=== PATIENT | female | born 1990 | race Caucasian/White ===

== ENCOUNTER 2022-10-25 20:25 | Outpatient (REF) | payer OTHER, SELFPAY ==
[2022-10-30 10:08] LABS: Age Gdln ACOG Testing Note (.); HPV Aptima Negative (Negative); IGP, Aptima HPV, rfx 16/18,45 Note (.)
== END 2022-10-25 20:26 | disposition home or self-care (01) ==
LOC: LAB 20:25
PROVIDERS: PCP Physician Assistant; Visit Provider Physician Assistant
DX: Z01.419 Encounter for gynecological examination (general) (routine) without abnormal findings (principal)
CPT/HCPCS: 87624; G0145

== ENCOUNTER 2023-10-31 20:57 | Outpatient (REF) | payer OTHER, SELFPAY | END 2023-10-31 20:58 | disposition home or self-care (01) | LOC: LAB 20:57 | PROVIDERS: PCP Physician Assistant; Visit Provider Obstetrics & Gynecology | DX: Z01.419 Encounter for gynecological examination (general) (routine) without abnormal findings (principal) | CPT/HCPCS: 87624; 88175 ==

== ENCOUNTER 2024-03-30 10:41 | Outpatient (OUT) | payer OTHER, SELFPAY ==
[2024-03-30 11:13] LABS: BOX Test Reference Lab FIRELANDS
[2024-03-30 11:13] LABS: Basophils Absolute Auto 0.1 10^3/uL (0.0-0.1); Basophils Percent Auto 0.8 % (0.2-2.0); Eosinophils Absolute Auto 0.1 10^3/uL (0.0-0.7); Eosinophils Percent Auto 0.9 % (0.9-7.0); Hematocrit 37.7 % (36.0-48.0); Hemoglobin 12.9 g/dL (12.0-16.0); Immature Granulocytes Abs Auto 0.02 10^3/uL (0.00-0.03); Immature Granulocytes Pct Auto 0.3 % (0.0-0.5); Lymphocytes Absolute Auto 1.7 10^3/uL (1.2-3.8); Lymphocytes Percent Auto 22.4 % (20.5-60.0); Mean Corpuscular HGB Conc 34.2 g/dL (29.9-35.2); Mean Corpuscular Hemoglobin 30.2 pg (26.7-34.0); Mean Corpuscular Volume 88.3 fL (81.0-99.0); Mean Platelet Volume 10.5 fL (9.5-13.5); Monocytes Absolute Auto 0.6 10^3/uL (0.3-0.8); Monocytes Percent Auto 7.7 % (1.7-12.0); Neutrophils Absolute Auto 5.3 10^3/uL (1.4-6.5); Neutrophils Percent Auto 67.9 % (43.0-75.0); Platelet Count 194 10^3/uL (150-450); Red Blood Count 4.27 10^6/uL (4.20-5.40); Red Cell Distribution Width 11.6 % (11.0-15.0); White Blood Count 7.8 10^3/uL (4.0-11.0)
[2024-03-30 11:25] LABS: Amphetamine Screen Urine NEGATIVE (NEGATIVE); Barbiturates Screen Urine NEGATIVE (NEGATIVE); Benzodiazepines Screen Urine NEGATIVE (NEGATIVE); Buprenorphine Screen Urine NEGATIVE (NEGATIVE); Cannabinoid Screen Urine NEGATIVE (NEGATIVE); Cocaine Screen Urine NEGATIVE (NEGATIVE); Methadone Screen Urine NEGATIVE (NEGATIVE); Methamphetamines Screen Urine NEGATIVE (NEGATIVE); Opiate Screen Urine NEGATIVE (NEGATIVE); Oxycodone Screen Urine NEGATIVE (NEGATIVE); Phencyclidine Screen Urine NEGATIVE (NEGATIVE); Tricyclic Antidepressant Urine NEGATIVE (NEGATIVE)
[2024-03-30 11:31] LABS: Estimated Average Glucose 97 mg/dL
[2024-03-31 06:16] LABS: HBsAg Screen Negative (Negative); HCV Ab Non Reactive (Non Reactive); HIV Ab/p24 Ag Screen Non Reactive (Non Reactive); Rubella Antibodies, IgG 2.34 index (Immune >0.99)
[2024-03-31 12:07] LABS: Rapid Plasma Reagin, Quant Non Reactive titer (NonRea<1:1)
== END 2024-03-30 10:42 | disposition home or self-care (01) ==
PROVIDERS: PCP Family Medicine; Visit Provider Obstetrics & Gynecology
DX: Z34.90 Encounter for supervision of normal pregnancy, unspecified, unspecified trimester (principal); N92.6 Irregular menstruation, unspecified
CPT/HCPCS: 36415; 80307; 83036; 85025; 86592; 86762; 86803; 86850; 86900; 86901; 87086; 87340; 87389

== ENCOUNTER 2024-04-13 12:33 | Outpatient (OUT) | payer OTHER, SELFPAY ==
--- OUTSIDE RECORDS SUMMARY | 2024-04-13 12:51 | XMS_ITS | CCD ---
Author Organization [facility] Care Team Providers Care Nut Roaster Name Role Phone LITZY SETH Unavailable Unavailable JOSEPHINE CANADA Unavailable Unavailable LITZY SETH Unavailable Unavailable JOSEPHINE CANADA Unavailable Unavailable CALEB, DR BURTON Admitting Unavailable CALEB, DR BURTON Attending Unavailable KARASIK, DR MIRANDA Admitting Unavailable KARASIK, DR MIRANDA Attending Unavailable KARBLAIRK, DR MIRANDA Consulting Unavailable JOSEPHINE CANADA M Referring Unavailable JOSEPHINE CANADA M Primary Care Unavailable JOSEPHINE CANADA Referring Unavailable CALEB JOSEPHINE Bela Primary Care Unavailable Josephine Canada MD Primary Care Provider [phone] BABS RICE Attending Unavailable BABS RICE Attending Unavailable Babs Rice DO Attending Provider Babs Rice Attending Unavailable Babs Rice Admitting Unavailable Allergies Allergy Classification Reported Allergen(s) Allergy Type Date of Onset Reaction(s) Facility (2 sources) Sulfonamides (Antibiotic) Drug allergy (disorder) 6 The Repository (4 sources) Sulfonamides (Antibiotic) Propensity to adverse reactions 3 Hives, Itching, Swelling [facility] Medications Current Medications Medication Drug Class(es) Dates Sig (Normalized) Sig (Original) ascorbic acid 250 mg oral tablet (2 sources) Vitamin C take 1 tablet by ian th once daily Ascorbic Acid (vitamin C) 250 MG tablet Take 250 mg by mouth Daily Active MV-Min-Fe Fum-FA-DHA ( 1 PO) (2 sources) MV-Min- Fe Fum-FA-DHA ( 1 PO) Take by mouth Active Problems Problem Classification Problem Date Documented Da te Episodic/Chronic Abdominal pain (3 sources) Generalized abdominal pain; Translations: [Generalized abdominal pain] Onset: 07-22-2017 Episodic Contraceptive and procreative management (1 source) Patient encounter status; Translations: [Encounter for procreative management, unspecified] 01-31-2024 Episodic Diabetes mellitus without complication (1 source) Other abnormal glucose; Translations: [Other abnormal glucose] Onset: 10-28-2023 Episodic Disorders of lipid metabolism (1 source) Hyperlipidemia, unspecified; Translations: [Hyperlipidemia, unspecified] Onset: 10-28-2023 Chronic Essential hypertension (1 source) Essential (primary) hypertension; Translations: [Essential (primary) hypertension] Onset: 10-28-2023 Chronic Lymphadenitis (1 source) Nonspecific lymphadenitis, unspecified; Translations: [Nonspecific lymphadenitis, unspecified] Onset: 10-28-2023 Episodic Malaise and fatigue (1 source) Other fatigue; Translations: [Other fatigue] Onset: 10-28-2023 Episodic Menstrual disorders (1 source) Missed period; Translations: [Irregular menstruation, unspecified] 03-30-2024 Chronic Other female genital disorders (1 source) Abnormal uterine bleeding; Translations: [Other specified abnormal uterine and vaginal bleeding] 01-31-2024 Chronic Other gastrointestinal disorders (1 source) Diarrhea, unspecified; Translations: [Diarrhea, unspecified] Onset: 07-22-2017 Episodic Other and delivery including normal (2 sources) ; Translations: [Encounter for supervision of normal , unspecified, unspecified trimester] 03-30-2024 Episodic Other screening for suspected conditions (not mental disorders or infectious disease) (4 sources) Encounter for screening for malignant neoplasm of cervix; Translations: [ENC SCREENING MALIG NEOPLASM CERV] Onset: 08-28-2021 Episodic Thyroid disorders (1 source) Hypothyroidism, unspecified; Translations: [Hypothyroidism, unspecified] Onset: 10-28-2023 Chronic Results Test Name Value Interpretation Reference Range Facility ALL CBC WITH AUTO DIFFon BASOPHILS ABSOLUTE AUTO 0.1 [facility] Basophils/100 WBC (Bld) 0.8 % 0.2 - 2.0 % [facility] Eosinophils/100 WBC (Bld) 0.9 % 0.9 - 7.0 % [facility] Erythrocyte distribution width (RBC) [Ratio] 11.6 % 11.0 - 15.0 % [facility] Hematocrit (Bld) [Volume fraction] 37.7 % 36.0 - 48.0 % [facility] Hemoglobin (Bld) [Mass/Vol] 12.9 g/dL 12.0 - 16.0 g/dL [facility] IMMATURE GRANULOCYTES ABS AUTO 0.02 [facility] Immature granulocytes/100 WBC (Bld) 0.3 % 0.0 - 0.5 % [facility] LYMPHOCYTES ABSOLUTE AUTO 1.7 [facility] Lymphocytes/100 WBC (Bld) 22.4 % 20.5 - 60.0 % [facility] MCH (RBC) [Entitic mass] 30.2 pg 26.7 - 34.0 pg [facility] MCHC (RBC) [Mass/Vol] 34.2 g/dL 29.9 - 35.2 g/dL [facility] MCV (RBC) [Entitic vol] 88.3 fL 81.0 - 99.0 fL [facility] MONOCYTES ABSOLUTE AUTO 0.6 [facility] Monocytes/100 WBC (Bld) 7.7 % 1.7 - 12.0 % [facility] NEUTROPHILS ABSOLUTE AUTO 5.3 [facility] Neutrophils/100 WBC (Bld) 67.9 % 43.0 - 75.0 % [facility] Platelet mean volume (Bld) [Entitic vol] 10.5 fL 9.5 - 13.5 fL [facility] TBH EO # 0.1 [facility] TBH PLT 194 [facility] RBC 4.27 [facility] WBC 7.8 [facility] HCG ( test) Ql (U)o n 03-30-2024 Interpretation and review of laboratory results Abnormal [facility] Preg Test, Ur Positive Negative [facility] US OB TRANSVAGINALon 025 US OB TRANSVAGINAL TITLE OF EXAM: US OB TRANSVAGINAL REASON FOR EXAM: Dating TECHNIQUE: Grayscale, color, and M-mode Doppler evaluation of the pelvis COMPARISON: None. PATIENT : 1990 PREGNANCIES: : 1, Para: 0, Aborta: 0 LMP: 01/30/2024 RUBY by LMP: 11/05/2024 GA by LMP: 8 weeks, 4 days FINDINGS: AUA: 8 weeks, 0 days (+/-5 days) RUBY by US: 11/09/2024 Uterus: There is a gestational sac and 0.4 cm yolk sac within the uterine body/fundus. Live embryo within the gestational sac without evident abnormality. Gestational sac 1.4 x 3.3 x 2.4 cm (7 weeks, 0 days). [place] rump length is 1.6 cm (8 weeks, 0 days) cm. heart rate is 162 bpm. No appreciable subchorionic hemorrhage or other abnormality. Cervical length 4.0 cm. No appreciable funneling. Right ovary: 2.6 x 1.7 x 2.6 cm (volume 5.9 mL). Present color flow. No appreciable nodule/mass. Left ovary: 3.0 x 2.0 x 1.9 cm (volume 5.7 mL). Present color flow. No appreciable nodule/mass. IMPRESSION: Single live intrauterine gestation sonographically measuring 8 weeks, 0 days. No appreciable abnormality of the evaluated and maternal structures. DICTATED ON: 03/30/2024 9:28 AM This report has been electronically signed and approved by the interpreting radiologist. Normal Not Available Comment on above: Order Comment: US OB TRANSVAGINAL No LMP recorded. Urinalysis macro (dipstick) panel (U)on 03-30-2024 Bilirubin, UA Negative Negative - 4(70) +++ mg/dL [facility] Blood, UA Negative Negative - 50 Abiel/mcL [facility] Clarity, UA Clear [facility] Color, UA Yellow [facility] Glucose, UA Negative Negative - 1999(110) ++++ mg/dL [facility] Interpretation and review of laboratory results Abnormal [facility] Ketones, UA Positive Negative - 160(16) ++++ mg/dL [facility] Comment on above: trace Leukocytes, UA Negative Negative - 500+++ Pradip/mcL [facility] Nitrite, UA Negative Negative - Positive [facility] pH, UA 7 5 - 9 [facility] Protein, UA Negative Negative - 1999(20) ++++ mg/dL [facility] Spec Grav, UA 1.02 1 - 1.03 [facility] Urobilinogen, UA 1.0 0.2 - 12 mg/dL [facility] Urine Cultureon 03-30-2024 Bacteria identified Cx Nom (U) No Growth 2 Days PERFORMED BY: [facility] [place] [address] PATHOLOGIST [employer]ACLE FUSION DEVELOPER KASIA BECK M.D. Normal [facility] Comment on above: Performed By: #### C UU #### [facility] [address] [id number] [facility] US SOFT TISS HEAD NECKon US SOFT TISS HEAD NECK US SOFT TISS HEAD NECK STUDY: US SOFT TISS HEAD NECK INDICATION: Lymphadenitis. COMPARISON: None FINDINGS: In the palpable areas of swelling the left neck, there are 2 lymph nodes measuring 2.2 x 1.0 x 0.6 cm and 1.6 x 1.3 x 0.4 cm, respectively. IMPRESSION: * Minimally prominent left neck lymph nodes, not significantly enlarged in the short axis but may be followed up on a clinical basis. If symptoms persist or worsen, consider repeat ultrasound or CT soft tissue neck. Finalized by Chris Encarnacion on 10/31/2023 7:59 AM Normal [facility] CBC AND AUTO DIFFon 10-28-19 24 ABSOLUTE BASOPHIL 0.0 X10E9/L Normal 0.0-0.2 [facility] Comment on above: Performed By: #### C SCOTTY CMP, 77530-3, THYR, HA1C #### [facility] ([id number]) [address], [address] [place] [address] ABSOLUTE NEUTROPHIL 2.9 X10E9/L Normal 1.5-6.6 [facility] Comment on above: Performed By: #### C BCA, CMP, 61605-7, THYR, HA1C #### [facility] ([id number]) [address], [address] [place] [address] Basophils/100 WBC (Bld) 0.8 % Normal [facility] Comment on above: Performed By: #### C BCA, CMP, 55939-7, THYR, HA1C #### [facility] ([id number]) [address], [address] [place] [address] Eosinophils (Bld) [#/Vol] 0.1 10*3/uL Normal 0.0-0.4 [facility] Comment on above: Performed By: #### C BCA, CMP, 81369-4, THYR, HA1C #### [facility] ([id number]) [address] [address] [place] [address] Eosinophils/100 WBC (Bld) 2.2 % Normal [facility] Comment on above: Performed By: #### C BCA, CMP, 19781-1, THYR, HA1C #### [facility] ([id number]) [address] [address] [place] [address] Erythrocyte distribution width (RBC) [Ratio] 12.5 % Normal 11.5-15.0 [facility] Comment on above: Performed By: #### C BCA, CMP, 86048-6, THYR, HA1C #### [facility] ([id number]) [address] [address] [place] [address] Hematocrit (Bld) [Volume fraction] 39.6 % Normal 35-47 [facility] Comment on above: Performed By: #### C BCA, CMP, 35741-3, THYR, HA1C #### [facility] ([id number]) [address] [address] [place] [address] Hemoglobin (Bld) [Mass/Vol] 13.5 g/dL Normal 11.7-15.5 [facility] Comment on above: Performed By: #### C BCA, CMP, 23728-3, THYR, HA1C #### [facility] ([id number]) [address] [address] [place] [address] Lymphocytes (Bld) [#/Vol] 2.1 10*3/uL Normal 1.0-3.5 [facility] Comment on above: Performed By: #### C BCA, CMP, 19084-0, THYR, HA1C #### [facility] ([id number]) [address] [address] [place] [address] Lymphocytes/100 WBC (Bld) 37.5 % Normal [facility] Comment on above: Performed By: #### C BCA, CMP, 70843-7, THYR, HA1C #### [facility] ([id number]) [address], [facility] [address] [place] [address] MCH (RBC) [Entitic mass] 31.0 pg Normal 27-34 [facility] Comment on above: Performed By: #### C BCA, CMP, 83148-2, THYR, HA1C #### [facility] ([id number]) [address] [address] [place] [address] MCHC (RBC) [Mass/Vol] 34.1 g/dL Normal 32-36 [facility] Comment on above: Performed By: #### C BCA, CMP, 24857-7, THYR, HA1C #### [facility] ([id number]) [address] [address] MCV (RBC) [Entitic vol] 91 fL Normal 80-100 [facility] Comment on above: Performed By: #### C BCA, CMP, 56057-8, THYR, HA1C #### [facility] ([id number]) [address] [address] Monocytes (Bld) [#/Vol] 0.5 10*3/uL Normal 0-0.9 [facility] Comment on above: Performed By: #### C BCA, CMP, 24524-3, THYR, HA1C #### [facility] ([id number]) [address] [address] Monocytes/100 WBC (Bld) 8.3 % Normal [facility] Comment on above: Performed By: #### C BCA, CMP, 29302-9, THYR, HA1C #### [facility] ([id number]) [address] [place] [address] Neutrophils/100 WBC (Bld) 51.2 % Normal [facility] Comment on above: Performed By: #### C BCA, CMP, 00730-7, THYR, HA1C #### [facility] ([id number]) [address], [facility] [address] [place] [address] Platelet mean volume (Bld) [Entitic vol] 8.3 fL Normal 7-12 [facility] Comment on above: Performed By: #### C BCA, CMP, 33175-6, THYR, HA1C #### [facility] ([id number]) [address], [facility] [address] [place] [address] Platelets (Bld) [#/Vol] 195 10*3/uL Normal 150-450 [facility] Comment on above: Performed By: #### C BCA, CMP, 07560-2, THYR, HA1C #### [facility] ([id number]) [address] [address] [place] [address] RBC COUNT 4.36 X10E12/L Normal 3.80-5.20 [facility] Comment on above: Performed By: #### C BCA, CMP, 94052-7, THYR, HA1C #### [facility] ([id number]) [address] [address] [place] [address] WBC (Bld) [#/Vol] 5.7 10*3/uL Normal 4.0-11.0 [facility] Comment on above: Performed By: #### C BCA, CMP, 20715-5, THYR, HA1C #### [facility] ([id number]) [address], [address] [place] [address] COMPREHENSIVE METABOLIC PANE Lonny 10-28-2023 Albumin [Mass/Vol] 4.3 g/dL Normal 3.2-5.3 [facility] Comment on above: Performed By: #### C BCA, CMP, 47533-4, THYR, HA1C #### [facility] ([id number]) [address], [address] [place] [address] ALP [Catalytic activity/Vol] 53 U/L Normal 39-130 [facility] Comment on above: Performed By: #### C BCA, CMP, 32825-3, THYR, HA1C #### [facility] ([id number]) [address], [address] [place] [address] ALT [Catalytic activity/Vol] 12 U/L Normal 0-31 [facility] Comment on above: Performed By: #### C BCA, CMP, 93364-0, THYR, HA1C #### [facility] ([id number]) [address], [address] [place] [address] Anion gap [Moles/Vol] 9 mmol/L Normal 5-15 [facility] Comment on above: Performed By: #### C BCA, CMP, 01040-5, THYR, HA1C #### [facility] ([id number]) [address], [address] [place] [address] AST [Catalytic activity/Vol] 21 U/L Normal 0-41 [facility] Comment on above: Performed By: #### C BCA, CMP, 74065-9, THYR, HA1C #### [facility] ([id number]) [address], [address] [place] [address] Bilirubin [Mass/Vol] 0.6 mg/dL Normal 0.3-1.2 [facility] Comment on above: Performed By: #### C BCA, CMP, 55958-0, THYR, HA1C #### [facility] ([id number]) [address], [address] [place] [address] Calcium [Mass/Vol] 9.6 mg/dL Normal 8.5-10.5 [facility] Comment on above: Performed By: #### C BCA, CMP, 76724-3, THYR, HA1C #### [facility] ([id number]) [address], [address] [place] [address] Chloride [Moles/Vol] 103 mmol/L Normal 98-109 [facility] Comment on above: Performed By: #### C BCA, CMP, 71834-2, THYR, HA1C #### [facility] ([id number]) [address], [address] [place] [address] CO2 [Moles/Vol] 27 mmol/L Normal 22-32 [facility] Comment on above: Performed By: #### C BCA, CMP, 18986-6, THYR, HA1C #### [facility] ([id number]) [address], [address] [place] [address] Creatinine [Mass/Vol] 0.84 mg/dL Normal 0.40-1.00 [facility] Comment on above: Result Comment: METH OD TRACEABLE TO IDMS STANDARD Performed By: #### C BCA, CMP, 88804-4, THYR, HA1C #### [facility] ([id number]) [address], [address] [place] [address] eGFR (CKD-EPI) NON-RACE DEPENDENT >90 Normal >59 [facility] Comment on above: Result Comment: Reported eGFR is based on the CKD-EPI 2020 equation that does not use a race coefficient. Performed By: #### C BCA, CMP, 24194-0, THYR, HA1C #### [facility] ([id number]) [address], [address] [place] [address] Glucose [Mass/Vol] 81 mg/dL Normal 65-99 [facility] Comment on above: Performed By: #### C BCA, CMP, 95751-7, THYR, HA1C #### [facility] ([id number]) [address], [address] [place] [address] Potassium [Moles/Vol] 3.8 mmol/L Normal 3.5-5.0 [facility] Comment on above: Performed By: #### C BCA, CMP, 82587-3, THYR, HA1C #### [facility] ([id number]) [address], [address] [place] [address] Protein [Mass/Vol] 7.5 g/dL Normal 6.0-8.0 [facility] Comment on above: Performed By: #### C BCA, CMP, 76378-6, THYR, HA1C #### [facility] ([id number]) [address], [address] [place] [address] Sodium [Moles/Vol] 139 mmol/L Normal 134-146 [facility] Comment on above: Performed By: #### C BCA, CMP, 16969-0, THYR, HA1C #### [facility] ([id number]) [address], [address] [place] [address] Urea nitrogen [Mass/Vol] 12 mg/dL Normal 5-23 [facility] Comment on above: Performed By: #### C BCA, CMP, 18061-1, THYR, HA1C #### [facility] ([id number]) [address], [address] [place] [address] HGB A1C (GLYCO-HGB)on 2023 Glucose [Mass/Vol] 103 mg/dL Normal [facility] Comment on above: Performed By: #### C BCA, CMP, 58200-0, THYR, HA1C #### [facility] ([id number]) [address] [place] [address] HbA1c (Bld) [Mass fraction] 5.2 % Normal 4.4-5.6 [facility] Comment on above: Result Comment: NOTE ADA Guidelines Result HgbA1c Normal : less than 5.7 % Prediabetes : 5.7 % to 6.4 % Diabetes : > 6.4 % Use with caution in patients with abnormal hemoglobin variants as the half-life of red blood cells and in vivo glycation rates are affected. Performed By: #### C SCOTTY, CMP, 53893-1, THYR, HABassam #### [facility] ([id number]) [address], [address] [place] [address] Lipid 1996 panelon 4 Cholesterol [Mass/Vol] 208 mg/dL High 150-200 [facility] Comment on above: Performed By: #### C SCOTTY, CMP, 86655-7, THYGil HABassam #### [facility] ([id number]) [address], [address] [place] [address] Cholesterol in HDL [Mass/Vol] 75 mg/dL Normal >39 [facility] Comment on above: Result Comment: HDL <40 mg/dL - High Risk HDL > or = 40mg/dL- Desirable HDL >60 mg/dL - Negative Risk Performed By: #### C SCOTTY, CMP, 98347-1, THYR, HA1C #### [facility] ([id number]) [address] [place] [address] Cholesterol in LDL [Mass/Vol] 120 mg/dL Normal <130 [facility] Comment on above: Result Comment: LDL <100 mg/dL - Desirable LDL >160 mg/dL - High Risk Performed By: #### C BCA, CMP, 92306-1, THYR, HA1C #### [facility] ([id number]) [address] [place] [address] Cholesterol in VLDL [Mass/Vol] 13 mg/dL Normal 0-30 [facility] Comment on above: Performed By: #### C BCA, CMP, 37297-4, THYR, HA1C #### [facility] ([id number]) [address], [address] [place] [address] CHOLESTEROL:HDL 2.8 Normal 1.0-5.0 [facility] Comment on above: Performed By: #### C BCA, CMP, 86061-4, THYR, HA1C #### [facility] ([id number]) [address], [address] [place] [address] Triglyceride [Mass/Vol] 66 mg/dL Normal 27-150 [facility] Comment on above: Performed By: #### C BCA, CMP, 42512-8, THYR, HA1C #### [facility] ([id number]) [address] [place] [address] THYROID PROFILEon 10-28-2023 Free T4 [Mass/Vol] 0.88 ng/dL Normal 0.61-1.60 [facility] Comment on above: Performed By: #### C BCA, CMP, 62551-3, THYR, HA1C #### [facility] ([id number]) [address] [place] [address] TSH 2.30 uIU/mL Normal 0.49-4.67 [facility] Comment on above: Performed By: #### C BCA, CMP, 42321-4, THYR, HA1C #### [facility] ([id number]) [address] [place] [address] PAP ACOG PANEL 2: 21 to 30on 09-02-2021 . . [facility] Comment on above: Performed By: #### 4 [id number] #### Laboratory [address] [address] [address] Kulwant Duffy Age Gdln ACOG Testing 22- Normal [facility] Comment on above: Performed By: #### 4 [id number] #### Laboratory [address] [place] [address] Dr. Kulwant Duffy DIAGNOSIS: Comment Normal [facility] Comment on above: Result Comment: NEGA TIVE FOR INTRAEPITHELIAL LESION OR MALIGNANCY. Performed By: #### 4 [id number] #### Laboratory [address] [place] [address] Dr. Kulwant Duffy Methodology: Comment Normal [facility] Comment on above: Result Comment: This liquid based ThinPrep(R) pap test was screened with the use of an image guided system. Performed By: #### 4 [id number] #### Laboratory [address] [place] [address] Dr. Kulwant Duffy Note: Comment [facility] Comment on above: Result Comment: The Pap smear is a screening test designed to aid in the detection of premalignant and malignant conditions of the uterine cervix. It is not a diagnostic procedure and should not be used as the sole means of detecting cervical cancer. Both false-positive and false-negative reports do occur. . Performed By: #### 4 [id number] #### Laboratory [address] [place] [address] Dr. Kulwant Duffy Performed by: Comment Normal [facility] Comment on above: Result Comment: Wilber Newton Rn Case Mgr (ASCP) Performed By: #### 4 [id number] #### Laboratory [address] [place] [address] Dr. Kulwant Duffy Reflex Criteria: Comment Normal [facility] Comment on above: Result Comment: The HPV DNA reflex criteria were not met with this specimen result therefore, no HPV testing was performed. . Performed By: #### 4 [id number] #### Laboratory [address] [place] [address] Dr. Kulwant Duffy Specimen adequacy: Comment Normal [facility] Comment on above: Result Comment: Sati sfactory for evaluation. Endocervical and/or squamous metaplastic cells (endocervical component) are present. Performed By: #### 4 [id number] #### Laboratory [address] [address] [address] Kulwant Duffy US APPENDIXon 07-22-2017 US APPENDIX EXAMINATION:RIGHT LO WER QUADRANT ULTRASOUND07/22/2017 7:43 amCOMPARISON:None.HISTORY:O RDERING SYSTEM PROVIDED HISTORY: Abdominal pain, generalizedTECHNOLOGIST PROVIDED HISTORY:Ordering Physician Provided Reason for Exam: Right quad pain and diarrhea fora weekAcuity: AcuteType of Exam: InitialAdditional signs and symptoms: NoneRelevant Medical/Surgical History: NoneFINDINGS:Targeted ultrasonography over the right lower quadrant demonstrates anappendix which is normal in size without evidence of wall edema or luminalthickening. There is no ultrasonographic evidence of appendicitis.IMPRESSION: No ultrasonographic evidence appendicitis.RECOMMENDATION :Correlation with clinical and laboratory findings is suggested.Interpreted by:ELIAN Narayanigned by:Patricia Garcia MD07/22/17CC Recipients:Josephine Canada MD - FaxFinal result Normal [facility] US GALLBLADDER RUQon 018 US GALLBLADDER RUQ EXAMINATION:GALLBLAD QAMAR ULTRASOUND07/22/2017 7:43 amCOMPARISON:None.HISTORY:O RDERING SYSTEM PROVIDED HISTORY: Abdominal pain, generalizedTECHNOLOGIST PROVIDED HISTORY:Ordering Physician Provided Reason for Exam: Right quad pain and diarrhea fora weekAcuity: AcuteType of Exam: InitialAdditional signs and symptoms: NoneRelevant Medical/Surgical History: NoneFINDINGS:Visualized portions of the liver without acute abnormality. No focal hepaticmass lesion identified. Parenchymal echogenicity is grossly within normallimits.The gallbladder is unremarkable without evidence for pericholecystic fluid,wall thickening, or calculi. Assistant Professor Of Theater documents a negative sonographicMurphy's sign. Gallbladder wall is normal in thickness, measuring 2.4 mm.The common bile duct is normal and measures 3 mm.IMPRESSION: Unremarkable ultrasound of the gallbladder. No evidence for cholelithiasisor acute cholecystitis.Interpreted by:ELIAN Brittonigned by:Nghia Denny MD07/22/17CC Recipients:Josephine Canada MD - FaxFinal result Normal [facility] Vital Signs Date Time Vital Sign Value Performing Clinician Te[place] steward 01-31-2024 08:53-0500 Body mass index (BMI) [Ratio] 25.99 kg/m2 Babs Dwayne DO Work Phone: [facility] 01-31-2024 08:53-0500 Body weight 73.03 kg Babs Dwayne DO Work Phone: [facility] 01-31-2024 08:53-0500 Diastolic blood pressure 72 mm[Hg] Babs Dwayne DO Work Phone: [facility] 01-31-2024 08:53-0500 Systolic blood pressure 118 mm[Hg] Babs Dwayne DO Work Phone: [facility] Encounters Encounter Date Encounter Type Care Provider Facility Start: 03-30-2024 End: 03-30-2024 Clinisync Result Encounter Babs Dwayne DO Work Phone: [facility] External Department Unsolicited Start: 03-30-2024 End: 03-30-2024 Clinisync Result Encounter Babs Dwayne DO Work Phone: [facility] External Department Unsolicited Start: 03-30-2024 End: 03-30-2024 ambulatory Babs Dwayne [facility] Work Phone: Start: 03-30-2024 End: 03-30-2024 Departed Referred Babs Dwayne DO Work Phone: [facility] Start: 03-30-2024 End: 03-30-2024 Office outpatient visit 5 minutes [facility] Dwayne Nurse [facility] Comment on above: GA: 8w4d Start: 03-30-2024 End: 03-30-2024 ambulatory BABS DWAYNE Not Available Start: 01-31-2024 End: 01-31-2024 Bamboo flowsheet Babs Dwayne DO Work Phone: [facility] Start: 01-31-2024 End: 01-31-2024 Bamboo flowsheet Babs Dwayne DO Work Phone: [facility] Start: 01-31-2024 End: 01-31-2024 Office outpatient visit 15 minutes Babs Dwayne DO Work Phone: [facility] Comment on above: Encounter for infert ility; Dysfunctional uterine bleeding Start: 01-31-2024 End: 01-31-2024 ambulatory BABS DWAYNE Not Available Start: 10-31-2023 End: 10-31-2023 ambulatory BABS DWAYNE Not Available Start: 10-28-2023 End: 10-28-2023 ambulatory JOSEPHINE Cramer [facility] Start: 10-28-2023 Encounter for genera l adult medical examination without abnormal findings JOSEPHINE [facility] Start: 08-28-2021 End: 08-28-[address] RUTH PINEDA Facility:[facility] Start: 08-14-[address] JOSEPHINE CANADA Facility :[facility] Start: 07-22-2017 End: 07-25-2017 Ambulatory LITZY SETH [facility] Procedures Date Procedure Procedure Detail Performing Clinician Start: 03-30-2024 ALL CBC WITH AUTO DIFF Babs Dwayne DO Work Phone: Start: 03-30-2024 Urnls dip stick/tabl et rgnt non-auto w/o micrscp Babs Dwayne DO Work Phone: Start: 07-22-2017 Us abdominal real ti me w/image limited LITZY SETH Plan of Treatment Date Care Activity Detail Author Start: 11-01-2024 End: 11-01-2024 Patient encounter procedure 11/01/2024 8:30 AM EDT Office Visit [facility] [address] [place] [address] Babs Rice DO [address] [place] [address] [facility] Start: 04-30-2024 End: 04-30-2024 Patient encounter procedure 04/30/2024 1:40 PM EST Routine [facility] [address] [place] [address] Babs Rice, DO [address] [place] [place] [address] [facility] Start: 03-30-2024 End: 03-30-2025 ABO/Rh ABO/Rh Lab Routine Missed menses , unspecified gestational age Expected: 03/30/2024 (Approximate), Expires: 03/30/2025 [facility] Comment on above: Expected: 03/30/2024 (Approximate), Expires: 03/30/2025 Start: 03-30-2024 Bacteria identified in Urine by Culture [facility] Comment on above: Ordered: 03/30/2024 Start: 03-30-2024 End: 03-30-2025 Blood type and Indirect antibody screen panel - Blood Type and screen Lab Routine Missed menses , unspecified gestational age Expected: 03/30/2024 (Approximate), Expires: 03/30/2025 [facility] Work Phone: Comment on above: Expected: 03/30/2024 (Approximate), Expires: 03/30/2025 Start: 03-30-2024 End: 03-30-2025 Drugs of abuse panel - Urine by Screen method Rapid drug screen, urine Lab Routine , unspecified gestational age Encounter for supervision of normal first in first trimester Expected: 03/30/2024 (Approximate), Expires: 03/30/2025 [facility] Comment on above: Expected: 03/30/2024 (Approximate), Expires: 03/30/2025 Start: 03-30-2024 Urine culture [facility] Start: 01-31-2024 End: 01-30-2025 US for US PELVIS-TRANSVAG IF INDICATED Imaging Routine Dysfunctional uterine bleeding Expected: 01/31/2024 (Approximate), Expires: 01/30/2025 [facility] Work Phone: Comment on above: Expected: 01/31/2024 (Approximate), Expires: 01/30/2025 Start: 01-31-2024 End: 01-31-2024 Patient encounter procedure 01/31/2024 8:40 AM EST Office Visit [facility] [address] [address] Babs Rice, DO [address] [place] [address] [place] [address] Arrived [facility] Comment on above: Arrived CBC W Auto Different ial panel - Blood CBC and differential Lab Routine Missed menses , unspecified gestational age Ordered: 03/30/2024 [facility] Comment on above: Ordered: 03/30/2024 Hemoglobin A1c/Hemoglobin.total in Blood Hemoglobin A1c Lab Routine Missed menses , unspecified gestational age Ordered: 03/30/2024 [facility] Comment on above: Ordered: 03/30/2024 Hepatitis B virus surface Ag [Presence] in Serum or Plasma by Immunoassay Hepatitis B surface antigen Lab Routine Missed menses , unspecified gestational age Ordered: 03/30/2024 [facility] Comment on above: Ordered: 03/30/2024 Hepatitis C virus Ab [Presence] in Serum or Plasma by Immunoassay Hepatitis C antibody Lab Routine Missed menses , unspecified gestational age Ordered: 03/30/2024 [facility] Comment on above: Ordered: 03/30/2024 HIV-1/HIV-2 antigen/antibody combination immunoassay HIV-1 and HIV-2 antibodies Lab Routine Missed menses , unspecified gestational age Ordered: 03/30/2024 [facility] Comment on above: Ordered: 03/30/2024 Reagin Ab [Presence] in Serum by RPR RPR Lab Routine Missed menses , unspecified gestational age Ordered: 03/30/2024 [facility] Comment on above: Ordered: 03/30/2024 Rubella antibody, IgG Rubella an tibody, IgG Lab Routine Missed menses , unspecified gestational age Ordered: 03/30/2024 [facility] Comment on above: Ordered: 03/30/2024 Payers Date Payer Category Payer Private Health Insurance [id number] 2017 Unknown [id number] 1991 Unknown [id number] 1991 Unknown [id number] 1991 Unknown [id number] 1991 Unknown [id number] 1991 Unknown [id number] 1259 1991 Unknown [id number] 1259 1991 Unknown [id number] 1259 1991 Unknown [id number] 1259 1959 Self-pay 1959 Unknown [id number] Unknown [id number] Social History Date Type Detail Facility Start: 10-31-2023 Tobacco smoking stat [facility] Never smoked tobacco [facility] Start: 10-31-2023 Tobacco use and exposure Smokeless tobacco non-user [facility] Start: 10-31-2023 End: 03-30-2024 Alcoholic beverage intake Lifetime non-drinker (finding) [facility] Start: 10-31-2023 End: 01-31-2024 History of Social function [facility] Start: 10-31-2023 End: 01-31-2024 Tobacco use panel [facility] Start: 1990 Sex assigned at Female [facility] Start: 09-07-2022 Gender identity Identifies as female gender (finding) [facility] Start: 02-13-2024 [facility] Tobacco smoking stat us [facility] Unknown if ever smoked [facility] Work Phone: Start: 03-31-2024 Sex Female (finding) [facility] History of Present illness Narrative 03-30-2024 Sheri Reyna, GENERAL TELLER - 03/30/2024 10:00 AM EST Note Date & Type Note Facility 03-30-2024 History of Presen t illness Narrative Reason for Appointment: Patient ID: Joseline Gomez is a 33 y.o. female who presents for Amenorrhea Patient presents today for a Nurse OB Intake appointment. Patient is 8w4d with a Estimated Date of Delivery: 11/05/24 OB History Para Term AB Living 1 0 0 0 0 0 SAB IAB Ectopic Multiple Live Births 0 0 0 0 0 # Outcome Date GA Lbr Saul/2nd Weight Sex Type Anes PTL Lv 1 Current Current Medications: has a current medication list which includes the following prescription(s): vitamin c and mv-min-fe fum-fa-dha. Medical History: Active Ambulatory Problems Diagnosis Date Noted No Active Ambulatory Problems Resolved Ambulatory Problems Diagnosis Date Noted No Resolved Ambulatory Problems Past Medical History: Diagnosis Date Arthritis Asthma (CMS/HCC) MARIANO II (cervical intraepithelial neoplasia II) HPV (human papilloma virus) infection 04/2015 HSIL (high grade squamous intraepithelial lesion) on Pap smear of cervix Hx of being hospitalized Urinary tract infection Family History Problem Relation Name Age of Onset Asthma Mother Twila bernal Thyroid disease Mother Twila bernal Social History Tobacco Use Smoking status: Never Smokeless tobacco: Never Substance Use Topics Alcohol use: Never Drug use: Never Past Surgical History: Procedure Laterality Date CERVICAL BIOPSY W/ LOOP ELECTRODE EXCISION COLPOSCOPY 2016 KNEE SURGERY Knee arthroscopy WISDOM TOOTH EXTRACTION Allergies Allergen Reactions Sulfa Antibiotics Hives, Itching and Swelling Other Reaction(s): Unknown Vitals: Estimated body mass index is 25.99 kg/m as calculated from the following: Height as of 10/31/23: 5' 6 . Weight as of 01/31/24: 161 lb. BP: Patient's last menstrual period was 01/30/2024 (exact date). Assessment/Plan Diagnoses and all orders for this visit: Missed menses - Type and screen; Future - ABO/Rh; Future - CBC and differential - Hemoglobin A1c - RPR - Rubella antibody, IgG - Hepatitis B surface antigen - Hepatitis C antibody - HIV-1 and HIV-2 antibodies - Urine culture - POCT , urine manually resulted - POCT urinalysis dipstick manually resulted , unspecified gestational age - Type and screen; Future - ABO/Rh; Future - CBC and differential - Hemoglobin A1c - RPR - Rubella antibody, IgG - Hepatitis B surface antigen - Hepatitis C antibody - HIV-1 and HIV-2 antibodies - Rapid drug screen, urine; Future Encounter for supervision of normal first in first trimester - Rapid drug screen, urine; Future Nurse Note: OB Intake: Patient presents today for first OB visit. Patients history has been reviewed in great detail including any potential risks. Patient signed consent forms and patient desires testing in both trimesters. Patient currently has no complaints and has been advised to drink 6-8 glasses of water a day, eat no raw or undercooked meat, and stay away from [facility]. Patient has also been advised to not change litter boxes and eat 6 small meals a day. Patient has been consulted regarding the do's and don'ts of . Patient was given labs and all questions and concerns were answered. Follow Up: Patient is to return in 4 weeks for routine OB appointment. Follow Up: Patient is to have labs drawn at directed and return to office for initial OB appointment with provider. Patient may call office as needed with any concerns or questions. Nurse Visit Completed by: Sheri Reyna LPN documented in this encounter [facility] History of Present illness Narrative 01-31-2024 Demetria Perez LPN - 01/31/2024 8:40 AM EST Note Date & Type Note Facility 01-31-2024 History of Presen t illness Narrative Reason for Appointment: Patient ID: Joseline Gomez is a 33 y.o. female who presents for Infertility (Pt present today to discuss fertility) Patient presents today for Acute Visit. and Fertility Follow Up appointment. MEDICATIONS No current outpatient medications ALLERGIES Allergies Allergen Reactions Sulfa Antibiotics Hives, Itching and Swelling Other Reaction(s): Unknown PROBLEMS Active Ambulatory Problems Diagnosis Date Noted No Active Ambulatory Problems Resolved Ambulatory Problems Diagnosis Date Noted No Resolved Ambulatory Problems Past Medical History: Diagnosis Date Arthritis Asthma (CMS/HCC) MARIANO II (cervical intraepithelial neoplasia II) HPV (human papilloma virus) infection 04/2015 HSIL (high grade squamous intraepithelial lesion) on Pap smear of cervix Hx of being hospitalized Urinary tract infection HISTORY PAST MEDICAL HISTORY SOCIAL HISTORY Past Medical History: Diagnosis Date Arthritis Asthma (CMS/HCC) MARIANO II (cervical intraepithelial neoplasia II) HPV (human papilloma virus) infection 04/2015 HSIL (high grade squamous intraepithelial lesion) on Pap smear of cervix Hx of being hospitalized childbirth Urinary tract infection Social History Tobacco Use Smoking status: Never Smokeless tobacco: Never Substance Use Topics Alcohol use: Never Drug use: Never FAMILY HISTORY Family History Problem Relation Name Age of Onset Asthma Mother Twila bernal Thyroid disease Mother Twila bernal SURGICAL HISTORY Past Surgical History: Procedure Laterality Date CERVICAL BIOPSY W/ LOOP ELECTRODE EXCISION COLPOSCOPY 2015 KNEE SURGERY Knee arthroscopy WISDOM TOOTH EXTRACTION REVIEW OF SYSTEMS Review of Systems: Review of Systems Constitutional: Negative. HENT: Negative. Eyes: Negative. Respiratory: Negative. Cardiovascular: Negative. Gastrointestinal: Negative. Genitourinary: Negative. Musculoskeletal: Negative. Skin: Negative. Neurological: Negative. All other systems reviewed and are negative. Hematological: Negative. Endocrine: Negative. Allergic/Immunologic: Negative. OBJECTIVE Objective: Physical Exam Constitutional: Appearance: Normal appearance. She is well-developed. Cardiovascular: Rate and Rhythm: Normal rate and regular rhythm. Pulmonary: Effort: Pulmonary effort is normal. Breath sounds: Normal breath sounds. Abdominal: General: Bowel sounds are normal. There is no distension. Palpations: Abdomen is soft. Tenderness: There is no abdominal tenderness. There is no guarding or rebound. Musculoskeletal: General: No swelling. Normal range of motion. Right lower leg: No edema. Left lower leg: No edema. Neurological: Mental Status: She is alert and oriented to person, place, and time. Skin: General: Skin is warm and dry. Psychiatric: Mood and Affect: Mood normal. Behavior: Behavior normal. Vitals and nursing note reviewed. Exam conducted with a special assets officer present. Vitals: Estimated body mass index is 25.99 kg/m as calculated from the following: Height as of 8/5/24: 5' 6 . Weight as of this encounter: 161 lb. BP: 118/72 Patient's last menstrual period was 01/30/2024 (exact date). ASSESSMENT & PLAN ICD-10-CM 1. Encounter for infertility Z31.9 Patient presents today to discuss fertility. Pt given ultrasound order to have obtained. Reviewed labs with pt in detail had drawn in October. Patient was instructed to call the office once menstrual cycle begins so femara can be called into patients pharmacy. Patient has been instructed to take Femara on days 3-7 of cycle. On day 21 of cycle patient is to have progesterone labs drawn. Patient was advised to have intercourse on days 12, 14, 16, 18, and 20 of cycle. We will do three rounds of Femara and if patient has not conceived by then, we will perform HSG. And consider semen analysis. Patient has voiced understanding and will call our office for any further questions/concerns. Considering Metformin in future. No orders of the defined types were placed in this encounter. Follow Up: 4 months unless needed sooner. Documented by Demetria Perez LPN on behalf of: Babs Rice DO documented in this encounter [facility] Evaluation note Note Date & Type Note Facility Evaluation note Diagnosis Encounter for infertility Dysfunctional uterine bleeding Other disorder of menstruation and other abnormal bleeding from female genital tract documented in this encounter [facility] Evaluation note Note Date & Type Note Facility Evaluation note Diagnosis Missed menses , unspecified gestational age Encounter for supervision of normal first in first trimester documented in this encounter [facility] Evaluation note Note Date & Type Note Facility Evaluation note No assessment information availa [facility] Work Phone: Summary Purpose Family History No Family History Records FoundNo Family History Records FoundNo Family History Records FoundNo Family History Records FoundNo Family History Records Found Advance Directives No Advanced Directives Records FoundNo Advanced Directives Records FoundNo Advanced Directives Records FoundNo Advanced Directives Records FoundNo Advanced Directives Records Found Additional Source Comments INFORMATION SOURCE (unrecogn ized section and content) DATE CREATED AUTHOR 09/15/2017 [facility] DATE CREATED AUTHOR AUTHOR'S ORGANIZ ATION 10/19/2021 [facility] DATE CREATED AUTHOR AUTHOR'S ORGANIZ ATION 11/01/2023 [facility] DATE CREATED AUTHOR AUTHOR'S ORGANIZ ATION 04/06/2024 [facility] EPIC DATE CREATED AUTHOR AUTHOR'S ORGANIZ ATION 04/07/2024 [facility] Care Teams (unrecognized sec tion and content) Nut Roaster Relationship Specialty Start Date End Date Josephine Canada MD [address] [place] [address] PCP - General 10/18/22 Nut Roaster Relationship Specialty Start Date End Date Josephine Canada MD [address] [place] [address] PCP - General 10/18/22 Nut Roaster Relationship Specialty Start Date End Date Josephine Canada MD [address] [place] [address] PCP - General 10/18/22 Nut Roaster Relationship Specialty Start Date End Date Josephine Canada MD [address] [place] [address] PCP - General 10/18/22 Team Status: Inactive Member Role Status Dates Babs Rice DO Attending Provider Active Start : March 30, 2024 End: March 30, 2024 Reason for Visit (unrecogniz ed section and content) Reason Comments Infertility Pt present today to discuss fertility Reason Comments Amenorrhea Goals (unrecognized section and content) Goals may be documented in a n alternate section FOR RECORDS PERTAINING TO PATIENTS WHO ARE OR HAVE BEEN ENROLLED IN A CHEMICAL DEPENDENCY/SUBSTANCEABUSE PROGRAM, SOME INFORMATION MAY BE OMITTED. This clinical summary was aggregated from multiple sources. Caution should be exercised in using it in the provision of clinical care. This summary normalizes information from multiple sources, and as a consequence, information in this document may materially change the coding, format and clinical context of patient data. In addition, data may be omitted in some cases. CLINICAL DECISIONS SHOULD BE BASED ON THE PRIMARY CLINICAL RECORDS. [facility] [employer] [facility]. provides no warranty or guarantee of the accuracy or completeness of information in this document.
[2024-04-16 09:30] LABS: BOX Test Reference Lab UNITY BOX; BOX Test Sent Out UNITY BOX
== END 2024-04-13 12:34 | disposition home or self-care (01) ==
LOC: LAB 12:33
PROVIDERS: PCP Family Medicine; Visit Provider Obstetrics & Gynecology
DX: Z36.0 Encounter for antenatal screening for chromosomal anomalies (principal)
CPT/HCPCS: 36415

== ENCOUNTER 2024-06-25 10:18 | Outpatient (OUT) | payer OTHER, SELFPAY ==
--- OUTSIDE RECORDS SUMMARY | 2024-06-25 10:28 | XMS_ITS | CCD ---
Author Organization [facility] Care Team Providers Care Dynamicist Name Role Phone LITZY SETH Unavailable Unavailable JOSEPHINE CANADA Unavailable Unavailable LITZY SETH Unavailable Unavailable JOSEPHINE CANADA Unavailable Unavailable CALEB, DR BURTON Admitting Unavailable CALEB, DR BURTON Attending Unavailable KARASIK, DR MIRANDA Admitting Unavailable KARASIK, DR MIRANDA Attending Unavailable KARBLAIRK, DR MIRANDA Consulting Unavailable JOSEPHINE CANADA M Referring Unavailable JOSEPHINE CANADA M Primary Care Unavailable JOSEPHINE CANADA Referring Unavailable COURTNEY CANADALAS Bela Primary Care Unavailable Josephine Canada MD Primary Care Provider [phone] Babs Rice DO Attending Provider [phone] Babs Rice Attending Unavailable Babs Rice Admitting Unavailable BABS RICE Attending Unavailable BABS RICE Attending Unavailable BABS RICE Attending Unavailable BABS RICE Attending Unavailable Allergies Allergy Classification Reported Allergen(s) Allergy Type Date of Onset Reaction(s) Facility (2 sources) Sulfonamides (Antibiotic) Drug allergy (disorder) [address] [facility] Repository (13 sources) Sulfonamides (Antibiotic) Propensity to adverse reactions 3 Hives, Itching, Swelling [facility] Medications Current Medications Medication Drug Class(es) Dates Sig (Normalized) Sig (Original) ascorbic acid 250 mg oral tablet (11 sources) Vitamin C take 1 tablet by mouth once daily Ascorbic Acid (vitamin C) 250 MG tablet Take 250 mg by mouth Daily Active betamethasone 0.5 mg/ml / clotrimazole 10 mg/ml topical cream (5 sources) Azole Antifungal, Corticosteroid Start: 05-15-2024 clotrimazole-betame thasone (Lotrisone) cream Indications: Rash Apply 1 application topically Daily Apply to affected area daily for 7 days 45 g 05/15/2024 Active cephalexin 500 mg oral capsule (2 sources) Cephalosporin Antibacterial Start: 04-30-2024 End: 05-07-2024 take 1 capsule by mouth in the morning cephalexin (Keflex) 500 MG capsule Indications: Rash Take 1 capsule (500 mg) by mouth in the morning and 1 capsule (500 mg) before bedtime. Do all this for 7 days. 14 capsule 04/30/2024 05/07/2024 Active ondansetron 4 mg disintegrating oral tablet (4 sources) Serotonin-3 Receptor Antagonist Start: 05-15-2024 End: 06-14-2024 take 1 tablet by mouth every six hours for nausea ondansetron ODT (Zofran-ODT) 4 MG disintegrating tablet Indications: Nausea and vomiting in Take 1 tablet (4 mg) by mouth every 6 (six) hours if needed for nausea or vomiting 30 tablet 2 05/15/2024 06/14/2024 Active MV-Min-Fe Fum-FA-DHA ( 1 PO) (11 sources) MV-Min- Fe Fum-FA-DHA ( 1 PO) [...] Translations: [Essential (primary) hypertension] Onset: 10-28-2023 Chronic Immunizations and screening for infectious disease (2 sources) Exposure to sexually transmissible disorder; Translations: [Contact with and (suspected) exposure to infections with a predominantly sexual mode of transmission] 05-28-2024 Episodic Lymphadenitis (1 source) Nonspecific lymphadenitis, unspecified; Translations: [Nonspecific lymphadenitis, unspecified] Onset: 10-28-2023 Episodic Malaise and fatigue (1 source) Other fatigue; Translations: [Other fatigue] Onset: 10-28-2023 Episodic Menstrual disorders (1 source) Missed period; Translations: [Irregular menstruation, unspecified] 03-30-2024 Chronic Other female genital disorders (1 source) Abnormal uterine bleeding; Translations: [Other specified abnormal uterine and vaginal bleeding] 01-31-2024 Chronic Other female genital disorders (2 sources) Vaginal discharge; Translations: [Other specified noninflammatory disorders of vagina] 05-28-2024 Episodic Other gastrointestinal disorders (1 source) Diarrhea, unspecified; Translations: [Diarrhea, unspecified] Onset: 07-22-2017 Episodic Other and delivery including normal (6 sources) ; Translations: [Encounter for supervision of normal , unspecified, unspecified trimester] 03-30-2024 Episodic Other screening for suspected conditions (not mental disorders or infectious disease) (6 sources) Encounter for screening for malignant neoplasm of cervix; Translations: [Patient encounter status] Onset: 08-28-2021 Episodic Other skin disorders (2 sources) Eruption; Translations: [Rash and other nonspecific skin eruption] 04-30-2024 Episodic Residual codes; unclassified (2 sources) Gestation period, 14 weeks; Translations: [14 weeks gestation of ] 04-30-2024 Episodic Residual codes; unclassified (2 sources) Gestation period, 17 weeks; Translations: [17 weeks gestation of ] 05-28-2024 Episodic Thyroid disorders (1 source) Hypothyroidism, unspecified; Translations: [Hypothyroidism, unspecified] Onset: 10-28-2023 Chronic Results Test Name Value Interpretation Reference Range Facility RECURRENT VAGINITIS (HTRX)on 05-30-2024 ATOPOBIUM VAGINAE 0 [facility] ATOPOBIUM VAGINAE Not detected [facility] BVAB 2,3 (BACTERIAL VAGINOSIS ASSOCIATED BACTERIA 2, 3); MOBILUNCUS SPP 0 [facility] BVAB 2,3 (BACTERIAL VAGINOSIS ASSOCIATED BACTERIA 2, 3); MOBILUNCUS SPP Not detected [facility] HELEN ALBICANS, PARAPSILOSIS, TROPICALIS 0 [facility] HELEN ALBICANS, PARAPSILOSIS, TROPICALIS Not detected [facility] HELEN GLABRATA 0 [facility] HELEN GLABRATA Not detected [facility] HELEN KRUSEI 0 [facility] HELEN KRUSEI Not detected [facility] CHLAMYDIA TRACHOMATIS 0 [facility] CHLAMYDIA TRACHOMATIS Not detected [facility] GARDNERELLA VAGINALIS 0 [facility] GARDNERELLA VAGINALIS Not detected [facility] MEGASPHAERA (TYPES 1, 2) 0 [facility] MEGASPHAERA (TYPES 1, 2) Not detected [facility] MYCOPLASMA GENITALIUM 0 [facility] MYCOPLASMA GENITALIUM Not detected [facility] NEISSERIA GONORRHOEAE 0 [facility] NEISSERIA GONORRHOEAE Not detected [facility] TRICHOMONAS VAGINALIS 0 [facility] TRICHOMONAS VAGINALIS Not detected Pending sale to [facility] Urinalysis macro (dipstick) panel (U)on 05-28-2024 Bilirubin, UA Negative Negative - 4(70) +++ mg/dL [facility] Blood, UA Negative Negative - 50 Abiel/mcL [facility] Clarity, UA Clear [facility] Color, UA Yellow [facility] Glucose, UA Negative Negative - 1999(110) ++++ mg/dL [facility] Interpretation and review of laboratory results Normal [facility] Ketones, UA Negative Negative - 160(16) ++++ mg/dL [facility] Leukocytes, UA Negative Negative - 500+++ Pradip/mcL [facility] Nitrite, UA Negative Negative - Positive [facility] pH, UA 7 5 - 9 [facility] Protein, UA Negative Negative - 1999(20) ++++ mg/dL [facility] Spec Grav, UA 1.015 1 - 1.03 [facility] Urobilinogen, UA 0.2 0.2 - 12 mg/dL Pending sale to [facility] Urinalysis macro (dipstick) panel (U)on 04-30-2024 Bilirubin, UA Negative Negative - 4(70) +++ mg/dL [facility] Blood, UA Negative Negative - 50 Abiel/mcL [facility] Clarity, UA Clear [facility] Color, UA Yellow [facility] Glucose, UA Negative Negative - 1999(110) ++++ mg/dL [facility] Interpretation and review of laboratory results Abnormal [facility] Ketones, UA Negative Negative - 160(16) ++++ mg/dL [facility] Leukocytes, UA Negative Negative - 500+++ Pradip/mcL [facility] Nitrite, UA Negative Negative - Positive [facility] pH, UA 6.5 5 - 9 [facility] Protein, UA Negative Negative - 1999(20) ++++ mg/dL [facility] Spec Grav, UA 1.01 1 - 1.03 [facility] Urobilinogen, UA 0.2 0.2 - 12 mg/dL Pending sale to [facility] BOX TESTon 04-16-2024 BOX TEST SENT OUT UNITY BOX [facility] BOX1 UNITY BOX [facility] BOX2 04/13/24 [facility] UNITY BOX [facility] ALL CBC WITH AUTO DIFFon BASOPHILS ABSOLUTE AUTO 0.1 [facility] Basophils/100 WBC (Bld) 0.8 % 0.2 - 2.0 % [facility] Eosinophils/100 WBC (Bld) 0.9 % 0.9 - 7.0 % [facility] Erythrocyte distribution width (RBC) [Ratio] 11.6 % 11.0 - 15.0 % [facility] Hematocrit (Bld) [Volume fraction] 37.7 % 36.0 - 48.0 % [facility] Hemoglobin (Bld) [Mass/Vol] 12.9 g/dL 12.0 - 16.0 g/dL [facility] IMMATURE GRANULOCYTES ABS AUTO 0.02 [facility] Immature granulocytes/100 WBC (Bld) 0.3 % 0.0 - 0.5 % [facility] LYMPHOCYTES ABSOLUTE AUTO 1.7 [facility] Lymphocytes/100 WBC (Bld) 22.4 % 20.5 - 60.0 % [facility] MCH (RBC) [Entitic mass] 30.2 pg 26.7 - 34.0 pg [facility] MCHC (RBC) [Mass/Vol] 34.2 g/dL 29.9 - 35.2 g/dL [facility] MCV (RBC) [Entitic vol] 88.3 fL 81.0 - 99.0 fL [facility] MONOCYTES ABSOLUTE AUTO 0.6 [facility] Monocytes/100 WBC (Bld) 7.7 % 1.7 - 12.0 % [facility] NEUTROPHILS ABSOLUTE AUTO 5.3 [facility] Neutrophils/100 WBC (Bld) 67.9 % 43.0 - 75.0 % [facility] Platelet mean volume (Bld) [Entitic vol] 10.5 fL 9.5 - 13.5 fL [facility] TBH EO # 0.1 [facility]H PLT 194 [facility] RBC 4.27 [facility] WBC 7.8 [facility] HCG ( test) Ql (U)o n 03-30-2024 Interpretation and review of laboratory results Abnormal [facility] Preg Test, Ur Positive Negative Pending sale to [facility] US OB TRANSVAGINALon 025 US OB TRANSVAGINAL [...] x 2.4 cm (7 weeks, 0 days). Tatums rump length is 1.6 cm (8 weeks, [...] UA Negative Negative - 4(70) +++ mg/dL [facility] Blood, UA Negative Negative - 50 Abiel/mcL [facility] Clarity, UA Clear [facility] Color, UA Yellow [facility] Glucose, UA Negative Negative - 2000(110) ++++ mg/dL [facility] Interpretation and review of laboratory results Abnormal [facility] Ketones, UA Positive Negative - 160(16) ++++ mg/dL [facility] Comment on above: trace Leukocytes, UA Negative Negative - 500+++ Pradip/mcL [facility] Nitrite, UA Negative Negative - Positive [facility] pH, UA 7 5 - 9 [facility] Protein, UA Negative Negative - 1999(20) ++++ mg/dL [facility] Spec Grav, UA 1.02 1 - 1.03 [facility] Urobilinogen, UA 1.0 0.2 - 12 mg/dL Pending sale to [facility] Urine Cultureon 03-30-2024 Bacteria identified Cx Nom (U) No Growth 2 Days PERFORMED BY: [place] [address] PATHOLOGIST LIVESTOCK RANCHER KASIA BECK M.D. Normal [facility] Comment on above: Performed By: #### C UU #### [address] US SOFT TISS HEAD NECKon US SOFT [...] Chris Encarnacion on 10/31/2023 7:59 AM Normal [facility] CBC AND AUTO DIFFon 10-28-19 24 ABSOLUTE BASOPHIL 0.0 X10E9/L Normal 0.0-0.2 [facility] Comment on above: Performed By: #### C BCA, CMP, 75814-0, THYR, HA1C #### [facility] ([id number]) [address], [address] [place] [address] ABSOLUTE NEUTROPHIL 2.9 X10E9/L Normal 1.5-6.6 [facility] Comment on above: Performed By: #### C BCA, CMP, 77892-6, THYR, HA1C #### [facility] ([id number]) [address], [address] [place] [address] Basophils/100 WBC (Bld) 0.8 % Normal [facility] Comment on above: Performed By: #### C BCA, CMP, 40948-2, THYR, HA1C #### [facility] ([id number]) [address] [address] [place] [address] Eosinophils (Bld) [#/Vol] 0.1 10*3/uL Normal 0.0-0.4 [facility] Comment on above: Performed By: #### C BCA, CMP, 36954-3, THYR, HA1C #### [facility] ([id number]) [address], [address] [place] [address] Eosinophils/100 WBC (Bld) 2.2 % Normal [facility] Comment on above: Performed By: #### C BCA, CMP, 07324-0, THYR, HA1C #### [facility] ([id number]) [address] [address] [place] [address] Erythrocyte distribution width (RBC) [Ratio] 12.5 % Normal 11.5-15.0 [facility] Comment on above: Performed By: #### C BCA, CMP, 13102-4, THYR, HA1C #### [facility] ([id number]) [address] [place] [address] Hematocrit (Bld) [Volume fraction] 39.6 % Normal 35-47 [facility] Comment on above: Performed By: #### C BCA, CMP, 13671-3, THYR, HA1C #### [facility] ([id number]) [address], [address] [place] [address] Hemoglobin (Bld) [Mass/Vol] 13.5 g/dL Normal 11.7-15.5 [facility] Comment on above: Performed By: #### C BCA, CMP, 90858-6, THYR, HA1C #### [facility] ([id number]) [address], [facility] [address] [place] [address] Lymphocytes (Bld) [#/Vol] 2.1 10*3/uL Normal 1.0-3.5 [facility] Comment on above: Performed By: #### C BCA, CMP, 14911-4, THYR, HA1C #### [facility] ([id number]) [address], [facility] [address] [place] [address] Lymphocytes/100 WBC (Bld) 37.5 % Normal [facility] Comment on above: Performed By: #### C BCA, CMP, 49491-9, THYR, HA1C #### [facility] ([id number]) [address], [facility] [address] [place] [address] MCH (RBC) [Entitic mass] 31.0 pg Normal 27-34 [facility] Comment on above: Performed By: #### C BCA, CMP, 59544-3, THYR, HA1C #### [facility] ([id number]) [address], [facility] [address] [place] [address] MCHC (RBC) [Mass/Vol] 34.1 g/dL Normal 32-36 [facility] Comment on above: Performed By: #### C BCA, CMP, 09106-2, THYR, HA1C #### [facility] ([id number]) [address], [facility] [address] [place] [address] MCV (RBC) [Entitic vol] 91 fL Normal 80-100 [facility] Comment on above: Performed By: #### C BCA, CMP, 80551-1, THYR, HA1C #### [facility] ([id number]) [address], [address] [place] [address] Monocytes (Bld) [#/Vol] 0.5 10*3/uL Normal 0-0.9 [facility] Comment on above: Performed By: #### C BCA, CMP, 72401-5, THYR, HA1C #### [facility] ([id number]) [address], [facility] [address] [place] [address] Monocytes/100 WBC (Bld) 8.3 % Normal [facility] Comment on above: Performed By: #### C BCA, CMP, 63938-1, THYR, HA1C #### [facility] ([id number]) [address], [facility] [address] [place] [address] Neutrophils/100 WBC (Bld) 51.2 % Normal [facility] Comment on above: Performed By: #### C BCA, CMP, 72716-7, THYR, HA1C #### [facility] ([id number]) [address] [address] [place] [address] Platelet mean volume (Bld) [Entitic vol] 8.3 fL Normal 7-12 [facility] Comment on above: Performed By: #### C BCA, CMP, 17783-8, THYR, HA1C #### [facility] ([id number]) [address] [address] [place] [address] Platelets (Bld) [#/Vol] 195 10*3/uL Normal 150-450 [facility] Comment on above: Performed By: #### C BCA, CMP, 45312-2, THYR, HA1C #### [facility] ([id number]) [address], [address] [place] [address] RBC COUNT 4.36 X10E12/L Normal 3.80-5.20 [facility] Comment on above: Performed By: #### C BCA, CMP, 76362-0, THYR, HA1C #### [facility] ([id number]) [address], [address] [place] [address] WBC (Bld) [#/Vol] 5.7 10*3/uL Normal 4.0-11.0 [facility] Comment on above: Performed By: #### C BCA, CMP, 75814-6, THYR, HA1C #### [facility] ([id number]) [address], [address] [place] [address] COMPREHENSIVE METABOLIC PANE Lonny 10-28-2023 Albumin [Mass/Vol] 4.3 g/dL Normal 3.2-5.3 [facility] Comment on above: Performed By: #### C BCA, CMP, 18088-3, THYR, HA1C #### [facility] ([id number]) [address], [address] [place] [address] ALP [Catalytic activity/Vol] 53 U/L Normal 39-130 [facility] Comment on above: Performed By: #### C BCA, CMP, 28776-9, THYR, HA1C #### [facility] ([id number]) [address], [address] [place] [address] ALT [Catalytic activity/Vol] 12 U/L Normal 0-31 [facility] Comment on above: Performed By: #### C BCA, CMP, 81837-6, THYR, HA1C #### [facility] ([id number]) [address], [address] [place] [address] Anion gap [Moles/Vol] 9 mmol/L Normal 5-15 [facility] Comment on above: Performed By: #### C BCA, CMP, 10494-3, THYR, HA1C #### [facility] ([id number]) [address], [address] [place] [address] AST [Catalytic activity/Vol] 21 U/L Normal 0-41 [facility] Comment on above: Performed By: #### C BCA, CMP, 89979-8, THYR, HA1C #### [facility] ([id number]) [address] [address] [place] [address] Bilirubin [Mass/Vol] 0.6 mg/dL Normal 0.3-1.2 [facility] Comment on above: Performed By: #### C BCA, CMP, 92202-0, THYR, HA1C #### [facility] ([id number]) [address] [address] [place] [address] Calcium [Mass/Vol] 9.6 mg/dL Normal 8.5-10.5 [facility] Comment on above: Performed By: #### C BCA, CMP, 41301-1, THYR, HA1C #### [facility] ([id number]) [address], [address] [place] [address] Chloride [Moles/Vol] 103 mmol/L Normal 98-109 [facility] Comment on above: Performed By: #### C BCA, CMP, 23333-9, THYR, HA1C #### [facility] ([id number]) [address] [address] [place] [address] CO2 [Moles/Vol] 27 mmol/L Normal 22-32 [facility] Comment on above: Performed By: #### C BCA, CMP, 32956-5, THYR, HA1C #### [facility] ([id number]) [address] [address] [place] [address] Creatinine [Mass/Vol] 0.84 mg/dL Normal 0.40-1.00 [facility] Comment on above: Result Comment: METH OD TRACEABLE TO IDMS STANDARD Performed By: #### C BCA, CMP, 93642-6, THYR, HA1C #### [facility] ([id number]) [address], [address] [place] [address] eGFR (CKD-EPI) NON-RACE DEPENDENT >90 Normal >59 [facility] Comment on above: Result Comment: Reported eGFR is based on the CKD-EPI 2020 equation that does not use a race coefficient. Performed By: #### C BCA, CMP, 93821-5, THYR, HA1C #### [facility] ([id number]) [address], [address] [place] [address] Glucose [Mass/Vol] 81 mg/dL Normal 65-99 [facility] Comment on above: Performed By: #### C BCA, CMP, 32510-2, THYR, HA1C #### [facility] ([id number]) [address], [address] [place] [address] Potassium [Moles/Vol] 3.8 mmol/L Normal 3.5-5.0 [facility] Comment on above: Performed By: #### C BCA, CMP, 81651-7, THYR, HA1C #### [facility] ([id number]) [address], [address] [place] [address] Protein [Mass/Vol] 7.5 g/dL Normal 6.0-8.0 [facility] Comment on above: Performed By: #### C BCA, CMP, 64829-8, THYR, HA1C #### [facility] ([id number]) [address], [address] [place] [address] Sodium [Moles/Vol] 139 mmol/L Normal 134-146 [facility] Comment on above: Performed By: #### C BCA, CMP, 30275-6, THYR, HA1C #### [facility] ([id number]) [address], [address] [place] [address] Urea nitrogen [Mass/Vol] 12 mg/dL Normal 5-23 [facility] Comment on above: Performed By: #### C BCA, CMP, 90552-8, THYR, HA1C #### [facility] ([id number]) [address], [address] [place] [address] HGB A1C (GLYCO-HGB)on 2023 Glucose [Mass/Vol] 103 mg/dL Normal [facility] Comment on above: Performed By: #### C SCOTTY, CMP, 43308-7, THYR, HA1C #### [facility] ([id number]) [address] [facility] [facility] [address] [place] [address] HbA1c (Bld) [Mass fraction] 5.2 % Normal 4.4-5.6 [facility] Comment on above: Result Comment: NOTE ADA Guidelines Result HgbA1c Normal : less than 5.7 % Prediabetes : 5.7 % to 6.4 % Diabetes : > 6.4 % Use with caution in patients with abnormal hemoglobin variants as the half-life of red blood cells and in vivo glycation rates are affected. Performed By: #### C SCOTTY, CMP, 19565-5, THYR, HA1C #### [facility] ([id number]) [address] [address] Lipid 1996 panelon Cholesterol [Mass/Vol] 208 mg/dL High 150-200 [facility] Comment on above: Performed By: #### C SCOTTY, CMP, 52471-4, THYR, HA1C #### [facility] ([id number]) [address], [address] [place] [address] Cholesterol in HDL [Mass/Vol] 75 mg/dL Normal >39 [facility] Comment on above: Result Comment: HDL <40 mg/dL - High Risk HDL > or = 40mg/dL- Desirable HDL >60 mg/dL - Negative Risk Performed By: #### C BCA, CMP, 33749-9, THYR, HA1C #### [facility] ([id number]) [address], [facility] [address] [place] [address] Cholesterol in LDL [Mass/Vol] 120 mg/dL Normal <130 [facility] Comment on above: Result Comment: LDL <100 mg/dL - Desirable LDL >160 mg/dL - High Risk Performed By: #### C BCA, CMP, 27376-4, THYR, HA1C #### [facility] ([id number]) [address], [address] [address] Cholesterol in VLDL [Mass/Vol] 13 mg/dL Normal 0-30 [facility] Comment on above: Performed By: #### C BCA, CMP, 71631-2, THYR, HA1C #### [facility] ([id number]) [address] [address] CHOLESTEROL:HDL 2.8 Normal 1.0-5.0 [facility] Comment on above: Performed By: #### C BCA, CMP, 33941-8, THYR, HA1C #### [facility] ([id number]) [address] [address] Triglyceride [Mass/Vol] 66 mg/dL Normal 27-150 [facility] Comment on above: Performed By: #### C BCA, CMP, 50342-0, THYR, HA1C #### [facility] ([id number]) [address] [address] THYROID PROFILEon 10-28-2023 Free T4 [Mass/Vol] 0.88 ng/dL Normal 0.61-1.60 [facility] Comment on above: Performed By: #### C BCA, CMP, 67945-0, THYR, HA1C #### [facility] ([id number]) [address], [address] [place] [address] TSH 2.30 uIU/mL Normal 0.49-4.67 [facility] Comment on above: Performed By: #### C BCA, CMP, 25227-3, THYR, HA1C #### [facility] ([id number]) [address], [address] [place] [address] PAP ACOG PANEL 2: 21 to 29on 09-02-2021 . . [facility] Comment on above: Performed By: #### 4 [id number] #### [facility] [address] [place] [address] Dr. Kulwant Duffy Age Gdln ACOG Testing - [facility] Comment on above: Performed By: #### 4 [id number] #### [facility] [address] [place] [address] Dr. Kulwant Duffy DIAGNOSIS: Comment [facility] Comment on above: Result Comment: NEGA TIVE FOR INTRAEPITHELIAL LESION OR MALIGNANCY. Performed By: #### 4 [id number] #### [facility] [address] [place] [address] Dr. Kulwant Duffy Methodology: Comment [facility] Comment on above: Result Comment: This liquid based ThinPrep(R) pap test was screened with the use of an image guided system. Performed By: #### 4 [id number] #### [facility] [address] [place] [address] Dr. Kulwant Duffy Note: Comment [facility] Comment on above: Result Comment: The Pap smear is a screening test designed to aid in the detection of premalignant and malignant conditions of the uterine cervix. It is not a diagnostic procedure and should not be used as the sole means of detecting cervical cancer. Both false-positive and false-negative reports do occur. . Performed By: #### 4 [id number] #### [facility] [address] [place] [address] Dr. Kulwant Duffy Performed by: Comment [facility] Comment on above: Result Comment: Wilber Newton Physical Therapist Center Manager (ASCP) Performed By: #### 4 [id number] #### [facility] [address] [address] [address] Kulwant Duffy Reflex Criteria: Comment Normal [facility] Comment on above: Result Comment: The HPV DNA reflex criteria were not met with this specimen result therefore, no HPV testing was performed. . Performed By: #### 4 [id number] #### [facility] [address] [address] [address] Kulwant Duffy Specimen adequacy: Comment Normal [facility] Comment on above: Result Comment: Sati sfactory for evaluation. Endocervical and/or squamous metaplastic cells (endocervical component) are present. Performed By: #### 4 [id number] #### [facility] [address] [address] [address] Kulwant Duffy US APPENDIXon 07-22-2017 US [...] Recipients:Josephine Canada MD - FaxFinal result Normal [facility] US GALLBLADDER RUQon 018 US GALLBLADDER RUQ [...] evidence for pericholecystic fluid,wall thickening, or calculi. In Store Marketing Associate documents a negative sonographicMurphy's sign. Gallbladder wall is normal in thickness, measuring 2.4 mm.The common bile duct is normal and measures 3 mm.IMPRESSION: Unremarkable ultrasound of the gallbladder. No evidence for cholelithiasisor acute cholecystitis.Interpreted by:ELIAN Brittonigned by:Nghia Denny MD07/22/17 Recipients:Josephine Canada MD - FaxFinal result Normal [facility] Vital Signs Date Time Vital Sign Value Performing Clinician Tejas steward 05-28-2024 09:54-0500 Body mass index (BMI) [Ratio] 26.12 kg/m2 Babs Dwayne DO Work Phone: [facility] 05-28-2024 09:54-0500 Body weight 73.39 kg Babs Dwayne DO Work Phone: [facility] 05-28-2024 09:54-0500 Diastolic blood pressure 84 mm[Hg] Babs Dwayne DO Work Phone: [facility] 05-28-2024 09:54-0500 Systolic blood pressure 100 mm[Hg] Babs Dwayne DO Work Phone: [facility] 04-30-2024 14:02-0500 Body mass index (BMI) [Ratio] 26.37 kg/m2 Babs Dwayne DO Work Phone: [facility] 04-30-2024 14:02-0500 Body weight 74.12 kg Babs Dwayne DO Work Phone: [facility] 04-30-2024 14:02-0500 Diastolic blood pressure 82 mm[Hg] Babs Wdayne DO Work Phone: [facility] 04-30-2024 14:02-0500 Systolic blood pressure 130 mm[Hg] Babs Dwayne DO Work Phone: [facility] 01-31-2024 08:53-0500 Body mass index (BMI) [Ratio] 25.99 kg/m2 Babs Dwayne DO Work Phone: [facility] 01-31-2024 08:53-0500 Body weight 73.03 kg Babs Dwayne DO Work Phone: [facility] 01-31-2024 08:53-0500 Diastolic blood pressure 72 mm[Hg] Babs Dwayne DO Work Phone: [facility] 01-31-2024 08:53-0500 Systolic blood pressure 118 mm[Hg] Babs Dwayne DO Work Phone: [facility] Healthcare Encounters Encounter Date Encounter Type Care Provider Facility Start: 06-25-2024 End: 06-25-2024 Bamboo flowsheet Babs Dwayne DO Work Phone: [facility] Start: 06-25-2024 End: 06-25-2024 Bamboo flowsheet Babs Dwayne DO Work Phone: [facility] Start: 05-28-2024 End: 05-28-2024 Bamboo flowsheet Babs Dwayne DO Work Phone: [facility] Start: 05-28-2024 End: 05-30-2024 Bamboo flowsheet Babs Dwayne DO Work Phone: [facility] Start: 05-28-2024 End: 05-30-2024 External Result Encounter Babs Dwayne DO Work Phone: [facility] External Department Unsolicited Start: 05-28-2024 End: 05-28-2024 flow sheet Babs Dwayne DO Work Phone: [facility] Comment on above: Second trimester pre gnancy; 17 weeks gestation of ; Screening, , for anatomic survey; STD exposure; Vaginal discharge Start: 05-28-2024 End: 05-28-2024 ambulatory BABS DWAYNE Not Available Start: 04-30-2024 End: 04-30-2024 Bamboo flowsheet Babs Dwayne DO Work Phone: [facility] Start: 04-30-2024 End: 04-30-2024 Bamboo flowsheet Babs Dwayne DO Work Phone: [facility] Start: 04-30-2024 End: 04-30-2024 flow sheet Babs Dwayne DO Work Phone: [facility] Comment on above: Second trimester pre gnancy; 14 weeks gestation of ; Rash Start: 04-30-2024 End: 04-30-2024 ambulatory BABS DWAYNE Not Available Start: 04-13-2024 End: 04-16-2024 Clinisync Result Encounter Babs Dwayne DO Work Phone: [facility] External Department Unsolicited Start: 04-13-2024 End: 04-16-2024 Clinisync Result Encounter Babs Dwayne DO Work Phone: [facility] Unsolicited Start: 03-30-2024 End: 03-30-2024 Clinisync Result Encounter Babs Dwayne DO Work Phone: [facility] Unsolicited Start: 03-30-2024 End: 03-30-2024 Clinisync Result Encounter Babs Dwayne DO Work Phone: [facility] Unsolicited Start: 03-30-2024 End: 03-30-2024 ambulatory Babs Dwayne [facility] Work Phone: Start: 03-30-2024 End: 03-30-2024 Departed Referred Babs Dwayne DO Work Phone: [facility] Start: 03-30-2024 End: 03-30-2024 Office outpatient [...] Not Available Start: 10-28-2023 End: 10-28-2023 ambulatory [facility] Start: 10-28-2023 Encounter for genera l adult medical examination without abnormal findings [facility] Start: 08-28-2021 End: 08-28-[address] RUTH PINEDA Facility:[facility] Start: 08-14-[address] JOSEPHINE CANADA Facility :[facility] Start: 07-22-2017 End: 07-25-2017 Ambulatory LITZY SETH [facility] Procedures Date Procedure Procedure Detail Performing Clinician Start: 05-28-2024 RECURRENT VAGINITIS (HTRX) Babs Dwayne DO Work Phone: Start: 05-28-2024 Urnls dip stick/tabl et rgnt non-auto w/o micrscp Babs Dwayne DO Work Phone: Start: 04-30-2024 Urnls dip stick/tabl et rgnt non-auto w/o micrscp Babs Dwayne DO Work Phone: Start: 04-13-2024 BOX TEST Babs Fazi o DO Work Phone: Start: 03-30-2024 ALL CBC WITH AUTO DIFF Babs Dwayne DO Work Phone: Start: 03-30-2024 Urnls dip stick/tabl et rgnt non-auto w/o micrscp Babs Rice DO Work Phone: Start: 07-22-2017 Us abdominal real ti me w/image limited LITZY SETH Plan of Treatment Date Care Activity Detail Author Start: 11-01-2024 End: 11-01-2024 Patient encounter procedure 11/01/2024 8:30 AM EDT Office Visit [facility] [address] [place] [id number] Dwayne, Babs, DO [address] [place] [address] [facility] Start: 06-25-2024 End: 06-25-2024 Patient encounter procedure [facility] Comment on above: Arrived Start: 05-28-2024 End: 07-28-2024 Alpha fetoprotein, maternal Alpha fetoprotein, maternal Lab Routine Screening, , for anatomic survey Expected: 05/28/2024 (Approximate), Expires: 07/28/2024 [facility] Comment on above: Expected: 05/28/2024 (Approximate), Expires: 07/28/2024 Start: 05-28-2024 End: 05-28-2025 US for US OB 14+ weeks anatomy scan Imaging Routine Screening, , for anatomic survey Expected: 05/28/2024, Expires: 05/28/2025 [facility] Comment on above: Expected: 05/28/2024 , Expires: 05/28/2025 Start: 05-28-2024 End: 05-28-2024 Patient encounter procedure [facility] Comment on above: Arrived Start: 04-30-2024 End: 04-30-2024 Patient encounter procedure [facility] Comment on above: Arrived Start: 03-30-2024 End: 03-30-2025 ABO/Rh ABO/Rh Lab Routine Missed menses , unspecified gestational age Expected: 03/30/2024 (Approximate), Expires: 03/30/2025 [facility] Comment on above: Expected: 03/30/2024 (Approximate), Expires: 03/30/2025 Start: 03-30-2024 Bacteria identified in Urine by Culture [facility] Comment on above: Ordered: 03/30/2024 Start: 03-30-2024 End: 03-30-2025 Blood type and Indirect antibody screen panel - Blood Type and screen Lab Routine Missed menses , unspecified gestational age Expected: 03/30/2024 (Approximate), Expires: 03/30/2025 [facility] Work Phone: Comment on above: Expected: 03/30/2024 (Approximate), Expires: 03/30/2025 Start: 03-30-2024 End: 03-30-2025 Drugs of abuse panel - Urine by Screen method Rapid drug screen, urine Lab Routine , unspecified gestational age Encounter for supervision of normal first in first trimester Expected: 03/30/2024 (Approximate), Expires: 03/30/2025 [facility] Comment on above: Expected: 03/30/2024 (Approximate), Expires: 03/30/2025 Start: 03-30-[address] [facility] Start: 01-31-2024 End: 01-30-2025 US for US PELVIS-TRANSVAG IF INDICATED Imaging Routine Dysfunctional uterine bleeding Expected: 01/31/2024 (Approximate), Expires: 01/30/2025 [facility] Work Phone: Comment on above: Expected: 01/31/2024 (Approximate), Expires: 01/30/2025 Start: 01-31-2024 End: 01-31-2024 Patient encounter procedure 01/31/2024 8:40 AM EST Office Visit [facility] [address] [place] [address] Babs Rice, DO [address] [place], [place] [id number] Arrived [facility] Comment on above: Arrived CBC W Auto Different ial panel - Blood CBC and differential Lab Routine Missed menses , unspecified gestational age Ordered: 03/30/2024 [facility] Comment on above: Ordered: 03/30/2024 CHLAMYDIA TRACHOMATI S (GENITO/STI) CHLAMYDIA TRACHOMATIS (GENITO/STI) Lab Routine STD exposure Vaginal discharge Ordered: 05/28/2024 [facility] Comment on above: Ordered: 05/28/2024 Hemoglobin A1c/Hemoglobin.total in Blood Hemoglobin A1c Lab Routine Missed menses , unspecified gestational age Ordered: 03/30/2024 [facility] Comment on above: Ordered: 03/30/2024 Hepatitis B virus surface Ag [Presence] in Serum or Plasma by Immunoassay Hepatitis B surface antigen Lab Routine Missed menses , unspecified gestational age Ordered: 03/30/2024 [facility] Comment on above: Ordered: 03/30/2024 Hepatitis C virus Ab [Presence] in Serum or Plasma by Immunoassay Hepatitis C antibody Lab Routine Missed menses , unspecified gestational age Ordered: 03/30/2024 [facility] Comment on above: Ordered: 03/30/2024 HIV-1/HIV-2 antigen/antibody combination immunoassay HIV-1 and HIV-2 antibodies Lab Routine Missed menses , unspecified gestational age Ordered: 03/30/2024 [facility] Comment on above: Ordered: 03/30/2024 Neisseria gonorrhoea e DNA [Presence] in Unspecified specimen by DELILAH with probe detection Neisseria gonorrhea DNA probe, direct Lab Routine STD exposure Vaginal discharge Ordered: 05/28/2024 [facility] Comment on above: Ordered: 05/28/2024 Reagin Ab [Presence] in Serum by RPR RPR Lab Routine Missed menses , unspecified gestational age Ordered: 03/30/2024 [facility] Comment on above: Ordered: 03/30/2024 Rubella antibody, IgG Rubella an tibody, IgG Lab Routine Missed menses , unspecified gestational age Ordered: 03/30/2024 [facility] Comment on above: Ordered: 03/30/2024 SURESWAB(R) ADVANCED VAGINITIS PLUS, TMA SURESWAB(R) ADVANCED VAGINITIS PLUS, TMA Pathology and Cytology Routine STD exposure Vaginal discharge Ordered: 05/28/2024 [facility] Work Phone: Comment on above: Ordered: 05/28/2024 Payers Date Payer Category Payer Private Health Insurance [employer] [id number] 2017 Unknown [id number] 1991 Unknown [id number] 593 1991 Unknown [id number]. 593 1991 Unknown [id number] [id number]. 1286 1991 Unknown [id number] [id number]. 1286 1991 Unknown [id number]. 1259 1991 Unknown [id number] [id number]. 9 1991 Unknown [id number] [id number]. 9 1991 Unknown [id number] [id number]. 9 1991 Unknown [id number] [id number]. 9 1991 Unknown [id number] [id number]. 1259 1959 Self-pay 1959 Unknown [id number] Unknown [id number]. 531 Social History Date Type Detail Facility Start: 10-31-2023 Tobacco smoking stat [facility] Never smoked tobacco [facility] Start: 10-31-2023 [...] 02-13-2024 [facility] Work Phone: Start: 03-31-2024 Sex Female (finding) [facility] History of Present illness Narrative 05-28-2024 Sarah Rossi LPN - 05/28/2024 9:40 AM EST Note Date & Type Note Facility 05-28-2024 History of Presen t illness Narrative Reason for Appointment: Patient ID: Joseline Gomez is a 33 y.o. female who presents for Routine Visit Patient presents today for Return OB appointment. MEDICATIONS Current Outpatient Medications Medication Instructions clotrimazole-betamethasone (Lotrisone) cream 1 application , Topical, Daily, Apply to affected area daily for 7 days ondansetron ODT (ZOFRAN-ODT) 4 mg, Oral, Every 6 hours PRN MV-Min-Fe Fum-FA-DHA ( 1 PO) Oral vitamin C 250 mg, Oral, Daily ALLERGIES Allergies Allergen Reactions Sulfa Antibiotics Hives, [...] SYSTEMS Review of Systems: Review of Systems All other systems reviewed and are negative. OBJECTIVE Objective: Physical Exam Constitutional: Appearance: Normal appearance. She is well-developed. Genitourinary: Vulva normal. Breasts: Breasts are soft. Right: Normal. Left: Normal. Cardiovascular: Rate and Rhythm: Normal rate and [...] nursing note reviewed. Exam conducted with a mussel farmer present. Vitals: Estimated body mass index is 26.12 kg/m as calculated from the following: Height as of 10/31/23: 5' 6 . Weight as of this encounter: 161 lb 12.8 oz. BP: 100/84 Patient's last menstrual period was 01/30/2024 (exact date). ASSESSMENT & PLAN ICD-10-CM 1. Second trimester Z34.92 POCT urinalysis dipstick manually resulted 2. 17 weeks gestation of Z3A.17 3. Screening, , for anatomic survey Z36.89 Alpha fetoprotein, maternal US OB 14+ weeks anatomy scan Alpha fetoprotein, maternal 4. STD exposure Z20.2 SURESWAB(R) ADVANCED VAGINITIS PLUS, TMA CHLAMYDIA TRACHOMATIS (GENITO/STI) Neisseria gonorrhea DNA probe, direct 5. Vaginal discharge N89.8 SURESWAB(R) ADVANCED VAGINITIS PLUS, TMA CHLAMYDIA TRACHOMATIS (GENITO/STI) Neisseria gonorrhea DNA probe, direct Return OB/Annual Exam: Patient presents today for routine OB vaginal culture exam/routine obstetrics appointment. Patient is currently 17w0d . Patient is doing well and states she has no complaints. Vaginal cultures were obtained without difficulty and patient was given msAFP order to have obtained. Orders Placed This Encounter Procedures US OB 14+ weeks anatomy scan CHLAMYDIA TRACHOMATIS (GENITO/STI) Neisseria gonorrhea DNA probe, direct Alpha fetoprotein, maternal POCT urinalysis dipstick manually resulted Follow Up: Patient is to return to our office in 4 weeks for routine OB appointment Documented by Sarah Rossi LPN on behalf of: Babs Rice DO documented in this encounter [facility] History of Present illness Narrative 04-30-2024 Deborah Richardson MA - 04/30/2024 1:40 PM EST Note Date & Type Note Facility 04-30-2024 History of Presen t illness Narrative Images from the original note were not included. Reason for Appointment: Patient ID: Joseline Gomez is a 33 y.o. female who presents for Routine Visit Patient presents today for Return OB appointment. MEDICATIONS Current Outpatient Medications Medication Instructions MV-Min-Fe Fum-FA-DHA ( 1 PO) Oral vitamin C 250 mg, Oral, Daily ALLERGIES Allergies Allergen Reactions Sulfa Antibiotics Hives, [...] Constitutional: Appearance: Normal appearance. She is well-developed. Genitourinary: Genitourinary Comments: Mild erythema, painless Cardiovascular: Rate and Rhythm: Normal rate and regular rhythm. Pulmonary: Effort: Pulmonary effort is normal. Breath sounds: Normal breath sounds. Chest: Abdominal: General: Bowel sounds are normal. There [...] nursing note reviewed. Exam conducted with a mussel farmer present. Vitals: Estimated body mass index is 26.37 kg/m as calculated from the following: Height as of 10/31/23: 5' 6 . Weight as of this encounter: 163 lb 6.4 oz. BP: 130/82 Patient's last menstrual period was 01/30/2024 (exact date). ASSESSMENT & PLAN ICD-10-CM 1. Second trimester Z34.92 POCT urinalysis dipstick manually resulted 2. 14 weeks gestation of Z3A.14 New OB: Patient presents today for 1st time obstetrics appointment with provider. Patient is currently 13w0d . Patients history has been reviewed in great detail including any potential risks. Patient stated she currently has no complaints. Expectations throughout regarding labs, ultrasounds, and appointments have been discussed with the patient in detail. It was reiterated that the patient is to drink 6-8 glasses of water a day, eat 6 small meals a day, do not consume raw or undercooked meat, and stay away from [facility]. Patient has been consulted regarding any further do's and don'ts of . Patient voiced understanding and all questions and concerns were answered. Patient did voice concern for bilateral breast rash and acne break out since started. Mild painless rash to breasts noted. We will start pt on keflex for acne and for mastitis Orders Placed This Encounter Procedures POCT urinalysis dipstick manually resulted Follow Up: Patient is to return in 4 weeks for routine OB appointment. Documented by Deborah Richardson MA on behalf of: daya espana documented in this encounter [facility] History of Present illness Narrative 03-30-2024 Sheri Reyna, BUCK - 03/30/2024 10:00 AM EST Note Date [...] Name Age of Onset Asthma Mother Twila gabe Thyroid disease Mother Twila gabe Social History Tobacco Use Smoking status: Never [...] or undercooked meat, and stay away from [facility]. Patient has also been advised to [...] History of Present illness Narrative 01-31-2024 Demetria Perez, SALES VENDOR - 01/31/2024 8:40 AM EST Note Date [...] nursing note reviewed. Exam conducted with a mussel farmer present. Vitals: Estimated body mass index is 25.99 kg/m as calculated from the following: Height as of 10/31/23: 5' 6 . Weight as of this [...] Babs Rice DO documented in this encounter [facility] Evaluation note Note Date & Type [...] in first trimester documented in this encounter [facility] Evaluation note Note Date & Type Note Facility Evaluation note No assessment information [facility] Work Phone: Evaluation note Note Date & Type Note Facility Evaluation note Diagnosis Second trimester state, incidental 14 weeks gestation of Rash Rash and other nonspecific skin eruption documented in this encounter [facility] Evaluation note Note Date & Type Note Facility Evaluation note Diagnosis Second trimester state, incidental 17 weeks gestation of Screening, , for anatomic survey Encounter for anatomic survey STD exposure Vaginal discharge Leukorrhea, not specified as infective documented in this encounter [facility] Summary Purpose Family History No Family History Records FoundNo Family History Records FoundNo Family History Records FoundNo Family History Records FoundNo Family History Records Found Advance Directives No Advanced Directives Records FoundNo Advanced Directives Records FoundNo Advanced Directives Records FoundNo Advanced Directives Records FoundNo Advanced Directives Records Found Additional Source Comments INFORMATION SOURCE (unrecogn ized section and content) DATE CREATED AUTHOR 09/15/2017 [facility] DATE CREATED AUTHOR AUTHOR'S ORGANIZ ATION 10/19/2021 [facility] DATE CREATED AUTHOR AUTHOR'S ORGANIZ ATION 11/01/2023 [facility] DATE CREATED AUTHOR AUTHOR'S ORGANIZ ATION 04/07/2024 [facility] DATE CREATED AUTHOR AUTHOR'S ORGANIZ ATION 05/29/2024 [facility] Specialists EPIC Care Teams (unrecognized sec tion and content) Dynamicist Relationship Specialty Start Date End Date Josephine Canada MD [address] [place] [address] PCP - General 10/18/22 Dynamicist Relationship Specialty Start Date End Date Josephine Canada MD [address] [place] [address] PCP - General 10/18/22 Dynamicist Relationship Specialty Start Date End Date Josephine Canada MD [address] [place] [address] PCP - General 10/18/22 Dynamicist Relationship Specialty Start Date End Date Josephine Canada MD [address] [facility] [place] [address] PCP - General 10/18/22 Team Status: Inactive Member Role Status Dates Babs Rice DO Attending Provider Active Start : March 30, 2024 End: March 30, 2024 Dynamicist Relationship Specialty Start Date End Date Josephine Canada MD [address] [place] [address] PCP - General 10/18/22 Dynamicist Relationship Specialty Start Date End Date Josephine Canada MD [address] [facility] [place] [address] PCP - General 10/18/22 Dynamicist Relationship Specialty Start Date End Date Josephine Canada MD [address] [facility] [place] [address] PCP - General 10/18/22 Reason for Visit (unrecogniz ed section and content) Reason Comments Infertility Pt present today to discuss fertility Reason Comments Amenorrhea Reason Comments Routine Visit Goals (unrecognized section and content) Goals may [...] BE BASED ON THE PRIMARY CLINICAL RECORDS. [facility] [employer] [facility]. provides no warranty or guarantee of the accuracy or completeness of information in this document.
[2024-06-27 00:07] LABS: AFP Value 84.1 ng/mL (.); Insulin Dep Diabetes No (.); Maternal Age At EDD 33.1 yr (.); OSBR Risk 1 IN 4034 (.); Results Report (.)
== END 2024-06-25 10:19 | disposition home or self-care (01) ==
LOC: LAB 10:20
PROVIDERS: PCP Family Medicine; Visit Provider Obstetrics & Gynecology
DX: Z34.92 Encounter for supervision of normal pregnancy, unspecified, second trimester (principal); Z36.89 Encounter for other specified antenatal screening
CPT/HCPCS: 36415; 82105

== ENCOUNTER 2024-06-25 13:47 | Outpatient (OUT) | payer OTHER, SELFPAY ==
--- NOTE | 2024-06-25 13:56 | US_ITS ---
The [address] [address] Patient Name: RU DICKERSON MRN: [id number] date: 1990 Sex: F Assigned Patient Location: US Current Patient Location: US Accession/Order Number: [id number] Exam Date: 06/25/2024 21:20 Report Date: 06/25/2024 21:26 At the request of: BABS LEWIS DO Procedure: US OB anatomy Obstetrical Ultrasound for Fetus greater than 14 weeks HISTORY: anatomy assessment heart rate is 157 bpm. The fetus is in cephalic presentation. The placenta is in a posterior position with normal appearance. The cervix has a length of 5.4cm. The estimated weight is 374 g. with percentile 31.1%. The ovaries are not visualized. No fluid identified in the cul-de-sac. Following anatomy identifiedalthough ventricles, cerebellum, posterior fossa, nose and lips, orbits, four-chamber heart, right ventricular outflow tract and left ventricular outflow tract, diaphragm, stomach, kidneys, cord insertion, bladder, umbilical arteries, three-vessel cord, spine, extremities. The biparietal diameter measures 5.1cm consistent with 21 weeks 3 days. Head circumference measures 18.1cm consistent with 20 weeks 4 days. Abdominal circumference measures 16.0cm consistent with 21 weeks 1 day. Femur length is 3.3cm consistent with 20 weeks 2 days. The average gestational age is 20 weeks 6 days. Estimated due date is 11/06/2024. somatic motion identified. US/US OB anatomy IMPRESSION: Single live intrauterine gestation 20 weeks 6 days. The anatomy as above. Impression dictated by: Andrew Jordan M.D.06/25/2024 9:26 PM Dictation Location[facility] Electronically authenticated by: [id number] Y Date: 06/25/2024 21:26
--- NOTE | 2024-06-25 13:56 | US_ITS ---
The [place] [id number] Patient Name: RU DICKERSON MRN: [id number] date: 1990 Sex: F Assigned Patient Location: US Current Patient Location: Accession/Order Number: [id number] Exam Date: 06/25/2024 21:26 Report Date: 06/25/2024 21:27 At the request of: BABS LEWIS DO Procedure: US OB cervical length Ultrasound assessment of cervical length Length of cervix 5.4 cm. The opening is closed. US/US OB cervical length IMPRESSION: 5.4 cm cervical length Impression dictated by: Andrew Jordan M.D.06/25/2024 9:27 PM Dictation Location: [place] [address] Electronically authenticated by: [id number] Y Date: 06/25/2024 21:27
--- OUTSIDE RECORDS SUMMARY | 2024-06-25 14:04 | XMS_ITS | CCD ---
Author Organization [facility] Care Team Providers Care Worsted Winder Name Role Phone LITZY SETH Unavailable Unavailable JOSEPHINE CANADA Unavailable Unavailable LITZY SETH Unavailable Unavailable JOSEPHINE CANADA Unavailable Unavailable CALEB, DR BURTON Admitting Unavailable CALEB, DR BURTON Attending Unavailable KARASIK, DR MIRANDA Admitting Unavailable KARASIK, DR MIRANDA Attending Unavailable KARBLAIRK, DR MIRANDA Consulting Unavailable JOSEPHINE CANADA M Referring Unavailable JOSEPHINE CANADA M Primary Care Unavailable JOSEPHINE CANADA Referring Unavailable CALEB JOSPEHINE Bela Primary Care Unavailable Josephine Canada MD Primary Care Provider [phone] Babs Rice DO Attending Provider Babs Rice Attending Unavailable Babs Rice Admitting Unavailable BABS RICE Attending Unavailable BABS RICE Attending Unavailable BABS RICE Attending Unavailable BABS RICE Attending Unavailable Allergies Allergy Classification Reported Allergen(s) Allergy Type Date of Onset Reaction(s) Facility (2 sources) Sulfonamides (Antibiotic) Drug allergy (disorder) 6 [facility] Repository (15 sources) Sulfonamides (Antibiotic) Propensity to adverse reactions 3 Hives, Itching, Swelling [facility] Medications Current Medications Medication Drug Class(es) Dates Sig (Normalized) Sig (Original) ascorbic acid 250 mg oral tablet (13 sources) Vitamin C take 1 tablet by mouth once daily Ascorbic Acid (vitamin C) 250 MG tablet Take 250 mg by mouth Daily Active betamethasone 0.5 mg/ml / clotrimazole 10 mg/ml topical cream (7 sources) Azole Antifungal, Corticosteroid Start: 05-15-2024 clotrimazole-betame [...] 06/14/2024 Active MV-Min-Fe Fum-FA-DHA ( 1 PO) (13 sources) MV-Min- Fe Fum-FA-DHA ( 1 PO) [...] 07-22-2017 Episodic Other and delivery including normal (8 sources) ; Translations: [Encounter for supervision of [...] [17 weeks gestation of ] 05-28-2024 Episodic Residual codes; unclassified (2 sources) Gestation period, 21 weeks; Translations: [21 weeks gestation of ] 06-25-2024 Episodic Thyroid disorders (1 source) Hypothyroidism, unspecified; Translations: [Hypothyroidism, unspecified] Onset: 10-28-2023 Chronic Results Test Name Value Interpretation Reference Range Facility Urinalysis macro (dipstick) panel (U)on 06-25-2024 Bilirubin, UA Negative Negative - 4(70) +++ mg/dL [facility] Blood, UA Negative Negative - 50 Abiel/mcL [facility] Clarity, UA Clear [facility] Color, UA Yellow [facility] Glucose, UA Negative Negative - 2000(110) ++++ mg/dL [facility] Interpretation and review of laboratory results Normal [facility] Ketones, UA Negative Negative - 160(16) ++++ mg/dL [facility] Leukocytes, UA Negative Negative - 500+++ Pradip/mcL [facility] Nitrite, UA Negative Negative - Positive [facility] pH, UA 7 5 - [address] [facility] Protein, UA Negative Negative - 1999(20) ++++ mg/dL [facility] Spec Grav, UA 1.015 1 - 1.[address] [facility] Urobilinogen, UA 0.2 0.2 - 12 mg/dL [facility] RECURRENT VAGINITIS (HTRX)on 05-30-2024 ATOPOBIUM VAGINAE [address] [facility] ATOPOBIUM VAGINAE Not detected [facility] BVAB 2,3 (BACTERIAL VAGINOSIS ASSOCIATED BACTERIA 2, 3); MOBILUNCUS SPP [address] [facility] BVAB 2,3 (BACTERIAL VAGINOSIS ASSOCIATED BACTERIA 2, 3); MOBILUNCUS SPP Not detected [facility] HELEN ALBICANS, PARAPSILOSIS, TROPICALIS [address] [facility] HELEN ALBICANS, PARAPSILOSIS, TROPICALIS Not detected [facility] HELEN GLABRATA [address] [facility] HELEN GLABRATA Not detected [facility] HELEN KRUSEI [address] [facility] HELEN KRUSEI Not detected [facility] CHLAMYDIA TRACHOMATIS [address] [facility] CHLAMYDIA TRACHOMATIS Not detected [facility] GARDNERELLA VAGINALIS [address] [facility] GARDNERELLA VAGINALIS Not detected [facility] MEGASPHAERA (TYPES 1, 2) [address] [facility] MEGASPHAERA (TYPES 1, 2) Not detected [facility] MYCOPLASMA GENITALIUM [address] [facility] MYCOPLASMA GENITALIUM Not detected [facility] NEISSERIA GONORRHOEAE [address] [facility] NEISSERIA GONORRHOEAE Not detected [facility] TRICHOMONAS VAGINALIS [address] [facility] TRICHOMONAS VAGINALIS Not detected [facility] Urinalysis macro (dipstick) panel (U)on 05-28-2024 Bilirubin, UA Negative Negative - 4(70) +++ mg/dL [facility] Blood, UA Negative Negative - 50 Abiel/mcL [facility] Clarity, UA Clear [facility] Color, UA Yellow [facility] Glucose, UA Negative Negative - 1999(110) ++++ mg/dL [facility] Interpretation and review of laboratory results Normal [facility] Ketones, UA Negative Negative - 160(16) ++++ mg/dL [facility] Leukocytes, UA Negative Negative - 500+++ Pradip/mcL [facility] Nitrite, UA Negative Negative - Positive [facility] pH, UA 7 5 - [address] [facility] Protein, UA Negative Negative - 1999(20) ++++ mg/dL [facility] Spec Grav, UA 1.015 1 - 1.[address] [facility] Urobilinogen, UA 0.2 0.2 - 12 mg/dL [facility] Urinalysis macro (dipstick) panel (U)on 04-30-2024 Bilirubin, UA Negative Negative - 4(70) +++ mg/dL [facility] Blood, UA Negative Negative - 50 Abiel/mcL [facility] Clarity, UA Clear [facility] Color, UA Yellow [facility] Glucose, UA Negative Negative - 1999(110) ++++ mg/dL [facility] Interpretation and review of laboratory results Abnormal [facility] Ketones, UA Negative Negative - 160(16) ++++ mg/dL [facility] Leukocytes, UA Negative Negative - 500+++ Pradip/mcL [facility] Nitrite, UA Negative Negative - Positive [facility] pH, UA 6.5 5 - [address] [facility] Protein, UA Negative Negative - 1999(20) ++++ mg/dL [facility] Spec Grav, UA 1.01 1 - 1.[address] [facility] Urobilinogen, UA 0.2 0.2 - 12 mg/dL [facility] BOX TESTon 04-16-2024 BOX TEST SENT OUT [facility] BOX1 [place] BOX [facility] BOX2 04/13/24 [facility] ALL CBC WITH AUTO DIFFon BASOPHILS ABSOLUTE AUTO 0.[address] [facility] Basophils/100 WBC (Bld) 0.8 % 0.2 - 2.0 % [facility] Eosinophils/100 WBC (Bld) 0.9 % 0.9 - 7.0 % [facility] Erythrocyte distribution width (RBC) [Ratio] 11.6 % 11.0 - 15.0 % [facility] Hematocrit (Bld) [Volume fraction] 37.7 % 36.0 - 48.0 % [facility] Hemoglobin (Bld) [Mass/Vol] 12.9 g/dL 12.0 - 16.0 g/dL [facility] IMMATURE GRANULOCYTES ABS AUTO 0.[address] [facility] Immature granulocytes/100 WBC (Bld) 0.3 % 0.0 - 0.5 % [facility] LYMPHOCYTES ABSOLUTE AUTO 1.[address] [facility] Lymphocytes/100 WBC (Bld) 22.4 % 20.5 - 60.0 % [facility] MCH (RBC) [Entitic mass] 30.2 pg 26.7 - 34.[address] [facility] MCHC (RBC) [Mass/Vol] 34.2 g/dL 29.9 - 35.2 g/dL [facility] MCV (RBC) [Entitic vol] 88.3 fL 81.0 - 99.[address] [facility] MONOCYTES ABSOLUTE AUTO 0.[address] [facility] Monocytes/100 WBC (Bld) 7.7 % 1.7 - 12.0 % [facility] NEUTROPHILS ABSOLUTE AUTO 5.[address] [facility] Neutrophils/100 WBC (Bld) 67.9 % 43.0 - 75.0 % [facility] Platelet mean volume (Bld) [Entitic vol] 10.5 fL 9.5 - 13.[address] [facility] TBH EO # 0.[address] [facility] PLT 194 [facility] RBC 4.27 [facility] WBC 7.[address] [facility] HCG ( test) Ql (U)o n 03-30-2024 Interpretation and review of laboratory results Abnormal [facility] Preg Test, Ur Positive Negative [facility] US OB TRANSVAGINALon 025 US OB TRANSVAGINAL [...] x 2.4 cm (7 weeks, 0 days). Coolin rump length is 1.6 cm (8 weeks, [...] UA Negative Negative - 4(70) +++ mg/dL [facility] Blood, UA Negative Negative - 50 Abiel/mcL [facility] Clarity, UA Clear [facility] Color, UA Yellow [facility] Glucose, UA Negative Negative - 2000(110) ++++ mg/dL [facility] Interpretation and review of laboratory results Abnormal [facility] Ketones, UA Positive Negative - 160(16) ++++ mg/dL [facility] Comment on above: trace Leukocytes, UA Negative Negative - 500+++ Pradip/mcL [facility] Nitrite, UA Negative Negative - Positive [facility] pH, UA 7 5 - [address] [facility] Protein, UA Negative Negative - 2000(20) ++++ mg/dL [facility] Spec Grav, UA 1.02 1 - 1.[address] [facility] Urobilinogen, UA 1.0 0.2 - 12 mg/dL [facility] Urine Cultureon 03-30-2024 Bacteria identified Cx Nom (U) No Growth 2 Days PERFORMED BY: [facility] [address] [place] [address] PATHOLOGIST QUANTITATIVE ASSOCIATE KASIA BECK M.D. Normal [facility] Comment on above: Performed By: #### C UU #### [facility] [address] US SOFT TISS HEAD NECKon US [...] Chris Encarnacion on 10/31/2023 7:59 AM Normal [facility] CBC AND AUTO DIFFon 10-28-19 24 ABSOLUTE BASOPHIL 0.0 X10E9/L Normal 0.0-0.2 [facility] Comment on above: Performed By: #### C SCOTTY CMP, 55080-4, THYR, HA1C #### [facility] ([id number]) [address], [address] [place] [address] ABSOLUTE NEUTROPHIL 2.9 X10E9/L Normal 1.5-6.6 [facility] Comment on above: Performed By: #### C BCA, CMP, 11735-7, THYR, HA1C #### [facility] ([id number]) [address], [address] [place] [address] Basophils/100 WBC (Bld) 0.8 % Normal [facility] Comment on above: Performed By: #### C BCA, CMP, 67413-0, THYR, HA1C #### [facility] ([id number]) [address], [address] [place] [address] Eosinophils (Bld) [#/Vol] 0.1 10*3/uL Normal 0.0-0.4 [facility] Comment on above: Performed By: #### C BCA, CMP, 68955-9, THYR, HA1C #### [facility] ([id number]) [address], [address] [place] [address] Eosinophils/100 WBC (Bld) 2.2 % Normal [facility] Comment on above: Performed By: #### C BCA, CMP, 56086-7, THYR, HA1C #### [facility] ([id number]) [address], [facility] [address] [place] [address] Erythrocyte distribution width (RBC) [Ratio] 12.5 % Normal 11.5-15.0 [facility] Comment on above: Performed By: #### C BCA, CMP, 43567-1, THYR, HA1C #### [facility] ([id number]) [address], [facility] [address] [place] [address] Hematocrit (Bld) [Volume fraction] 39.6 % Normal 35-47 [facility] Comment on above: Performed By: #### C BCA, CMP, 26289-4, THYR, HA1C #### [facility] ([id number]) [address], [facility] [address] [place] [address] Hemoglobin (Bld) [Mass/Vol] 13.5 g/dL Normal 11.7-15.5 [facility] Comment on above: Performed By: #### C BCA, CMP, 55214-3, THYR, HA1C #### [facility] ([id number]) [address] [address] [place] [address] Lymphocytes (Bld) [#/Vol] 2.1 10*3/uL Normal 1.0-3.5 [facility] Comment on above: Performed By: #### C BCA, CMP, 39729-5, THYR, HA1C #### [facility] ([id number]) [address] [address] [place] [address] Lymphocytes/100 WBC (Bld) 37.5 % Normal [facility] Comment on above: Performed By: #### C BCA, CMP, 15586-6, THYR, HA1C #### [facility] ([id number]) [address], [address] [place] [address] MCH (RBC) [Entitic mass] 31.0 pg Normal 27-34 [facility] Comment on above: Performed By: #### C BCA, CMP, 85024-6, THYR, HA1C #### [facility] ([id number]) [address], [address] [place] [address] MCHC (RBC) [Mass/Vol] 34.1 g/dL Normal 32-36 [facility] Comment on above: Performed By: #### C BCA, CMP, 23617-0, THYR, HA1C #### [facility] ([id number]) [address] [place] [address] MCV (RBC) [Entitic vol] 91 fL Normal 80-100 [facility] Comment on above: Performed By: #### C BCA, CMP, 32069-6, THYR, HA1C #### [facility] ([id number]) [address], [address] [place] [address] Monocytes (Bld) [#/Vol] 0.5 10*3/uL Normal 0-0.9 [facility] Comment on above: Performed By: #### C BCA, CMP, 53294-0, THYR, HA1C #### [facility] ([id number]) [address] [place] [address] Monocytes/100 WBC (Bld) 8.3 % Normal [facility] Comment on above: Performed By: #### C BCA, CMP, 34608-7, THYR, HA1C #### [facility] ([id number]) [address], [address] [place] [address] Neutrophils/100 WBC (Bld) 51.2 % Normal [facility] Comment on above: Performed By: #### C BCA, CMP, 23276-0, THYR, HA1C #### [facility] ([id number]) [address], [address] [place] [address] Platelet mean volume (Bld) [Entitic vol] 8.3 fL Normal 7-12 [facility] Comment on above: Performed By: #### C BCA, CMP, 63836-2, THYR, HA1C #### [facility] ([id number]) [address], [address] [place] [address] Platelets (Bld) [#/Vol] 195 10*3/uL Normal 150-450 [facility] Comment on above: Performed By: #### C BCA, CMP, 83610-2, THYR, HA1C #### [facility] ([id number]) [address], [address] [place] [address] RBC COUNT 4.36 X10E12/L Normal 3.80-5.20 [facility] Comment on above: Performed By: #### C BCA, CMP, 24234-1, THYR, HA1C #### [facility] ([id number]) [address] [address] [place] [address] WBC (Bld) [#/Vol] 5.7 10*3/uL Normal 4.0-11.0 [facility] Comment on above: Performed By: #### C BCA, CMP, 91407-7, THYR, HA1C #### [facility] ([id number]) [address], [address] [place] [address] COMPREHENSIVE METABOLIC PANE Lonny 10-28-2023 Albumin [Mass/Vol] 4.3 g/dL Normal 3.2-5.3 [facility] Comment on above: Performed By: #### C BCA, CMP, 32220-6, THYR, HA1C #### [facility] ([id number]) [address], [address] [place] [address] ALP [Catalytic activity/Vol] 53 U/L Normal 39-130 [facility] Comment on above: Performed By: #### C BCA, CMP, 50184-3, THYR, HA1C #### [facility] ([id number]) [address], [address] [place] [address] ALT [Catalytic activity/Vol] 12 U/L Normal 0-31 [facility] Comment on above: Performed By: #### C BCA, CMP, 82821-4, THYR, HA1C #### [facility] ([id number]) [address] [place] [address] Anion gap [Moles/Vol] 9 mmol/L Normal 5-15 [facility] Comment on above: Performed By: #### C BCA, CMP, 56145-0, THYR, HA1C #### [facility] ([id number]) [address], [address] [place] [address] AST [Catalytic activity/Vol] 21 U/L Normal 0-41 [facility] Comment on above: Performed By: #### C BCA, CMP, 09419-7, THYR, HA1C #### [facility] ([id number]) [address], [address] [place] [address] Bilirubin [Mass/Vol] 0.6 mg/dL Normal 0.3-1.2 [facility] Comment on above: Performed By: #### C BCA, CMP, 87258-4, THYR, HA1C #### [facility] ([id number]) [address], [address] [place] [address] Calcium [Mass/Vol] 9.6 mg/dL Normal 8.5-10.5 [facility] Comment on above: Performed By: #### C BCA, CMP, 49466-9, THYR, HA1C #### [facility] ([id number]) [address] [place] [address] Chloride [Moles/Vol] 103 mmol/L Normal 98-109 [facility] Comment on above: Performed By: #### C BCA, CMP, 56151-4, THYR, HA1C #### [facility] ([id number]) [address] [place] [address] CO2 [Moles/Vol] 27 mmol/L Normal 22-32 [facility] Comment on above: Performed By: #### C BCA, CMP, 42010-4, THYR, HA1C #### [facility] ([id number]) [address] [place] [address] Creatinine [Mass/Vol] 0.84 mg/dL Normal 0.40-1.00 [facility] Comment on above: Result Comment: METH OD TRACEABLE TO IDMS STANDARD Performed By: #### C BCA, CMP, 21777-4, THYR, HA1C #### [facility] ([id number]) [address], [facility] [address] [place] [address] eGFR (CKD-EPI) NON-RACE DEPENDENT >90 Normal >59 [facility] Comment on above: Result Comment: Reported eGFR is based on the CKD-EPI 2020 equation that does not use a race coefficient. Performed By: #### C BCA, CMP, 47294-5, THYR, HA1C #### [facility] ([id number]) [address] [address] [place] [address] Glucose [Mass/Vol] 81 mg/dL Normal 65-99 [facility] Comment on above: Performed By: #### C BCA, CMP, 82401-1, THYR, HA1C #### [facility] ([id number]) [address] [address] [place] [address] Potassium [Moles/Vol] 3.8 mmol/L Normal 3.5-5.0 [facility] Comment on above: Performed By: #### C BCA, CMP, 43648-5, THYR, HA1C #### [facility] ([id number]) [address] [place] [address] Protein [Mass/Vol] 7.5 g/dL Normal 6.0-8.0 [facility] Comment on above: Performed By: #### C BCA, CMP, 41130-2, THYR, HA1C #### [facility] ([id number]) [address] [address] [place] [address] Sodium [Moles/Vol] 139 mmol/L Normal 134-146 [facility] Comment on above: Performed By: #### C BCA, CMP, 55776-4, THYR, HA1C #### [facility] ([id number]) [address] [address] [place] [address] Urea nitrogen [Mass/Vol] 12 mg/dL Normal 5-23 [facility] Comment on above: Performed By: #### C BCA, CMP, 47186-4, THYR, HA1C #### [facility] ([id number]) [address] [address] [place] [address] HGB A1C (GLYCO-HGB)on 2023 Glucose [Mass/Vol] 103 mg/dL Normal [facility] Comment on above: Performed By: #### C BCA, CMP, 18599-8, THYR, HA1C #### [facility] ([id number]) [address] [address] [place] [address] HbA1c (Bld) [Mass fraction] 5.2 % Normal 4.4-5.6 [facility] Comment on above: Result Comment: NOTE ADA Guidelines Result HgbA1c Normal : less than 5.7 % Prediabetes : 5.7 % to 6.4 % Diabetes : > 6.4 % Use with caution in patients with abnormal hemoglobin variants as the half-life of red blood cells and in vivo glycation rates are affected. Performed By: #### C BCA, CMP, 45490-4, THYR, HA1C #### [facility] ([id number]) [address] [place] [address] Lipid 1996 panelon 4 Cholesterol [Mass/Vol] 208 mg/dL High 150-200 [facility] Comment on above: Performed By: #### C BCA, CMP, 32936-2, THYR, HA1C #### [facility] ([id number]) [address] [place] [address] Cholesterol in HDL [Mass/Vol] 75 mg/dL Normal >39 [facility] Comment on above: Result Comment: HDL <40 mg/dL - High Risk HDL > or = 40mg/dL- Desirable HDL >60 mg/dL - Negative Risk Performed By: #### C BCA, CMP, 82997-0, THYR, HA1C #### [facility] ([id number]) [address] [place] [address] Cholesterol in LDL [Mass/Vol] 120 mg/dL Normal <130 [facility] Comment on above: Result Comment: LDL <100 mg/dL - Desirable LDL >160 mg/dL - High Risk Performed By: #### C BCA, CMP, 11426-3, THYR, HA1C #### [facility] ([id number]) [address] [place] [address] Cholesterol in VLDL [Mass/Vol] 13 mg/dL Normal 0-30 [facility] Comment on above: Performed By: #### C BCA, CMP, 70481-1, THYR, HA1C #### [facility] ([id number]) [address] [place] [address] CHOLESTEROL:HDL 2.8 Normal 1.0-5.0 [facility] Comment on above: Performed By: #### C BCA, CMP, 64835-4, THYR, HA1C #### [facility] ([id number]) [address], [address] [place] [address] Triglyceride [Mass/Vol] 66 mg/dL Normal 27-150 [facility] Comment on above: Performed By: #### C BCA, CMP, 28924-5, THYR, HA1C #### [facility] ([id number]) [address], [address] [place] [address] THYROID PROFILEon 10-28-2023 Free T4 [Mass/Vol] 0.88 ng/dL Normal 0.61-1.60 [facility] Comment on above: Performed By: #### C BCA, CMP, 92521-8, THYR, HA1C #### [facility] ([id number]) [address], [address] [place] [address] TSH 2.30 uIU/mL Normal 0.49-4.67 [facility] Comment on above: Performed By: #### C BCA, CMP, 05955-5, THYR, HA1C #### [facility] ([id number]) [address] [place] [address] PAP ACOG PANEL 2: 21 to 29on 09-02-2021 . . [facility] Comment on above: Performed By: #### [id number] #### [facility] [address] [address] [address] Kulwant Duffy Age Gdln ACOG Testing - Normal [facility] Comment on above: Performed By: #### [id number] #### [facility] [address] [address] [address] Kulwant Duffy DIAGNOSIS: Comment [facility] Comment on above: Result Comment: NEGA TIVE FOR INTRAEPITHELIAL LESION OR MALIGNANCY. Performed By: #### [id number] #### [facility] [address] [place] [address] Dr. Kulwant Duffy Methodology: Comment [facility] Comment on above: Result Comment: This liquid based ThinPrep(R) pap test was screened with the use of an image guided system. Performed By: #### [id number] #### [facility] [address] [place] [address] Dr. Kulwant Duffy Note: Comment Normal [facility] Comment on above: Result Comment: The Pap smear is a screening test designed to aid in the detection of premalignant and malignant conditions of the uterine cervix. It is not a diagnostic procedure and should not be used as the sole means of detecting cervical cancer. Both false-positive and false-negative reports do occur. . Performed By: #### [id number] #### [facility] [address] [place] [address] Dr. Kulwant Duffy Performed by: Comment Normal [facility] Comment on above: Result Comment: Wilber Newton [employer]room [employer] (ASCP) Performed By: #### [id number] #### [facility] [address] [place] [address] Dr. Kulwant Duffy Reflex Criteria: Comment [facility] Comment on above: Result Comment: The HPV DNA reflex criteria were not met with this specimen result therefore, no HPV testing was performed. . Performed By: #### [id number] #### [facility] [address] [place] [address] Dr. Kulwant Duffy Specimen adequacy: Comment Normal [facility] Comment on above: Result Comment: Sati sfactory for evaluation. Endocervical and/or squamous metaplastic cells (endocervical component) are present. Performed By: #### [id number] #### [facility] [address] [place] [address] Dr. Kulwant Duffy US APPENDIXon 07-22-2017 US [...] Recipients:Josephine Canada MD - FaxFinal result Normal [facility] US GALLBLADDER RUQon 018 US GALLBLADDER RUQ EXAMINATION:ANNE MARIE QAMAR ULTRASOUND07/22/2017 7:43 amCOMPARISON:None.HISTORY:O RDERING SYSTEM PROVIDED [...] evidence for pericholecystic fluid,wall thickening, or calculi. [employer] Cashier documents a negative sonographicMurphy's sign. Gallbladder wall is normal in thickness, measuring 2.4 mm.The common bile duct is normal and measures 3 mm.IMPRESSION: Unremarkable ultrasound of the gallbladder. No evidence for cholelithiasisor acute cholecystitis.Interpreted by:ELIAN Brittonigned by:Nghia Denny MD07/22/17CC Recipients:Josephine Canada MD - FaxFinal result Normal [facility] Vital Signs Date Time Vital Sign Value Performing Clinician Tejas steward 06-25-2024 09:53-0400 Body mass index (BMI) [Ratio] 27.12 kg/m2 KidoZen DO Work Phone: [facility] 06-25-2024 09:53-0400 Body weight 76.2 kg Babs YoungCurrent DO Work Phone: [facility] 06-25-2024 09:53-0400 Diastolic blood pressure 76 mm[Hg] Babs Dwayne DO Work Phone: [facility] 06-25-2024 09:53-0400 Systolic blood pressure 110 mm[Hg] Babs Dwayne DO Work Phone: [facility] 05-28-2024 09:54-0500 Body mass index (BMI) [Ratio] 26.12 kg/m2 Babs Dwayne DO Work Phone: [facility] 05-28-2024 09:54-0500 Body weight 73.39 kg Babs Dwayne DO Work Phone: [facility] 05-28-2024 09:54-0500 Diastolic blood pressure 84 mm[Hg] Babs Dwayne DO Work Phone: [facility] 05-28-2024 09:54-0500 Systolic blood pressure 100 mm[Hg] Babs Dwayne DO Work Phone: [facility] 04-30-2024 14:02-0500 Body mass index (BMI) [Ratio] 26.37 kg/m2 Babs Dwayne DO Work Phone: [facility] 04-30-2024 14:02-0500 Body weight 74.12 kg Babs Dwayne DO Work Phone: [facility] 04-30-2024 14:02-0500 Diastolic blood pressure 82 mm[Hg] Babs Dwayne DO Work Phone: [facility] 04-30-2024 14:02-0500 Systolic blood pressure 130 mm[Hg] Babs Dwayne DO Work Phone: [facility] 01-31-2024 08:53-0500 Body mass index (BMI) [Ratio] 25.99 kg/m2 Babs Dwayne DO Work Phone: [facility] 01-31-2024 08:53-0500 Body weight 73.03 kg Babs Dwayne DO Work Phone: [facility] 01-31-2024 08:53-0500 Diastolic blood pressure 72 mm[Hg] Babs Dwayne DO Work Phone: [facility] 01-31-2024 08:53-0500 Systolic blood pressure 118 mm[Hg] Babs Dwayne DO Work Phone: [facility] Encounters Encounter Date Encounter Type Care Provider Facility Start: 06-25-2024 End: 06-25-2024 Bamboo flowsheet Babs Dwayne DO Work Phone: [facility] Start: 06-25-2024 End: 06-25-2024 Bamboo flowsheet Babs Dwayne DO Work Phone: [facility] Start: 06-25-2024 End: 06-25-2024 flow sheet Babs Dwayne DO Work Phone: [facility] Comment on above: Second trimester pre gnancy; 21 weeks gestation of Start: 05-28-2024 End: 05-28-2024 Bamboo flowsheet Babs Dwayne DO Work Phone: [facility] Start: 05-28-2024 End: 05-30-2024 Bamboo flowsheet Babs Dwayne DO Work Phone: [facility] Start: 05-28-2024 End: 05-30-2024 External Result Encounter Babs Dwayne DO Work Phone: [facility] External Department Unsolicited Start: 05-28-2024 End: 05-28-2024 flow sheet Babs Dwayne DO Work Phone: [facility] Comment on above: Second trimester pre gnancy; 17 weeks gestation of ; Screening, , for anatomic survey; STD exposure; Vaginal discharge Start: 05-28-2024 End: 05-28-2024 ambulatory BABS DWAYNE Not Available Start: 04-30-2024 End: 04-30-2024 Bamboo flowsheet Babs Dwayne DO Work Phone: [facility] Start: 04-30-2024 End: 04-30-2024 Bamboo [...] Start: 03-30-2024 End: 03-30-2024 ambulatory Babs Dwayne [facility] Work Phone: Start: 03-30-2024 End: 03-30-2024 Departed Referred Babs Dwayne DO Work Phone: [facility] Start: 03-30-2024 [...] Not Available Start: 10-28-2023 End: 10-28-2023 ambulatory [facility] Start: 10-28-2023 Encounter for genera l adult medical examination without abnormal findings [facility] Start: 08-28-2021 End: 08-28-[address] RUTH PINEDA Facility:[facility] Start: 08-14-[address] JOSEPHINE CANADA Facility :[facility] Start: 07-22-2017 End: 07-25-2017 Ambulatory LITZY SETH [facility] Procedures Date Procedure Procedure Detail Performing Clinician Start: 06-25-2024 Urnls dip stick/tabl et rgnt non-auto w/o micrscp Babs Dwayne DO Work Phone: Start: 05-28-2024 RECURRENT VAGINITIS (HTRX) Babs Dwayne [...] EDT Office Visit [facility] [address] [place] [id number] Babs Rice, DO [address] [place], [place] [id number] [facility] Start: 07-23-2024 End: 07-23-2024 Patient encounter procedure 07/23/2024 9:50 AM EDT Routine [facility] [address] [place] [phone] Babs Rice, DO [address] [place] [address] [facility] Start: 06-26-2024 End: 06-26-2024 Professional / ancillary services management 06/26/2024 9:00 AM EDT Ancillary Procedure [facility] [address] [place] [phone] [facility] Start: 06-25-2024 End: 06-25-2024 [...] for anatomic survey Expected: 05/28/2024, Expires: 05/28/2025 [facility] Comment on above: Expected: 05/28/2024 , [...] 03-30-2024 Bacteria identified in Urine by Culture [facility] Comment on above: Ordered: 03/30/2024 Start: 03-30-2024 End: 03-30-2025 Blood type and Indirect antibody screen panel - Blood Type and screen Lab Routine Missed menses , unspecified gestational age Expected: 03/30/2024 (Approximate), Expires: 03/30/2025 [facility] Work Phone: Comment on above: Expected: 03/30/2024 (Approximate), Expires: 03/30/2025 Start: 03-30-2024 End: 03-30-2025 Drugs of abuse panel - Urine by Screen method Rapid drug screen, urine Lab Routine , unspecified gestational age Encounter for supervision of normal first in first trimester Expected: 03/30/2024 (Approximate), Expires: 03/30/2025 [facility] Comment on above: Expected: 03/30/2024 (Approximate), Expires: 03/30/2025 Start: 03-30-2024 Urine culture [facility] Start: 01-31-2024 End: 01-30-2025 US for US PELVIS-TRANSVAG IF INDICATED Imaging Routine Dysfunctional uterine bleeding Expected: 01/31/2024 (Approximate), Expires: 01/30/2025 [facility] Work Phone: Comment on above: Expected: 01/31/2024 (Approximate), Expires: 01/30/2025 Start: 01-31-2024 End: 01-31-2024 Patient encounter procedure 01/31/2024 8:40 AM EST Office Visit [facility] [address] [place] [address] Babs Rice, [address] [place] [address] Arrived [facility] Comment on above: Arrived CBC W Auto Different ial panel - Blood CBC and differential Lab Routine Missed menses , unspecified gestational age Ordered: 03/30/2024 [facility] Comment on above: Ordered: 03/30/2024 CHLAMYDIA TRACHOMATI S (GENITO/STI) CHLAMYDIA TRACHOMATIS (GENITO/STI) Lab Routine STD exposure Vaginal discharge Ordered: 05/28/2024 [facility] Comment on above: Ordered: 05/28/2024 Hemoglobin A1c/Hemoglobin.total in Blood Hemoglobin A1c Lab Routine Missed menses , unspecified gestational age Ordered: 03/30/2024 [facility] Comment on above: Ordered: 03/30/2024 Hepatitis B virus surface Ag [Presence] in Serum or Plasma by Immunoassay Hepatitis B surface antigen Lab Routine Missed menses , unspecified gestational age Ordered: 03/30/2024 [facility] Comment on above: Ordered: 03/30/2024 Hepatitis C virus Ab [Presence] in Serum or Plasma by Immunoassay Hepatitis C antibody Lab Routine Missed menses , unspecified gestational age Ordered: 03/30/2024 [facility] Comment on above: Ordered: 03/30/2024 HIV-1/HIV-2 antigen/antibody combination immunoassay HIV-1 and HIV-2 antibodies Lab Routine Missed menses , unspecified gestational age Ordered: 03/30/2024 [facility] Comment on above: Ordered: 03/30/2024 Neisseria gonorrhoea e DNA [Presence] in Unspecified specimen by DELILAH with probe detection Neisseria gonorrhea DNA probe, direct Lab Routine STD exposure Vaginal discharge Ordered: 05/28/2024 [facility] Comment on above: Ordered: 05/28/2024 Reagin Ab [Presence] in Serum by RPR RPR Lab Routine Missed menses , unspecified gestational age Ordered: 03/30/2024 [facility] Comment on above: Ordered: 03/30/2024 Rubella antibody, IgG Rubella an tibody, IgG Lab Routine Missed menses , unspecified gestational age Ordered: 03/30/[address] [facility] Comment on above: Ordered: 03/30/2024 SURESWAB(R) ADVANCED VAGINITIS PLUS, TMA SURESWAB(R) ADVANCED VAGINITIS PLUS, TMA Pathology and Cytology Routine STD exposure Vaginal discharge Ordered: 05/28/[address] [facility] Work Phone: Comment on above: Ordered: 05/28/2024 Payers Date Payer Category Payer Private Health Insurance [facility] [id number] 2017 Unknown [id number] 1991 Unknown [id number] 1991 Unknown [id number]. 593 1991 Unknown [id number]. 1286 1991 Unknown [id number]. 1286 1991 Unknown [id number]. 1259 1991 Unknown [id number]. 1259 1991 Unknown [id number] [id number]. 1259 1991 Unknown [id number] [id number]. 1259 1991 Unknown [id number] [id number]. 1259 1991 Unknown [id number] [id number]. 1259 1959 Self-pay 1959 Unknown [id number] Unknown [id number] 531 Social History Date Type Detail Facility Start: 10-31-2023 Tobacco smoking stat [facility] Never smoked tobacco [facility] Start: 10-31-2023 Tobacco use and exposure Smokeless tobacco non-user [facility] Start: 10-31-2023 End: 06-25-2024 Alcoholic beverage intake Lifetime non-drinker (finding) [facility] Start: 10-31-2023 End: 01-31-2024 History of Social function [facility] Start: 10-31-2023 End: 01-31-2024 Tobacco use panel [facility] Start: 1990 Sex assigned at Female [facility] Start: 09-07-2022 Gender identity Identifies as female gender (finding) [facility] Start: 02-13-2024 [facility] Work Phone: Start: 03-31-2024 Sex Female (finding) [facility] Clinical Notes 01-31-2024 to 06-25-2024 Georgina Woodruff NP - 06/25/2024 9:40 AM Laverne Rossi LPN - 05/28/2024 9:40 AM Tayler Richardson MA - 04/30/2024 1:40 PM Minda Reyna LPN - 03/30/2024 10:00 AM EST Note Date & Type Note Facility 06-25-2024 History of Presen t illness Narrative Reason for Appointment: Patient ID: Joseline Gomez is a 33 y.o. female who presents for Routine Visit Patient presents today for Return OB appointment. MEDICATIONS Current Outpatient Medications Medication Instructions clotrimazole-betamethasone (Lotrisone) cream 1 application , Topical, Daily, Apply to affected area daily for 7 days MV-Min-Fe Fum-FA-DHA ( 1 PO) Oral vitamin C 250 mg, Oral, Daily ALLERGIES Allergies Allergen Reactions Sulfa Antibiotics Hives, Itching and Swelling Other Reaction(s): Unknown PROBLEMS Active Ambulatory Problems Diagnosis Date Noted No Active Ambulatory Problems Resolved Ambulatory Problems Diagnosis Date Noted No Resolved Ambulatory Problems Past Medical History: Diagnosis Date Arthritis Asthma MARIANO II (cervical intraepithelial neoplasia II) HPV (human papilloma virus) infection 04/2015 HSIL (high grade squamous intraepithelial lesion) on Pap smear of cervix Hx of being hospitalized Urinary tract infection HISTORY PAST MEDICAL HISTORY SOCIAL HISTORY Past Medical History: Diagnosis Date Arthritis Asthma MARIANO II (cervical intraepithelial neoplasia II) HPV [...] nursing note reviewed. Exam conducted with a services coordinator present. Vitals: Estimated body mass index is 27.12 kg/m as calculated from the following: Height as of 10/31/23: 5' 6 . Weight as of this encounter: 168 lb. BP: 110/76 Patient's last menstrual period was 01/30/2024 (exact date). ASSESSMENT & PLAN ICD-10-CM 1. Second trimester Z34.92 2. 21 weeks gestation of Z3A.21 POCT urinalysis dipstick manually resulted Return OB: Patient presents today for a routine obstetrics appointment. Patient is currently 21w0d . Patient states she is doing well but has complaints of being tired due to current . Patient has verbalizes frequent movement. Orders Placed This Encounter Procedures POCT urinalysis dipstick manually resulted Follow Up: Patient is to return to office in 4 week for routine OB appointment. Scheduled for anatomy scan. Documented by Georgina Woodruff NP on behalf of: Babs Rice DO documented in this encounter [facility] 05-28-2024 History of Presen t illness Narrative [...] Past Medical History: Diagnosis Date Arthritis Asthma ([facility]) MARIANO II (cervical intraepithelial neoplasia II) HPV [...] nursing note reviewed. Exam conducted with a services coordinator present. Vitals: Estimated body mass index is [...] obtained without difficulty and patient was given [facility] order to have obtained. Orders Placed This Encounter Procedures US OB 14+ weeks anatomy scan CHLAMYDIA TRACHOMATIS (GENITO/STI) Neisseria gonorrhea DNA probe, direct Alpha fetoprotein, maternal POCT urinalysis dipstick manually resulted Follow Up: Patient is to return to our office in 4 weeks for routine OB appointment Documented by Sarah Rossi LPN on behalf of: Babs Rice DO documented in this encounter [facility] 04-30-2024 History of Presen t illness Narrative [...] Relation Name Age of Onset Asthma Mother Tiwla bernal Thyroid disease Mother Twila bernal SURGICAL [...] nursing note reviewed. Exam conducted with a services coordinator present. Vitals: Estimated body mass index is [...] or undercooked meat, and [facility] Patient has been consulted regarding any further [...] of: daya espana documented in this encounter [facility] 03-30-2024 History of Presen t illness Narrative [...] Past Medical History: Diagnosis Date Arthritis Asthma ([facility]) MARIANO II (cervical intraepithelial neoplasia II) HPV [...] or undercooked meat, and [facility]. Patient has also been advised to not [...] Sheri Reyna LPN documented in this encounter [facility] 01-31-2024 History of Presen t illness Narrative [...] nursing note reviewed. Exam conducted with a services coordinator present. Vitals: Estimated body mass index is [...] Babs Rice DO documented in this encounter [facility] Evaluation note Diagnosis Encounter for infertility Dysfunctional uterine bleeding Other disorder of menstruation and other abnormal bleeding from female genital tract documented [facility] Diagnosis Missed menses , unspecified gestational age Encounter for supervision of normal first in first trimester documented in this encounter [facility] noteNo assessment information [facility] Work Phone: Evaluation note* Diagnosis Second trimester state, incidental 14 weeks gestation of Rash Rash and other nonspecific skin eruption [facility]* Diagnosis Second trimester state, incidental 17 weeks gestation of Screening, , for anatomic survey Encounter for anatomic survey STD exposure Vaginal discharge Leukorrhea, not specified as infective documented [facility]* Diagnosis Second trimester state, incidental 21 weeks gestation of documented in this encounter [facility] Summary [...] section and content) DATE CREATED AUTHOR 09/15/[address] [facility] DATE CREATED AUTHOR AUTHOR'S ORGANIZ ATION 10/19/2021 [facility] DATE CREATED AUTHOR AUTHOR'S ORGANIZ ATION 11/01/2023 [facility] DATE CREATED AUTHOR AUTHOR'S ORGANIZ ATION 04/07/2024 [facility] DATE CREATED AUTHOR AUTHOR'S ORGANIZ ATION 05/29/2024 [facility] EPIC Care Teams (unrecognized sec tion and content) Worsted Winder Relationship Specialty Start Date End Date Josephine Canada MD [address] [place] [address] PCP - General 10/18/22 Worsted Winder Relationship Specialty Start Date End Date Josephine Canada MD [address] [place] [address] PCP - General 10/18/22 Worsted Winder Relationship Specialty Start Date End Date Josephine Canada MD [address] [place] [address] PCP - General 10/18/22 Worsted Winder Relationship Specialty Start Date End Date Josephine Canada MD [address] [place] [address] PCP - General 10/18/22 Team Status: Inactive Member Role Status Dates Babs Rice DO Attending Provider Active Start : March 30, 2024 End: March 30, 2024 Worsted Winder Relationship Specialty Start Date End Date Josephine Canada MD [address] [place] [phone] PCP - General 10/18/22 Worsted Winder Relationship Specialty Start Date End Date Josephine Canada MD [address] [place] [phone] PCP - General 10/18/22 Worsted Winder Relationship Specialty Start Date End Date Josephine Canada MD [address] [place] [address] PCP - General 10/18/22 Reason for Visit [...] BE BASED ON THE PRIMARY CLINICAL RECORDS. [facility] [employer] provides no warranty or guarantee of the accuracy or completeness of information in this document.
== END 2024-06-25 13:48 | disposition home or self-care (01) ==
LOC: US 13:48
PROVIDERS: PCP Family Medicine; Visit Provider Obstetrics & Gynecology
DX: Z34.92 Encounter for supervision of normal pregnancy, unspecified, second trimester (principal); Z36.89 Encounter for other specified antenatal screening; Z3A.20 20 weeks gestation of pregnancy
CPT/HCPCS: 36415; 76805; 76817; 82105

== ENCOUNTER 2024-08-03 12:54 | Outpatient (OUT) | payer OTHER, SELFPAY ==
[2024-08-03 14:21] LABS: Basophils Percent Auto 0.3 % (0.2-2.0); Eosinophils Absolute Auto 0.1 10^3/uL (0.0-0.7); Eosinophils Percent Auto 1.2 % (0.9-7.0); Hematocrit 35.4 % (36.0-48.0); Hemoglobin 12.2 g/dL (12.0-16.0); Immature Granulocytes Abs Auto 0.04 10^3/uL (0.00-0.03); Immature Granulocytes Pct Auto 0.4 % (0.0-0.5); Lymphocytes Percent Auto 17.6 % (20.5-60.0); Mean Corpuscular HGB Conc 34.5 g/dL (29.9-35.2); Mean Corpuscular Hemoglobin 31.4 pg (26.7-34.0); Mean Corpuscular Volume 91.2 fL (81.0-99.0); Mean Platelet Volume 10.3 fL (9.5-13.5); Monocytes Absolute Auto 0.7 10^3/uL (0.3-0.8); Neutrophils Absolute Auto 8.4 10^3/uL (1.4-6.5); Neutrophils Percent Auto 74.5 % (43.0-75.0); Platelet Count 203 10^3/uL (150-450); Red Blood Count 3.88 10^6/uL (4.20-5.40); White Blood Count 11.3 10^3/uL (4.0-11.0)
[2024-08-03 14:28] LABS: Glucose 1 Hour 114 mg/dL (<130)
== END 2024-08-03 12:55 | disposition home or self-care (01) ==
LOC: LAB 12:54
PROVIDERS: PCP Family Medicine; Visit Provider Obstetrics & Gynecology
DX: Z13.1 Encounter for screening for diabetes mellitus (principal)
CPT/HCPCS: 36415; 82950; 85025

== ENCOUNTER 2024-10-09 14:58 | Outpatient (REF) | payer OTHER, SELFPAY | END 2024-10-09 14:59 | disposition home or self-care (01) | LOC: LAB 14:58 | PROVIDERS: PCP Family Medicine; Visit Provider Obstetrics & Gynecology | DX: Z34.93 Encounter for supervision of normal pregnancy, unspecified, third trimester (principal) | CPT/HCPCS: 87081 ==

== ENCOUNTER 2024-11-01 05:24 | Inpatient (IN) | payer OTHER, SELFPAY ==
[2024-11-01] VITALS (38 sets, daily range): BP systolic 97–127; BP diastolic 58–75; PULSE 49–75; TEMP 36.3–37.6; O2SAT 96–100
--- OUTSIDE RECORDS SUMMARY | 2024-11-01 05:28 | XMS_ITS | CCD ---
Author Organization [facility] Care Team Providers Care Finish Repair Worker Name Role Phone SETH, LITZY Unavailable Unavailable JOSEPHINE CANADA Unavailable Unavailable SINGER LITZY Unavailable Unavailable JOSEPHINE CANADA Unavailable Unavailable CALEB, DR BURTON Admitting Unavailable CALEB, DR BURTON Attending Unavailable KARASIK, DR MIRANDA Admitting Unavailable KARASIK, DR MIRANDA Attending Unavailable KARASIK, DR MIRANDA Consulting Unavailable JOSEPHINE CANADA Referring Unavailable JOSEPHINE ACNADA Primary Care Unavailable JOSEPHINE CANADA Referring Unavailable JOSEPHINE CANADA Primary Care Unavailable Josephine Canada MD Primary Care Provider [phone] Babs Rice DO Attending Provider Babs Rice Attending Unavailable Babs Rice Admitting Unavailable Josephine Canada MD Primary Care Provider [phone] Josephine Canada MD Primary Care Provider [phone] BABS RICE Attending Unavailable DWAYNE, BABS Attending Unavailable DWAYNE, BABS Attending Unavailable DWAYNE, BABS Attending Unavailable DEANDRA VEE Attending Unavailable DEANDRA VEE Referring Unavailable DWAYNE, BABS Attending Unavailable DWAYNE, BABS Attending Unavailable DWAYNE, BABS Attending Unavailable DEANDRA VEE Attending Unavailable DWAYNE, BABS Attending Unavailable DWAYNE, BABS Attending Unavailable DWAYNE, BABS Attending Unavailable DWYANE, BABS Attending Unavailable Allergies Allergy Classification Reported Allergen(s) Allergy Type Date of Onset Reaction(s) Facility (2 sources) Sulfonamides (Antibiotic) Drug allergy (disorder) 6 [facility] (20 sources) Sulfonamides (Antibiotic) Propensity to adverse reactions 3 Hives, Itching, Swelling [facility] Medications Current Medications Medication Drug Class(es) Dates Sig (Normalized) Sig (Original) ascorbic acid 250 mg oral tablet (20 sources) Vitamin C take 1 tablet by mouth once daily Ascorbic Acid (vitamin C) 250 MG tablet Take 250 mg by mouth Daily Active betamethasone 0.5 mg/ml / clotrimazole 10 mg/ml topical cream (20 sources) Azole Antifungal, Corticosteroid Start: 05-15-2024 clotrimazole-betamet hasone (Lotrisone) cream Indications: Rash Apply 1 application [...] 7 days. 14 capsule 04/30/2024 05/07/2024 Active omeprazole 20 mg delayed release oral capsule (19 sources) Proton Pump Inhibitor Start: 08-15-2024 End: 09-14-2024 take 1 capsule by mouth before mealtime omeprazole (PriLOSEC) [address] capsule Indications: Gastroesophageal Reflux Disease , Heartburn Take 1 capsule (20 mg) by mouth in the morning. Take before meals. Do not crush or chew. 30 capsule 3 08/15/2024 Active ondansetron 4 mg disintegrating oral tablet [...] 06/14/2024 Active MV-Min-Fe Fum-FA-DHA ( 1 PO) (20 sources) MV-Min- Fe Fum-FA-DHA ( 1 PO) Take by mouth Active Completed/Discontinued Medications Medication Drug Class(es) Dates Sig (Normalized) Sig (Original) azithromycin 250 mg oral tablet (6 sources) Macrolide Antimicrobial Start: 09-18-2024 End: 10-09-2024 azithromycin (Zithromax Z-Fadi) 250 MG tablet Indications: Sinusitis, unspecified chronicity, unspecified location As directed 6 tablet 09/18/2024 10/09/2024 Discontinued Problems Problem Classification Problem Date Documented Da te Episodic/Chronic Abdominal pain (3 sources) Generalized abdominal pain; Translations: [Generalized abdominal pain] Onset: Episodic Contraceptive and procreative management (1 source) Patient encounter status; Translations: [Encounter for procreative management, unspecified] 01-31-2024 Episodic Diabetes mellitus without complication (1 source) Other abnormal glucose; Translations: [Other abnormal glucose] Onset: 4 Episodic Disorders of lipid metabolism (1 source) Hyperlipidemia, unspecified; Translations: [Hyperlipidemia, unspecified] Onset: 4 Chronic Essential hypertension (1 source) Essential (primary) hypertension; Translations: [Essential (primary) hypertension] Onset: 4 Chronic Immunizations and screening for infectious disease (2 sources) Exposure to sexually transmissible disorder; Translations: [Contact with and (suspected) exposure to infections with a predominantly sexual mode of transmission] 05-28-2024 Episodic Lymphadenitis (1 source) Nonspecific lymphadenitis, unspecified; Translations: [Nonspecific lymphadenitis, unspecified] Onset: 4 Episodic Malaise and fatigue (1 source) Other fatigue; Translations: [Other fatigue] Onset: 4 Episodic Menstrual disorders (1 source) Missed period; Translations: [Irregular menstruation, unspecified] 03-30-2024 Chronic Other complications of (4 sources) Gastroesophageal reflux disease in ; Translations: [Diseases of the digestive system complicating , unspecified trimester] 08-15-2024 Episodic Other complications of (2 sources) size does not accord with dates; Translations: [Uterine size-date discrepancy, second trimester] 08-15-2024 Episodic Other female genital disorders (1 source) Abnormal uterine bleeding; Translations: [Other specified abnormal uterine and vaginal bleeding] 01-31-2024 Chronic Other female genital disorders (2 sources) Vaginal discharge; Translations: [Other specified noninflammatory disorders of vagina] 05-28-2024 Episodic Other gastrointestinal disorders (1 source) Diarrhea, unspecified; Translations: [Diarrhea, unspecified] Onset: 8 Episodic Other and delivery including normal (20 sources) ; Translations: [Encounter for supervision of normal , unspecified, unspecified trimester] 03-30-2024 Episodic Other screening for suspected conditions (not mental disorders or infectious disease) (8 sources) Encounter for screening for malignant neoplasm of cervix; Translations: [Patient encounter status] Onset: 2 Episodic Other skin disorders (2 sources) Eruption; Translations: [Rash and other nonspecific skin eruption] 04-30-2024 Episodic Other upper respiratory infections (2 sources) Sinusitis; Translations: [Chronic sinusitis, unspecified] 10-09-2024 Chronic Residual codes; unclassified (2 sources) Gestation period, 14 weeks; Translations: [14 weeks gestation of ] 04-30-2024 Episodic Residual codes; unclassified (2 sources) Gestation period, 17 weeks; Translations: [17 weeks gestation of ] 05-28-2024 Episodic Residual codes; unclassified (2 sources) Gestation period, 21 weeks; Translations: [21 weeks gestation of ] 06-25-2024 Episodic Residual codes; unclassified (2 sources) Gestation period, 25 weeks; Translations: [25 weeks gestation of ] 07-23-2024 Episodic Residual codes; unclassified (2 sources) Gestation period, 28 weeks; Translations: [28 weeks gestation of ] 08-15-2024 Episodic Residual codes; unclassified (2 sources) Gestation period, 30 weeks; Translations: [30 weeks gestation of ] 08-27-2024 Episodic Residual codes; unclassified (2 sources) Gestation period, 32 weeks; Translations: [32 weeks gestation of ] 09-10-2024 Episodic Residual codes; unclassified (2 sources) Gestation period, 34 weeks; Translations: [34 weeks gestation of ] 09-24-2024 Episodic Residual codes; unclassified (2 sources) Gestation period, 36 weeks; Translations: [36 weeks gestation of ] 10-09-2024 Episodic Residual codes; unclassified (2 sources) Gestation period, 37 weeks; Translations: [37 weeks gestation of ] 10-15-2024 Episodic Residual codes; unclassified (2 sources) Gestation period, 38 weeks; Translations: [38 weeks gestation of ] 10-23-2024 Episodic Thyroid disorders (1 source) Hypothyroidism, unspecified; Translations: [Hypothyroidism, unspecified] Onset: Chronic Results Test Name Value Interpretation Reference Range Facility Urinalysis macro (dipstick) panel (U)on 10-23-2024 Bilirubin, UA Negative Negative - 4(70) +++ mg/dL [facility] Blood, UA Negative Negative - 50 Abiel/mcL [facility] Clarity, UA Clear [facility] Color, UA Yellow [facility] Glucose, UA Negative Negative - 1999(110) ++++ mg/dL [facility] Interpretation and review of laboratory results Normal [facility] Ketones, UA Negative Negative - 160(16) ++++ mg/dL [facility] Leukocytes, UA Negative Negative - 500+++ Pradip/mcL [facility] Nitrite, UA Negative Negative - Positive [facility] pH, UA 6.5 5 - 9 [facility] Protein, UA Negative Negative - 1999(20) ++++ mg/dL [facility] Spec Grav, UA 1.005 1 - 1.03 [facility] Urobilinogen, UA 0.2 0.2 - 12 mg/dL [facility] Urinalysis macro (dipstick) panel (U)on 09-24-2024 Bilirubin, UA Negative Negative - 4(70) +++ mg/dL [facility] Blood, UA Negative Negative - 50 Abiel/mcL [facility] Clarity, UA Clear [facility] Color, UA Yellow [facility] Glucose, UA Negative Negative - 1999(110) ++++ mg/dL [facility] Interpretation and review of laboratory results Normal [facility] Ketones, UA Negative Negative - 160(16) ++++ mg/dL [facility] Leukocytes, UA Negative Negative - 500+++ Pradip/mcL [facility] Nitrite, UA Negative Negative - Positive [facility] pH, UA 7 5 - 9 [facility] Protein, UA Negative Negative - 1999(20) ++++ mg/dL [facility] Spec Grav, UA 1.015 1 - 1.03 [facility] Urobilinogen, UA 0.2 0.2 - 12 mg/dL [facility] US OB FOLLOW UP TRANSABDOMIN AL APPROACHon 08-27-2024 US OB FOLLOW UP TRANSABDOMINAL APPROACH EXAM: US OB FOLLOW UP TRANSABDOMINAL APPROACH HISTORY: Inconsistent size. COMPARISON: Ob ultrasound 03/30/2024. TECHNIQUE: Two-dimensional transabdominal grayscale ultrasound imaging of the pelvis was performed. FINDINGS: Gestation: Single Presentation: Breech Cardiac Activity: 164 beats per minute Amniotic Fluid Index: 12.8 cm MEASUREMENTS: BPD: 7.5 cm EGA: 30 weeks 1 days HC: 27.7 cm EGA: 30 weeks 2 days AC: 26.7 cm EGA: 30 weeks 5 days FL: 5.7 cm EGA: 30 weeks 0 days HC/AC Ratio: 1.04 The gestational age by today's ultrasound is 30 weeks 2 days (+/- 15 days gestation). Estimated Weight: 1568 grams, +/- 235 grams ( 3 lb 7 oz). Weight Percentile for gestational age: 52 % IMPRESSION: 1. Single, live intrauterine gestation 30 weeks, 0 days by LMP. Today's ultrasound measurements correlate with a gestational age of 30 weeks 2 days. Estimated weight is 1568 grams, +/- 235 grams ( 3 lb 7 oz) which correlates to 52 %. RUBY is 11/03/2024. Interpreted by: Electronically signed by LEON JAMES II, MD, PHD at 31-Aug-2024 08:25:52 AM [facility] Normal Not Available Comment on above: Order Comment: US OB SCAN FOR GROWTH Estimated Date of Delivery: 11/05/24 Gestational Age as of 08/15/2024: 28w2d Urinalysis macro (dipstick) panel (U)on 08-27-2024 Bilirubin, UA Negative Negative - 4(70) +++ mg/dL [facility] Blood, UA Negative Negative - 50 Abiel/mcL [facility] Clarity, UA Clear [facility] Color, UA Yellow [facility] Glucose, UA Negative Negative - 1999(110) ++++ mg/dL [facility] Interpretation and review of laboratory results Normal [facility] Ketones, UA Negative Negative - 160(16) ++++ mg/dL [facility] Leukocytes, UA Negative Negative - 500+++ Pradip/mcL [facility] Nitrite, UA Negative Negative - Positive [facility] pH, UA 7 5 - 9 [facility] Protein, UA Negative Negative - 1999(20) ++++ mg/dL [facility] Spec Grav, UA 1.01 1 - 1.03 [facility] Urobilinogen, UA 0.2 0.2 - 12 mg/dL [facility] Urinalysis macro (dipstick) panel (U)on 08-15-2024 Bilirubin, UA Negative Negative - 4(70) +++ mg/dL [facility] Blood, UA Positive Negative - 50 Abiel/mcL [facility] Comment on above: trace-intact Clarity, UA Clear [facility] Color, UA Yellow [facility] Glucose, UA Negative Negative - 1999(110) ++++ mg/dL [facility] Interpretation and review of laboratory results Abnormal [facility] Ketones, UA Negative Negative - 160(16) ++++ mg/dL [facility] Leukocytes, UA Negative Negative - 500+++ Pradip/mcL [facility] Nitrite, UA Negative Negative - Positive [facility] pH, UA 7 5 - 9 [facility] Protein, UA Negative Negative - 1999(20) ++++ mg/dL [facility] Spec Grav, UA 1.015 1 - 1.03 [facility] Urobilinogen, UA 0.2 0.2 - 12 mg/dL [facility] ALL CBC WITH AUTO DIFFon BASOPHILS ABSOLUTE AUTO 0 [facility] Basophils/100 WBC (Bld) 0.3 % 0.2 - 2.0 % [facility] Eosinophils/100 WBC (Bld) 1.2 % 0.9 - 7.0 % [facility] Erythrocyte distribution width (RBC) [Ratio] 12 % 11.0 - 15.0 % [facility] Hematocrit (Bld) [Volume fraction] 35.4 % Low 36.0 - 48.0 % [facility] Hemoglobin (Bld) [Mass/Vol] 12.2 g/dL 12.0 - 16.0 g/dL [facility] IMMATURE GRANULOCYTES ABS AUTO 0.04 High [facility] Immature granulocytes/100 WBC (Bld) 0.4 % 0.0 - 0.5 % [facility] Interpretation and review of laboratory results Abnormal [facility] LYMPHOCYTES ABSOLUTE AUTO 2 [facility] Lymphocytes/100 WBC (Bld) 17.6 % Low 20.5 - 60.0 % [facility] MCH (RBC) [Entitic mass] 31.4 pg 26.7 - 34.0 pg [facility] MCHC (RBC) [Mass/Vol] 34.5 g/dL 29.9 - 35.2 g/dL [facility] MCV (RBC) [Entitic vol] 91.2 fL 81.0 - 99.0 fL [facility] MONOCYTES ABSOLUTE AUTO 0.7 [facility] Monocytes/100 WBC (Bld) 6 % 1.7 - 12.0 % [facility] NEUTROPHILS ABSOLUTE AUTO 8.4 High [facility] Neutrophils/100 WBC (Bld) 74.5 % 43.0 - 75.0 % [facility] Platelet mean volume (Bld) [Entitic vol] 10.3 fL 9.5 - 13.5 fL [facility] TBH EO # 0.1 [facility] TBH PLT 203 [facility] TBH RBC 3.88 Low [facility] TB WBC 11.3 High [facility] Urinalysis macro (dipstick) panel (U)Ordered By: Demetria Perez on 07-24-2024 Bilirubin, UA Negative Negative - 4(70) +++ mg/dL [facility] Blood, UA Negative Negative - 50 Abiel/mcL [facility] Clarity, UA Clear [facility] Color, UA Yellow [facility] Glucose, UA Negative Negative - 1999(110) ++++ mg/dL [facility] Interpretation and review of laboratory results Normal [facility] Ketones, UA Negative Negative - 160(16) ++++ mg/dL [facility] Leukocytes, UA Negative Negative - 500+++ Pradip/mcL [facility] Nitrite, UA Negative Negative - Positive [facility] pH, UA 6 5 - 9 [facility] Protein, UA Negative Negative - 1999(20) ++++ mg/dL [facility] Spec Grav, UA 1.02 1 - 1.03 [facility] Urobilinogen, UA 1.0 0.2 - 12 mg/dL [facility] US OB ANATOMYon 06-25-[address] [address] Ultrasound Report Signed Patient: JOSELINE DICKERSON MR#: [id number] : 1990 Acct:[id number] Age/Sex: 33 / F ADM Date: 06/25/24 Loc: US Attending Dr: Babs Rice D.O. Ordering Physician: Babs Rice D.O. Date of Service: 06/25/24 Procedure(s): US OB anatomy Accession Number(s): [id number] cc: Babs Rice D.O.; Josephine Canada M.D. [address] [address] Patient Name: JOSELINE DICKERSON MRN: [id number] date: 1990 Sex: F Assigned Patient Location: US Current Patient Location: US Accession/Order Number: [id number] Exam Date: 06/25/2024 21:20 Report Date: 06/25/2024 21:26 At the request of: BABS RICE DO Procedure: US OB anatomy Obstetrical Ultrasound for Fetus greater than 14 weeks HISTORY: anatomy assessment heart rate is 157 bpm. The fetus is in cephalic presentation. The placenta is in a posterior position with normal appearance. The cervix has a length of 5.4cm. The estimated weight is 374 g. with percentile 31.1%. The ovaries are not visualized. No fluid identified in the cul-de-sac. Following anatomy identifiedalthough ventricles, cerebellum, posterior fossa, nose and lips, orbits, four-chamber heart, right ventricular outflow tract and left ventricular outflow tract, diaphragm, stomach, kidneys, cord insertion, bladder, umbilical arteries, three-vessel cord, spine, extremities. The biparietal diameter measures 5.1cm consistent with 21 weeks 3 days. Head circumference measures 18.1cm consistent with 20 weeks 4 days. Abdominal circumference measures 16.0cm consistent with 21 weeks 1 day. Femur length is 3.3cm consistent with 20 weeks 2 days. The average gestational age is 20 weeks 6 days. Estimated due date is 11/06/2024. somatic motion identified. US/US OB anatomy IMPRESSION: Single live intrauterine gestation 20 weeks 6 days. The anatomy as above. Impression dictated by: Andrew Jordan M.D.06/25/2024 9:26 PM Dictation Location: [place] [address] Electronically authenticated by: [id number] Y Date: 06/25/2024 21:26 Dictated By: Andrew Jordan D.O. Signed By: 06/25/242127 DD/ 25 TD/TT: Machine Grinder: [facility] Radiology, Yanaogjuliana hein MD - 06/25/2024 [place] [address] Ultrasound Report Signed Patient: JOSELINE DICKERSON MR#: [id number] : 1990 Acct:[id number] Age/Sex: 33 / F ADM Date: 06/25/24 Loc: US Attending Dr: Babs Rice D.O. Ordering Physician: Babs Rice D.O. Date of Service: 06/25/24 Procedure(s): US OB anatomy Accession Number(s): [id number] cc: Babs Rice D.O.; Josephine Canada M.D. The [place] [id number] Patient Name: JOSELINE DICKERSON MRN: [facility]:[id number] date: 1990 Sex: F Assigned Patient Location: US Current Patient Location: US Accession/Order Number: [id number] Exam Date: 06/25/2024 21:20 Report Date: 06/25/2024 21:26 At the request of: BABS RICE DO Procedure: US OB anatomy Obstetrical Ultrasound for Fetus greater than 14 weeks HISTORY: anatomy assessment heart rate is 157 bpm. The fetus is in cephalic presentation. The placenta is in a posterior position with normal appearance. The cervix has a length of 5.4cm. The estimated weight is 374 g. with percentile 31.1%. The ovaries are not visualized. No fluid identified in the cul-de-sac. Following anatomy identifiedalthough ventricles, cerebellum, posterior fossa, nose and lips, orbits, four-chamber heart, right ventricular outflow tract and left ventricular outflow tract, diaphragm, stomach, kidneys, cord insertion, bladder, umbilical arteries, three-vessel cord, spine, extremities. The biparietal diameter measures 5.1cm consistent with 21 weeks 3 days. Head circumference measures 18.1cm consistent with 20 weeks 4 days. Abdominal circumference measures 16.0cm consistent with 21 weeks 1 day. Femur length is 3.3cm consistent with 20 weeks 2 days. The average gestational age is 20 weeks 6 days. Estimated due date is 11/06/2024. somatic motion identified. US/US OB anatomy IMPRESSION: Single live intrauterine gestation 20 weeks 6 days. The anatomy as above. Impression dictated by: Andrew Jordan M.D.06/25/2024 9:26 PM Dictation Location: [place] [address] Electronically authenticated by: [id number] Y Date: 06/25/2024 21:26 Dictated By: Andrew Jordan D.O. Signed By: 06/25/242127 DD/ 25 TD/TT: Machine Grinder: [facility] Radiology Study observation (narrative) [facility] US OB ANATOMYOrdered By: Alireza sims Radiology on 06-25-2024 [facility] Work Phone: US OB CERVICAL LENGTHon 05-[address] [place] [address] Ultrasound Report Signed Patient: JOSELINE DICKERSON MR#: [id number] : 1990 Acct:[id number] Age/Sex: 33 / F ADM Date: 06/25/24 Loc: US Attending Dr: Babs Rice D.O. Ordering Physician: Babs Rice D.O. Date of Service: 06/25/24 Procedure(s): US OB cervical length Accession Number(s): [id number] cc: Babs Rice D.O.; Josephine Canada M.D. [place] [id number] Patient Name: JOSELINE DICKERSON MRN: [id number] date: 1990 Sex: F Assigned Patient Location: US Current Patient Location: US Accession/Order Number: [id number] Exam Date: 06/25/2024 21:26 Report Date: 06/25/2024 21:27 At the request of: BABS RICE DO Procedure: US OB cervical length Ultrasound assessment of cervical length Length of cervix 5.4 cm. The opening is closed. US/US OB cervical length IMPRESSION: 5.4 cm cervical length Impression dictated by: Andrew Jordan M.D.06/25/2024 9:27 PM Dictation Location: [place] Electronically authenticated by: [id number] Y Date: 06/25/2024 21:27 Dictated By: Andrew Jordan D.O. Signed By: 06/25/242128 DD/ 26 TD/TT: Machine Grinder: [facility] Radiology, Radiologi MD angel luis - 06/25/2024 [place] [address] Ultrasound Report Signed Patient: JOSELINE DICKERSON MR#: [id number] : 1990 Acct:[id number] Age/Sex: 33 / F ADM Date: 06/25/24 Loc: US Attending Dr: Babs Rice D.O. Ordering Physician: Babs Rice D.O. Date of Service: 06/25/24 Procedure(s): US OB cervical length Accession Number(s): [id number] cc: Babs Rice D.O.; Josephine Canada M.D. The [place] [address] Patient Name: JOSELINE DICKERSON MRN: [facility]:[id number] date: 1990 Sex: F Assigned Patient Location: US Current Patient Location: US Accession/Order Number: [id number] Exam Date: 06/25/2024 21:26 Report Date: 06/25/2024 21:27 At the request of: BABS RICE DO Procedure: US OB cervical length Ultrasound assessment of cervical length Length of cervix 5.4 cm. The opening is closed. US/US OB cervical length IMPRESSION: 5.4 cm cervical length Impression dictated by: Andrew Jordan M.D.06/25/2024 9:27 PM Dictation Location: [place] Electronically authenticated by: [id number] Y Date: 06/25/2024 21:27 Dictated By: Andrew Jordan D.O. Signed By: 06/25/242128 DD/ 26 TD/TT: Machine Grinder: [facility] Radiology Study observation (narrative) [facility] US OB CERVICAL LENGTHOrdered By: Radiologist Radiology on 06-25-2024 [facility] Work Phone: Urinalysis macro (dipstick) panel (U)on 06-25-2024 Bilirubin, UA Negative Negative - 4(70) +++ mg/dL [facility] Blood, UA Negative Negative - 50 Abiel/mcL [facility] Clarity, UA Clear [facility] Color, UA Yellow [facility] Glucose, UA Negative Negative - 2000(110) ++++ mg/dL [facility] Interpretation and review of laboratory results Normal [facility] Ketones, UA Negative Negative - 160(16) ++++ mg/dL [facility] Leukocytes, UA Negative Negative - 500+++ Pradip/mcL [facility] Nitrite, UA Negative Negative - Positive [facility] [facility] pH, UA 7 5 - 9 [facility] Protein, UA Negative Negative - 2000(20) ++++ mg/dL [facility] Spec Grav, UA 1.015 1 - 1.03 [facility] Urobilinogen, UA 0.2 0.2 - 12 mg/dL [facility] RECURRENT VAGINITIS (HTRX)on 05-30-2024 ATOPOBIUM VAGINAE 0 [facility] ATOPOBIUM VAGINAE Not detected [facility] BVAB 2,3 (BACTERIAL VAGINOSIS ASSOCIATED BACTERIA 2, 3); MOBILUNCUS SPP 0 [facility] BVAB 2,3 (BACTERIAL VAGINOSIS ASSOCIATED BACTERIA 2, 3); MOBILUNCUS SPP Not detected [facility] HELEN ALBICANS, PARAPSILOSIS, TROPICALIS 0 [facility] HELEN ALBICANS, PARAPSILOSIS, TROPICALIS Not detected [facility] HELEN GLABRATA 0 [facility] HELEN GLABRATA Not detected [facility] HELEN KRUSEI 0 [facility] HELEN KRUSEI Not detected [facility] CHLAMYDIA TRACHOMATIS 0 [facility] CHLAMYDIA TRACHOMATIS Not detected [facility] GARDNERELLA VAGINALIS 0 [facility] GARDNERELLA VAGINALIS Not detected [facility] MEGASPHAERA (TYPES 1, 2) 0 [facility] MEGASPHAERA (TYPES 1, 2) Not detected [facility] MYCOPLASMA GENITALIUM 0 [facility] MYCOPLASMA GENITALIUM Not detected [facility] NEISSERIA GONORRHOEAE 0 [facility] NEISSERIA GONORRHOEAE Not detected [facility] TRICHOMONAS VAGINALIS 0 [facility] TRICHOMONAS VAGINALIS Not detected [facility] Urinalysis macro (dipstick) panel (U)on 05-28-2024 Bilirubin, UA Negative Negative - 4(70) +++ mg/dL [facility] Blood, UA Negative Negative - 50 Abiel/mcL [facility] Clarity, UA Clear [facility] Color, UA Yellow [facility] Glucose, UA Negative Negative - 1999(110) ++++ mg/dL [facility] Interpretation and review of laboratory results Normal [facility] Ketones, UA Negative Negative - 160(16) ++++ mg/dL [facility] Leukocytes, UA Negative Negative - 500+++ Pradip/mcL [facility] Nitrite, UA Negative Negative - Positive [facility] pH, UA 7 5 - 9 [facility] Protein, UA Negative Negative - 1999(20) ++++ mg/dL [facility] Spec Grav, UA 1.015 1 - 1.03 [facility] Urobilinogen, UA 0.2 0.2 - 12 mg/dL [facility] Urinalysis macro (dipstick) panel (U)on 04-30-2024 Bilirubin, UA Negative Negative - 4(70) +++ mg/dL [facility] Blood, UA Negative Negative - 50 Abiel/mcL [facility] Clarity, UA Clear [facility] Color, UA Yellow [facility] Glucose, UA Negative Negative - 1999(110) ++++ mg/dL [facility] Interpretation and review of laboratory results Abnormal [facility] Ketones, UA Negative Negative - 160(16) ++++ mg/dL [facility] Leukocytes, UA Negative Negative - 500+++ Pradip/mcL [facility] Nitrite, UA Negative Negative - Positive [facility] pH, UA 6.5 5 - 9 [facility] Protein, UA Negative Negative - 1999(20) ++++ mg/dL [facility] Spec Grav, UA 1.01 1 - 1.03 [facility] Urobilinogen, UA 0.2 0.2 - 12 mg/dL [facility] BOX TESTon 04-16-2024 BOX TEST SENT OUT [facility] BOX1 UNITY BOX [facility] BOX2 04/13/24 [facility] BOX [facility] ALL CBC WITH AUTO DIFFon BASOPHILS ABSOLUTE AUTO 0.1 [facility] Basophils/100 WBC (Bld) 0.8 % 0.2 - 2.0 % [facility] Eosinophils/100 WBC (Bld) 0.9 % 0.9 - 7.0 % [facility] Erythrocyte distribution width (RBC) [Ratio] 11.6 % 11.0 - 15.0 % [facility] Hematocrit (Bld) [Volume fraction] 37.7 % 36.0 - 48.0 % [facility] Hemoglobin (Bld) [Mass/Vol] 12.9 g/dL 12.0 - 16.0 g/dL [facility] IMMATURE GRANULOCYTES ABS AUTO 0.02 [facility] Immature granulocytes/100 WBC (Bld) 0.3 % 0.0 - 0.5 % [facility] LYMPHOCYTES ABSOLUTE AUTO 1.7 [facility] Lymphocytes/100 WBC (Bld) 22.4 % 20.5 - 60.0 % [facility] MCH (RBC) [Entitic mass] 30.2 pg 26.7 - 34.0 pg [facility] MCHC (RBC) [Mass/Vol] 34.2 g/dL 29.9 - 35.2 g/dL [facility] MCV (RBC) [Entitic vol] 88.3 fL 81.0 - 99.0 fL [facility] MONOCYTES ABSOLUTE AUTO 0.6 [facility] Monocytes/100 WBC (Bld) 7.7 % 1.7 - 12.0 % [facility] NEUTROPHILS ABSOLUTE AUTO 5.3 [facility] Neutrophils/100 WBC (Bld) 67.9 % 43.0 - 75.0 % [facility] Platelet mean volume (Bld) [Entitic vol] 10.5 fL 9.5 - 13.5 fL [facility] TBH EO # 0.1 [facility] TBH PLT 194 [facility] TB RBC 4.27 [facility] TB WBC 7.8 [facility] HCG ( test) Ql (U)o n 03-30-2024 Interpretation and review of laboratory results Abnormal [facility] Preg Test, Ur Positive Negative [facility] US OB TRANSVAGINALon 025 US [...] x 2.4 cm (7 weeks, 0 days). Herricks rump length is 1.6 cm (8 weeks, [...] UA Negative Negative - 4(70) +++ mg/dL [facility] Blood, UA Negative Negative - 50 Abiel/mcL [facility] Clarity, UA Clear [facility] Color, UA Yellow [facility] Glucose, UA Negative Negative - 2000(110) ++++ mg/dL [facility] Interpretation and review of laboratory results Abnormal [facility] Ketones, UA Positive Negative - 160(16) ++++ mg/dL [facility] Comment on above: trace Leukocytes, UA Negative Negative - 500+++ Pradip/mcL [facility] Nitrite, UA Negative Negative - Positive [facility] pH, UA 7 5 - 9 [facility] Protein, UA Negative Negative - 2000(20) ++++ mg/dL [facility] Spec Grav, UA 1.02 1 - 1.03 [facility] Urobilinogen, UA 1.0 0.2 - 12 mg/dL [facility] Urine Cultureon 03-30-2024 Bacteria identified Cx Nom (U) No Growth 2 Days PERFORMED BY: [place] [address] PATHOLOGIST CASTING SORTER KASIA BECK M.D. Normal [facility] Comment on above: Performed By: #### C UU #### [address] US SOFT TISS HEAD NECKon US [...] Chris Encarnacion on 10/31/2023 7:59 AM Normal [facility] CBC AND AUTO DIFFon 10-28-19 24 ABSOLUTE BASOPHIL 0.0 X10E9/L Normal 0.0-0.2 [facility] Comment on above: Performed By: #### C BCA, CMP, 79028-1, THYR, HA1C #### [facility] ([id number]) [address], [address] [place] [address] ABSOLUTE NEUTROPHIL 2.9 X10E9/L Normal 1.5-6.6 [facility] Comment on above: Performed By: #### C BCA, CMP, 81940-7, THYR, HA1C #### [facility] ([id number]) [address], [address] [place] [address] Basophils/100 WBC (Bld) 0.8 % Normal [facility] Comment on above: Performed By: #### C BCA, CMP, 00234-9, THYR, HA1C #### [facility] ([id number]) [address], [address] [place] [address] Eosinophils (Bld) [#/Vol] 0.1 10*3/uL Normal 0.0-0.4 [facility] Comment on above: Performed By: #### C BCA, CMP, 44970-4, THYR, HA1C #### [facility] ([id number]) [address] [address] [place] [address] Eosinophils/100 WBC (Bld) 2.2 % Normal [facility] Comment on above: Performed By: #### C BCA, CMP, 38610-4, THYR, HA1C #### [facility] ([id number]) [address] [address] [place] [address] Erythrocyte distribution width (RBC) [Ratio] 12.5 % Normal 11.5-15.0 [facility] Comment on above: Performed By: #### C BCA, CMP, 93462-5, THYR, HA1C #### [facility] ([id number]) [address] [address] [place] [address] Hematocrit (Bld) [Volume fraction] 39.6 % Normal 35-47 [facility] Comment on above: Performed By: #### C BCA, CMP, 67923-8, THYR, HA1C #### [facility] ([id number]) [address] [address] [place] [address] Hemoglobin (Bld) [Mass/Vol] 13.5 g/dL Normal 11.7-15.5 [facility] Comment on above: Performed By: #### C BCA, CMP, 25257-5, THYR, HA1C #### [facility] ([id number]) [address], [address] [place] [address] Lymphocytes (Bld) [#/Vol] 2.1 10*3/uL Normal 1.0-3.5 [facility] Comment on above: Performed By: #### C BCA, CMP, 28290-4, THYR, HA1C #### [facility] ([id number]) [address] [facility] [address] [place] [address] Lymphocytes/100 WBC (Bld) 37.5 % Normal [facility] Comment on above: Performed By: #### C BCA, CMP, 24808-6, THYR, HA1C #### [facility] ([id number]) [address] [facility] [address] [place] [address] MCH (RBC) [Entitic mass] 31.0 pg Normal 27-34 [facility] Comment on above: Performed By: #### C BCA, CMP, 40073-0, THYR, HA1C #### [facility] ([id number]) [address] [address] [place] [address] MCHC (RBC) [Mass/Vol] 34.1 g/dL Normal 32-36 [facility] Comment on above: Performed By: #### C BCA, CMP, 45167-0, THYR, HA1C #### [facility] ([id number]) [address], [address] [place] [address] MCV (RBC) [Entitic vol] 91 fL Normal 80-100 [facility] Comment on above: Performed By: #### C BCA, CMP, 39635-3, THYR, HA1C #### [facility] ([id number]) [address], [address] [place] [address] Monocytes (Bld) [#/Vol] 0.5 10*3/uL Normal 0-0.9 [facility] Comment on above: Performed By: #### C BCA, CMP, 25817-9, THYR, HA1C #### [facility] ([id number]) [address], [address] [place] [address] Monocytes/100 WBC (Bld) 8.3 % Normal [facility] Comment on above: Performed By: #### C BCA, CMP, 44749-5, THYR, HA1C #### [facility] ([id number]) [address], [address] [place] [address] Neutrophils/100 WBC (Bld) 51.2 % Normal [facility] Comment on above: Performed By: #### C BCA, CMP, 54894-9, THYR, HA1C #### [facility] ([id number]) [address], [address] [place] [address] Platelet mean volume (Bld) [Entitic vol] 8.3 fL Normal 7-12 [facility] Comment on above: Performed By: #### C BCA, CMP, 19878-9, THYR, HA1C #### [facility] ([id number]) [address] [address] [place] [address] Platelets (Bld) [#/Vol] 195 10*3/uL Normal 150-450 [facility] Comment on above: Performed By: #### C BCA, CMP, 50033-9, THYR, HA1C #### [facility] ([id number]) [address], [address] [place] [address] RBC COUNT 4.36 X10E12/L Normal 3.80-5.20 [facility] Comment on above: Performed By: #### C BCA, CMP, 96521-1, THYR, HA1C #### [facility] ([id number]) [address] [address] [place] [address] WBC (Bld) [#/Vol] 5.7 10*3/uL Normal 4.0-11.0 [facility] Comment on above: Performed By: #### C BCA, CMP, 37181-0, THYR, HA1C #### [facility] ([id number]) [address], [address] [place] [address] COMPREHENSIVE METABOLIC PANE Lonny 10-28-2023 Albumin [Mass/Vol] 4.3 g/dL Normal 3.2-5.3 [facility] Comment on above: Performed By: #### C BCA, CMP, 09283-1, THYR, HA1C #### [facility] ([id number]) [address], [address] [place] [address] ALP [Catalytic activity/Vol] 53 U/L Normal 39-130 [facility] Comment on above: Performed By: #### C BCA, CMP, 41051-1, THYR, HA1C #### [facility] ([id number]) [address], [address] [place] [address] ALT [Catalytic activity/Vol] 12 U/L Normal 0-31 [facility] Comment on above: Performed By: #### C BCA, CMP, 47829-4, THYR, HA1C #### [facility] ([id number]) [address], [address] [place] [address] Anion gap [Moles/Vol] 9 mmol/L Normal 5-15 [facility] Comment on above: Performed By: #### C BCA, CMP, 38820-2, THYR, HA1C #### [facility] ([id number]) [address], [address] [place] [address] AST [Catalytic activity/Vol] 21 U/L Normal 0-41 [facility] Comment on above: Performed By: #### C BCA, CMP, 05380-1, THYR, HA1C #### [facility] ([id number]) [address], [address] [place] [address] Bilirubin [Mass/Vol] 0.6 mg/dL Normal 0.3-1.2 [facility] Comment on above: Performed By: #### C BCA, CMP, 30977-0, THYR, HA1C #### [facility] ([id number]) [address], [address] [place] [address] Calcium [Mass/Vol] 9.6 mg/dL Normal 8.5-10.5 [facility] Comment on above: Performed By: #### C BCA, CMP, 00873-6, THYR, HA1C #### [facility] ([id number]) [address], [facility] [address] [place] [address] Chloride [Moles/Vol] 103 mmol/L Normal 98-109 [facility] Comment on above: Performed By: #### C BCA, CMP, 24836-6, THYR, HA1C #### [facility] ([id number]) [address], [facility] [address] [place] [address] CO2 [Moles/Vol] 27 mmol/L Normal 22-32 [facility] Comment on above: Performed By: #### C BCA, CMP, 37756-2, THYR, HA1C #### [facility] ([id number]) [address], [facility] [address] [place] [address] Creatinine [Mass/Vol] 0.84 mg/dL Normal 0.40-1.00 [facility] Comment on above: Result Comment: METH OD TRACEABLE TO IDMS STANDARD Performed By: #### C BCA, CMP, 25738-0, THYR, HA1C #### [facility] ([id number]) [address] [address] [place] [address] eGFR (CKD-EPI) NON-RACE DEPENDENT >90 Normal >59 [facility] Comment on above: Result Comment: Reported eGFR is based on the CKD-EPI 2020 equation that does not use a race coefficient. Performed By: #### C BCA, CMP, 93888-6, THYR, HA1C #### [facility] ([id number]) [address], [address] [place] [address] Glucose [Mass/Vol] 81 mg/dL Normal 65-99 [facility] Comment on above: Performed By: #### C BCA, CMP, 56802-9, THYR, HA1C #### [facility] ([id number]) [address], [address] [place] [address] Potassium [Moles/Vol] 3.8 mmol/L Normal 3.5-5.0 [facility] Comment on above: Performed By: #### C BCA, CMP, 03893-2, THYR, HA1C #### [facility] ([id number]) [address], [address] [place] [address] Protein [Mass/Vol] 7.5 g/dL Normal 6.0-8.0 [facility] Comment on above: Performed By: #### C BCA, CMP, 52279-8, THYR, HA1C #### [facility] ([id number]) [address], [address] [place] [address] Sodium [Moles/Vol] 139 mmol/L Normal 134-146 [facility] Comment on above: Performed By: #### C BCA, CMP, 99115-0, THYR, HA1C #### [facility] ([id number]) [address], [address] [place] [address] Urea nitrogen [Mass/Vol] 12 mg/dL Normal 5-23 [facility] Comment on above: Performed By: #### C BCA, CMP, 01274-2, THYR, HA1C #### [facility] ([id number]) [address], [address] [place] [address] HGB A1C (GLYCO-HGB)on 2023 Glucose [Mass/Vol] 103 mg/dL Normal [facility] Comment on above: Performed By: #### C SCOTTY, CMP, 98291-6, THYR, HABassam #### [facility] ([id number]) [address], [address] [place] [address] HbA1c (Bld) [Mass fraction] 5.2 % Normal 4.4-5.6 [facility] Comment on above: Result Comment: NOTE ADA Guidelines Result HgbA1c Normal : less than 5.7 % Prediabetes : 5.7 % to 6.4 % Diabetes : > 6.4 % Use with caution in patients with abnormal hemoglobin variants as the half-life of red blood cells and in vivo glycation rates are affected. Performed By: #### C SCOTTY, CMP, 10190-1, THYR, HABassam #### [facility] ([id number]) [address], [address] [place] [address] Lipid 1996 panelon 4 Cholesterol [Mass/Vol] 208 mg/dL High 150-200 [facility] Comment on above: Performed By: #### C SCOTTY, JOSSELYN, 58918-4, THYGil, HABassam #### [facility] ([id number]) [address], [address] [place] [address] Cholesterol in HDL [Mass/Vol] 75 mg/dL Normal >39 [facility] Comment on above: Result Comment: HDL <40 mg/dL - High Risk HDL > or = 40mg/dL- Desirable HDL >60 mg/dL - Negative Risk Performed By: #### C BCA, CMP, 91689-8, THYR, HA1C #### [facility] ([id number]) [address], [address] [place] [address] Cholesterol in LDL [Mass/Vol] 120 mg/dL Normal <130 [facility] Comment on above: Result Comment: LDL <100 mg/dL - Desirable LDL >160 mg/dL - High Risk Performed By: #### C BCA, CMP, 54537-8, THYR, HA1C #### [facility] ([id number]) [address], [address] [place] [address] Cholesterol in VLDL [Mass/Vol] 13 mg/dL Normal 0-30 [facility] Comment on above: Performed By: #### C BCA, CMP, 58437-9, THYR, HA1C #### [facility] ([id number]) [address], [address] [place] [address] CHOLESTEROL:HDL 2.8 Normal 1.0-5.0 [facility] Comment on above: Performed By: #### C BCA, CMP, 65886-2, THYR, HA1C #### [facility] ([id number]) [address], [address] [place] [address] Triglyceride [Mass/Vol] 66 mg/dL Normal 27-150 [facility] Comment on above: Performed By: #### C BCA, CMP, 55701-8, THYR, HA1C #### [facility] ([id number]) [address], [address] [place] [address] THYROID PROFILEon 10-28-2023 Free T4 [Mass/Vol] 0.88 ng/dL Normal 0.61-1.60 [facility] Comment on above: Performed By: #### C BCA, CMP, 20644-7, THYR, HA1C #### [facility] ([id number]) [address] [address] [place] [address] TSH 2.30 uIU/mL Normal 0.49-4.67 [facility] Comment on above: Performed By: #### C BCA, CMP, 36773-0, THYR, HA1C #### [facility] ([id number]) [address] [facility], [address] [place] [address] PAP ACOG PANEL 2: 21 to 29on 09-02-2021 . . Normal [facility] Comment on above: Performed By: #### 4 [id number] #### [facility] [address] [address] [address] Kulwant Duffy Age Gdln ACOG Testing - [facility] Comment on above: Performed By: #### 4 [id number] #### [facility] [address] [address] [address] Kulwant Duffy DIAGNOSIS: Comment [facility] Comment on above: Result Comment: NEGA TIVE FOR INTRAEPITHELIAL LESION OR MALIGNANCY. Performed By: #### 4 [id number] #### [facility] [address] [place] [address] Dr. Kulwant Duffy Methodology: Comment [facility] Comment on above: Result Comment: This liquid based ThinPrep(R) pap test was screened with the use of an image guided system. Performed By: #### 4 [id number] #### [facility] [address] [place] [address] Dr. Kulwant Duffy Note: Comment [facility] Comment on above: Result Comment: The Pap smear is a screening test designed to aid in the detection of premalignant and malignant conditions of the uterine cervix. It is not a diagnostic procedure and should not be used as the sole means of detecting cervical cancer. Both false-positive and false-negative reports do occur. . Performed By: #### 4 [id number] #### [facility] [address] [address] [address] Kulwant Duffy Performed by: Comment [facility] Comment on above: Result Comment: Wilber Newton Drop Wire Builder (ASCP) Performed By: #### 4 [id number] #### [facility] [address] [address] [address] Kulwant Duffy Reflex Criteria: Comment [facility] Comment on above: Result Comment: The HPV DNA reflex criteria were not met with this specimen result therefore, no HPV testing was performed. . Performed By: #### 4 [id number] #### [facility] [address] [place], [place] [address] Dr. Kulwant Duffy Specimen adequacy: Comment Normal [facility] Comment on above: Result Comment: Sati sfactory for evaluation. Endocervical and/or squamous metaplastic cells (endocervical component) are present. Performed By: #### 4 [id number] #### [facility] [address], [place] [address] Dr. Kulwant Duffy US APPENDIXon 07-22-2017 US [...] Recipients:Josephine Canada MD - FaxFinal result Normal [facility] US GALLBLADDER RUQon 018 US GALLBLADDER RUQ [...] evidence for pericholecystic fluid,wall thickening, or calculi. Tile Mason documents a negative sonographicMurphy's sign. Gallbladder wall is normal in thickness, measuring 2.4 mm.The common bile duct is normal and measures 3 mm.IMPRESSION: Unremarkable ultrasound of the gallbladder. No evidence for cholelithiasisor acute cholecystitis.Interpreted by:ELIAN Brittonigned by:Nghia Denny MD07/22/17 Recipients:Josephine Canada MD - FaxFinal result Normal [facility] Vital Signs Date Time Vital Sign Value Performing Clinician Faci lity 10-23-2024 11:32-0400 Body mass index (BMI) [Ratio] 30.83 kg/m2 Babs Dwayne DO Work Phone: [facility] 10-23-2024 11:32-0400 Body weight 86.64 kg Babs Dwayne DO Work Phone: [facility] 10-23-2024 11:32-0400 Diastolic blood pressure 82 mm[Hg] Babs Dwayne DO Work Phone: [facility] 10-23-2024 11:32-0400 Systolic blood pressure 110 mm[Hg] Babs Dwayne DO Work Phone: [facility] 10-15-2024 09:55-0400 Body mass index (BMI) [Ratio] 30.51 kg/m2 Babs Dwayne DO Work Phone: [facility] 10-15-2024 09:55-0400 Body weight 85.73 kg Babs Dwayne DO Work Phone: [facility] 10-15-2024 09:55-0400 Diastolic blood pressure 76 mm[Hg] Babs Dwayne DO Work Phone: [facility] 10-15-2024 09:55-0400 Systolic blood pressure 122 mm[Hg] Babs Dwayne DO Work Phone: [facility] 10-09-2024 10:53-0400 Body mass index (BMI) [Ratio] 30.15 kg/m2 Babs Dwayne DO Work Phone: [facility] 10-09-2024 10:53-0400 Body weight 84.73 kg Babs Dwayne DO Work Phone: [facility] 10-09-2024 10:53-0400 Diastolic blood pressure 76 mm[Hg] Babs Dwayne DO Work Phone: [facility] 10-09-2024 10:53-0400 Systolic blood pressure 110 mm[Hg] Babs Dwayne DO Work Phone: [facility] 09-24-2024 10:45-0400 Body mass index (BMI) [Ratio] 29.7 kg/m2 Babs Dwayne DO Work Phone: [facility] 09-24-2024 10:45-0400 Body weight 83.46 kg Babs Dwayne DO Work Phone: [facility] 09-24-2024 10:45-0400 Diastolic blood pressure 72 mm[Hg] Babs Dwayne DO Work Phone: [facility] 09-24-2024 10:45-0400 Systolic blood pressure 118 mm[Hg] Babs Dwayne DO Work Phone: [facility] 09-10-2024 10:04-0400 Body mass index (BMI) [Ratio] 29.21 kg/m2 Deandra GRIJALVA Work Phone: [facility] 09-10-2024 10:04-0400 Body weight 82.1 kg Deandra GRIJALVA Work Phone: [facility] 09-10-2024 10:04-0400 Diastolic blood pressure 74 mm[Hg] Deandra GRIJALVA Work Phone: [facility] 09-10-2024 10:04-0400 Systolic blood pressure 114 mm[Hg] Deandra GRIJALVA Work Phone: [facility] 08-27-2024 14:59-0400 Body mass index (BMI) [Ratio] 28.85 kg/m2 Babs Dwayne DO Work Phone: [facility] 08-27-2024 14:59-0400 Body weight 81.08 kg Babs Dwayne DO Work Phone: [facility] 08-27-2024 14:59-0400 Diastolic blood pressure 82 mm[Hg] Babs Dwayne DO Work Phone: [facility] 08-27-2024 14:59-0400 Systolic blood pressure 112 mm[Hg] Babs Dwayne DO Work Phone: [facility] 08-15-2024 16:26-0400 Body mass index (BMI) [Ratio] 28.37 kg/m2 Deandra GRIJALVA Work Phone: [facility] 08-15-2024 16:26-0400 Body weight 79.74 kg Deandra GRIJALVA Work Phone: [facility] 08-15-2024 16:26-0400 Diastolic blood pressure 70 mm[Hg] Deandra GRIJALVA Work Phone: [facility] 08-15-2024 16:26-0400 Systolic blood pressure 120 mm[Hg] Deandra GRIJALVA Work Phone: [facility] 07-23-2024 09:54-0400 Body mass index (BMI) [Ratio] 27.88 kg/m2 Babs Dwayne DO Work Phone: [facility] 07-23-2024 09:54-0400 Body weight 78.36 kg Babs Dwayne DO Work Phone: [facility] 07-23-2024 09:54-0400 Diastolic blood pressure 76 mm[Hg] Babs Dwayne DO Work Phone: [facility] 07-23-2024 09:54-0400 Systolic blood pressure 124 mm[Hg] Babs Dwayne DO Work Phone: [facility] 06-25-2024 09:53-0400 Body mass index (BMI) [Ratio] 27.12 kg/m2 Babs Dwayne DO Work Phone: [facility] 06-25-2024 09:53-0400 Body weight 76.2 kg Babs Dwayne DO Work Phone: [facility] 06-25-2024 09:53-0400 Diastolic blood pressure 76 mm[Hg] Babs Dwayne DO Work Phone: [facility] 06-25-2024 09:53-0400 Systolic blood pressure 110 mm[Hg] Babs Dwayne DO Work Phone: [facility] 05-28-2024 09:54-0500 Body mass index (BMI) [Ratio] 26.12 kg/m2 Babs Dwayne DO Work Phone: [facility] 05-28-2024 09:54-0500 Body weight 73.39 kg Babs Dwayne DO Work Phone: [facility] 05-28-2024 09:54-0500 Diastolic blood pressure 84 mm[Hg] Babs Dwayne DO Work Phone: [facility] 05-28-2024 09:54-0500 Systolic blood pressure 100 mm[Hg] Basb Dwayne DO Work Phone: [facility] 04-30-2024 14:02-0500 Body mass index (BMI) [Ratio] 26.37 kg/m2 Babs Dwayne DO Work Phone: [facility] 04-30-2024 14:02-0500 Body weight 74.12 kg Babs Dwayne DO Work Phone: [facility] 04-30-2024 14:02-0500 Diastolic blood pressure 82 mm[Hg] Babs Dwayne DO Work Phone: [facility] 04-30-2024 14:02-0500 Systolic blood pressure 130 mm[Hg] Babs Dwayne DO Work Phone: [facility] 01-31-2024 08:53-0500 Body mass index (BMI) [Ratio] 25.99 kg/m2 Babs Dwayne DO Work Phone: [facility] 01-31-2024 08:53-0500 Body weight 73.03 kg Babs Dwayne DO Work Phone: [facility] 01-31-2024 08:53-0500 Diastolic blood pressure 72 mm[Hg] Babs Dwayne DO Work Phone: [facility] 01-31-2024 08:53-0500 Systolic blood pressure 118 mm[Hg] Babs Dwayne DO Work Phone: [facility] Encounters Encounter Date Encounter Type Care Provider Facility Start: 10-23-2024 End: 10-23-2024 Bamboo flowsheet Babs Dwayne DO Work Phone: [facility] Start: 10-23-2024 End: 10-23-2024 Bamboo flowsheet Babs Dwayne DO Work Phone: [facility] Start: 10-23-2024 End: 10-23-2024 flow sheet Babs Dwayne DO Work Phone: [facility] Comment on above: Third trimester preg juan ([facility]); 38 weeks gestation of ([facility]) Start: 10-23-2024 End: 10-23-2024 ambulatory BABS DWAYNE Not Available Start: 10-15-2024 End: 10-15-2024 Bamboo flowsheet Babs Dwayne DO Work Phone: [facility] Start: 10-15-2024 End: 10-15-2024 Bamboo flowsheet Babs Dwayne DO Work Phone: [facility] Start: 10-15-2024 End: 10-15-2024 flow sheet Babs Dwayne DO Work Phone: [facility] Comment on above: Third trimester preg juan ([facility]); 37 weeks gestation of ([facility]) Start: 10-15-2024 End: 10-15-2024 ambulatory BABS DWAYNE Not Available Start: 10-09-2024 End: 10-09-2024 Bamboo flowsheet Babs Dwayne DO Work Phone: [facility] Start: 10-09-2024 End: 10-09-2024 Bamboo flowsheet Babs Dwayne DO Work Phone: [facility] Start: 10-09-2024 End: 10-09-2024 ambulatory BABS DWAYNE Not Available Start: 10-09-2024 End: 10-09-2024 flow sheet Babs Dwayne DO Work Phone: [facility] Comment on above: 36 weeks gestation o f ([facility]); Third trimester ([facility]); Sinusitis, unspecified chronicity, unspecified location; Gastroesophageal reflux in ([facility]) Start: 09-24-2024 End: 09-24-2024 Bamboo flowsheet Babs Dwayne DO Work Phone: [facility] Start: 09-24-2024 End: 09-24-2024 Bamboo flowsheet Babs Dwayne DO Work Phone: [facility] Start: 09-24-2024 End: 09-24-2024 flow sheet Babs Dwayne DO Work Phone: [facility] Comment on above: Third trimester preg juan ([facility]); 34 weeks gestation of ([facility]) Start: 09-24-2024 End: 09-24-2024 ambulatory BABS DWYANE Not Available Start: 09-10-2024 End: 09-10-2024 Bamboo flowsheet Deandra GRIJALVA Work Phone: [facility] Start: 09-10-2024 End: 09-10-2024 Bamboo flowsheet Deandra GRIJALVA Work Phone: [facility] Start: 09-10-2024 End: 09-10-2024 flow sheet Deandra GRIJALVA Work Phone: [facility] Comment on above: Third trimester preg juan ([facility]); 32 weeks gestation of ([facility]) Start: 09-10-2024 End: 09-10-2024 ambulatory DEANDRA VEE Not Available Start: 08-27-2024 End: 08-27-2024 flow sheet Basb Dwayne DO Work Phone: [facility] Comment on above: Third trimester preg juan; 30 weeks gestation of Start: 08-27-2024 End: 08-27-2024 ambulatory BABS DWAYNE Not Available Start: 08-15-2024 End: 08-15-2024 flow sheet Deandra GRIJALVA Work Phone: [facility] Comment on above: Size of fetus incons istent with dates in second trimester (Primary Dx); 28 weeks gestation of ; Third trimester ; Gastroesophageal reflux in Start: 08-15-2024 End: 08-15-2024 ambulatory DEANDRA VEE Not Available Start: 08-15-2024 End: 08-15-2024 Bamboo flowsheet Deandra GRIJALVA Work Phone: [facility] Start: 08-15-2024 End: 08-15-2024 Bamboo flowsheet Deandra GRIJALVA Work Phone: [facility] Start: 08-03-2024 End: 08-03-2024 Clinisync Result Encounter Babs Dwayne DO Work Phone: [facility] Unsolicited Start: 08-03-2024 End: 08-03-2024 Clinisync Result Encounter Babs Dwayne DO Work Phone: [facility] Unsolic[facility] Start: 07-23-2024 End: 07-23-2024 Bamboo flowsheet Babs Dwayne DO Work Phone: [facility] Start: 07-23-2024 End: 07-23-2024 Bamboo flowsheet Babs Dwayne DO Work Phone: [facility] Start: 07-23-2024 End: 07-23-2024 flow sheet Babs Dwayne DO Work Phone: [facility] Comment on above: Second trimester pre gnancy; 25 weeks gestation of ; Diabetes mellitus screening Start: 07-23-2024 End: 07-23-2024 ambulatory BABS DWAYNE Not Available Start: 06-25-2024 End: 06-25-2024 Bamboo flowsheet Babs Dwayne DO Work Phone: [facility] Start: 06-25-2024 End: 06-25-2024 Bamboo flowsheet Babs Dwayne DO Work Phone: [facility] Start: 06-25-2024 End: 06-25-2024 Clinisync Result Encounter Babs Dwayne DO Work Phone: [facility] Unsolicited Start: 06-25-2024 End: 06-25-2024 flow sheet Babs Dwayne DO Work Phone: [facility] Comment on above: Second trimester pre gnancy; 21 weeks gestation of Start: 06-25-2024 End: 06-25-2024 ambulatory BABS DWAYNE Not Available Start: 05-28-2024 End: 05-28-2024 Bamboo flowsheet Babs Dwayne DO Work Phone: [facility] Start: 05-28-2024 End: 05-30-2024 Bamboo flowsheet Babs Dwayne DO Work Phone: [facility] Start: 05-28-2024 End: 05-30-2024 External Result Encounter Babs Dwayne DO Work Phone: [facility] Unsolicited Start: 05-28-2024 End: 05-28-2024 [...] Start: 03-30-2024 End: 03-30-2024 ambulatory Babs Dwayne [facility] Work Phone: Start: 03-30-2024 End: 03-30-2024 Departed Referred Babs Dwayne DO Work Phone: [facility] Start: [...] Available Start: 10-28-2023 End: 10-28-2023 ambulatory JOSEPHINE [facility] Start: 10-28-2023 Encounter for genera l adult medical examination without abnormal findings [facility] Start: 08-28-2021 End: 08-28-[address] RUTH PINEDA Facility:[facility] Start: 08-14-[address] JOSEPHINE CANADA Facility :[facility] Start: 07-22-2017 End: 07-25-2017 Ambulatory LITZYWagner SETH [facility] Procedures Date Procedure Procedure Detail Performing Clinician Start: 10-23-2024 Urnls dip stick/tabl et rgnt non-auto w/o micrscp Babs Dwayne DO Work Phone: Start: 09-24-2024 Urnls dip stick/tabl et rgnt non-auto w/o micrscp Babs Dwayne DO Work Phone: Start: 08-27-2024 Urnls dip stick/tabl et rgnt non-auto w/o micrscp Babs Dwayne DO Work Phone: Start: 08-15-2024 Urnls dip stick/tabl et rgnt non-auto w/o micrscp Deandra Vee PA Work Phone: Start: 08-03-2024 ALL CBC WITH AUTO DIFF Babs Dwayne DO Work Phone: Start: 07-24-2024 Urnls dip stick/tabl et rgnt non-auto w/o micrscp Babs Dwayne DO Work Phone: Start: 06-25-2024 US OB CERVICAL LENGTH C orey Dwayne DO Work Phone: Start: 06-25-2024 US OB ANATOMY Babs Kelly io DO Work Phone: Start: 06-25-2024 Urnls dip stick/tabl et rgnt [...] EDT Office Visit [facility] [address] [place] [address] Babs Rice, DO [address] [place] [address] [facility] Start: 10-23-2024 End: 10-23-2024 Patient encounter procedure [facility] Comment on above: Arrived Start: 10-15-2024 End: 10-15-2024 Patient encounter procedure [facility] Comment on above: Arrived Start: 10-09-2024 End: 10-09-2025 CULTURE, GROUP B STREP WITH SUSCEPTIBLITY CULTURE, GROUP B STREP WITH SUSCEPTIBLITY Lab Routine Third trimester ([facility]) Expected: 10/09/2024, Expires: 10/09/2025 [facility] Work Phone: Comment on above: Expected: 10/09/2024 , Expires: 10/09/2025 Start: 10-09-2024 End: 10-09-2024 Patient encounter procedure 10/09/2024 10:40 AM EDT Routine [facility] [address] [place] [address] Babs Rice DO [address] [place] [address] [facility] Start: 09-24-2024 End: 09-24-2024 Patient encounter procedure [facility] Comment on above: Arrived Start: 09-10-2024 End: 09-10-2024 Patient encounter procedure [facility] Comment on above: Arrived Start: 08-15-2024 End: 12-16-2024 US for US OB follow up transabdominal approach Imaging Routine Size of fetus inconsistent with dates in second trimester Expected: 08/15/2024, Expires: 12/16/2024 [facility] Work Phone: Comment on above: Expected: 08/15/2024 , Expires: 12/16/2024 Start: 08-15-2024 End: 08-15-2024 Patient encounter procedure [facility] Comment on above: Arrived Start: 07-23-2024 End: 07-23-2025 CBC panel - Blood by Automated count CBC Lab Routine Diabetes mellitus screening Expected: 07/23/2024 (Approximate), Expires: 07/23/2025 [facility] Work Phone: Comment on above: Expected: 07/23/2024 (Approximate), Expires: 07/23/2025 Start: 07-23-2024 End: 07-23-2025 Measurement of glucose 1 hour after glucose challenge for glucose tolerance test Glucose tolerance, 1 hour Lab Routine Diabetes mellitus screening Expected: 07/23/2024 (Approximate), Expires: 07/23/2025 [facility] Comment on above: Expected: 07/23/2024 (Approximate), Expires: 07/23/2025 Start: 07-23-2024 End: 07-23-2024 Patient encounter procedure [facility] Comment on above: Arrived Start: 06-26-2024 End: 06-26-2024 Professional / ancillary services management 06/26/2024 9:00 AM EDT Ancillary Procedure [facility] [address] [place] [address] [facility] Start: 06-25-2024 End: 06-25-2024 Patient encounter procedure [facility] Comment on above: Arrived Start: 05-28-2024 End: 07-28-2024 Alpha fetoprotein, maternal Alpha fetoprotein, maternal Lab Routine Screening, , for anatomic survey Expected: 05/28/2024 (Approximate), Expires: 07/28/2024 [facility] Comment on above: Expected: 05/28/2024 (Approximate), Expires: 07/28/2024 Start: 05-28-2024 End: 05-28-2025 US for US OB 14+ weeks anatomy scan Imaging Routine Screening, , for anatomic survey Expected: 05/28/2024, Expires: 05/28/2025 [facility] Comment on above: Expected: 05/28/2024 , Expires: 05/28/2025 Start: 05-28-2024 End: 05-28-2024 Patient encounter procedure [facility] Comment on above: Arrived Start: 04-30-2024 End: 04-30-2024 Patient encounter procedure [facility] Comment on above: Arrived Start: 03-30-2024 End: 03-30-2025 ABO/Rh ABO/Rh Lab Routine Missed menses , unspecified gestational age Expected: 03/30/2024 (Approximate), Expires: 03/30/2025 [facility] Comment on above: Expected: 03/30/2024 (Approximate), Expires: 03/30/2025 Start: 01-03-2025 Bacteria identified in Urine by Culture [facility] Comment on above: Ordered: 03/30/2024 Start: 03-30-2024 End: 03-30-2025 Blood type and Indirect antibody screen panel - Blood Type and screen Lab Routine Missed menses , unspecified gestational age Expected: 03/30/2024 (Approximate), Expires: 03/30/2025 [facility] Work Phone: Comment on above: Expected: 03/30/2024 (Approximate), Expires: 03/30/2025 Start: 03-30-2024 End: 03-30-2025 Drugs of abuse panel - Urine by Screen method Rapid drug screen, urine Lab Routine , unspecified gestational age Encounter for supervision of normal first in first trimester Expected: 03/30/2024 (Approximate), Expires: 03/30/2025 [facility] Comment on above: Expected: 03/30/2024 (Approximate), Expires: 03/30/2025 Start: 03-30-[address] [facility] Start: 01-31-2024 End: 01-30-2025 US for US PELVIS-TRANSVAG IF INDICATED Imaging Routine Dysfunctional uterine bleeding Expected: 01/31/2024 (Approximate), Expires: 01/30/2025 [facility] Work Phone: Comment on above: Expected: 01/31/2024 (Approximate), Expires: 01/30/2025 Start: 01-31-2024 End: 01-31-2024 Patient encounter procedure 01/31/2024 8:40 AM EST Office Visit [facility] [address] [place] [id number] Babs Rice DO [address] [place] [address] Arrived [facility] Comment on above: Arrived CBC W Auto Different ial panel - Blood CBC and differential Lab Routine Missed menses , unspecified gestational age Ordered: 03/30/2024 [facility] Comment on above: Ordered: 03/30/2024 CHLAMYDIA TRACHOMATI S (GENITO/STI) CHLAMYDIA TRACHOMATIS (GENITO/STI) Lab Routine STD exposure Vaginal discharge Ordered: 05/28/2024 [facility] Comment on above: Ordered: 05/28/2024 Hemoglobin A1c/Hemoglobin.total in Blood Hemoglobin A1c Lab Routine Missed menses , unspecified gestational age Ordered: 03/30/2024 [facility] Comment on above: Ordered: 03/30/2024 Hepatitis B virus surface Ag [Presence] in Serum or Plasma by Immunoassay Hepatitis B surface antigen Lab Routine Missed menses , unspecified gestational age Ordered: 03/30/2024 [facility] Comment on above: Ordered: 03/30/2024 Hepatitis C virus Ab [Presence] in Serum or Plasma by Immunoassay Hepatitis C antibody Lab Routine Missed menses , unspecified gestational age Ordered: 03/30/2024 [facility] Comment on above: Ordered: 03/30/2024 HIV-1/HIV-2 antigen/antibody combination immunoassay HIV-1 and HIV-2 antibodies Lab Routine Missed menses , unspecified gestational age Ordered: 03/30/2024 [facility] Comment on above: Ordered: 03/30/2024 Neisseria gonorrhoea e DNA [Presence] in Unspecified specimen by DELILAH with probe detection Neisseria gonorrhea DNA probe, direct Lab Routine STD exposure Vaginal discharge Ordered: 05/28/2024 [facility] Comment on above: Ordered: 05/28/2024 Reagin Ab [Presence] in Serum by RPR RPR Lab Routine Missed menses , unspecified gestational age Ordered: 03/30/2024 [facility] Comment on above: Ordered: 03/30/2024 Rubella antibody, IgG Rubella an tibody, IgG Lab Routine Missed menses , unspecified gestational age Ordered: 03/30/2024 [facility] Comment on above: Ordered: 03/30/2024 SURESWAB(R) ADVANCED VAGINITIS PLUS, TMA SURESWAB(R) ADVANCED VAGINITIS PLUS, TMA Pathology and Cytology Routine STD exposure Vaginal discharge Ordered: 05/28/2024 [facility] Work Phone: Comment on above: Ordered: 05/28/2024 Payers Date Payer Category Payer Private Health Insurance [id number] 2017 Unknown [id number] 1991 Unknown [id number] 2.16.84 [id number] 1991 Unknown [id number] 2.16.84 0.1.340511.3.579.2.593 1991 Unknown [id number] 2.16.8 40.1.772679.3.579.2.1286 1991 Unknown [id number] 2.16.8 40.1.932703.3.579.2.1286 1991 Unknown [id number] 2.16.8 40.1.119481.3.579.2.1259 1991 Unknown [id number] 2.16.8 40.1.513857.3.579.2.1259 1991 Unknown [id number] 2.16.8 40.1.445843.3.579.2.1259 1991 Unknown [id number] 2.16.8 40.1.659707.3.579.2.1259 1991 Unknown [id number] 2.16.8 40.1.757248.3.579.2.9 1991 Unknown [id number] 2.16.84 0.1.911841.3.579.2.1259 1991 Unknown [id number] 2.16.84 0.1.316174.3.579.2.1259 1991 Unknown [id number] 2.16.84 0.1.871368.3.579.2.1259 1991 Unknown [id number] 2.16.84 0.1.983655.3.579.2.9 1991 Unknown [id number] 2.16.84 0.1.401301.3.579.2.9 1991 Unknown [id number] 2.16.84 0.1.773782.3.579.2.1259 1991 Unknown [id number] 2.16.84 0.1.572135.3.579.2.1259 1991 Unknown [id number] 2.16.84 0.1.577829.3.579.2.1259 1991 Unknown [id number] 2.16.84 0.1.092858.3.579.2.1259 1991 Unknown [id number] 2.16.84 0.1.109160.3.579.2.1259 1991 Unknown [id number] 2.16.84 0.1.252525.3.579.2.1259 1959 Self-pay 1958 Unknown [id number] Unknown [id number] 2.16.8 40.1.962346.3.579.2.531 Social History Date Type Detail Facility Start: 10-31-2023 Tobacco smoking stat [facility] Never smoked tobacco [facility] Start: 10-31-2023 Tobacco use and exposure Smokeless tobacco non-user [facility] Start: 10-31-2023 End: 10-09-2024 Alcoholic beverage intake Lifetime non-drinker (finding) [facility] Start: 10-31-2023 End: 01-31-2024 History of Social function [facility] Start: 10-31-2023 End: 01-31-2024 Tobacco use panel [facility] Start: 1990 Sex assigned at Female [facility] Start: 09-07-2022 Gender identity Identifies as female gender (finding) [facility] Start: 02-13-2024 [facility] Work Phone: Start: 03-31-2024 Sex Female (finding) [facility] Clinical Notes 01-31-2024 to 10-23-2024 RUDI Espana - 10/23/2024 11:10 AM Laverne Rossi LPN - 10/15/2024 9:50 AM Hiwot Perez LPN - 10/09/2024 10:40 AM Hiwot Perez LPN - 09/24/2024 10:30 AM EDT Note Date & Type Note Facility 10-23-2024 History of Presen t illness Narrative Reason for Appointment: Patient ID: Joseline Chavez is a 34 y.o. female who presents for Routine Visit Patient presents today for Return OB appointment. MEDICATIONS Current Outpatient Medications Medication Instructions clotrimazole-betamethasone (Lotrisone) cream 1 application , Topical, Daily, Apply to affected area daily for 7 days omeprazole (PRILOSEC) 20 mg, Oral, Daily before breakfast, Do not crush or chew. MV-Min-Fe Fum-FA-DHA ( 1 PO) Take by mouth vitamin C 250 mg, Daily ALLERGIES Allergies Allergen Reactions Sulfa Antibiotics Hives, Itching and Swelling Other Reaction(s): Unknown PROBLEMS Active Ambulatory Problems Diagnosis Date Noted No Active Ambulatory Problems Resolved Ambulatory Problems Diagnosis Date Noted No Resolved Ambulatory Problems Past Medical History: Diagnosis Date Arthritis Asthma (HCC) MARIANO II (cervical intraepithelial neoplasia II) HPV (human papilloma virus) infection 04/2015 HSIL (high grade squamous intraepithelial lesion) on Pap smear of cervix Hx of being hospitalized Urinary tract infection HISTORY PAST MEDICAL HISTORY SOCIAL HISTORY Past Medical History: Diagnosis Date Arthritis Asthma (HCC) MARIANO II (cervical intraepithelial neoplasia II) HPV [...] Exam Constitutional: Appearance: Normal appearance. She is normal weight. HENT: Head: Normocephalic. Cardiovascular: Rate and Rhythm: Normal rate. Pulses: Normal pulses. Pulmonary: Effort: Pulmonary effort is normal. Breath sounds: Normal breath sounds. Abdominal: Palpations: Abdomen is soft. Musculoskeletal: General: Normal range of motion. Neurological: General: No focal deficit present. Mental Status: She is alert and oriented to person, place, and time. Psychiatric: Mood and Affect: Mood normal. Behavior: Behavior normal. Thought Content: Thought content normal. Judgment: Judgment normal. Vitals and nursing note reviewed. Vitals: Estimated body mass index is 30.83 kg/m as calculated from the following: Height as of 10/31/23: 5' 6 . Weight as of this encounter: 191 lb. BP: 110/82 Patient's last menstrual period was 01/30/2024 (exact date). ASSESSMENT & PLAN ICD-10-CM 1. Third trimester ([facility]) Z34.93 POCT urinalysis dipstick manually resulted 2. 38 weeks gestation of ([facility]) Z3A.38 Return OB: Patient presents today for a routine obstetrics appointment. Patient is currently 38w1d . Patient states she is doing well but has complaints of being tired due to current . Patient has verbalizes frequent movement. labor precautions was discussed/given and patient was instructed to perform kick counts three times a day. Orders Placed This Encounter Procedures POCT urinalysis dipstick manually resulted Follow Up: Patient is to return to office in 1 week for routine OB appointment. Documented by RUDI Espana on behalf of: Babs Rice DO documented in this encounter [facility] 10-15-2024 History of Presen t illness Narrative Reason for Appointment: Patient ID: Joseline Chavez is a 34 y.o. female who presents for Routine Visit Patient presents today for Return OB appointment. MEDICATIONS Current Outpatient Medications Medication Instructions clotrimazole-betamethasone (Lotrisone) cream 1 application , Topical, Daily, Apply to affected area daily for 7 days omeprazole (PRILOSEC) 20 mg, Oral, Daily before breakfast, Do not crush or chew. MV-Min-Fe Fum-FA-DHA ( 1 PO) Take by mouth vitamin C 250 mg, Daily ALLERGIES Allergies Allergen Reactions Sulfa Antibiotics Hives, Itching and Swelling Other Reaction(s): Unknown PROBLEMS Active Ambulatory Problems Diagnosis Date Noted No Active Ambulatory Problems Resolved Ambulatory Problems Diagnosis Date Noted No Resolved Ambulatory Problems Past Medical History: Diagnosis Date Arthritis Asthma (HCC) MARIANO II (cervical intraepithelial neoplasia II) HPV (human papilloma virus) infection 04/2015 HSIL (high grade squamous intraepithelial lesion) on Pap smear of cervix Hx of being hospitalized Urinary tract infection HISTORY PAST MEDICAL HISTORY SOCIAL HISTORY Past Medical History: Diagnosis Date Arthritis Asthma (HCC) MARIANO II (cervical intraepithelial neoplasia II) HPV [...] nursing note reviewed. Exam conducted with a pathology technician present. Vitals: Estimated body mass index is 30.51 kg/m as calculated from the following: Height as of 10/31/23: 5' 6 . Weight as of this encounter: 189 lb. BP: 122/76 Patient's last menstrual period was 01/30/2024 (exact date). ASSESSMENT & PLAN ICD-10-CM 1. Third trimester ([facility]) Z34.93 2. 37 weeks gestation of ([facility]) Z3A.37 Patient presents today for a routine obstetrics appointment. Patient is currently 37w0d with a Estimated Date of Delivery: 11/05/24. Patient is doing well and does not have any complaints at this time. Patient will return to clinic in 1 week for routine OB appointment with possible cervical check if patient desires since patient is setup for . Documented by Sarah Rossi LPN on behalf of: Babs Rice DO documented in this encounter [facility] 10-09-2024 History of Presen t illness Narrative Reason for Appointment: Patient ID: Joseline Chavez is a 34 y.o. female who presents for Routine Visit Patient presents today for Return OB appointment. MEDICATIONS Current Outpatient Medications Medication Instructions clotrimazole-betamethasone (Lotrisone) cream 1 application , Topical, Daily, Apply to affected area daily for 7 days omeprazole (PRILOSEC) 20 mg, Oral, Daily before breakfast, Do not crush or chew. MV-Min-Fe Fum-FA-DHA ( 1 PO) Take by mouth vitamin C 250 mg, Daily ALLERGIES Allergies Allergen Reactions Sulfa Antibiotics Hives, Itching and Swelling Other Reaction(s): Unknown PROBLEMS Active Ambulatory Problems Diagnosis Date Noted No Active Ambulatory Problems Resolved Ambulatory Problems Diagnosis Date Noted No Resolved Ambulatory Problems Past Medical History: Diagnosis Date Arthritis Asthma (HCC) MARIANO II (cervical intraepithelial neoplasia II) HPV (human papilloma virus) infection 04/2015 HSIL (high grade squamous intraepithelial lesion) on Pap smear of cervix Hx of being hospitalized Urinary tract infection HISTORY PAST MEDICAL HISTORY SOCIAL HISTORY Past Medical History: Diagnosis Date Arthritis Asthma (HCC) MARIANO II (cervical intraepithelial neoplasia II) HPV [...] appearance. She is well-developed. Genitourinary: Vulva normal. Cardiovascular: Rate and Rhythm: Normal rate and [...] nursing note reviewed. Exam conducted with a pathology technician present. Vitals: Estimated body mass index is 30.15 kg/m as calculated from the following: Height as of 10/31/23: 5' 6 . Weight as of this encounter: 186 lb 12.8 oz. BP: 110/76 Patient's last menstrual period was 01/30/2024 (exact date). ASSESSMENT & PLAN ICD-10-CM 1. 36 weeks gestation of ([facility]) Z3A.36 POCT urinalysis dipstick manually resulted 2. Third trimester ([facility]) Z34.93 POCT urinalysis dipstick manually resulted CULTURE, GROUP B STREP WITH SUSCEPTIBLITY CULTURE, GROUP B STREP WITH SUSCEPTIBLITY 3. Sinusitis, unspecified chronicity, unspecified location J32.9 4. Gastroesophageal reflux in ([facility]) O99.619 K21.9 Patient is doing well but has complaints of being tired and having maternal discomfort due to . Patient verbalized frequent movement and was instructed to perform kick counts three times per day. labor precautions were given, LARC consent was signed/declined, and GBS was obtained. Cervical check was performed and patient is 0cm dilated. C/s consents signed. Orders Placed This Encounter Procedures CULTURE, GROUP B STREP WITH SUSCEPTIBLITY POCT urinalysis dipstick manually resulted Follow Up: Patient is to return to office in 1 week for routine OB appointment Documented by Demetria Perez LPN on behalf of: Babs Rice DO documented in this encounter [facility] 09-24-2024 History of Presen t illness Narrative Reason for Appointment: Patient ID: Joseline Dickerson is a 34 y.o. female who presents for Routine Visit Patient presents today for Return OB appointment. MEDICATIONS Current Outpatient Medications Medication Instructions azithromycin (Zithromax Z-Fadi) 250 MG tablet As directed clotrimazole-betamethasone (Lotrisone) cream 1 application , Topical, Daily, Apply to affected area daily for 7 days omeprazole (PRILOSEC) 20 mg, Oral, Daily before breakfast, Do not crush or chew. MV-Min-Fe Fum-FA-DHA ( 1 PO) Take by mouth vitamin C 250 mg, Daily ALLERGIES Allergies Allergen Reactions Sulfa Antibiotics Hives, Itching and Swelling Other Reaction(s): Unknown PROBLEMS Active Ambulatory Problems Diagnosis Date Noted No Active Ambulatory Problems Resolved Ambulatory Problems Diagnosis Date Noted No Resolved Ambulatory Problems Past Medical History: Diagnosis Date Arthritis Asthma (HCC) MARIANO II (cervical intraepithelial neoplasia II) HPV (human papilloma virus) infection 04/2015 HSIL (high grade squamous intraepithelial lesion) on Pap smear of cervix Hx of being hospitalized Urinary tract infection HISTORY PAST MEDICAL HISTORY SOCIAL HISTORY Past Medical History: Diagnosis Date Arthritis Asthma (HCC) MARIANO II (cervical intraepithelial neoplasia II) HPV [...] nursing note reviewed. Exam conducted with a pathology technician present. Vitals: Estimated body mass index is 29.7 kg/m as calculated from the following: Height as of 10/31/23: 5' 6 . Weight as of this encounter: 184 lb. BP: 118/72 Patient's last menstrual period was 01/30/2024 (exact date). ASSESSMENT & PLAN ICD-10-CM 1. Third trimester ([facility]) Z34.93 POCT urinalysis dipstick manually resulted 2. 34 weeks gestation of ([facility]) Z3A.34 Return OB: Patient presents today for a routine obstetrics appointment. Patient is currently 34w0d . Patient states she is doing well but has complaints of being tired due to current . Patient has verbalizes frequent movement. labor precautions was discussed/given and patient was instructed to perform kick counts three times a day. Orders Placed This Encounter Procedures POCT urinalysis dipstick manually resulted Follow Up: Patient is to return to office in 2 week for routine OB appointment. Documented by Demetria Perez LPN on behalf of: Babs Rice DO documented in this encounter [facility] 09-10-2024 History of Presen t illness Narrative Reason for Appointment: Patient ID: Joseline Dickerson is a 33 y.o. female who presents for Routine Visit Patient presents today for Return OB appointment. MEDICATIONS Current Outpatient Medications Medication Instructions clotrimazole-betamethasone (Lotrisone) cream 1 application , Topical, Daily, Apply to affected area daily for 7 days omeprazole (PRILOSEC) 20 mg, Oral, Daily before breakfast, Do not crush or chew. MV-Min-Fe Fum-FA-DHA ( 1 PO) Take by mouth vitamin C 250 mg, Daily ALLERGIES Allergies Allergen Reactions Sulfa Antibiotics Hives, Itching and Swelling Other Reaction(s): Unknown PROBLEMS Active Ambulatory Problems Diagnosis Date Noted No Active Ambulatory Problems Resolved Ambulatory Problems Diagnosis Date Noted No Resolved Ambulatory Problems Past Medical History: Diagnosis Date Arthritis Asthma (HCC) MARIANO II (cervical intraepithelial neoplasia II) HPV (human papilloma virus) infection 04/2015 HSIL (high grade squamous intraepithelial lesion) on Pap smear of cervix Hx of being hospitalized Urinary tract infection HISTORY PAST MEDICAL HISTORY SOCIAL HISTORY Past Medical History: Diagnosis Date Arthritis Asthma (HCC) MARIANO II (cervical intraepithelial neoplasia II) HPV [...] Exam Constitutional: Appearance: Normal appearance. She is normal weight. HENT: Head: Normocephalic. Cardiovascular: Rate and Rhythm: Normal rate. Pulses: Normal pulses. Pulmonary: Effort: Pulmonary effort is normal. Breath sounds: Normal breath sounds. Abdominal: Palpations: Abdomen is soft. Musculoskeletal: General: Normal range of motion. Neurological: General: No focal deficit present. Mental Status: She is alert and oriented to person, place, and time. Psychiatric: Mood and Affect: Mood normal. Behavior: Behavior normal. Thought Content: Thought content normal. Judgment: Judgment normal. Vitals and nursing note reviewed. Vitals: Estimated body mass index is 29.21 kg/m as calculated from the following: Height as of 10/31/23: 5' 6 . Weight as of this encounter: 181 lb. BP: 114/74 Patient's last menstrual period was 01/30/2024 (exact date). ASSESSMENT & PLAN ICD-10-CM 1. Third trimester ([facility]) Z34.93 2. 32 weeks gestation of ([facility]) Z3A.32 Return OB: Patient presents today for a routine obstetrics appointment. Patient is currently 32w0d . Patient states she is doing well but has complaints of being tired due to current . Patient has verbalizes frequent movement. labor precautions was discussed/given and patient was instructed to perform kick counts three times a day. No orders of the defined types were placed in this encounter. Follow Up: Patient is to return to office in 2 week for routine OB appointment. Documented by RUDI Espana on behalf of: RUDI Espana documented in this encounter [facility] 08-27-2024 History of Presen t illness Narrative Reason for Appointment: Patient ID: Joseline Dickerson is a 33 y.o. female who presents for Routine Visit Patient presents today for Return OB appointment. MEDICATIONS Current Outpatient Medications Medication Instructions clotrimazole-betamethasone (Lotrisone) cream 1 application , Topical, Daily, Apply to affected area daily for 7 days omeprazole (PRILOSEC) 20 mg, Oral, Daily before breakfast, Do not crush or chew. MV-Min-Fe Fum-FA-DHA ( 1 PO) Take by mouth vitamin C 250 mg, Daily ALLERGIES Allergies Allergen Reactions Sulfa Antibiotics [...] nursing note reviewed. Exam conducted with a pathology technician present. Vitals: Estimated body mass index is 28.85 kg/m as calculated from the following: Height as of 10/31/23: 5' 6 . Weight as of this encounter: 178 lb 12 oz. BP: 112/82 Patient's last menstrual period was 01/30/2024 (exact date). ASSESSMENT & PLAN ICD-10-CM 1. Third trimester Z34.93 POCT urinalysis dipstick manually resulted 2. 30 weeks gestation of Z3A.30 Return OB: Patient presents today for a routine obstetrics appointment. Patient is currently 30w0d . Patient states she is doing well but has complaints of being tired due to current . Patient has verbalizes frequent movement. labor precautions was discussed/given and patient was instructed to perform kick counts three times a day. Orders Placed This Encounter Procedures POCT urinalysis dipstick manually resulted Follow Up: Patient is to return to office in 2 week for routine OB appointment. Documented by Georgina Woodruff NP on behalf of: Babs Rice DO documented in this encounter [facility] 08-15-2024 History of Presen t illness Narrative Reason for Appointment: Patient ID: Joseline Dickerson is a 33 y.o. female who presents for Routine Visit Patient presents today for Return OB appointment. MEDICATIONS Current Outpatient Medications Medication Instructions clotrimazole-betamethasone (Lotrisone) cream 1 application , Topical, Daily, Apply to affected area daily for 7 days omeprazole (PRILOSEC) 20 mg, Oral, Daily before breakfast, Do not crush or chew. MV-Min-Fe Fum-FA-DHA ( 1 PO) Take by mouth vitamin C 250 mg, Daily ALLERGIES Allergies Allergen Reactions Sulfa Antibiotics [...] Exam Constitutional: Appearance: Normal appearance. She is normal weight. HENT: Head: Normocephalic. Cardiovascular: Rate and Rhythm: Normal rate. Pulses: Normal pulses. Pulmonary: Effort: Pulmonary effort is normal. Breath sounds: Normal breath sounds. Abdominal: Palpations: Abdomen is soft. Musculoskeletal: General: Normal range of motion. Neurological: General: No focal deficit present. Mental Status: She is alert and oriented to person, place, and time. Psychiatric: Mood and Affect: Mood normal. Behavior: Behavior normal. Thought Content: Thought content normal. Judgment: Judgment normal. Vitals and nursing note reviewed. Vitals: Estimated body mass index is 28.37 kg/m as calculated from the following: Height as of 10/31/23: 5' 6 . Weight as of this encounter: 175 lb 12.8 oz. BP: 120/70 Patient's last menstrual period was 01/30/2024 (exact date). ASSESSMENT & PLAN ICD-10-CM 1. 28 weeks gestation of Z3A.28 POCT urinalysis dipstick manually resulted 2. Third trimester Z34.93 POCT urinalysis dipstick manually resulted 3. Gastroesophageal reflux in O99.619 omeprazole (PriLOSEC) [address] capsule K21.9 Return OB: Patient presents today for a routine obstetrics appointment. Patient is currently 28w2d . Patient states she is doing well but has complaints of being tired due to current . Patient has verbalizes frequent movement. labor precautions was discussed/given and patient was instructed to perform kick counts three times a day. Orders Placed This Encounter Procedures POCT urinalysis dipstick manually resulted Follow Up: Patient is to return to office in 2 week for routine OB appointment. Documented by RUDI Espana on behalf of: RUDI Espana documented in this encounter [facility] 07-23-2024 History of Presen t illness Narrative Reason for Appointment: Patient ID: Joseline Dickerson is a 33 y.o. female who presents [...] Twila gabe Thyroid disease Mother Twila gabe SURGICAL HISTORY Past Surgical History: Procedure Laterality [...] nursing note reviewed. Exam conducted with a pathology technician present. Vitals: Estimated body mass index is 27.88 kg/m as calculated from the following: Height as of 10/31/23: 5' 6 . Weight as of this encounter: 172 lb 12 oz. BP: 124/76 Patient's last menstrual period was 01/30/2024 (exact date). ASSESSMENT & PLAN ICD-10-CM 1. Second trimester Z34.92 POCT urinalysis dipstick manually resulted 2. 25 weeks gestation of Z3A.25 3. Diabetes mellitus screening Z13.1 CBC Glucose tolerance, 1 hour CBC Glucose tolerance, 1 hour CANCELED: CBC CANCELED: Glucose tolerance, 1 hour CANCELED: CBC CANCELED: Glucose tolerance, 1 hour Patient presents today for a routine obstetrics appointment. Patient is currently 25w0d with a Estimated Date of Delivery: 11/05/24. Patient given order for glucose testing and patient will return to clinic in 3 weeks for routine OB appointment. Documented by Sarah Rossi LPN on behalf of: Babs Rice DO documented in this encounter [facility] 06-25-2024 History of Presen t illness Narrative Reason for Appointment: Patient ID: Joseline Dickerson is a 33 y.o. female who presents [...] nursing note reviewed. Exam conducted with a pathology technician present. Vitals: Estimated body mass index is [...] Babs Rice DO documented in this encounter [facility] 05-28-2024 History of Presen t illness Narrative Reason for Appointment: Patient ID: Joseline Dickerson is a 33 y.o. female who presents [...] Past Medical History: Diagnosis Date Arthritis Asthma ([facility]) MARIANO II (cervical intraepithelial neoplasia II) HPV [...] nursing note reviewed. Exam conducted with a pathology technician present. Vitals: Estimated body mass index is [...] obtained without difficulty and patient was given [facility] order to have obtained. Orders Placed This Encounter Procedures US OB 14+ weeks anatomy scan CHLAMYDIA TRACHOMATIS (GENITO/STI) Neisseria gonorrhea DNA probe, direct Alpha fetoprotein, maternal POCT urinalysis dipstick manually resulted Follow Up: Patient is to return to our office in 4 weeks for routine OB appointment Documented by Sarah Rossi LPN on behalf of: Babs Rice DO documented in this encounter [facility] 04-30-2024 History of Presen t illness Narrative Images from the original note were not included. Reason for Appointment: Patient ID: Joseline Dickerson is a 33 y.o. female who presents [...] nursing note reviewed. Exam conducted with a pathology technician present. Vitals: Estimated body mass index is [...] or undercooked meat, and stay away from [facility]. Patient has been consulted regarding any [...] of: daya espana documented in this encounter [facility] 03-30-2024 History of Presen t illness Narrative Reason for Appointment: Patient ID: Joseline Dickerson is a 33 y.o. female who presents [...] or undercooked meat, and stay away from [facility]. Patient has also been advised to [...] Sheri Reyna LPN documented in this encounter [facility] 01-31-2024 History of Presen t illness Narrative Reason for Appointment: Patient ID: Joseline Dickerson is a 33 y.o. female who presents [...] nursing note reviewed. Exam conducted with a pathology technician present. Vitals: Estimated body mass index is [...] Babs Rice DO documented in this encounter [facility] Evaluation note Diagnosis Encounter for infertility Dysfunctional uterine bleeding Other disorder of menstruation and other abnormal bleeding from female genital tract [facility] Diagnosis Missed menses , unspecified gestational age Encounter for supervision of normal first in first trimester [facility] noteNo assessment information [facility] Work Phone: Evaluation note* Diagnosis [...] gestation of documented [facility]* Diagnosis Second trimester state, incidental 25 weeks gestation of Diabetes mellitus screening Screening for diabetes mellitus documented [facility]* Diagnosis Size of fetus inconsistent with dates in second trimester- Primary 28 weeks gestation of Third trimester state, incidental Gastroesophageal reflux in [facility]* Diagnosis Third trimester state, incidental 30 weeks gestation of [facility]* Diagnosis Third trimester ([facility]) state, incidental 32 weeks gestation of ([facility]) [facility] Diagnosis Third trimester ([facility]) state, incidental 34 weeks gestation of ([facility]) [facility] Diagnosis 36 weeks gestation of ([facility]) Third trimester ([facility]) state, incidental Sinusitis, unspecified chronicity, unspecified location Gastroesophageal reflux in ([facility]) [facility] Diagnosis Third trimester ([facility]) state, incidental 37 weeks gestation of ([facility]) [facility] Diagnosis Third trimester ([facility]) state, incidental 38 weeks gestation of ([facility]) documented in this encounter [facility] Summary [...] section and content) DATE CREATED AUTHOR 09/15/2017 [facility] DATE CREATED AUTHOR AUTHOR'S ORGANIZ ATION 10/19/2021 [facility] DATE CREATED AUTHOR AUTHOR'S ORGANIZ ATION 11/01/2023 [facility] DATE CREATED AUTHOR AUTHOR'S ORGANIZ ATION 04/07/2024 [facility] DATE CREATED AUTHOR AUTHOR'S ORGANIZ ATION 10/24/2024 [facility] EPIC Care Teams (unrecognized sec tion and content) Finish Repair Worker Relationship Specialty Start Date End Date Josephine Canada MD [address] [place] [facility] [address] PCP - General 10/18/22 Finish Repair Worker Relationship Specialty Start Date End Date Josephine Canada MD [address] [place] [facility] [address] PCP - General 10/18/22 Finish Repair Worker Relationship Specialty Start Date End Date Josephine Canada MD [address] [place] [facility] [address] PCP - General 10/18/22 Finish Repair Worker Relationship Specialty Start Date End Date Josephine Canada MD [address] [facility], [phone] PCP - General 10/18/22 Team Status: Inactive Member Role Status Dates Babs Rice DO Attending Provider Active Start : March 30, 2024 End: March 30, 2024 Finish Repair Worker Relationship Specialty Start Date End Date Josephine Canada MD [address] [place] [facility] [address] PCP - General 10/18/22 Finish Repair Worker Relationship Specialty Start Date End Date Josephine Canada MD [address] [place] [facility] [address] PCP - General 10/18/22 Finish Repair Worker Relationship Specialty Start Date End Date Josephine Canada MD [address] [place] [facility] [address] PCP - General 10/18/22 Finish Repair Worker Relationship Specialty Start Date End Date Josephine Canada MD [address] [place] [facility] [address] PCP - General 10/18/22 Finish Repair Worker Relationship Specialty Start Date End Date Josephine Canada MD PCP - General 10/18/22 Finish Repair Worker Relationship Specialty Start Date End Date Josephine Canada MD [address] [facility], [phone] PCP - General 10/18/22 Finish Repair Worker Relationship Specialty Start Date End Date Josephine Canada MD [address] [facility], [phone] PCP - General 10/18/22 Finish Repair Worker Relationship Specialty Start Date End Date Josephine Canada MD [address] [facility], [phone] PCP - General 10/18/22 Finish Repair Worker Relationship Specialty Start Date End Date Josephine Canada MD [address] [facility], [phone] PCP - General 10/18/22 Finish Repair Worker Relationship Specialty Start Date End Date Josephine Canada MD [address] [place] [facility] [address] PCP - General 10/18/22 Finish Repair Worker Relationship Specialty Start Date End Date Josephine Canada MD [address] [place] [address] PCP - General 10/18/22 Finish Repair Worker Relationship Specialty Start Date End Date Josephine Canada MD [address] [place] [phone] PCP - General 10/18/22 Reason for Visit [...] BE BASED ON THE PRIMARY CLINICAL RECORDS. [facility] gis[facility]to [facility]. provides no warranty or guarantee of the accuracy or completeness of information in this document.
[2024-11-01 06:12] LABS: Hematocrit 30.8 % (36.0-48.0); Hemoglobin 10.4 g/dL (12.0-16.0); Immature Granulocytes Abs Auto 0.04 10^3/uL (0.00-0.03); Immature Granulocytes Pct Auto 0.4 % (0.0-0.5); Lymphocytes Absolute Auto 2.9 10^3/uL (1.2-3.8); Mean Corpuscular HGB Conc 33.8 g/dL (29.9-35.2); Mean Corpuscular Hemoglobin 27.2 pg (26.7-34.0); Mean Corpuscular Volume 80.6 fL (81.0-99.0); Platelet Count 197 10^3/uL (150-450); Red Blood Count 3.82 10^6/uL (4.20-5.40); White Blood Count 11.1 10^3/uL (4.0-11.0)
[2024-11-01 06:24] LABS: Cannabinoid Screen Urine NEGATIVE (NEGATIVE); Methamphetamines Screen Urine NEGATIVE (NEGATIVE); Tricyclic Antidepressant Urine NEGATIVE (NEGATIVE)
[2024-11-01] MEDS: METOCLOPRAMIDE HCL 10 MG/2 ML VIAL IVP (07:00)
[2024-11-01] MEDS: FAMOTIDINE/PF 20 MG/2 ML VIAL IV (07:00)
[2024-11-01] MEDS: CITRIC ACID/SODIUM CITRATE 30 ML SOLUTION ORACIT SHOHL'S SOLN PO (07:01)
[2024-11-01] MEDS: CEFAZOLIN SODIUM/DEXTROSE,ISO 2 GM/50 ML PIGGYBACK IV ×2 (07:45→12:48)
--- NOTE | 2024-11-01 08:36 | P.ON_ITS ---
Brief Operative Note Date of procedure: 11/01/24 Pre-op diagnosis general: iup at 39wks, breech presentation Post-op diagnosis: same as pre-op Procedure: NAME OF PROCEDURE: [ section ] PROCEDURE: Patient was taken back to the Operating Room where she was given a spinal anesthesia with Duramorph without difficulty. She was prepped and draped in the normal sterile fashion. A Pfannenstiel skin incision was then made 2 cm above the symphysis pubis and carried down to underlying rectus fascia using a Bovie. The fascia was incised in the midline and extended laterally using Tyson scissors. Two Marc clamps were placed on the superior aspect of the fascia and dissected off the underlying rectus muscles. The same was performed on the inferior aspect as well. The muscles were then in the midline. Peritoneum was identified and entered bluntly. The peritoneum was then extended superiorly and inferiorly with good visualization of the bladder. The bladder blade was inserted. A low transverse incision was made on the patient's uterus and extended laterally digitally. The was then delivered atraumatically after the bladder blade was removed in the cephalic position. The cord was clamped and cut. Cord blood was obtained. The was handed off to awaiting team. The patient's placenta was spontaneously delivered. The uterus was then exteriorized. The uterus was cleared of all clots and debris. The bladder blade was reinserted. The patient's uterine incision was closed using #0 Vicryl in a running lock fashion. Excellent hemostasis was assured. The uterus was then returned to the patient's abdomen. The patient's abdomen was copiously irrigated using warm saline. Peritoneal gutters were cleared of all clots and debris. Again excellent hemostasis was assured. The patient's peritoneum was closed using 3-0 Vicryl in a running fashion. The patient's fascia was closed using #0 Vicryl in a running fashion. The patient's skin was closed using 4-0 Vicryl subcuticularly. The patient tolerated the procedure well. Sponge, lap, and needle counts were correct x2. The patient was taken to the Recovery Room in stable condition. Anesthesia: spinal Surgeon: Zelalem Rice [employer] Assembler: Li Silva Estimated blood loss (mL): 575 Pathology: none sent Condition: stable Disposition: floor Urinary Catheter Management Urinary Catheter Management Urethral: Cath placed during this visit: no
--- NOTE | 2024-11-01 08:37 | P.OBPRC_ITS ---
Procedure Pre-op/Post-op diagnoses: Pre-Op/Post-Op Diagnoses Operation Date: 11/01/24 07:30 <No data on this case meets the specified criteria> Procedure: Procedures Operation Date: 11/01/24 07:30 Actual Procedure Side Surgeon p Not Applicable Zelalem Rice DO Attending Pathologist: Li Silva Estimated blood loss (mL): 575 Disposition: floor Anesthesia type: Spinal
[2024-11-01] MEDS: OXYTOCIN/0.9 % SODIUM CHLORIDE 20 UNITS/1,000 ML PLAST..BAG 125 UNIT IV (09:31)
[2024-11-01] MEDS: KETOROLAC TROMETHAMINE 30 MG/ML VIAL IVP ×2 (13:47→19:48)
[2024-11-01] MEDS: ENOXAPARIN SODIUM 40 MG/0.4 ML SYRINGE SUBQ (19:48)
[2024-11-02 00:03] VITALS: O2SAT 96
[2024-11-02 00:04] VITALS: BP 110/63; TEMP 36.9
[2024-11-02] MEDS: KETOROLAC TROMETHAMINE 30 MG/ML VIAL IVP (03:06)
[2024-11-02 03:44] VITALS: BP 131/65; TEMP 36.8
[2024-11-02 06:10] LABS: Hematocrit 25.6 % (36.0-48.0); Hemoglobin 8.4 g/dL (12.0-16.0); Immature Granulocytes Abs Auto 0.07 10^3/uL (0.00-0.03); Immature Granulocytes Pct Auto 0.5 % (0.0-0.5); Lymphocytes Absolute Auto 3.2 10^3/uL (1.2-3.8); Mean Corpuscular HGB Conc 32.8 g/dL (29.9-35.2); Mean Corpuscular Hemoglobin 26.9 pg (26.7-34.0); Mean Corpuscular Volume 82.1 fL (81.0-99.0); Platelet Count 154 10^3/uL (150-450); Red Blood Count 3.12 10^6/uL (4.20-5.40); White Blood Count 14.8 10^3/uL (4.0-11.0)
[2024-11-02 08:25] VITALS: O2SAT 100
[2024-11-02 08:26] VITALS: BP 105/61; PULSE 61; TEMP 36.5; TEMP 36.7; O2SAT 100
[2024-11-02] MEDS: IBUPROFEN 400 MG TABLET 800 MG PO ×2 (08:29→16:42)
[2024-11-02] MEDS: DOCUSATE SODIUM 100 MG CAPSULE PO ×2 (08:29→21:51)
--- NOTE | 2024-11-02 10:30 | P.OBPN_ITS ---
OB - PN: Subj Subjective Patient comments: no complaints [place] status: doing well feeding status: other Narrative: syringe feeding Exam Constitutional Vital Signs, click to edit/add: Last Vital Signs Temp 98.2 F 11/02/24 03:44 Pulse 59 L 11/01/24 20:00 Resp 14 11/01/24 20:00 BP 105/61 11/02/24 08:26 Pulse Ox 100 11/02/24 08:25 O2 Del Method Room Air 11/02/24 04:30 Results Labs Labs: Short CBC 11/02/24 Range/Units 05:59 WBC 14.8 H (4.0-11.0) 10^3/uL Hgb 8.4 L (12.0-16.0) g/dL Hct 25.6 L (36.0-48.0) % Plt Count 154 (150-450) 10^3/uL Urinary Catheter Management Urinary Catheter Management Urethral: Cath placed during this visit: yes Urethral indwelling: No Insertion date: 11/01/24 Insertion time: 07:55 OB - PN: A/P Time Spent with Patient Time: Total time spent is greater than 50% in coordination of care (as documented) at patient's floor/unit and/or counseling patient: Total time spent with greater than 50% in coordination of care (as documented) at patient's floor/unit and/or counseling patient: less than 15 minutes
[2024-11-02 16:40] VITALS: BP 114/68; TEMP 36.7; O2SAT 100
[2024-11-02] MEDS: ENOXAPARIN SODIUM 40 MG/0.4 ML SYRINGE SUBQ (21:51)
[2024-11-02] MEDS: OXYCODONE HCL/ACETAMINOPHEN 5MG/325MG 1 TAB PO (21:55)
[2024-11-03] MEDS: IBUPROFEN 400 MG TABLET 800 MG PO ×2 (01:02→08:38)
[2024-11-03 01:04] VITALS: BP 113/52; PULSE 60
[2024-11-03 01:15] VITALS: TEMP 36.8
[2024-11-03 08:30] VITALS: BP 110/59; PULSE 56; TEMP 36.8
[2024-11-03 08:35] VITALS: BP 110/59; PULSE 56
[2024-11-03] MEDS: DOCUSATE SODIUM 100 MG CAPSULE PO (08:38)
--- NOTE | 2024-11-03 11:04 | P.OBPN_ITS ---
OB - PN: Subj Subjective Patient comments: no complaints and pain well controlled [place] status: doing well Exam Constitutional Vital Signs, click to edit/add: Last Vital Signs Temp 98.2 F 11/03/24 08:30 Pulse 56 L 11/03/24 08:35 Resp 16 11/03/24 08:30 BP 110/59 11/03/24 08:35 Pulse Ox 100 11/02/24 16:40 O2 Del Method Room Air 11/03/24 01:15 Documenting provider has reviewed patient's vital signs: yes Common normals: no apparent distress Respiratory Common normals: normal respiratory effort and clear to auscultation bilaterally Cardio Common normals: regular rate and regular rhythm GI Common normals: Normal to inspection, nondistended, normoactive bowel sounds present Extremity Common normals: normal to inspection, no clubbing, cyanosis or edema and no calf tenderness Urinary Catheter Management Urinary Catheter Management Urethral: Cath placed during this visit: yes Urethral indwelling: No Insertion date: 11/01/24 Insertion time: 07:55 OB - PN: A/P Plan - day: 2 Plan: routine postop care, discharge home and other (fu 1wk) Time Spent with Patient Time: Total time spent is greater than 50% in coordination of care (as documented) at patient's floor/unit and/or counseling patient: Total time spent with greater than 50% in coordination of care (as documented) at patient's floor/unit and/or counseling patient: less than 15 minutes
== END 2024-11-03 12:55 | disposition home or self-care (01) | DRG 788 ==
PROVIDERS: Admitting Provider Obstetrics & Gynecology; PCP Family Medicine; Visit Provider Obstetrics & Gynecology
PROC: 10D00Z1 Extraction of Products of Conception, Low, Open Approach (ICD-10-PCS; CPT 59514; principal; 2024-11-01 07:30)
DX: O32.1XX0 Maternal care for breech presentation, not applicable or unspecified (principal); Z3A.39 39 weeks gestation of pregnancy; Z37.0 Single live birth
CPT/HCPCS: 36415; 51702; 80307; 85025; 86850; 86900; 86901; 94667; 94668; J0131; J0690; J1100; J1650; J1885; J2274; J2371; J2405; J2590; J2765; J3490

== ENCOUNTER 2024-11-08 08:08 | Outpatient (OUT) | payer OTHER, SELFPAY ==
--- OUTSIDE RECORDS SUMMARY | 2024-11-08 08:13 | XMS_ITS | CCD ---
Author Organization [facility] Care Team Providers Care Lead Simulation Modeling Engineer Name Role Phone SETH, LITZY Unavailable Unavailable JOSEPHINE CANADA Unavailable Unavailable SINGER LITZY Unavailable Unavailable JOSEPHINE CANADA Unavailable Unavailable CALEB, DR BURTON Admitting Unavailable CALEB, DR BURTON Attending Unavailable KARASIK, DR MIRANDA Admitting Unavailable KARASIK, DR MIRANDA Attending Unavailable KARASIK, DR MIRANDA Consulting Unavailable JOSEPHINE CANADA Referring Unavailable JOSEPHINE CANADA Primary Care Unavailable JOSEPHINE CANADA Referring Unavailable JOSEPHINE CANADA Primary Care Unavailable Josephine Canada MD Primary Care Provider [phone] Babs Rice DO Attending Provider Babs Rice Attending Unavailable Babs Rice Admitting Unavailable Josephine Canada MD Primary Care Provider [phone] Josephine Canada MD Primary Care Provider [phone] BABS RICE Attending Unavailable DWAYNE, BABS Attending Unavailable DWAYNE, BABS Attending Unavailable DWAYNE, BABS Attending Unavailable DEANDRA VEE Attending Unavailable DEANDRA VEE Referring Unavailable DWAYNE, BABS Attending Unavailable DWAYNE, BABS Attending Unavailable DWAYNE, BABS Attending Unavailable DEANDRA VEE Attending Unavailable DWAYNE, BABS Attending Unavailable DWAYNE, BABS Attending Unavailable DWAYNE, BABS Attending Unavailable DWAYNE, BABS Attending Unavailable Allergies Allergy Classification Reported Allergen(s) Allergy Type Date of Onset Reaction(s) Facility (2 sources) Sulfonamides (Antibiotic) Drug allergy (disorder) 6 [facility] Repository (20 sources) Sulfonamides (Antibiotic) Propensity to adverse reactions 3 Hives, Itching, Swelling [facility] Medications Current Medications Medication Drug Class(es) Dates Sig (Normalized) Sig (Original) ascorbic acid 250 mg oral tablet (20 sources) Vitamin C take 1 tablet by mouth once daily Ascorbic Acid (vitamin C) 250 MG tablet Take 250 mg by mouth Daily Active cephalexin 500 mg oral capsule (2 [...] As directed 6 tablet 09/18/2024 10/09/2024 Discontinued betamethasone 0.5 mg/ml / clotrimazole 10 mg/ml topical cream (20 sources) Azole Antifungal, Corticosteroid Start: 05-15-2024 End: 11-07-2024 clotrimazole-betameth asone (Lotrisone) cream Indications: Rash Apply 1 application topically Daily Apply to affected area daily for 7 days 45 g 05/15/2024 11/07/2024 Discontinued omeprazole 20 mg delayed release oral capsule (20 sources) Proton Pump Inhibitor Start: 08-15-2024 End: 11-07-2024 take 1 capsule by mouth before mealtime omeprazole (PriLOSEC) [address] capsule Indications: Gastroesophageal Reflux Disease , Heartburn Take 1 capsule (20 mg) by mouth in the morning. Take before meals. Do not crush or chew. 30 capsule 3 08/15/2024 11/07/2024 Discontinued Problems Problem Classification Problem Date Documented [...] WITH AUTO DIFFon BASOPHILS ABSOLUTE AUTO 0 [facility] Basophils/100 WBC (Bld) 0.3 % 0.2 - 2.0 % [facility] Eosinophils/100 WBC (Bld) 0.4 % Low 0.9 - 7.0 % [facility] Erythrocyte distribution width (RBC) [Ratio] 12.9 % 11.0 - 15.0 % [facility] Hematocrit (Bld) [Volume fraction] 25.6 % Low 36.0 - 48.0 % [facility] Hemoglobin (Bld) [Mass/Vol] 8.4 g/dL Low 12.0 - 16.0 g/dL [facility] IMMATURE GRANULOCYTES ABS AUTO 0.[address] [facility] Immature granulocytes/100 WBC (Bld) 0.5 % 0.0 - 0.5 % [facility] Interpretation and review of laboratory results Abnormal [facility] LYMPHOCYTES ABSOLUTE AUTO 3.2 [facility] Lymphocytes/100 WBC (Bld) 21.9 % 20.5 - 60.0 % [facility] MCH (RBC) [Entitic mass] 26.9 pg 26.7 - 34.[address] [facility] MCHC (RBC) [Mass/Vol] 32.8 g/dL 29.9 - 35.2 g/dL [facility] MCV (RBC) [Entitic vol] 82.1 fL 81.0 - 99.[address] [facility] MONOCYTES ABSOLUTE AUTO 1.[address] [facility] Monocytes/100 WBC (Bld) 8.2 % 1.7 - 12.0 % [facility] NEUTROPHILS ABSOLUTE AUTO 10.[address] [facility] Neutrophils/100 WBC (Bld) 68.7 % 43.0 - 75.0 % [facility] Platelet mean volume (Bld) [Entitic vol] 12.4 fL 9.5 - 13.[address] [facility] EO # 0.1 [facility] PLT 154 [facility] TB RBC 3.[address] [facility] WBC 14.[address] [facility] S[facility] 11-01-2024 AMPHETAMINE SCREEN URINE Negative NEGATIVE [facility] BARBITURATES SCREEN URINE Negative NEGATIVE [facility] BENZODIAZEPINES SCREEN URINE Negative NEGATIVE [facility] BUPRENORPHINE SCREEN URINE Negative NEGATIVE [facility] Comment on above: DRUG CLASS TEST SYST EM CUT-OFF CONCENTRATIONS ARE FOLLOWS: AMP (Amphetamine): 500 ng/mL BAR (Barbiturates): 200 ng/mL BZO (Benzodiazepines): 150 ng/mL BUP (Buprenorphine): 10 ng/mL FAUSTINO (Cocaine): 150 ng/mL mAMP (Methamphetamine): 500 ng/mL MTD (Methadone): 200 ng/mL OPI (Opiates): 100 ng/mL OXY (Oxycodone): 100 ng/mL PCP (Phencyclidine): 25 ng/mL THC (Cannabinoids): 50 ng/mL TCA (Trycyclic Antidepressants): 300 ng/mL CANNABINOID SCREEN URINE Negative NEGATIVE [facility] COCAINE SCREEN URINE Negative NEGATIVE [facility] METHADONE SCREEN URINE Negative NEGATIVE [facility] METHAMPHETAMINES SCREEN URINE Negative NEGATIVE [facility] OPIATE SCREEN URINE Negative NEGATIVE [facility] OXYCODONE SCREEN URINE Negative NEGATIVE [facility] PHENCYCLIDINE SCREEN URINE Negative NEGATIVE [facility] TRICYCLIC ANTIDEPRESSANT URINE Negative NEGATIVE [facility] (dipstick) panel (U)on 10-23-2024 Bilirubin, UA Negative Negative - 4(70) +++ mg/dL [facility] Blood, UA Negative Negative - 50 Abiel/mcL [facility] Clarity, UA Clear [facility] Color, UA Yellow [facility] Glucose, UA Negative Negative - 1999(110) ++++ mg/dL [facility] Interpretation and review of laboratory results Normal [facility] Ketones, UA Negative Negative - 160(16) ++++ mg/dL [facility] Leukocytes, UA Negative Negative - 500+++ Pradip/mcL [facility] Nitrite, UA Negative Negative - Positive [facility] pH, UA 6.5 5 - 9 [facility] Protein, UA Negative Negative - 1999(20) ++++ mg/dL [facility] Spec Grav, UA 1.005 1 - 1.03 [facility] Urobilinogen, UA 0.2 0.2 - 12 mg/dL [facility] Urinalysis macro (dipstick) panel (U)on 09-24-2024 Bilirubin, UA Negative Negative - 4(70) +++ mg/dL [facility] Blood, UA Negative Negative - 50 Abiel/mcL [facility] Clarity, UA Clear [facility] Color, UA Yellow [facility] Glucose, UA Negative Negative - 1999(110) ++++ mg/dL [facility] Interpretation and review of laboratory results Normal [facility] Ketones, UA Negative Negative - 160(16) ++++ mg/dL [facility] Leukocytes, UA Negative Negative - 500+++ Pradip/mcL [facility] Nitrite, UA Negative Negative - Positive [facility] pH, UA 7 5 - 9 [facility] Protein, UA Negative Negative - 1999(20) ++++ mg/dL [facility] Spec Grav, UA 1.015 1 - 1.03 [facility] Urobilinogen, UA 0.2 0.2 - 12 mg/dL [facility] US OB FOLLOW UP TRANSABDOMIN [...] II, MD, PHD at 31-Aug-2024 08:25:52 AM [facility] Normal Not Available Comment on above: Order Comment: US OB SCAN FOR GROWTH Estimated Date of Delivery: 11/05/24 Gestational Age as of 08/15/2024: 28w2d Urinalysis macro (dipstick) panel (U)on 08-27-2024 Bilirubin, UA Negative Negative - 4(70) +++ mg/dL [facility] Blood, UA Negative Negative - 50 Abiel/mcL [facility] Clarity, UA Clear [facility] Color, UA Yellow [facility] Glucose, UA Negative Negative - 1999(110) ++++ mg/dL [facility] Interpretation and review of laboratory results Normal [facility] Ketones, UA Negative Negative - 160(16) ++++ mg/dL [facility] Leukocytes, UA Negative Negative - 500+++ Pradip/mcL [facility] Nitrite, UA Negative Negative - Positive [facility] pH, UA 7 5 - 9 [facility] Protein, UA Negative Negative - 1999(20) ++++ mg/dL [facility] Spec Grav, UA 1.01 1 - 1.03 [facility] Urobilinogen, UA 0.2 0.2 - 12 mg/dL [facility] Urinalysis macro (dipstick) panel (U)on 08-15-2024 Bilirubin, UA Negative Negative - 4(70) +++ mg/dL [facility] Blood, UA Positive Negative - 50 Abiel/mcL [facility] Comment on above: trace-intact Clarity, UA Clear [facility] Color, UA Yellow [facility] Glucose, UA Negative Negative - 1999(110) ++++ mg/dL [facility] Interpretation and review of laboratory results Abnormal [facility] Ketones, UA Negative Negative - 160(16) ++++ mg/dL [facility] Leukocytes, UA Negative Negative - 500+++ Pradip/mcL [facility] Nitrite, UA Negative Negative - Positive [facility] pH, UA 7 5 - 9 [facility] Protein, UA Negative Negative - 1999(20) ++++ mg/dL [facility] Spec Grav, UA 1.015 1 - 1.03 [facility] Urobilinogen, UA 0.2 0.2 - 12 mg/dL [facility] ALL CBC WITH AUTO DIFFon BASOPHILS ABSOLUTE AUTO 0 [facility] Basophils/100 WBC (Bld) 0.3 % 0.2 - 2.0 % [facility] Eosinophils/100 WBC (Bld) 1.2 % 0.9 - 7.0 % [facility] Erythrocyte distribution width (RBC) [Ratio] 12 % 11.0 - 15.0 % [facility] Hematocrit (Bld) [Volume fraction] 35.4 % Low 36.0 - 48.0 % [facility] Hemoglobin (Bld) [Mass/Vol] 12.2 g/dL 12.0 - 16.0 g/dL [facility] IMMATURE GRANULOCYTES ABS AUTO 0.[address] [facility] Immature granulocytes/100 WBC (Bld) 0.4 % 0.0 - 0.5 % [facility] Interpretation and review of laboratory results Abnormal [facility] LYMPHOCYTES ABSOLUTE AUTO 2 [facility] Lymphocytes/100 WBC (Bld) 17.6 % Low 20.5 - 60.0 % [facility] MCH (RBC) [Entitic mass] 31.4 pg 26.7 - 34.[address] [facility] MCHC (RBC) [Mass/Vol] 34.5 g/dL 29.9 - 35.2 g/dL [facility] MCV (RBC) [Entitic vol] 91.2 fL 81.0 - 99.[address] [facility] MONOCYTES ABSOLUTE AUTO 0.7 [facility] Monocytes/100 WBC (Bld) 6 % 1.7 - 12.0 % [facility] NEUTROPHILS ABSOLUTE AUTO 8.[address] [facility] Neutrophils/100 WBC (Bld) 74.5 % 43.0 - 75.0 % [facility] Platelet mean volume (Bld) [Entitic vol] 10.3 fL 9.5 - 13.[address] [facility] TBH EO # 0.1 [facility] PLT 203 [facility] RBC 3.[address] [facility] TB WBC 11.[address] [facility] CLINISYNC [facility] Urinalysis macro (dipstick) panel (U)Ordered By: Demetria Perez on 07-24-2024 Bilirubin, UA Negative Negative - 4(70) +++ mg/dL [facility] Blood, UA Negative Negative - 50 Abiel/mcL [facility] Clarity, UA Clear [facility] Color, UA Yellow [facility] Glucose, UA Negative Negative - 2000(110) ++++ mg/dL [facility] Interpretation and review of laboratory results Normal [facility] Ketones, UA Negative Negative - 160(16) ++++ mg/dL [facility] Leukocytes, UA Negative Negative - 500+++ Pradip/mcL [facility] Nitrite, UA Negative Negative - Positive [facility] pH, UA 6 5 - 9 [facility] Protein, UA Negative Negative - 2000(20) ++++ mg/dL [facility] Spec Grav, UA 1.02 1 - 1.03 [facility] Urobilinogen, UA 1.0 0.2 - 12 mg/dL [facility] US OB ANATOMYon 06-25-2024 [place] [address] Ultrasound Report Signed Patient: JOSELINE DICKERSON MR#: [id number] : 1990 Acct:[id number] Age/Sex: 33 / F ADM Date: 06/25/24 Loc: US Attending Dr: Babs Rice D.O. Ordering Physician: Babs Rice D.O. Date of Service: 06/25/24 Procedure(s): US OB anatomy Accession Number(s): [id number] cc: Babs Rice D.O.; Josephine Canada M.D. [place] [id number] Patient Name: JOSELINE DICKERSON MRN: [id number] date: 1990 Sex: F Assigned Patient Location: US Current Patient Location: US Accession/Order Number: [id number] Exam Date: 06/25/2024 21:20 Report Date: 06/25/2024 [...] Andrew Jordan M.D.06/25/2024 9:26 PM Dictation Location: [place] [address] Electronically authenticated by: [id number] Y Date: 06/25/2024 21:26 Dictated By: Andrew Jordan D.O. Signed By: 06/25/242127 DD/ 25 TD/TT: Infant Room Teacher: [facility] Radiology, Radiologi MD angel luis - 06/25/2024 [place] [address] Ultrasound Report Signed Patient: JOSELINE DICKERSON MR#: [id number] : 1990 Acct:[id number] Age/Sex: 33 / F ADM Date: 06/25/24 Loc: US Attending Dr: Babs Rice D.O. Ordering Physician: Babs Rice D.O. Date of Service: 06/25/24 Procedure(s): US OB anatomy Accession Number(s): [id number] cc: Babs Rice D.O.; Josephine Canada M.D. The [address] [address] Patient Name: JOSELINE DICKERSON MRN: [facility]:[id number] date: 1990 Sex: F Assigned Patient Location: US Current Patient Location: US Accession/Order Number: [id number] Exam Date: 06/25/2024 21:20 Report Date: 06/25/2024 [...] Andrew Jordan M.D.06/25/2024 9:26 PM Dictation Location: [place] [address] Electronically authenticated by: [id number] Y Date: 06/25/2024 21:26 Dictated By: Andrew Jordan D.O. Signed By: 06/25/242127 DD/ 25 TD/TT: Infant Room Teacher: [facility] Radiology Study observation (narrative) [facility] US OB ANATOMYOrdered By: Rad iologluz Radiology on 06-25-2024 [facility] Work Phone: US OB CERVICAL LENGTHon 05-28 [place] [address] Ultrasound Report Signed Patient: JOSELINE DICKERSON MR#: [id number] : 1990 Acct:[id number] Age/Sex: 33 / F ADM Date: 06/25/24 Loc: US Attending Dr: Babs Rice D.O. Ordering Physician: Babs Rice D.O. Date of Service: 06/25/24 Procedure(s): US OB cervical length Accession Number(s): [id number] cc: Babs Rice D.O.; Josephine Canada M.D. The [place] [id number] Patient Name: JOSELINE DICKERSON MRN: [facility]:[id number] date: 1990 Sex: F Assigned Patient Location: US Current Patient Location: US Accession/Order Number: [id number] Exam Date: 06/25/2024 21:26 Report Date: 06/25/2024 21:27 At the request of: BABS RICE DO Procedure: US OB cervical length Ultrasound assessment of cervical length Length of cervix 5.4 cm. The opening is closed. US/US OB cervical length IMPRESSION: 5.4 cm cervical length Impression dictated by: Andrew Jordan M.D.06/25/2024 9:27 PM Dictation Location: [place] [address] Electronically authenticated by: [id number] Y Date: 06/25/2024 21:27 Dictated By: Andrew Jordan D.O. Signed By: 06/25/242128 DD/ 26 TD/TT: Infant Room Teacher: [facility] Radiology, Radiologi MD angel luis - 06/25/2024 [place] [address] Ultrasound Report Signed Patient: JOSELINE DICKERSON MR#: [id number] : 1990 Acct:[id number] Age/Sex: 33 / F ADM Date: 06/25/24 Loc: US Attending Dr: Babs Rice D.O. Ordering Physician: Babs Rice D.O. Date of Service: 06/25/24 Procedure(s): US OB cervical length Accession Number(s): [id number] cc: Babs Rice D.O.; Josephine Canada M.D. [place] [id number] Patient Name: JOSELINE DICKERSON MRN: [id number] date: 1990 Sex: F Assigned Patient Location: US Current Patient Location: Accession/Order Number: [id number] Exam Date: 06/25/2024 21:26 Report Date: 06/25/2024 21:27 At the request of: BABS RICE DO Procedure: US OB cervical length Ultrasound assessment of cervical length Length of cervix 5.4 cm. The opening is closed. US/US OB cervical length IMPRESSION: 5.4 cm cervical length Impression dictated by: Andrew Jordan M.D.06/25/2024 9:27 PM Dictation Location: [place] [address] Electronically authenticated by: [id number] Y Date: 06/25/2024 21:27 Dictated By: Andrew Jordan D.O. Signed By: 06/25/242128 DD/ 26 TD/TT: Infant Room Teacher: [facility] Radiology Study observation (narrative) [facility] US OB CERVICAL LENGTHOrdered By: Radiologist Radiology on 06-25-2024 [facility] Work Phone: Urinalysis macro (dipstick) panel (U)on 06-25-2024 Bilirubin, UA Negative Negative - 4(70) +++ mg/dL [facility] Blood, UA Negative Negative - 50 Abiel/mcL [facility] Clarity, UA Clear [facility] Color, UA Yellow [facility] Glucose, UA Negative Negative - 1999(110) ++++ mg/dL [facility] Interpretation and review of laboratory results Normal [facility] Ketones, UA Negative Negative - 160(16) ++++ mg/dL [facility] Leukocytes, UA Negative Negative - 500+++ Pradip/mcL [facility] Nitrite, UA Negative Negative - Positive [facility] pH, UA 7 5 - 9 [facility] Protein, UA Negative Negative - 1999(20) ++++ mg/dL [facility] Spec Grav, UA 1.015 1 - 1.03 [facility] Urobilinogen, UA 0.2 0.2 - 12 mg/dL [facility] RECURRENT VAGINITIS (HTRX)on 05-30-[address] [facility] ATOPOBIUM VAGINAE Not detected [facility] BVAB 2,3 (BACTERIAL VAGINOSIS ASSOCIATED BACTERIA 2, 3); MOBILUNCUS SPP 0 [facility] BVAB 2,3 (BACTERIAL VAGINOSIS ASSOCIATED BACTERIA 2, 3); MOBILUNCUS SPP Not detected [facility] HELEN ALBICANS, PARAPSILOSIS, TROPICALIS 0 [facility] HELEN ALBICANS, PARAPSILOSIS, TROPICALIS Not detected [facility] HELEN GLABRATA 0 [facility] HELEN GLABRATA Not detected [facility] HELEN KRUSEI 0 [facility] HELEN KRUSEI Not detected [facility] CHLAMYDIA TRACHOMATIS 0 [facility] CHLAMYDIA TRACHOMATIS Not detected [facility] GARDNERELLA VAGINALIS 0 [facility] GARDNERELLA VAGINALIS Not detected [facility] MEGASPHAERA (TYPES 1, 2) 0 [facility] MEGASPHAERA (TYPES 1, 2) Not detected [facility] MYCOPLASMA GENITALIUM 0 [facility] MYCOPLASMA GENITALIUM Not detected [facility] NEISSERIA GONORRHOEAE 0 [facility] NEISSERIA GONORRHOEAE Not detected [facility] TRICHOMONAS VAGINALIS 0 [facility] TRICHOMONAS VAGINALIS Not detected [facility] Urinalysis macro (dipstick) panel (U)on 05-28-2024 Bilirubin, UA Negative Negative - 4(70) +++ mg/dL [facility] Blood, UA Negative Negative - 50 Abiel/mcL [facility] Clarity, UA Clear [facility] Color, UA Yellow [facility] Glucose, UA Negative Negative - 1999(110) ++++ mg/dL [facility] Interpretation and review of laboratory results Normal [facility] Ketones, UA Negative Negative - 160(16) ++++ mg/dL [facility] Leukocytes, UA Negative Negative - 500+++ Pradip/mcL [facility] Nitrite, UA Negative Negative - Positive [facility] pH, UA 7 5 - 9 [facility] Protein, UA Negative Negative - 1999(20) ++++ mg/dL [facility] Spec Grav, UA 1.015 1 - 1.03 [facility] Urobilinogen, UA 0.2 0.2 - 12 mg/dL [facility] Urinalysis macro (dipstick) panel (U)on 04-30-2024 Bilirubin, UA Negative Negative - 4(70) +++ mg/dL [facility] Blood, UA Negative Negative - 50 Abiel/mcL [facility] Clarity, UA Clear [facility] Color, UA Yellow [facility] Glucose, UA Negative Negative - 1999(110) ++++ mg/dL [facility] Interpretation and review of laboratory results Abnormal [facility] Ketones, UA Negative Negative - 160(16) ++++ mg/dL [facility] Leukocytes, UA Negative Negative - 500+++ Pradip/mcL [facility] Nitrite, UA Negative Negative - Positive [facility] pH, UA 6.5 5 - 9 [facility] Protein, UA Negative Negative - 1999(20) ++++ mg/dL [facility] Spec Grav, UA 1.01 1 - 1.03 [facility] Urobilinogen, UA 0.2 0.2 - 12 mg/dL [facility] BOX TESTon 04-16-2024 BOX TEST SENT OUT [facility] BOX1 [facility] BOX2 04/13/24 [facility] CLINISYNC [facility] ALL CBC WITH AUTO DIFFon BASOPHILS ABSOLUTE AUTO 0.1 [facility] Basophils/100 WBC (Bld) 0.8 % 0.2 - 2.0 % [facility] Eosinophils/100 WBC (Bld) 0.9 % 0.9 - 7.0 % [facility] Erythrocyte distribution width (RBC) [Ratio] 11.6 % 11.0 - 15.0 % [facility] [facility] Hematocrit (Bld) [Volume fraction] 37.7 % 36.0 - 48.0 % [facility] Hemoglobin (Bld) [Mass/Vol] 12.9 g/dL 12.0 - 16.0 g/dL [facility] IMMATURE GRANULOCYTES ABS AUTO 0.02 [facility] Immature granulocytes/100 WBC (Bld) 0.3 % 0.0 - 0.5 % [facility] LYMPHOCYTES ABSOLUTE AUTO 1.7 [facility] Lymphocytes/100 WBC (Bld) 22.4 % 20.5 - 60.0 % [facility] MCH (RBC) [Entitic mass] 30.2 pg 26.7 - 34.[address] [facility] MCHC (RBC) [Mass/Vol] 34.2 g/dL 29.9 - 35.2 g/dL [facility] MCV (RBC) [Entitic vol] 88.3 fL 81.0 - 99.[address] [facility] MONOCYTES ABSOLUTE AUTO 0.6 [facility] Monocytes/100 WBC (Bld) 7.7 % 1.7 - 12.0 % [facility] NEUTROPHILS ABSOLUTE AUTO 5.3 [facility] Neutrophils/100 WBC (Bld) 67.9 % 43.0 - 75.0 % [facility] Platelet mean volume (Bld) [Entitic vol] 10.5 fL 9.5 - 13.[address] [facility] TB EO # 0.1 [facility] PLT 194 [facility] RBC 4.27 [facility] WBC 7.8 [facility] CL[facility]IS[facility] HCG ( test) Ql (U)o n 03-30-2024 Interpretation and review of laboratory results Abnormal [facility] Preg Test, Ur Positive Negative [facility] US OB TRANSVAGINALon 025 US [...] x 2.4 cm (7 weeks, 0 days). [place] rump length is 1.6 cm (8 weeks, [...] UA Negative Negative - 4(70) +++ mg/dL [facility] Blood, UA Negative Negative - 50 Abiel/mcL [facility] Clarity, UA Clear [facility] Color, UA Yellow [facility] Glucose, UA Negative Negative - 2000(110) ++++ mg/dL [facility] Interpretation and review of laboratory results Abnormal [facility] Ketones, UA Positive Negative - 160(16) ++++ mg/dL [facility] Comment on above: trace Leukocytes, UA Negative Negative - 500+++ Pradip/mcL [facility] Nitrite, UA Negative Negative - Positive [facility] pH, UA 7 5 - 9 [facility] Protein, UA Negative Negative - 2000(20) ++++ mg/dL [facility] Spec Grav, UA 1.02 1 - 1.03 [facility] Urobilinogen, UA 1.0 0.2 - 12 mg/dL [facility] Urine Cultureon 03-30-2024 Bacteria identified Cx Nom (U) No Growth 2 Days PERFORMED BY: [place] [address] PATHOLOGIST MACHINE BOSS KASIA BECK M.D. Normal [facility] Comment on above: Performed By: #### C UU #### [address] US SOFT TISS HEAD NECKon US [...] on 10/31/2023 7:59 AM Normal [facility] CBC AND AUTO DIFFon 10-28-19 24 ABSOLUTE BASOPHIL 0.0 X10E9/L Normal 0.0-0.2 [facility] Comment on above: Performed By: #### C BCA, CMP, 15708-2, THYR, HA1C #### [facility] ([id number]) [address] [place] [address] ABSOLUTE NEUTROPHIL 2.9 X10E9/L Normal 1.5-6.6 [facility] Comment on above: Performed By: #### C BCA, CMP, 17847-8, THYR, HA1C #### [facility] ([id number]) [address], [address] [place] [address] Basophils/100 WBC (Bld) 0.8 % Normal [facility] Comment on above: Performed By: #### C BCA, CMP, 28345-0, THYR, HA1C #### [facility] ([id number]) [address] [address] [place] [address] Eosinophils (Bld) [#/Vol] 0.1 10*3/uL Normal 0.0-0.4 [facility] Comment on above: Performed By: #### C BCA, CMP, 96999-7, THYR, HA1C #### [facility] ([id number]) [address] [address] [place] [address] Eosinophils/100 WBC (Bld) 2.2 % Normal [facility] Comment on above: Performed By: #### C BCA, CMP, 95397-9, THYR, HA1C #### [facility] ([id number]) [address] [place] [address] Erythrocyte distribution width (RBC) [Ratio] 12.5 % Normal 11.5-15.0 [facility] Comment on above: Performed By: #### C BCA, CMP, 92300-0, THYR, HA1C #### [facility] ([id number]) [address] [place] [address] Hematocrit (Bld) [Volume fraction] 39.6 % Normal 35-47 [facility] Comment on above: Performed By: #### C BCA, CMP, 26283-2, THYR, HA1C #### [facility] ([id number]) [address], [facility] [address] [place] [address] Hemoglobin (Bld) [Mass/Vol] 13.5 g/dL Normal 11.7-15.5 [facility] Comment on above: Performed By: #### C BCA, CMP, 59860-9, THYR, HA1C #### [facility] ([id number]) [address] [place] [address] Lymphocytes (Bld) [#/Vol] 2.1 10*3/uL Normal 1.0-3.5 [facility] Comment on above: Performed By: #### C BCA, CMP, 77038-0, THYR, HA1C #### [facility] ([id number]) [address], [facility] [address] [place] [address] Lymphocytes/100 WBC (Bld) 37.5 % Normal [facility] Comment on above: Performed By: #### C BCA, CMP, 33016-7, THYR, HA1C #### [facility] ([id number]) [address] [address] [place] [address] MCH (RBC) [Entitic mass] 31.0 pg Normal 27-34 [facility] Comment on above: Performed By: #### C BCA, CMP, 45021-0, THYR, HA1C #### [facility] ([id number]) [address] [place] [address] MCHC (RBC) [Mass/Vol] 34.1 g/dL Normal 32-36 [facility] Comment on above: Performed By: #### C BCA, CMP, 98143-3, THYR, HA1C #### [facility] ([id number]) [address] [place] [address] MCV (RBC) [Entitic vol] 91 fL Normal 80-100 [facility] Comment on above: Performed By: #### C BCA, CMP, 93714-9, THYR, HA1C #### [facility] ([id number]) [address] [place] [address] Monocytes (Bld) [#/Vol] 0.5 10*3/uL Normal 0-0.9 [facility] Comment on above: Performed By: #### C BCA, CMP, 48051-8, THYR, HA1C #### [facility] ([id number]) [address] [place] [address] Monocytes/100 WBC (Bld) 8.3 % Normal [facility] Comment on above: Performed By: #### C BCA, CMP, 35307-4, THYR, HA1C #### [facility] ([id number]) [address] [place] [address] Neutrophils/100 WBC (Bld) 51.2 % Normal [facility] Comment on above: Performed By: #### C BCA, CMP, 59361-6, THYR, HA1C #### [facility] ([id number]) [address] [place] [address] Platelet mean volume (Bld) [Entitic vol] 8.3 fL Normal 7-12 [facility] Comment on above: Performed By: #### C BCA, CMP, 07357-3, THYR, HA1C #### [facility] ([id number]) [address] [place] [address] Platelets (Bld) [#/Vol] 195 10*3/uL Normal 150-450 [facility] Comment on above: Performed By: #### C BCA, CMP, 35936-3, THYR, HA1C #### [facility] ([id number]) [address] [place] [address] RBC COUNT 4.36 X10E12/L Normal 3.80-5.20 [facility] Comment on above: Performed By: #### C BCA, CMP, 79725-4, THYR, HA1C #### [facility] ([id number]) [address] [place] [address] WBC (Bld) [#/Vol] 5.7 10*3/uL Normal 4.0-11.0 [facility] Comment on above: Performed By: #### C BCA, CMP, 41192-3, THYR, HA1C #### [facility] ([id number]) [address], [address] [place] [address] COMPREHENSIVE METABOLIC PANE Lonny 10-28-2023 Albumin [Mass/Vol] 4.3 g/dL Normal 3.2-5.3 [facility] Comment on above: Performed By: #### C BCA, CMP, 40196-6, THYR, HA1C #### [facility] ([id number]) [address] [place] [address] ALP [Catalytic activity/Vol] 53 U/L Normal 39-130 [facility] Comment on above: Performed By: #### C BCA, CMP, 43881-3, THYR, HA1C #### [facility] ([id number]) [address] [place] [address] ALT [Catalytic activity/Vol] 12 U/L Normal 0-31 [facility] Comment on above: Performed By: #### C BCA, CMP, 59411-3, THYR, HA1C #### [facility] ([id number]) [address] [place] [address] Anion gap [Moles/Vol] 9 mmol/L Normal 5-15 [facility] Comment on above: Performed By: #### C BCA, CMP, 01536-9, THYR, HA1C #### [facility] ([id number]) [address] [place] [address] AST [Catalytic activity/Vol] 21 U/L Normal 0-41 [facility] Comment on above: Performed By: #### C BCA, CMP, 42691-9, THYR, HA1C #### [facility] ([id number]) [address] [place] [address] Bilirubin [Mass/Vol] 0.6 mg/dL Normal 0.3-1.2 [facility] Comment on above: Performed By: #### C BCA, CMP, 71093-9, THYR, HA1C #### [facility] ([id number]) [address] [place] [address] Calcium [Mass/Vol] 9.6 mg/dL Normal 8.5-10.5 [facility] Comment on above: Performed By: #### C BCA, CMP, 21079-1, THYR, HA1C #### [facility] ([id number]) [address] [place] [address] Chloride [Moles/Vol] 103 mmol/L Normal 98-109 [facility] Comment on above: Performed By: #### C BCA, CMP, 06537-4, THYR, HA1C #### [facility] ([id number]) [address] [place] [address] CO2 [Moles/Vol] 27 mmol/L Normal 22-32 [facility] Comment on above: Performed By: #### C BCA, CMP, 18914-4, THYR, HA1C #### [facility] ([id number]) [address] [address] [place] [address] Creatinine [Mass/Vol] 0.84 mg/dL Normal 0.40-1.00 [facility] Comment on above: Result Comment: METH OD TRACEABLE TO IDMS STANDARD Performed By: #### C BCA, CMP, 98189-8, THYR, HA1C #### [facility] ([id number]) [address] [place] [address] eGFR (CKD-EPI) NON-RACE DEPENDENT >90 Normal >59 [facility] Comment on above: Result Comment: Reported eGFR is based on the CKD-EPI 2020 equation that does not use a race coefficient. Performed By: #### C BCA, CMP, 27794-3, THYR, HA1C #### [facility] ([id number]) [address] [place] [address] Glucose [Mass/Vol] 81 mg/dL Normal 65-99 [facility] Comment on above: Performed By: #### C BCA, CMP, 73308-8, THYR, HA1C #### [facility] ([id number]) [address] [address] [place] [address] Potassium [Moles/Vol] 3.8 mmol/L Normal 3.5-5.0 [facility] Comment on above: Performed By: #### C BCA, CMP, 04337-2, THYR, HA1C #### [facility] ([id number]) [address] [address] [place] [address] Protein [Mass/Vol] 7.5 g/dL Normal 6.0-8.0 [facility] Comment on above: Performed By: #### C BCA, CMP, 39274-9, THYR, HA1C #### [facility] ([id number]) [address] [place] [address] Sodium [Moles/Vol] 139 mmol/L Normal 134-146 [facility] Comment on above: Performed By: #### C BCA, CMP, 37165-3, THYR, HA1C #### [facility] ([id number]) [address] [place] [address] Urea nitrogen [Mass/Vol] 12 mg/dL Normal 5-23 [facility] Comment on above: Performed By: #### C BCA, CMP, 76636-1, THYR, HA1C #### [facility] ([id number]) [address] [address] [place] [address] HGB A1C (GLYCO-HGB)on 2023 Glucose [Mass/Vol] 103 mg/dL Normal [facility] Comment on above: Performed By: #### C SCOTTY, CMP, 20607-7, THYR, HA1C #### [facility] ([id number]) [address] [place] [address] HbA1c (Bld) [Mass fraction] 5.2 % Normal 4.4-5.6 [facility] Comment on above: Result Comment: NOTE ADA Guidelines Result HgbA1c Normal : less than 5.7 % Prediabetes : 5.7 % to 6.4 % Diabetes : > 6.4 % Use with caution in patients with abnormal hemoglobin variants as the half-life of red blood cells and in vivo glycation rates are affected. Performed By: #### C BCA, CMP, 68777-8, THYR, HA1C #### [facility] ([id number]) [address] [place] [address] Lipid 1996 panelon 4 Cholesterol [Mass/Vol] 208 mg/dL High 150-200 [facility] Comment on above: Performed By: #### C BCA, CMP, 88762-1, THYR, HA1C #### [facility] ([id number]) [address] [place] [address] Cholesterol in HDL [Mass/Vol] 75 mg/dL Normal >39 [facility] Comment on above: Result Comment: HDL <40 mg/dL - High Risk HDL > or = 40mg/dL- Desirable HDL >60 mg/dL - Negative Risk Performed By: #### C BCA, CMP, 07373-5, THYR, HA1C #### [facility] ([id number]) [address] [place] [address] Cholesterol in LDL [Mass/Vol] 120 mg/dL Normal <130 [facility] Comment on above: Result Comment: LDL <100 mg/dL - Desirable LDL >160 mg/dL - High Risk Performed By: #### C BCA, CMP, 25410-8, THYR, HA1C #### [facility] ([id number]) [address] [place] [address] Cholesterol in VLDL [Mass/Vol] 13 mg/dL Normal 0-30 [facility] Comment on above: Performed By: #### C BCA, CMP, 93355-2, THYR, HA1C #### [facility] ([id number]) [address] [facility] [address] [place] [address] CHOLESTEROL:HDL 2.8 Normal 1.0-5.0 [facility] Comment on above: Performed By: #### C BCA, CMP, 16706-7, THYR, HA1C #### [facility] ([id number]) [address] [address] [place] [address] Triglyceride [Mass/Vol] 66 mg/dL Normal 27-150 [facility] Comment on above: Performed By: #### C BCA, CMP, 29846-0, THYR, HA1C #### [facility] ([id number]) [address] [facility], [address] [place] [address] THYROID PROFILEon 10-28-2023 Free T4 [Mass/Vol] 0.88 ng/dL Normal 0.61-1.60 [facility] Comment on above: Performed By: #### C BCA, CMP, 32394-9, THYR, HA1C #### [facility] ([id number]) [address] [facility], [address] [place] [address] TSH 2.30 uIU/mL Normal 0.49-4.67 [facility] Comment on above: Performed By: #### C BCA, CMP, 21522-3, THYR, HA1C #### [facility] ([id number]) [address] [facility], [address] [place] [address] PAP ACOG PANEL 2: 21 to 30on 09-02-2021 . . [facility] Comment on above: Performed By: #### 4 [id number] #### [facility] [address] [place] [address] Dr. Kulwant Duffy Age Gdln ACOG Testing 22- [facility] Comment on above: Performed By: #### 4 [id number] #### [facility] [address] [place] [address] Dr. Kulwant Duffy DIAGNOSIS: Comment [facility] Comment on above: Result Comment: NEGA TIVE FOR INTRAEPITHELIAL LESION OR MALIGNANCY. Performed By: #### 4 [id number] #### [facility] [address] [place] [address] Dr. Kulwant Duffy Methodology: Comment [facility] Comment on above: Result Comment: This liquid based ThinPrep(R) pap test was screened with the use of an image guided system. Performed By: #### 4 [id number] #### [facility] [address] [address] [address] Kulwant Duffy Note: Comment Normal [facility] Comment on above: Result Comment: The Pap smear is a screening test designed to aid in the detection of premalignant and malignant conditions of the uterine cervix. It is not a diagnostic procedure and should not be used as the sole means of detecting cervical cancer. Both false-positive and false-negative reports do occur. . Performed By: #### 4 [id number] #### [facility] [address] [place] [address] Dr. Kulwant Duffy Performed by: Comment Normal [facility] Comment on above: Result Comment: [employer] Control Room Officer (ASCP) Performed By: #### 4 [id number] #### [facility] [address] [place] [address] Dr. Kulwant Duffy Reflex Criteria: Comment Normal [facility] Comment on above: Result Comment: The HPV DNA reflex criteria were not met with this specimen result therefore, no HPV testing was performed. . Performed By: #### 4 [id number] #### [facility] [address] [place] [address] Dr. Kulwant Duffy Specimen adequacy: Comment Normal [facility] Comment on above: Result Comment: Sati sfactory for evaluation. Endocervical and/or squamous metaplastic cells (endocervical component) are present. Performed By: #### 4 [id number] #### [facility] [address] [place] [address] Dr. Kulwant Duffy US APPENDIXon 07-22-2017 US APPENDIX EXAMINATION:RIGHT LO WER QUADRANT ULTRASOUND07/22/2017 7:43 amCOMPARISON:None.HISTORY: ORDERING SYSTEM PROVIDED HISTORY: Abdominal pain, generalizedTECHNOLOGIST PROVIDED HISTORY:Ordering Physician Provided Reason for Exam: Right quad pain and diarrhea fora weekAcuity: AcuteType of Exam: InitialAdditional signs and symptoms: NoneRelevant Medical/Surgical History: NoneFINDINGS:Targeted ultrasonography over the right lower quadrant demonstrates anappendix which is normal in size without evidence of wall edema or luminalthickening. There is no ultrasonographic evidence of appendicitis.IMPRESSION: No ultrasonographic evidence appendicitis.RECOMMENDATIO N:Correlation with clinical and laboratory findings is suggested.Interpreted by:ELIAN Narayanigned by:Patricia Garcia MD07/22/17CC Recipients:Josephine Canada MD - FaxFinal result Normal [facility] US GALLBLADDER RUQon 018 US GALLBLADDER RUQ EXAMINATION:GALLBLAD QAMAR ULTRASOUND07/22/2017 7:43 amCOMPARISON:None.HISTORY: ORDERING SYSTEM PROVIDED HISTORY: Abdominal pain, generalizedTECHNOLOGIST PROVIDED HISTORY:Ordering Physician Provided Reason for Exam: Right quad pain and diarrhea fora weekAcuity: AcuteType of Exam: InitialAdditional signs and symptoms: NoneRelevant Medical/Surgical History: NoneFINDINGS:Visualized portions of the liver without acute abnormality. No focal hepaticmass lesion identified. Parenchymal echogenicity is grossly within normallimits.The gallbladder is unremarkable without evidence for pericholecystic fluid,wall thickening, or calculi. Supervisor [employer] documents a negative sonographicMurphy's sign. Gallbladder wall is normal in thickness, measuring 2.4 mm.The common bile duct is normal and measures 3 mm.IMPRESSION: Unremarkable ultrasound of the gallbladder. No evidence for cholelithiasisor acute cholecystitis.Interpreted by:ELIAN Brittonigned by:Nghia Denny MD07/22/17CC Recipients:Josephine Canada MD - FaxFinal result Normal [facility] Vital Signs Date Time Vital Sign Value Performing Clinician Tejas steward 11-07-2024 14:44-0400 Body mass index (BMI) [Ratio] 29.05 kg/m2 Deandra GRIJALVA Work Phone: [facility] 11-07-2024 14:44-0400 Body weight 81.65 kg Deandra GRIJALVA Work Phone: [facility] 11-07-2024 14:44-0400 Diastolic blood pressure 70 mm[Hg] Deandra GRIJALVA Work Phone: [facility] 11-07-2024 14:44-0400 Systolic blood pressure 120 mm[Hg] Deandra GRIJALVA Work Phone: [facility] 10-23-2024 11:32-0400 Body mass index (BMI) [Ratio] 30.83 kg/m2 Babs Dwayne DO Work Phone: [facility] 10-23-2024 11:32-0400 Body weight 86.64 kg Babs Dwayne DO Work Phone: [facility] 10-23-2024 11:32-0400 Diastolic blood pressure 82 mm[Hg] Babs Dwayne DO Work Phone: [facility] 10-23-2024 11:32-0400 Systolic blood pressure 110 mm[Hg] Babs Dwayne DO Work Phone: [facility] 10-15-2024 09:55-0400 Body mass index (BMI) [Ratio] 30.51 kg/m2 Babs Dwayne DO Work Phone: [facility] 10-15-2024 09:55-0400 Body weight 85.73 kg Babs Dwayne DO Work Phone: [facility] 10-15-2024 09:55-0400 Diastolic blood pressure 76 mm[Hg] Babs Dwayne DO Work Phone: [facility] 10-15-2024 09:55-0400 Systolic blood pressure 122 mm[Hg] Babs Dwayne DO Work Phone: [facility] 10-09-2024 10:53-0400 Body mass index (BMI) [Ratio] 30.15 kg/m2 Babs Dwayne DO Work Phone: [facility] 10-09-2024 10:53-0400 Body weight 84.73 kg Babs Dwayne DO Work Phone: [facility] 10-09-2024 10:53-0400 Diastolic blood pressure 76 mm[Hg] Babs Dwayne DO Work Phone: [facility] 10-09-2024 10:53-0400 Systolic blood pressure 110 mm[Hg] Babs Dwayne DO Work Phone: [facility] 09-24-2024 10:45-0400 Body mass index (BMI) [Ratio] 29.7 kg/m2 Babs Dwayne DO Work Phone: [facility] 09-24-2024 10:45-0400 Body weight 83.46 kg Babs Dwayne DO Work Phone: [facility] 09-24-2024 10:45-0400 Diastolic blood pressure 72 mm[Hg] Babs Dwayne DO Work Phone: [facility] 09-24-2024 10:45-0400 Systolic blood pressure 118 mm[Hg] Basb Dwayne DO Work Phone: [facility] 09-10-2024 10:04-0400 Body mass index (BMI) [Ratio] 29.21 kg/m2 Deandra GRIJALVA Work Phone: [facility] 09-10-2024 10:04-0400 Body weight 82.1 kg Deandra GRIJALVA Work Phone: [facility] 09-10-2024 10:04-0400 Diastolic blood pressure 74 mm[Hg] Deandra GRIJALVA Work Phone: [facility] [facility] 09-10-2024 10:04-0400 Systolic blood pressure 114 mm[Hg] Deandra GRIJALVA Work Phone: [facility] 08-27-2024 14:59-0400 Body mass index (BMI) [Ratio] 28.85 kg/m2 Babs Dwayne DO Work Phone: [facility] 08-27-2024 14:59-0400 Body weight 81.08 kg Babs Dwayne DO Work Phone: [facility] 08-27-2024 14:59-0400 Diastolic blood pressure 82 mm[Hg] Babs Dwayne DO Work Phone: [facility] 08-27-2024 14:59-0400 Systolic blood pressure 112 mm[Hg] Babs Dwayne DO Work Phone: [facility] 08-15-2024 16:26-0400 Body mass index (BMI) [Ratio] 28.37 kg/m2 Deandra GRIJALVA Work Phone: [facility] 08-15-2024 16:26-0400 Body weight 79.74 kg Deandra Sofia GRIJALVA Work Phone: [facility] 08-15-2024 16:26-0400 Diastolic blood pressure 70 mm[Hg] Deandra Sofia PA Work Phone: [facility] 08-15-2024 16:26-0400 Systolic blood pressure 120 mm[Hg] Deandra Mclaughliney PA Work Phone: [facility] 07-23-2024 09:54-0400 Body mass index (BMI) [Ratio] 27.88 kg/m2 Babs Dwayne DO Work Phone: [facility] 07-23-2024 09:54-0400 Body weight 78.36 kg Babs Dwayne DO Work Phone: [facility] 07-23-2024 09:54-0400 Diastolic blood pressure 76 mm[Hg] Babs Dwayne DO Work Phone: [facility] 07-23-2024 09:54-0400 Systolic blood pressure 124 mm[Hg] Babs Dwayne DO Work Phone: [facility] 06-25-2024 09:53-0400 Body mass index (BMI) [Ratio] 27.12 kg/m2 Babs Dwayne DO Work Phone: [facility] 06-25-2024 09:53-0400 Body weight 76.2 kg Babs Dwayne DO Work Phone: [facility] 06-25-2024 09:53-0400 Diastolic blood pressure 76 mm[Hg] Babs Dwayne DO Work Phone: [facility] 06-25-2024 09:53-0400 Systolic blood pressure 110 mm[Hg] Babs Dwayne DO Work Phone: [facility] 05-28-2024 09:54-0500 Body mass index (BMI) [Ratio] 26.12 kg/m2 Babs Dwayne DO Work Phone: [facility] 05-28-2024 09:54-0500 Body weight 73.39 kg Babs Dwayne DO Work Phone: [facility] 05-28-2024 09:54-0500 Diastolic blood pressure 84 mm[Hg] Babs Dwayne DO Work Phone: [facility] 05-28-2024 09:54-0500 Systolic blood pressure 100 mm[Hg] Babs Dwayne DO Work Phone: [facility] 04-30-2024 14:02-0500 Body mass index (BMI) [Ratio] 26.37 kg/m2 Babs Dwayne DO Work Phone: [facility] 04-30-2024 14:02-0500 Body weight 74.12 kg Babs Dwayne DO Work Phone: [facility] 04-30-2024 14:02-0500 Diastolic blood pressure 82 mm[Hg] Babs Dwayne DO Work Phone: [facility] 04-30-2024 14:02-0500 Systolic blood pressure 130 mm[Hg] Babs Dwayne DO Work Phone: [facility] 01-31-2024 08:53-0500 Body mass index (BMI) [Ratio] 25.99 kg/m2 Babs Dwayne DO Work Phone: [facility] 01-31-2024 08:53-0500 Body weight 73.03 kg Babs Dwayne DO Work Phone: [facility] 01-31-2024 08:53-0500 Diastolic blood pressure 72 mm[Hg] Babs Dwayne DO Work Phone: [facility] 01-31-2024 08:53-0500 Systolic blood pressure 118 mm[Hg] Babs Dwayne DO Work Phone: [facility] Healthcare Encounters Encounter Date Encounter Type Care Provider Facility Start: 11-07-2024 End: 11-07-2024 flow sheet Deandra GRIJALVA Work Phone: [facility] Comment on above: S/P section Start: 11-07-2024 End: 11-07-2024 Bamboo flowsheet Deandra GRIJALVA Work Phone: [facility] Start: 11-07-2024 End: 11-07-2024 Bamboo flowsheet Deandra GRIJALVA Work Phone: [facility] Start: 11-02-2024 End: 11-02-2024 Clinisync Result Encounter Babs Dwayne DO Work Phone: [facility] Unsolicited Start: 11-02-2024 End: 11-02-2024 Clinisync Result Encounter Babs Dwayne DO Work Phone: [facility] Unsolicited Start: 11-01-2024 End: 11-01-2024 Clinisync Result Encounter Babs Dwayne DO Work Phone: [facility] Unsolicited Start: 11-01-2024 End: 11-01-2024 Clinisync Result Encounter Babs Dwayne DO Work Phone: [facility] Unsolicited Start: 10-23-2024 End: 10-23-2024 Bamboo flowsheet Babs Dwayne DO Work Phone: [facility] Start: 10-23-2024 End: 10-23-2024 Bamboo flowsheet Babs Dwayne DO Work Phone: [facility] Start: 10-23-2024 End: 10-23-2024 flow sheet Babs Dwayne DO Work Phone: [facility] Comment on above: Third trimester preg juan ([facility]); 38 weeks gestation of ([facility]) Start: 10-23-2024 End: 10-23-2024 ambulatory BABS DWAYNE Not Available Start: 10-15-2024 End: 10-15-2024 Bamboo flowsheet Babs Dwayne DO Work Phone: [facility] Start: 10-15-2024 End: 10-15-2024 Bamboo flowsheet Babs Dwayne DO Work Phone: [facility] Start: 10-15-2024 End: 10-15-2024 flow sheet Babs Dwayne DO Work Phone: [facility] Comment on above: Third trimester preg juan ([facility]); 37 weeks gestation of ([facility]) Start: 10-15-2024 End: 10-15-2024 ambulatory BABS DWAYNE [...] on above: 36 weeks gestation o f ([facility]); Third trimester ([facility]); Sinusitis, unspecified chronicity, unspecified location; Gastroesophageal reflux in ([facility]) Start: 09-24-2024 End: 09-24-2024 Bamboo flowsheet Babs Dwayne DO Work Phone: [facility] Start: 09-24-2024 End: 09-24-2024 Bamboo flowsheet Babs Dwayne DO Work Phone: [facility] Start: 09-24-2024 End: 09-24-2024 flow sheet Babs Dwayne DO Work Phone: [facility] Comment on above: Third trimester preg juan ([facility]); 34 weeks gestation of ([facility]) Start: 09-24-2024 End: 09-24-2024 ambulatory BABS DWAYNE Not Available Start: 09-10-2024 End: 09-10-2024 Bamboo flowsheet Deandra GRIJALVA Work Phone: [facility] Start: 09-10-2024 End: 09-10-2024 Bamboo flowsheet Deandra GRIJALVA Work Phone: [facility] Start: 09-10-2024 End: 09-10-2024 flow sheet Deandra GRIJALVA Work Phone: [facility] Comment on above: Third trimester preg juan ([facility]); 32 weeks gestation of ([facility]) Start: 09-10-2024 End: 09-10-2024 ambulatory DEANDRA VEE Not Available Start: 08-27-2024 End: 08-27-2024 flow sheet Babs Dwayne DO Work Phone: [facility] Comment on above: Third trimester preg juan; 30 weeks gestation of Start: 08-27-2024 End: 08-27-2024 ambulatory BABS DWAYNE Not Available Start: 08-15-2024 End: 08-15-2024 flow sheet Deandra GRIJALVA Work Phone: [facility] Comment on above: Size of fetus incons istent with dates in second trimester (Primary Dx); 28 weeks gestation of ; Third trimester ; Gastroesophageal reflux in Start: 08-15-2024 End: 08-15-2024 ambulatory DEANDRA VEE Not Available Start: 08-15-2024 End: 08-15-2024 Bamboo flowsheet Deandra GRIJALVA Work Phone: [facility] Start: 08-15-2024 End: 08-15-2024 Bamboo flowsheet Deandra GRIJALVA Work Phone: [facility] Start: 08-03-2024 End: 08-03-2024 Clinisync Result Encounter Babs Dwayne DO Work Phone: [facility] External Department Unsolicited Start: 08-03-2024 End: 08-03-2024 Clinisync Result Encounter Babs Dwayne DO Work Phone: [facility] Unsolicited Start: 07-23-2024 End: 07-23-2024 Bamboo flowsheet Babs Dwayne DO Work Phone: [facility] Start: 07-23-2024 End: 07-23-2024 Bamboo flowsheet Babs Dwayne DO Work Phone: [facility] Start: 07-23-2024 End: 07-23-2024 flow [...] Start: 03-30-2024 End: 03-30-2024 ambulatory Babs Dwayne [facility] Work Phone: Start: 03-30-2024 End: 03-30-2024 Departed Referred Babs Dwayne DO Work Phone: [facility] Start: 03-30-2024 End: 03-30-2024 Office outpatient [...] Not Available Start: 10-28-2023 End: 10-28-2023 ambulatory [facility] Start: 10-28-2023 Encounter for genera l adult medical examination without abnormal findings [facility] Start: 08-28-2021 End: 08-28-[address] RUTH PINEDA Facility:[facility] Start: 08-14-[address] JOSEPHINE CANADA Facility :[facility] Start: 07-22-2017 End: 07-25-2017 Ambulatory LITZY SETH [facility] Procedures Date Procedure Procedure Detail Performing Clinician Start: 11-02-2024 ALL CBC WITH AUTO DIFF Babs Dwayne DO Work Phone: Start: 11-01-2024 [facility] DRUG SCREEN RAPI D (URINE) Babs Dwayne DO Work Phone: Start: 10-23-2024 Urnls dip stick/tabl et rgnt [...] real ti me w/image limited LITZY SETH H/O: section S/P sectio n Deandra GRIJALVA Work Phone: Plan of Treatment Date Care Activity Detail Author Start: 11-01-2024 End: 11-01-2024 Patient encounter procedure 11/01/2024 8:30 AM EDT Office Visit [facility] [address] [place] [address] Babs Rice, DO [address] [place], [place] [id number] [facility] Start: 10-23-2024 End: 10-23-2024 Patient encounter procedure [facility] Comment on above: Arrived Start: 10-15-2024 End: 10-15-2024 Patient encounter procedure [facility] Comment on above: Arrived Start: 10-09-2024 End: 10-09-2025 CULTURE, GROUP B STREP WITH SUSCEPTIBLITY CULTURE, GROUP B STREP WITH SUSCEPTIBLITY Lab Routine Third trimester ([facility]) Expected: 10/09/2024, Expires: 10/09/2025 [facility] Work Phone: Comment on above: Expected: 10/09/2024 , Expires: 10/09/2025 Start: 10-09-2024 End: 10-09-2024 Patient encounter procedure 10/09/2024 10:40 AM EDT Routine [facility] [address] [place] [address] Babs Rice, DO [address] [place], [place] [id number] [facility] Start: 09-24-2024 End: 09-24-2024 Patient encounter procedure [facility] Comment on above: Arrived Start: 09-10-2024 End: 09-10-2024 Patient encounter procedure [facility] Comment on above: Arrived Start: 08-15-2024 End: 12-16-2024 US for US OB follow up transabdominal approach Imaging Routine Size of fetus inconsistent with dates in second trimester Expected: 08/15/2024, Expires: 12/16/2024 [facility] Work Phone: Comment on above: Expected: 08/15/2024 , Expires: 12/16/2024 Start: 08-15-2024 End: 08-15-2024 Patient encounter procedure [facility] Comment on above: Arrived Start: 07-23-2024 End: 07-23-2025 CBC panel - Blood by Automated count CBC Lab Routine Diabetes mellitus screening Expected: 07/23/2024 (Approximate), Expires: 07/23/2025 [facility] Healthcare Work Phone: Comment on above: Expected: 07/23/2024 (Approximate), Expires: 07/23/2025 Start: 07-23-2024 End: 07-23-2025 Measurement of glucose 1 hour after glucose challenge for glucose tolerance test Glucose tolerance, 1 hour Lab Routine Diabetes mellitus screening Expected: 07/23/2024 (Approximate), Expires: 07/23/2025 [facility] Healthcare Comment on above: Expected: 07/23/2024 (Approximate), Expires: 07/23/2025 Start: 07-23-2024 End: 07-23-2024 Patient encounter procedure [facility] Comment on above: Arrived Start: 06-26-2024 End: 06-26-2024 Professional / ancillary services management 06/26/2024 9:00 AM EDT Ancillary Procedure [facility] [address] [place] [address] [facility] Start: 06-25-2024 End: 06-25-2024 [...] for anatomic survey Expected: 05/28/2024, Expires: 05/28/2025 [facility] Healthcare Comment on above: Expected: 05/28/2024 , Expires: 05/28/2025 Start: 05-28-2024 End: 05-28-2024 Patient encounter procedure [facility] Comment on above: Arrived Start: 04-30-2024 End: 04-30-2024 Patient encounter procedure [facility] Comment on above: Arrived Start: 03-30-2024 End: 03-30-2025 ABO/Rh ABO/Rh Lab Routine Missed menses , unspecified gestational age Expected: 03/30/2024 (Approximate), Expires: 03/30/2025 [facility] Healthcare Comment on above: Expected: 03/30/2024 (Approximate), Expires: 03/30/2025 Start: 03-30-2024 Bacteria identified in Urine by Culture [facility] Comment on above: Ordered: 03/30/2024 Start: 03-30-2024 End: 03-30-2025 Blood type and Indirect antibody screen panel - Blood Type and screen Lab Routine Missed menses , unspecified gestational age Expected: 03/30/2024 (Approximate), Expires: 03/30/2025 [facility] Work Phone: Comment on above: Expected: 03/30/2024 (Approximate), Expires: 03/30/2025 Start: 03-30-2024 End: 03-30-2025 Drugs of abuse panel - Urine by Screen method Rapid drug screen, urine Lab Routine , unspecified gestational age Encounter for supervision of normal first in first trimester Expected: 03/30/2024 (Approximate), Expires: 03/30/2025 [facility] Comment on above: Expected: 03/30/2024 (Approximate), Expires: 03/30/2025 Start: 03-30-2024 Urine culture [facility] Start: 01-31-2024 End: 01-30-2025 US for US PELVIS-TRANSVAG IF INDICATED Imaging Routine Dysfunctional uterine bleeding Expected: 01/31/2024 (Approximate), Expires: 01/30/2025 [facility] Work Phone: Comment on above: Expected: 01/31/2024 (Approximate), Expires: 01/30/2025 Start: 01-31-2024 End: 01-31-2024 Patient encounter procedure 01/31/2024 8:40 AM EST Office Visit [facility] [address] [place] [address] Babs Rice DO [address] [place] [address] Arrived [facility] Comment on above: Arrived CBC W Auto Different ial panel - Blood CBC and differential Lab Routine Missed menses , unspecified gestational age Ordered: 03/30/2024 [facility] Comment on above: Ordered: 03/30/2024 CHLAMYDIA TRACHOMATI S (GENITO/STI) CHLAMYDIA TRACHOMATIS (GENITO/STI) Lab Routine STD exposure Vaginal discharge Ordered: 05/28/2024 [facility] Comment on above: Ordered: 05/28/2024 Hemoglobin A1c/Hemoglobin.total in Blood Hemoglobin A1c Lab Routine Missed menses , unspecified gestational age Ordered: 03/30/2024 [facility] Comment on above: Ordered: 03/30/2024 Hepatitis B virus surface Ag [Presence] in Serum or Plasma by Immunoassay Hepatitis B surface antigen Lab Routine Missed menses , unspecified gestational age Ordered: 03/30/2024 [facility] Comment on above: Ordered: 03/30/2024 Hepatitis C virus Ab [Presence] in Serum or Plasma by Immunoassay Hepatitis C antibody Lab Routine Missed menses , unspecified gestational age Ordered: 03/30/2024 [facility] Comment on above: Ordered: 03/30/2024 HIV-1/HIV-2 antigen/antibody combination immunoassay HIV-1 and HIV-2 antibodies Lab Routine Missed menses , unspecified gestational age Ordered: 03/30/2024 [facility] Comment on above: Ordered: 03/30/2024 Neisseria gonorrhoea e DNA [Presence] in Unspecified specimen by DELILAH with probe detection Neisseria gonorrhea DNA probe, direct Lab Routine STD exposure Vaginal discharge Ordered: 05/28/2024 [facility] Comment on above: Ordered: 05/28/2024 Reagin Ab [Presence] in Serum by RPR RPR Lab Routine Missed menses , unspecified gestational age Ordered: 03/30/2024 [facility] Comment on above: Ordered: 03/30/2024 Rubella antibody, IgG Rubella an tibody, IgG Lab Routine Missed menses , unspecified gestational age Ordered: 03/30/2024 [facility] Comment on above: Ordered: 03/30/2024 SURESWAB(R) ADVANCED VAGINITIS PLUS, TMA SURESWAB(R) ADVANCED VAGINITIS PLUS, TMA Pathology and Cytology Routine STD exposure Vaginal discharge Ordered: 05/28/2024 [facility] Work Phone: Comment on above: Ordered: 05/28/2024 Payers Date Payer Category Payer Private Health Insurance [id number] 2017 Unknown [id number] 1991 Unknown [id number] 2.16.84 [id number] 1991 Unknown [id number] 2.16.84 0.1.630247.3.579.2.593 1991 Unknown [id number] 2.16.8 40.1.044909.3.579.2.1286 1991 Unknown [id number] 2.16.8 40.1.981998.3.579.2.1286 1991 Unknown [id number] 2.16.8 40.1.005826.3.579.2.1259 1991 Unknown [id number] 2.16.8 40.1.015172.3.579.2.1259 1991 Unknown [id number] 2.16.8 40.1.375042.3.579.2.1259 1991 Unknown [id number] 2.16.8 40.1.684774.3.579.2.1258 1991 Unknown [id number] 2.16.8 40.1.607594.3.579.2.9 1991 Unknown [id number] 2.16.84 0.1.502048.3.579.2.1258 1991 Unknown [id number] 2.16.84 0.1.968138.3.579.2.9 1991 Unknown [id number] 2.16.84 0.1.175409.3.579.2.1258 1991 Unknown [id number] 2.16.84 0.1.250314.3.579.2.9 1991 Unknown [id number] 2.16.84 0.1.931480.3.579.2.1258 1991 Unknown [id number] 2.16.84 0.1.144348.3.579.2.9 1991 Unknown [id number] 2.16.84 0.1.658960.3.579.2.1258 1991 Unknown [id number] 2.16.84 0.1.323662.3.579.2.9 1991 Unknown [id number] 2.16.84 0.1.834584.3.579.2.1258 1991 Unknown [id number] 2.16.84 0.1.283543.3.579.2.9 1991 Unknown [id number] 2.16.84 0.1.143181.3.579.2.9 1959 Self-pay 1958 Unknown [id number] Unknown [id number] 2.16.8 40.1.064925.3.579.2.531 Social History Date Type Detail Facility Start: 10-31-2023 Tobacco smoking stat [facility] Never smoked tobacco [facility] Start: 10-31-2023 Tobacco use and exposure Smokeless tobacco non-user [facility] Start: 10-31-2023 End: 11-07-2024 Alcoholic beverage intake Lifetime non-drinker (finding) [facility] Start: 10-31-2023 End: 01-31-2024 History of Social function [facility] Start: 10-31-2023 End: 01-31-2024 Tobacco use panel [facility] Start: 1990 Sex assigned at Female [facility] Start: 09-07-2022 Gender identity Identifies as female gender (finding) [facility] Start: 02-13-2024 [facility] Tobacco smoking stat us WIIS Unknown if ever smoked [facility] Work Phone: Start: 03-31-2024 Sex Female (finding) [facility] Clinical Notes 01-31-2024 to 11-07-2024 Georgina Woodruff NP - 11/07/2024 2:20 PM RUDI [place] - 10/23/2024 11:10 AM Laverne Rossi, [facility] - 10/15/2024 9:50 AM Hiwot Perez, [facility] - 10/09/2024 10:40 AM EDT Note Date & Type Note Facility 11-07-2024 History of Presen t illness Narrative Reason [...] nursing note reviewed. Exam conducted with a steamtable attendant railroad present. Vitals: Estimated body mass index is 29.05 kg/m as calculated from the following: Height [...] Georgina Woodruff NP documented in this encounter [facility] 10-23-2024 History of Presen t illness Narrative [...] ASSESSMENT & PLAN ICD-10-CM 1. Third trimester ([facility]) Z34.93 POCT urinalysis dipstick manually resulted 2. 38 weeks gestation of ([facility]) Z3A.38 Return OB: Patient presents today [...] Babs Rice DO documented in this encounter [facility] 10-15-2024 History of Presen t illness Narrative [...] nursing note reviewed. Exam conducted with a steamtable attendant railroad present. Vitals: Estimated body mass index is 30.51 kg/m as calculated from the following: Height as of 10/31/23: 5' 6 . Weight as of this encounter: 189 lb. BP: 122/76 Patient's last menstrual period was 01/30/2024 (exact date). ASSESSMENT & PLAN ICD-10-CM 1. Third trimester ([facility]) Z34.93 2. 37 weeks gestation of ([facility]) Z3A.37 Patient presents today for a routine [...] Babs Rice DO documented in this encounter [facility] 10-09-2024 History of Presen t illness Narrative [...] nursing note reviewed. Exam conducted with a steamtable attendant railroad present. Vitals: Estimated body mass index is 30.15 kg/m as calculated from the following: Height as of 10/31/23: 5' 6 . Weight as of this encounter: 186 lb 12.8 oz. BP: 110/76 Patient's last menstrual period was 01/30/2024 (exact date). ASSESSMENT & PLAN ICD-10-CM 1. 36 weeks gestation of ([facility]) Z3A.36 POCT urinalysis dipstick manually resulted 2. Third trimester ([facility]) Z34.93 POCT urinalysis dipstick manually resulted CULTURE, GROUP B STREP WITH SUSCEPTIBLITY CULTURE, GROUP B STREP WITH SUSCEPTIBLITY 3. Sinusitis, unspecified chronicity, unspecified location J32.9 4. Gastroesophageal reflux in ([facility]) O99.619 K21.9 Patient is doing well but [...] Babs Rice DO documented in this encounter [facility] 09-24-2024 History of Presen t illness Narrative [...] Past Medical History: Diagnosis Date Arthritis Asthma ([facility]) MARIANO II (cervical intraepithelial neoplasia [...] nursing note reviewed. Exam conducted with a steamtable attendant railroad present. Vitals: Estimated body mass index is 29.7 kg/m as calculated from the following: Height as of 10/31/23: 5' 6 . Weight as of this encounter: 184 lb. BP: 118/72 Patient's last menstrual period was 01/30/2024 (exact date). ASSESSMENT & PLAN ICD-10-CM 1. Third trimester ([facility]) Z34.93 POCT urinalysis dipstick manually resulted 2. 34 weeks gestation of ([facility]) Z3A.34 Return OB: Patient presents today [...] Babs Rice DO documented in this encounter [facility] 09-10-2024 History of Presen t illness Narrative [...] Mother Twila bernal Thyroid disease Mother Twila gabe SURGICAL HISTORY [...] calculated from the following: Height as of 24: 5' 6 . Weight as of this encounter: 181 lb. BP: 114/74 Patient's last menstrual period was 01/30/2024 (exact date). ASSESSMENT & PLAN ICD-10-CM 1. Third trimester ([facility]) Z34.93 2. 32 weeks gestation of ([facility]) Z3A.32 Return OB: Patient presents today for [...] of: RUDI Espan[place] documented in this encounter [facility] 08-27-2024 History of Presen t illness Narrative [...] nursing note reviewed. Exam conducted with a steamtable attendant railroad present. Vitals: Estimated body mass index is [...] Babs Rice DO documented in this encounter [facility] 08-15-2024 History of Presen t illness Narrative [...] of: RUDI E[place] documented in this encounter [facility] 07-23-2024 History of Presen t illness Narrative [...] nursing note reviewed. Exam conducted with a steamtable attendant railroad present. Vitals: Estimated body mass index is [...] Babs Rice DO documented in this encounter [facility] 06-25-2024 History of Presen t illness Narrative [...] nursing note reviewed. Exam conducted with a steamtable attendant railroad present. Vitals: Estimated body mass index is [...] Babs Rice DO documented in this encounter [facility] 05-28-2024 History of Presen t illness Narrative [...] nursing note reviewed. Exam conducted with a steamtable attendant railroad present. Vitals: Estimated body mass index is [...] Babs Rice DO documented in this encounter [facility] 04-30-2024 History of Presen t illness Narrative [...] Past Medical History: Diagnosis Date Arthritis Asthma ([facility]) MARIANO II (cervical intraepithelial neoplasia [...] nursing note reviewed. Exam conducted with a steamtable attendant railroad present. Vitals: Estimated body mass index is [...] or undercooked meat, and stay away from [facility]. Patient has been consulted regarding any [...] of: daya espana documented in this encounter [facility] 03-30-2024 History of Presen t illness Narrative [...] or undercooked meat, and stay away from [facility]. Patient has also been advised to [...] Sheri Reyna LPN documented in this encounter [facility] [facility] 01-31-2024 History of Presen t illness Narrative [...] nursing note reviewed. Exam conducted with a steamtable attendant railroad present. Vitals: Estimated body mass index is [...] in this encounter [facility] Evaluation note Diagnosis Encounter for infertility Dysfunctional uterine bleeding Other disorder of menstruation and other abnormal bleeding from female genital tract documented [facility] Diagnosis Missed menses , unspecified gestational age Encounter for supervision of normal first in first trimester documented [facility] this [facility] noteNo assessment information available[facility] Work Phone: Evaluation note* Diagnosis Second trimester [...] [facility]* Diagnosis S/P section Other postprocedural status documented in this encounter [facility] Summary [...] and content) DATE CREATED AUTHOR 09/15/[address] [facility] DATE CREATED AUTHOR AUTHOR'S ORGANIZ ATION 10/19/2021 [facility] DATE CREATED AUTHOR AUTHOR'S ORGANIZ ATION 11/01/2023 [facility] [place] DATE CREATED AUTHOR AUTHOR'S ORGANIZ ATION 04/07/[address] [facility] DATE CREATED AUTHOR AUTHOR'S ORGANIZ ATION 10/24/2024 [facility] [employer] Care Teams (unrecognized sec tion and content) Lead Simulation Modeling Engineer Relationship Specialty Start Date End Date Josephine Canada MD [address] [place] [place] [address] PCP - General 10/18/22 Lead Simulation Modeling Engineer Relationship Specialty Start Date End Date Josephine Canada MD [address] [place] [place] [address] PCP - General 10/18/22 Lead Simulation Modeling Engineer Relationship Specialty Start Date End Date Josephine Canada MD [address] [place] [place] [address] PCP - General 10/18/22 Lead Simulation Modeling Engineer Relationship Specialty Start Date End Date Josephine Canada MD [address] [place] [place] [address] PCP - General 10/18/22 Team Status: Inactive Member Role Status Dates Babs Rice DO Attending Provider Active Start : March 30, 2024 End: March 30, 2024 Lead Simulation Modeling Engineer Relationship Specialty Start Date End Date Josephine Canada MD [address] [place] [facility] [place] [address] PCP - General 10/18/22 Lead Simulation Modeling Engineer Relationship Specialty Start Date End Date Josephine Canada MD [address] [place] [place] [address] PCP - General 10/18/22 Lead Simulation Modeling Engineer Relationship Specialty Start Date End Date Josephine Canada MD [address] [place] [address] PCP - General 10/18/22 Lead Simulation Modeling Engineer Relationship Specialty Start Date End Date Josephine Canada MD [address] [place] [place] [address] PCP - General 10/18/22 Lead Simulation Modeling Engineer Relationship Specialty Start Date End Date Jospehine Canada MD PCP - General 10/18/22 Lead Simulation Modeling Engineer Relationship Specialty Start Date End Date Josephine Canada MD [address] [place] [phone] PCP - General 10/18/22 Lead Simulation Modeling Engineer Relationship Specialty Start Date End Date Josephine Canada MD [address] [place] [address] PCP - General 10/18/22 Lead Simulation Modeling Engineer Relationship Specialty Start Date End Date Josephine Canada MD [address] [place] [phone] PCP - General 10/18/22 Lead Simulation Modeling Engineer Relationship Specialty Start Date End Date Josephine Canada MD [address] [place] [address] PCP - General 10/18/22 Lead Simulation Modeling Engineer Relationship Specialty Start Date End Date Josephine Canada MD [address] [place] [phone] PCP - General 10/18/22 Lead Simulation Modeling Engineer Relationship Specialty Start Date End Date Josephine Canada MD [address] [place] [phone] PCP - General 10/18/22 Lead Simulation Modeling Engineer Relationship Specialty Start Date End Date Josephine Canada MD [address] [place] [phone] PCP - General 10/18/22 Reason for Visit (unrecogniz ed section and content) Reason Comments Infertility Pt present today to discuss fertility Reason Comments Amenorrhea Reason Comments Routine Visit Reason Comments s/p c section Goals (unrecognized section and content) Goals may [...] BE BASED ON THE PRIMARY CLINICAL RECORDS. [facility]. provides no warranty or guarantee of the accuracy or completeness of information in this document.
--- NOTE | 2024-11-08 11:33 | PC.NURSE ---
Daphney arrive for follow up with . Parents states are adjusting well to baby routine. Joseline states feels well, is taking Minimal Motrin for incisional discomfort. VSS and assessment WNL. Denies complains. Does states is pumping for milk as infant is tongue tied. Is only obtaining 1 oz combined. Using Spectra pump every 3 hours with 24mm flange. Flange fit to 21mm. Will obtain flange inserts to adjust fitting. Discussed use of [employer] herbal for support as well as Benevolent drops. Pt will review and decide. Baby Gabriel being held by father. Mom tearful and asking if baby will be healthy with formula use. Discussed feelings about using formula vs breast milk feeds. Worried he won't be smart enough or grow well. Discussed formula having ingredients that assure growth and well being for infant. Pt asking about formula's from [employer] as many people on social media states it is better than the regular formula in [place] Advised to speak with Dr Canada regarding other formula choices, and importance of FDA standards. Parents verbalized understanding. Gabriel with VSS and assessment WNL. Weight 3.1% down, from weight. Parents state his weight was 9# at Dr Canada's office. Infant re-weighed. Remains 7-12.5, consistent with weight and discharge weight. Parents agree. No further concerns noted. Family leaves ambulatory, aware to call for questions or concerns. Will return 11/13/2024 for follow up support.
[2024-11-08 11:34] VITALS: BP 114/75; PULSE 98; TEMP 36.8; O2SAT 97
== END 2024-11-08 11:39 | disposition home or self-care (01) ==
LOC: FBCO 08:10
PROVIDERS: PCP Family Medicine; Visit Provider Obstetrics & Gynecology
DX: Z39.1 Encounter for care and examination of lactating mother (principal)

== ENCOUNTER 2024-11-13 08:15 | Outpatient (OUT) | payer OTHER, SELFPAY ==
--- OUTSIDE RECORDS SUMMARY | 2023-10-19 12:15 | XMS_ITS ---
Author Organization [facility] in [place] Address [address] [place] [address] Care Team Providers Care Procurement Engineer Name Role Phone Torrey Canada Primary Care Provider Allergies Allergen (clinical drug ingredient) Drug/Non Drug Allergy documented on EMR Reaction Allergy Type Onset Date Status Substance with sulfonamide structure and antibacterial mechanism of action (substance) Sulfa Antibiotics hives Drug Allergy Active Results Component Value Reference Range Notes CBC AUTO DIFF Reviewed date:11/01/2024 08:32:31 AM Interpretation: Performing Lab: Notes/Report: [facility] , White Blood Count 11.1 4.0-11.0 10 3/uL Red Blood Count 3.82 4.20-5.40 10 6/uL Hemoglobin 10.4 12.0-16.0 g/dL Hematocrit 30.8 36.0-48.0 % Mean Corpuscular Volume 80.6 81.0-99.0 fL Mean Corpuscular Hemoglobin 27.2 26.7-34.0 pg Mean Corpuscular HGB Conc 33.8 29.9-35.2 g/dL Red Cell Distribution Width 12.9 11.0-15.0 % Platelet Count 197 150-450 10 3/uL Mean Platelet Volume 11.4 9.5-13.5 fL Neutrophils Percent Auto 63.5 43.0-75.0 % Lymphocytes Percent Auto 26.0 20.5-60.0 % Monocytes Percent Auto 8.8 1.7-12.0 % Eosinophils Percent Auto 1.0 0.9-7.0 % Basophils Percent Auto 0.3 0.2-2.0 % Immature Granulocytes Pct Auto 0.4 0.0-0.5 % Neutrophils Absolute Auto 7.1 1.4-6.5 10 3/uL Lymphocytes Absolute Auto 2.9 1.2-3.8 10 3/uL Monocytes Absolute Auto 1.0 0.3-0.8 10 3/uL Eosinophils Absolute Auto 0.1 0.0-0.7 10 3/uL Basophils Absolute Auto 0.0 0.0-0.1 10 3/uL Immature Granulocytes Abs Auto 0.04 0.00-0.03 10 3/uL Performing Lab: see note ML - [facility] LB REASON FOR VISIT Wellness, would like to discuss possible allergies Social History Tobacco Use: Social History Observation Description Date Details (start date - stop date) Never Smoker NA - NA Tobacco Use/Smoking Question Answer Notes Patient is a nonsmoker AUDIT-C (Standard) Question Answer Notes Did you have a drink containing alcohol in the p ast year? No Points 0 Interpretation Negative Vital Signs Weight 163.8 lbs 10/19/2023 Height 66 in 10/19/2023 Blood pressure systolic 102 mm Hg 10/19/19 Blood pressure diastolic 60 mm Hg 024 BMI 26.44 kg/m2 10/19/2023 Encounters Encounter Location Date Provider Diagnosis [address] [place] [address] 10/19/2023 Torrey Canada Well adult Z00.00 an d Lymphadenitis I88.9 Assessments Encounter Date Diagnosis (ICD Code) Assessment Notes Treatment Notes Treatment Clinical Notes Section Notes 10/19/2023 Well adult (ICD-10 - Z00.00) 10/19/2023 Lymphadenitis (ICD-10 - I88.9) Plan Of Treatment Pending Test Test Name Order Date GLYCOHEMOGLOBIN A1C 10/19/2023 LIPID PROFILE 10/19/2023 PROF 14(COMP METB) 10/19/2023 THYROID PROFILE WITH TSH 10/19/2023 US soft tissue head and neck 10/19/2023 Progress Notes * Joseline DICKERSON LDOB: [birth year] (33 yo F)Acc No.[id number]:10/19/2023 Progress Note Patient: Joseline GARCIA Provider: Mily Canada ([facility])MD :1990 A ge:33 Y S ex:Female Date:10/19/2023 Address:[address] [place], [place] Check In:04:06 PM ESTCheck O ut:04:28 PM EST Subjective: * Chief Complaints: * 1 . Wellness, would like to discuss possible allergies. * HPI: D epression Screening: PHQ-2 (2015 Edition) L ittle interest or pleasure in doing things??Not at all F eeling down, depressed, or hopeless? N ot at all T otal Score 0 G eneral: wellness feel liks sweling in neck with like with lymph nodes - seems better iwth the allergra. * ROS: E ENT: hearing changes d enies. v isual changes d enies.?non-healing mouth sores d enies. s wollen glands or neck lumps d enies. h oarseness d enies. s ore throat d enies. d ifficulty swallowing d enies. n ose bleeds d enies. n matthew congestion d enies. e ar ache d enies. e ar discharge?denies. r inging in ears d enies. l ight sensitivity d enies. e ye pain d enies. b lurring d enies. e ye irritation d enies. d ouble vision d enies.?vision loss d enies. G eneral/Constitutional: Sweats: D enies. F atigue d enies. S leep problems d enies. A norexia d enies. M alaise d enies. W eight loss d enies.?Fatigue or Weakness d enies. F ever or Chills d enies. C ardiovascular: Shortness of Breath w/lying flat d enies. L ightheadedness/dizziness d enies. C hest tightness/ heavy pressure d enies. S welling of legs, ankles, or feet d enies. W aking up with shortness of breath d enies. C hest pain denies. P alpitations d enies. W eight gain d enies. R espiratory: Chronic or frequent cough d enies. C oughing up blood?denies. D ifficulty breathing d enies. P roductive cough d enies. S noring?denies. S hortness of breath that awakens from sleep (PND) d enies. C hest pain d enies. S putum production d enies. W heezing d enies. M usculoskeletal: Joint pain d enies. J oint Fluid d enies. B ack pain d enies. K nee pain d enies. N pippa pain d enies. J oint Stiffness d enies. M uscle cramps d enies. W eakness of muscles d enies. A rthritis d enies. M uscle aches d enies. P ain in shoulder(s) d enies. S wollen joints d enies. * Active Problem List Z00.00 Well adult Modified On:10/27/2022W/U Status:confirmed * Medical History: A cne, Heart palpitations, Headache, migraine, Hyperhidrosis, Irritable bowel syndrome. * Surgical History: c hrondoplasty/ left knee arthroscopy 2007, Leep 2015. * Family History: F ather: alive 58 yrs, hyperlipidemia, diagnosed with Unspecified heart disease. M other: alive 56 yrs, asthma, hyperthyroid, hyperthyroid. B rother(s): alive. 1 brother(s) - healthy. . * Social History: T obacco Use: T obacco Use/Smoking P atient is a n onsmoker D rug/Alcohol: A SHI-C (Standard) D id you have a drink containing alcohol in the past year? N o P oints 0 I nterpretation N egative * Medications: N one * Allergies: S ulfa Antibiotics: hives - Allergy - Criticality High. Objective: * Vitals: W t:163.8lbs, Ht: 66 in, BP:102/60mm Hg, BMI:26.44Index, Ht-cm: 167.64 cm, Wt-k.3 kg. * Examination: P hysical Exam: GENERAL: w ell developed, well nourished, in no acute distress. HEAD: n ormocephalic/atraumatic. EYES: p upils equal, round and reactive to light, conjunctivae and sclerae normal. EARS: n o deformity or lesion of external ear, canals and TM appear normal bilaterally, TM's intact, not inflamed with normal light reflex, hearing grossly normal to conversational speech. NOSE: n o deformity, discharge, inflammation, or lesions.? MOUTH: m ucous membranes moist, normal oropharynx and posterior pharynx without lesions or exudates, tongue normal, dentition normal. NECK: n pippa supple, no masses or palpable cervical nodes, trachea midline, thyroid without nodules, masses, tenderness, or enlargement. CHEST: n o chest wall deformity, no chest wall tenderness.? LUNGS: n ormal respiratory effort and clear to auscultation, no wheezes, rales, or rhonchi, good air exchange. CARDIO: r egular rate and rhythm, normal S1 and S2, nor murmur, rub, or gallop. PULSES: n ormal capillary refill. ABDOMEN: s oft, non-distended, non-tender, no masses. MUSCULOSKELETAL: n o deformity or scoliosis noted, normal range of motion, joints normal, no erythema, edema, effusion, or ecchymosis. EXTREMITY: n o clubbing, cyanosis, edema, or deformity with normal ROM in both upper and lower bilateral extremities. NEUROLOGIC: g rossly normal. SKIN: n o rashes, ulcerations, or suspicious lesions. LYMPH NODES: n o cervical adenopathy, nodes normal. MENTAL STATUS: a lert and oriented x3, normal mood and affect. Assessment: * Assessment: 1. W ell adult - Z00.00 (Primary) 2 . L ymphadenitis - I88.9 Plan: * Treatment: 2. L ymphadenitis I maging: US soft tissue head and neck * Preventive Medicine: Screenings/Counseling: B MN ACTION PLAN Above Normal BMI Follow-up D ietary management education, guidance, and counseling * * Sign off status: Completed Visit Status: C HK (Check Out) true * [facility] Date: 0 10/19/2023 Generated for Hal hayes/Kiera/eTransmitting on: 0 11/13/2024 08:39 AM EDT History and Physical Notes * HPI (History of Present Illness) Category Sub-Category Detail Notes Category Not es General wellness feel liks sweling in neck with like with lymph nodes - seems better iwth the allergra Depression Screening PHQ-2 (2015 Edition) Little interest or pleasure in doing things?: Not at all Feeling down, depressed, or hopeless?: N ot at all Total Score: 0 Examination Category Sub-Category Detail Notes Category Not es Physical Exam GENERAL: well developed, well nourished, in no acute distress HEAD: normocephalic/atraum atic EYES: pupils equal, round and reactive to light, conjunctivae and sclerae normal EARS: no deformity or lesi on of external ear, canals and TM appear normal bilaterally, TM's intact, not inflamed with normal light reflex, hearing grossly normal to conversational speech NOSE: no deformity, discha rge, inflammation, or lesions MOUTH: mucous membranes dain st, normal oropharynx and posterior pharynx without lesions or exudates, tongue normal, dentition normal NECK: neck supple, no mass es or palpable cervical nodes, trachea midline, thyroid without nodules, masses, tenderness, or enlargement CHEST: no chest wall deform ity, no chest wall tenderness LUNGS: normal respiratory e ffort and clear to auscultation, no wheezes, rales, or rhonchi, good air exchange CARDIO: regular rate and rhy thm, normal S1 and S2, nor murmur, rub, or gallop PULSES: normal capillary ref ill ABDOMEN: soft, non-distended, non-tender, no masses RECTAL: MUSCULOSKELETAL: no deformity or scol iosis noted, normal range of motion, joints normal, no erythema, edema, effusion, or ecchymosis EXTREMITY: no clubbing, cyanosi s, edema, or deformity with normal ROM in both upper and lower bilateral extremities NEUROLOGIC: grossly normal SKIN: no rashes, ulceratio ns, or suspicious lesions LYMPH NODES: no cervical adenopat hy, nodes normal MENTAL STATUS: alert and oriented x 3, normal mood and affect
--- OUTSIDE RECORDS SUMMARY | 2023-10-30 11:51 | XMS_ITS ---
Author Organization [facility] in [place] Address [address] [place] [address] Care Team Providers Care Corporate Logistics Manager Name Role Phone Torrey Canada Primary Care Provider [phone] REASON FOR VISIT Lab results Encounters Encounter Location Date Provider Diagnosis [facility] [address] [place] [address] 10/30/2023 Torrey Canada Plan Of Treatment No Information Progress Notes * Joseline DICKERSON LDOB: [birth year] (33 yo F)Acc No.[id number]:10/30/2023 Patient: Alfred GARCIAaina Greg :1990 A ge:33 Y S ex:Female Address:[address], [place], [address] * true * Date: Generated for Yancyi ng/Faraúlg/eTransmitting on: 0 11/13/2024 08:40 AM EDT
--- OUTSIDE RECORDS SUMMARY | 2023-10-31 16:16 | XMS_ITS ---
Author Organization [facility] in [place] Address [address] [place] [address] Care Team Providers Care Pump House Engineer Name Role Phone Torrey Canada Primary Care Provider [phone] REASON FOR VISIT lymph nodes Medications Medication SIG (Take, Route, Frequency, Duration) Notes Start Date End Date Status Amoxicillin-Pot Clavulanate 875-125 MG 1 tablet Orally every 12 hrs for 10 days 11/01/2023 Active Encounters Encounter Location Date Provider Diagnosis [facility] [address] [place] [address] 10/31/2023 Torrey Canada Plan Of Treatment Medication Medication Name Sig Start Date Stop Date Notes Amoxicillin-Pot Clavulanate 875-125 MG 1 tablet Orally every 12 hrs for 10 days 11/01/2023 Progress Notes * Joseline DICKERSON LDOB: [birth year] (33 yo F)Acc No.[id number]:10/31/2023 Patient: Lazaro GARCIAlily Garza :1990 A ge:33 Y S ex:Female Address:[address], [place], [address] * Refills Start Amoxicillin-Pot Clavulanate Tablet, 875-125 MG, Orally, 20 Tablet, 1 tablet, every 12 hrs, 10 days, Refills=0 * true * Date: Generated for Hal hayes/Faraúlg/eTransmitting on: 0 11/13/2024 08:39 AM EDT
--- OUTSIDE RECORDS SUMMARY | 2024-11-07 14:20 | XMS_ITS | Encounter Summary ---
Author Organization [facility] Address [address] [place] [address] Care Team Providers Care Leasing Property Manager Name Role Phone Agusto Canada MD Primary Care Provider [phone] Reason for Visit * Reason Comments s/p c section Encounter Details Date Type Department Care Team (Late st Contact Info) Description 11/07/2024 2:20 PM EDT Office Visit YANG ESTRADA [address] [id number] Deandra Black PA [address] [place], [place] [address] S/P section Social History Tobacco Use Types Packs/Day Years Used Date Smoking Tobacco: Never Smokeless Tobacco: Never Alcohol Use Standard Drinks/Week Comments Never 0 (1 standard drink = 0.6 oz pur e alcohol) Comments No Sex and Gender Information Value Date Recorded Sex Assigned at Female 09/07/2022 3:40 PM EDT Legal Sex Female 11:47 PM EDT Gender Identity Female 09/07/2022 3:40 PM EDT Sexual Orientation Not on file documented as of this encounter Last Filed Vital Signs Vital Sign Reading Time Taken Comments Blood Pressure 120/70 11/07/2024 2:44 PM EDT Pulse - - Temperature - - Respiratory Rate - - Oxygen Saturation - - Inhaled Oxygen Concentration - - Weight 81.6 kg (180 lb) 11/07/2024 2:44 PM EDT Height - - Body Mass Index 29.05 10/31/2023 9:28 AM EDT documented in this encounter Progress Notes * Georgina Woodruff, MARBELLA - 11/07/2024 2:20 PM EDT Reason for Appointment: Patient ID: Joseline Chavez is a 34 y.o. female who presents for s/p c section Patient presents today for 1 Week Post Op Follow Up appointment. MEDICATIONS Current Outpatient Medications Medication Instructions MV-Min-Fe Fum-FA-DHA ( 1 PO) Take by [...] Date CERVICAL BIOPSY W/ LOOP ELECTRODE EXCISION SECTION, CLASSIC 11/01/2024 COLPOSCOPY 2016 KNEE SURGERY Knee arthroscopy WISDOM [...] Skin: General: Skin is warm and dry. Comments: LTV incision healing well and wound edges well approximated Psychiatric: Mood and Affect: Mood normal. Behavior: Behavior normal. Vitals and nursing note reviewed. Exam conducted with a valve mechanic present. Vitals: Estimated body mass index is 29.05 kg/m?? as calculated from the following: Height as of 10/31/23: 5' 6 . Weight as of this encounter: 180 lb. BP: 120/70 No LMP recorded. ASSESSMENT & PLAN ICD-10-CM 1. S/P section Z98.891 Patient presents today for a one week postop section check. Patient is doing well with minor complaints of pain. Incision has been noted as healing well with no signs and symptoms of infection. Follow Up: Patient is to return in 5 weeks for 6 week evaluation. Documented by Georgina Woodruff NP on behalf of: Georgina Woodruff NP documented in this encounter Plan of Treatment Upcoming Encounters Date Type Department Care Team ([facility] st Contact Info) Description 12/12/2024 2:00 PM EDT Visit [facility] [address] [phone] Deandra Black PA [address] [place] [address] documented as of this encounter Visit Diagnoses Diagnosis S/P section Other postprocedural status documented in this encounter Care Teams Leasing Property Manager Relationship Specialty Start Date End Date Agusto Canada MD [address] [place] [address] PCP - General 10/18/22 documented as of this encounter
--- OUTSIDE RECORDS SUMMARY | 2024-11-13 08:28 | XMS_ITS | CCD ---
Author Organization [facility] Care Team Providers Care Cigar Packing Examiner Name Role Phone SETH, LITZY Unavailable Unavailable [...] Unavailable Josephine Canada MD Primary Care Provider [phone] Babs Rcie DO Attending Provider [phone] Babs Rice Attending Unavailable Babs Rice Admitting Unavailable Josephine Canada MD Primary Care Provider [phone] Josephine Canada MD Primary Care Provider [phone] BABS RIEC Attending Unavailable DWAYNEBABS Attending Unavailable DWAYNEBABS Attending Unavailable DWAYNEBABS COBB Attending Unavailable DEANDRA VEE Attending Unavailable DEANDRA VEE Referring Unavailable DWAYNENOEY Attending Unavailable DEANDRA VEE Attending Unavailable DWAYNE, BABS Attending Unavailable DWAYNE, BABS Attending Unavailable DWAYNE, BABS Attending Unavailable DWAYNE, BABS Attending Unavailable NANDA, DEANDRA Attending Unavailable DWAYNE, BABS Attending Unavailable Allergies Allergy Classification Reported Allergen(s) Allergy Type Date of Onset Reaction(s) Facility (2 sources) Sulfonamides (Antibiotic) Drug allergy (disorder) 6 [facility] Repository (20 sources) Sulfonamides (Antibiotic) Propensity to [...] WITH AUTO DIFFon BASOPHILS ABSOLUTE AUTO 0 [facility] Basophils/100 WBC (Bld) 0.3 % 0.2 - 2.0 % [facility] Eosinophils/100 WBC (Bld) 0.4 % Low 0.9 - 7.0 % [facility] Erythrocyte distribution width (RBC) [Ratio] 12.9 % 11.0 - 15.0 % [facility] Hematocrit (Bld) [Volume fraction] 25.6 % Low 36.0 - 48.0 % [facility] Hemoglobin (Bld) [Mass/Vol] 8.4 g/dL Low 12.0 - 16.0 g/dL [facility] IMMATURE GRANULOCYTES ABS AUTO 0.07 High [facility] Immature granulocytes/100 WBC (Bld) 0.5 % 0.0 - 0.5 % [facility] Interpretation and review of laboratory results Abnormal [facility] LYMPHOCYTES ABSOLUTE AUTO 3.2 [facility] Lymphocytes/100 WBC (Bld) 21.9 % 20.5 - 60.0 % [facility] MCH (RBC) [Entitic mass] 26.9 pg 26.7 - 34.0 pg [facility] MCHC (RBC) [Mass/Vol] 32.8 g/dL 29.9 - 35.2 g/dL [facility] MCV (RBC) [Entitic vol] 82.1 fL 81.0 - 99.0 fL [facility] MONOCYTES ABSOLUTE AUTO 1.2 High [facility] Monocytes/100 WBC (Bld) 8.2 % 1.7 - 12.0 % [facility] NEUTROPHILS ABSOLUTE AUTO 10.2 High [facility] Neutrophils/100 WBC (Bld) 68.7 % 43.0 - 75.0 % [facility] Platelet mean volume (Bld) [Entitic vol] 12.4 fL 9.5 - 13.5 fL [facility] TB EO # 0.1 [facility] TB PLT 154 [facility] RBC 3.12 Low [facility] WBC 14.8 [facility]on 11-01-2024 AMPHETAMINE SCREEN URINE Negative NEGATIVE [facility] BARBITURATES SCREEN URINE Negative NEGATIVE [facility] BENZODIAZEPINES SCREEN URINE Negative NEGATIVE [facility] BUPRENORPHINE SCREEN URINE Negative NEGATIVE [facility] Comment on above: DRUG CLASS TEST SYST [...] 300 ng/mL CANNABINOID SCREEN URINE Negative NEGATIVE [facility] COCAINE SCREEN URINE Negative NEGATIVE [facility] METHADONE SCREEN URINE Negative NEGATIVE [facility] METHAMPHETAMINES SCREEN URINE Negative NEGATIVE [facility] OPIATE SCREEN URINE Negative NEGATIVE [facility] OXYCODONE SCREEN URINE Negative NEGATIVE [facility] PHENCYCLIDINE SCREEN URINE Negative NEGATIVE [facility] TRICYCLIC ANTIDEPRESSANT URINE Negative NEGATIVE [facility] Urinalysis macro (dipstick) panel (U)on 10-23-2024 Bilirubin, UA Negative Negative - 4(70) +++ mg/dL [facility] Blood, UA Negative Negative - 50 Abiel/mcL [facility] Clarity, UA Clear [facility] Color, UA Yellow [facility] Glucose, UA Negative Negative - 1999(110) ++++ mg/dL [facility] Interpretation and review of laboratory results Normal [facility] Ketones, UA Negative Negative - 160(16) ++++ mg/dL [facility] Leukocytes, UA Negative Negative - 500+++ Pradip/mcL [facility] Nitrite, UA Negative Negative - Positive [facility] pH, UA 6.5 5 - 9 [facility] Protein, UA Negative Negative - 1999(20) ++++ mg/dL [facility] Spec Grav, UA 1.005 1 - 1.03 [facility] Urobilinogen, UA 0.2 0.2 - 12 mg/dL [facility] Urinalysis macro (dipstick) panel (U)on 09-24-2024 Bilirubin, UA Negative Negative - 4(70) +++ mg/dL [facility] Blood, UA Negative Negative - 50 Abiel/mcL [facility] Clarity, UA Clear [facility] Color, UA Yellow [facility] Glucose, UA Negative Negative - 2000(110) ++++ mg/dL [facility] Interpretation and review of laboratory results Normal [facility] Ketones, UA Negative Negative - 160(16) ++++ mg/dL [facility] Leukocytes, UA Negative Negative - 500+++ Pradip/mcL [facility] Nitrite, UA Negative Negative - Positive [facility] pH, UA 7 5 - 9 [facility] Protein, UA Negative Negative - 2000(20) ++++ mg/dL [facility] Spec Grav, UA 1.015 1 - 1.03 [facility] Urobilinogen, UA 0.2 0.2 - 12 mg/dL [facility] US OB FOLLOW UP TRANSABDOMIN AL APPROACHon [...] II, MD, PHD at 31-Aug-2024 08:25:52 AM [facility] Normal Not Available Comment on above: Order Comment: US OB SCAN FOR GROWTH Estimated Date of Delivery: 11/05/24 Gestational Age as of 08/15/2024: 28w2d Urinalysis macro (dipstick) panel (U)on 08-27-2024 Bilirubin, UA Negative Negative - 4(70) +++ mg/dL [facility] Blood, UA Negative Negative - 50 Abiel/mcL [facility] Clarity, UA Clear [facility] Color, UA Yellow [facility] Glucose, UA Negative Negative - 1999(110) ++++ mg/dL [facility] Interpretation and review of laboratory results Normal [facility] Ketones, UA Negative Negative - 160(16) ++++ mg/dL [facility] Leukocytes, UA Negative Negative - 500+++ Pradip/mcL [facility] Nitrite, UA Negative Negative - Positive [facility] pH, UA 7 5 - 9 [facility] Protein, UA Negative Negative - 1999(20) ++++ mg/dL [facility] Spec Grav, UA 1.01 1 - 1.03 [facility] Urobilinogen, UA 0.2 0.2 - 12 mg/dL [facility] Urinalysis macro (dipstick) panel (U)on 08-15-2024 Bilirubin, UA Negative Negative - 4(70) +++ mg/dL [facility] Blood, UA Positive Negative - 50 Abiel/mcL [facility] Comment on above: trace-intact Clarity, UA Clear [facility] Color, UA Yellow [facility] Glucose, UA Negative Negative - 1999(110) ++++ mg/dL [facility] Interpretation and review of laboratory results Abnormal [facility] Ketones, UA Negative Negative - 160(16) ++++ mg/dL [facility] Leukocytes, UA Negative Negative - 500+++ Pradip/mcL [facility] Nitrite, UA Negative Negative - Positive [facility] pH, UA 7 5 - 9 [facility] Protein, UA Negative Negative - 1999(20) ++++ mg/dL [facility] Spec Grav, UA 1.015 1 - 1.03 [facility] Urobilinogen, UA 0.2 0.2 - 12 mg/dL [facility] ALL CBC WITH AUTO DIFFon BASOPHILS ABSOLUTE AUTO 0 [facility] Basophils/100 WBC (Bld) 0.3 % 0.2 - 2.0 % [facility] Eosinophils/100 WBC (Bld) 1.2 % 0.9 - 7.0 % [facility] Erythrocyte distribution width (RBC) [Ratio] 12 % 11.0 - 15.0 % [facility] Hematocrit (Bld) [Volume fraction] 35.4 % Low 36.0 - 48.0 % [facility] Hemoglobin (Bld) [Mass/Vol] 12.2 g/dL 12.0 - 16.0 g/dL [facility] IMMATURE GRANULOCYTES ABS AUTO 0.04 High [facility] Immature granulocytes/100 WBC (Bld) 0.4 % 0.0 - 0.5 % [facility] Interpretation and review of laboratory results Abnormal [facility] LYMPHOCYTES ABSOLUTE AUTO 2 [facility] Lymphocytes/100 WBC (Bld) 17.6 % Low 20.5 - 60.0 % [facility] MCH (RBC) [Entitic mass] 31.4 pg 26.7 - 34.0 pg [facility] MCHC (RBC) [Mass/Vol] 34.5 g/dL 29.9 - 35.2 g/dL [facility] MCV (RBC) [Entitic vol] 91.2 fL 81.0 - 99.0 fL [facility] MONOCYTES ABSOLUTE AUTO 0.7 [facility] Monocytes/100 WBC (Bld) 6 % 1.7 - 12.0 % [facility] NEUTROPHILS ABSOLUTE AUTO 8.4 High [facility] Neutrophils/100 WBC (Bld) 74.5 % 43.0 - 75.0 % [facility] Platelet mean volume (Bld) [Entitic vol] 10.3 fL 9.5 - 13.5 fL [facility] TBH EO # 0.1 [facility] TBH PLT 203 [facility] RBC 3.88 Low [facility] TB WBC 11.3 High [facility] Urinalysis macro (dipstick) panel (U)Ordered By: Demetria Perez on 07-24-2024 Bilirubin, UA Negative Negative - 4(70) +++ mg/dL [facility] Blood, UA Negative Negative - 50 Abiel/mcL [facility] Clarity, UA Clear [facility] Color, UA Yellow [facility] Glucose, UA Negative Negative - 2000(110) ++++ mg/dL [facility] Interpretation and review of laboratory results Normal [facility] Ketones, UA Negative Negative - 160(16) ++++ mg/dL [facility] Leukocytes, UA Negative Negative - 500+++ Pradip/mcL [facility] Nitrite, UA Negative Negative - Positive [facility] pH, UA 6 5 - 9 [facility] Protein, UA Negative Negative - 2000(20) ++++ mg/dL [facility] Spec Grav, UA 1.02 1 - 1.03 [facility] Urobilinogen, UA 1.0 0.2 - 12 mg/dL [facility] US OB ANATOMYon 06-25-2024 [place] [address] Ultrasound Report Signed Patient: JOSELINE DICKERSON MR#: [id number] : 1990 Acct:[id number] Age/Sex: 33 / F ADM Date: 06/25/24 Loc: US Attending Dr: Babs Rice D.O. Ordering Physician: Babs Rice D.O. Date of Service: 06/25/24 Procedure(s): US OB anatomy Accession Number(s): [id number] cc: Babs Rice D.O.; Josephine Canada M.D. [place] [id number] Patient Name: JOSELINE DICKERSON MRN: [id number]:[id number] date: 1990 Sex: F Assigned Patient Location: US Current Patient Location: US Accession/Order Number: [id number] Exam Date: 06/25/2024 21:20 Report Date: 06/25/2024 [...] Andrew Jordan M.D.06/25/2024 9:26 PM Dictation Location: [place] [address] Electronically authenticated by: [id number] Y Date: 06/25/2024 21:26 Dictated By: Andrew Jordan D.O. Signed By: 06/25/242127 DD/ 25 TD/TT: Monitoring And Evaluation Advisor: [facility] Radiology, Radiologi MD angel luis - 06/25/2024 [place] [address] Ultrasound Report Signed Patient: JOSELINE DICKERSON MR#: [id number] : 1990 Acct:[id number] Age/Sex: 33 / F ADM Date: 06/25/24 Loc: US Attending Dr: Babs Rice D.O. Ordering Physician: Babs Rice D.O. Date of Service: 06/25/24 Procedure(s): US OB anatomy Accession Number(s): [id number] cc: Babs Rice D.O.; Josephine Canada M.D. The [address] [address] Patient Name: JOSELINE DICKERSON MRN: [facility]:[id number] date: 1990 Sex: F Assigned Patient Location: US Current Patient Location: US Accession/Order Number: [id number] Exam Date: 06/25/2024 21:20 Report Date: 06/25/2024 [...] Andrew Jordan M.D.06/25/2024 9:26 PM Dictation Location: [place] [address] Electronically authenticated by: [id number] Y Date: 06/25/2024 21:26 Dictated By: Andrew Jordan D.O. Signed By: 06/25/242127 DD/ 25 TD/TT: Monitoring And Evaluation Advisor: [facility] Radiology Study observation (narrative) [facility] US OB ANATOMYOrdered By: Alireza iologluz Radiology on 06-25-2024 [facility] Work Phone: US OB CERVICAL LENGTHon 05-[address] [address] Ultrasound Report Signed Patient: JOSELINE DICKERSON MR#: [id number] : 1990 Acct:[id number] Age/Sex: 33 / F ADM Date: 06/25/24 Loc: US Attending Dr: Babs Rice D.O. Ordering Physician: Babs Rice D.O. Date of Service: 06/25/24 Procedure(s): US OB cervical length Accession Number(s): [id number] cc: Babs Rice D.O.; Josephine Canada M.D. The [place] [id number] Patient Name: JOSELINE DICKERSON MRN: [facility]:[id number] date: 1990 Sex: F Assigned Patient Location: US Current Patient Location: US Accession/Order Number: [id number] Exam Date: 06/25/2024 21:26 Report Date: 06/25/2024 21:27 At the request of: BABS RICE DO Procedure: US OB cervical length Ultrasound assessment of cervical length Length of cervix 5.4 cm. The opening is closed. US/US OB cervical length IMPRESSION: 5.4 cm cervical length Impression dictated by: Andrew Jordan M.D.06/25/2024 9:27 PM Dictation Location: [place] [address] Electronically authenticated by: [id number] Y Date: 06/25/2024 21:27 Dictated By: Andrew Jordan D.O. Signed By: 06/25/242128 DD/ 26 TD/TT: Monitoring And Evaluation Advisor: [facility] Radiology, Radiologi MD angel luis - 06/25/2024 [place] [address] Ultrasound Report Signed Patient: JOSELINE DICKERSON MR#: [id number] : 1990 Acct:[id number] Age/Sex: 33 / F ADM Date: 06/25/24 Loc: US Attending Dr: Babs Rice D.O. Ordering Physician: Babs Rice D.O. Date of Service: 06/25/24 Procedure(s): US OB cervical length Accession Number(s): [id number] cc: Babs Rice D.O.; Josephine Canada M.D. [place] [id number] Patient Name: JOSELINE DICKERSON MRN: [id number]:[id number] date: 1990 Sex: F Assigned Patient Location: US Current Patient Location: Accession/Order Number: [id number] Exam Date: 06/25/2024 21:26 Report Date: 06/25/2024 21:27 At the request of: BABS RICE DO Procedure: US OB cervical length Ultrasound assessment of cervical length Length of cervix 5.4 cm. The opening is closed. US/US OB cervical length IMPRESSION: 5.4 cm cervical length Impression dictated by: Andrew Jordan M.D.06/25/2024 9:27 PM Dictation Location: [place] [address] Electronically authenticated by: [id number] Y Date: 06/25/2024 21:27 Dictated By: Andrew Jordan D.O. Signed By: 06/25/242128 DD/ 26 TD/TT: Monitoring And Evaluation Advisor: [facility] Radiology Study observation (narrative) [facility] US OB CERVICAL LENGTHOrdered By: Radiologist Radiology on 06-25-2024 [facility] Work Phone: Urinalysis macro (dipstick) panel (U)on 06-25-2024 Bilirubin, UA Negative Negative - 4(70) +++ mg/dL [facility] Blood, UA Negative Negative - 50 Abiel/mcL [facility] Clarity, UA Clear [facility] Color, UA Yellow [facility] Glucose, UA Negative Negative - 1999(110) ++++ mg/dL [facility] Interpretation and review of laboratory results Normal [facility] Ketones, UA Negative Negative - 160(16) ++++ mg/dL [facility] Leukocytes, UA Negative Negative - 500+++ Pradip/mcL [facility] Nitrite, UA Negative Negative - Positive [facility] pH, UA 7 5 - 9 [facility] Protein, UA Negative Negative - 1999(20) ++++ mg/dL [facility] Spec Grav, UA 1.015 1 - 1.03 [facility] Urobilinogen, UA 0.2 0.2 - 12 mg/dL [facility] RECURRENT VAGINITIS (HTRX)on 05-30-2024 ATOPOBIUM VAGINAE 0 [facility] ATOPOBIUM VAGINAE Not detected [facility] BVAB 2,3 (BACTERIAL VAGINOSIS ASSOCIATED BACTERIA 2, 3); MOBILUNCUS SPP 0 [facility] BVAB 2,3 (BACTERIAL VAGINOSIS ASSOCIATED BACTERIA 2, 3); MOBILUNCUS SPP Not detected [facility] HELEN ALBICANS, PARAPSILOSIS, TROPICALIS 0 [facility] HELEN ALBICANS, PARAPSILOSIS, TROPICALIS Not detected [facility] HELEN GLABRATA 0 [facility] HELEN GLABRATA Not detected [facility] HELEN KRUSEI 0 [facility] HELEN KRUSEI Not detected [facility] CHLAMYDIA TRACHOMATIS 0 [facility] CHLAMYDIA TRACHOMATIS Not detected [facility] GARDNERELLA VAGINALIS 0 [facility] GARDNERELLA VAGINALIS Not detected [facility] MEGASPHAERA (TYPES 1, 2) 0 [facility] MEGASPHAERA (TYPES 1, 2) Not detected [facility] MYCOPLASMA GENITALIUM 0 [facility] MYCOPLASMA GENITALIUM Not detected [facility] NEISSERIA GONORRHOEAE 0 [facility] NEISSERIA GONORRHOEAE Not detected [facility] TRICHOMONAS VAGINALIS 0 [facility] TRICHOMONAS VAGINALIS Not detected [facility] Urinalysis macro (dipstick) panel (U)on 05-28-2024 Bilirubin, UA Negative Negative - 4(70) +++ mg/dL [facility] Blood, UA Negative Negative - 50 Abiel/mcL [facility] Clarity, UA Clear [facility] Color, UA Yellow [facility] Glucose, UA Negative Negative - 1999(110) ++++ mg/dL [facility] Interpretation and review of laboratory results Normal [facility] Ketones, UA Negative Negative - 160(16) ++++ mg/dL [facility] Leukocytes, UA Negative Negative - 500+++ Pradip/mcL [facility] Nitrite, UA Negative Negative - Positive [facility] pH, UA 7 5 - 9 [facility] Protein, UA Negative Negative - 1999(20) ++++ mg/dL [facility] Spec Grav, UA 1.015 1 - 1.03 [facility] Urobilinogen, UA 0.2 0.2 - 12 mg/dL [facility] Urinalysis macro (dipstick) panel (U)on 04-30-2024 Bilirubin, UA Negative Negative - 4(70) +++ mg/dL [facility] Blood, UA Negative Negative - 50 Abiel/mcL [facility] Clarity, UA Clear [facility] Color, UA Yellow [facility] Glucose, UA Negative Negative - 1999(110) ++++ mg/dL [facility] Interpretation and review of laboratory results Abnormal [facility] Ketones, UA Negative Negative - 160(16) ++++ mg/dL [facility] Leukocytes, UA Negative Negative - 500+++ Pradip/mcL [facility] Nitrite, UA Negative Negative - Positive [facility] pH, UA 6.5 5 - 9 [facility] Protein, UA Negative Negative - 1999(20) ++++ mg/dL [facility] Spec Grav, UA 1.01 1 - 1.03 [facility] Urobilinogen, UA 0.2 0.2 - 12 mg/dL [facility] BOX TESTon 04-16-2024 BOX TEST SENT OUT [facility] BOX1 [facility] BOX2 04/13/24 [facility] ALL CBC WITH AUTO DIFFon BASOPHILS ABSOLUTE AUTO 0.1 [facility] Basophils/100 WBC (Bld) 0.8 % 0.2 - 2.0 % [facility] Eosinophils/100 WBC (Bld) 0.9 % 0.9 - 7.0 % [facility] Erythrocyte distribution width (RBC) [Ratio] 11.6 % 11.0 - 15.0 % [facility] Hematocrit (Bld) [Volume fraction] 37.7 % 36.0 - 48.0 % [facility] Hemoglobin (Bld) [Mass/Vol] 12.9 g/dL 12.0 - 16.0 g/dL [facility] IMMATURE GRANULOCYTES ABS AUTO 0.02 [facility] Immature granulocytes/100 WBC (Bld) 0.3 % 0.0 - 0.5 % [facility] LYMPHOCYTES ABSOLUTE AUTO 1.7 [facility] Lymphocytes/100 WBC (Bld) 22.4 % 20.5 - 60.0 % [facility] MCH (RBC) [Entitic mass] 30.2 pg 26.7 - 34.0 pg [facility] MCHC (RBC) [Mass/Vol] 34.2 g/dL 29.9 - 35.2 g/dL [facility] MCV (RBC) [Entitic vol] 88.3 fL 81.0 - 99.0 fL [facility] MONOCYTES ABSOLUTE AUTO 0.6 [facility] Monocytes/100 WBC (Bld) 7.7 % 1.7 - 12.0 % [facility] NEUTROPHILS ABSOLUTE AUTO 5.3 [facility] Neutrophils/100 WBC (Bld) 67.9 % 43.0 - 75.0 % [facility] Platelet mean volume (Bld) [Entitic vol] 10.5 fL 9.5 - 13.5 fL [facility] EO # 0.1 [facility] PLT 194 [facility] RBC 4.27 [facility] WBC 7.8 [facility] HCG ( test) Ql (U)o n 03-30-2024 Interpretation and review of laboratory results Abnormal [facility] Preg Test, Ur Positive Negative [facility] US OB TRANSVAGINALon 025 US OB TRANSVAGINAL [...] x 2.4 cm (7 weeks, 0 days). [place] rump length is 1.6 cm (8 weeks, [...] UA Negative Negative - 4(70) +++ mg/dL [facility] Blood, UA Negative Negative - 50 Abiel/mcL [facility] Clarity, UA Clear [facility] Color, UA Yellow [facility] Glucose, UA Negative Negative - 2000(110) ++++ mg/dL [facility] Interpretation and review of laboratory results Abnormal [facility] Ketones, UA Positive Negative - 160(16) ++++ mg/dL [facility] Comment on above: trace Leukocytes, UA Negative Negative - 500+++ Pradip/mcL [facility] Nitrite, UA Negative Negative - Positive [facility] pH, UA 7 5 - 9 [facility] Protein, UA Negative Negative - 2000(20) ++++ mg/dL [facility] Spec Grav, UA 1.02 1 - 1.03 [facility] Urobilinogen, UA 1.0 0.2 - 12 mg/dL [facility] Urine Cultureon 03-30-2024 Bacteria identified Cx Nom (U) No Growth 2 Days PERFORMED BY: [place] [address] PATHOLOGIST ACCOUNT STRATEGIST KASIA BECK M.D. Normal [facility] Comment on above: Performed By: #### C UU #### [address] US SOFT TISS HEAD NECKon US [...] Chris Encarnacion on 10/31/2023 7:59 AM Normal [facility] CBC AND AUTO DIFFon 10-28-19 24 ABSOLUTE BASOPHIL 0.0 X10E9/L Normal 0.0-0.2 [facility] Comment on above: Performed By: #### C BCA, CMP, 51043-4, THYR, HA1C #### [facility] ([id number]) [address], [address] [place] [address] ABSOLUTE NEUTROPHIL 2.9 X10E9/L Normal 1.5-6.6 [facility] Comment on above: Performed By: #### C BCA, CMP, 15837-0, THYR, HA1C #### [facility] ([id number]) [address], [address] [place] [address] Basophils/100 WBC (Bld) 0.8 % Normal [facility] [facility] Comment on above: Performed By: #### C BCA, CMP, 38580-3, THYR, HA1C #### [facility] ([id number]) [address], [address] [place] [address] Eosinophils (Bld) [#/Vol] 0.1 10*3/uL Normal 0.0-0.4 [facility] Comment on above: Performed By: #### C BCA, CMP, 98976-3, THYR, HA1C #### [facility] ([id number]) [address] [address] [place] [address] Eosinophils/100 WBC (Bld) 2.2 % Normal [facility] Comment on above: Performed By: #### C BCA, CMP, 22660-7, THYR, HA1C #### [facility] ([id number]) [address], [address] [place] [address] Erythrocyte distribution width (RBC) [Ratio] 12.5 % Normal 11.5-15.0 [facility] Comment on above: Performed By: #### C BCA CMP, 80279-5, THYR, HA1C #### [facility] ([id number]) [address], [address] [place] [address] Hematocrit (Bld) [Volume fraction] 39.6 % Normal 35-47 [facility] Comment on above: Performed By: #### C BCA, CMP, 85679-9, THYR, HA1C #### [facility] ([id number]) [address], [facility] [address] [place] [address] Hemoglobin (Bld) [Mass/Vol] 13.5 g/dL Normal 11.7-15.5 [facility] Comment on above: Performed By: #### C BCA, CMP, 63587-6, THYR, HA1C #### [facility] ([id number]) [address], [address] [place] [address] Lymphocytes (Bld) [#/Vol] 2.1 10*3/uL Normal 1.0-3.5 [facility] Comment on above: Performed By: #### C BCA, CMP, 36021-1, THYR, HA1C #### [facility] ([id number]) [address], [address] [place] [address] Lymphocytes/100 WBC (Bld) 37.5 % Normal [facility] Comment on above: Performed By: #### C BCA, CMP, 76596-0, THYR, HA1C #### [facility] ([id number]) [address], [address] [place] [address] MCH (RBC) [Entitic mass] 31.0 pg Normal 27-34 [facility] Comment on above: Performed By: #### C BCA, CMP, 53433-4, THYR, HA1C #### [facility] ([id number]) [address], [address] [place] [address] MCHC (RBC) [Mass/Vol] 34.1 g/dL Normal 32-36 [facility] Comment on above: Performed By: #### C BCA, CMP, 50620-0, THYR, HA1C #### [facility] ([id number]) [address], [facility] [address] [place] [address] MCV (RBC) [Entitic vol] 91 fL Normal 80-100 [facility] Comment on above: Performed By: #### C BCA, CMP, 14235-7, THYR, HA1C #### [facility] ([id number]) [address], [address] [place] [address] Monocytes (Bld) [#/Vol] 0.5 10*3/uL Normal 0-0.9 [facility] Comment on above: Performed By: #### C BCA, CMP, 24821-6, THYR, HA1C #### [facility] ([id number]) [address], [address] [place] [address] Monocytes/100 WBC (Bld) 8.3 % Normal [facility] Comment on above: Performed By: #### C BCA, CMP, 66837-6, THYR, HA1C #### [facility] ([id number]) [address], [address] [place] [address] Neutrophils/100 WBC (Bld) 51.2 % Normal [facility] Comment on above: Performed By: #### C BCA, CMP, 45797-6, THYR, HA1C #### [facility] ([id number]) [address], [address] [place] [address] Platelet mean volume (Bld) [Entitic vol] 8.3 fL Normal 7-12 [facility] Comment on above: Performed By: #### C BCA, CMP, 26509-1, THYR, HA1C #### [facility] ([id number]) [address], [address] [place] [address] Platelets (Bld) [#/Vol] 195 10*3/uL Normal 150-450 [facility] Comment on above: Performed By: #### C BCA, CMP, 85804-8, THYR, HA1C #### [facility] ([id number]) [address], [address] [place] [address] RBC COUNT 4.36 X10E12/L Normal 3.80-5.20 [facility] Comment on above: Performed By: #### C BCA, CMP, 92219-3, THYR, HA1C #### [facility] ([id number]) [address], [address] [place] [address] WBC (Bld) [#/Vol] 5.7 10*3/uL Normal 4.0-11.0 [facility] Comment on above: Performed By: #### C BCA, CMP, 89009-5, THYR, HA1C #### [facility] ([id number]) [address], [address] [place] [address] COMPREHENSIVE METABOLIC PANE Lonny 10-28-2023 Albumin [Mass/Vol] 4.3 g/dL Normal 3.2-5.3 [facility] Comment on above: Performed By: #### C BCA, CMP, 69277-5, THYR, HA1C #### [facility] ([id number]) [address], [address] [place] [address] ALP [Catalytic activity/Vol] 53 U/L Normal 39-130 [facility] Comment on above: Performed By: #### C BCA, CMP, 19717-6, THYR, HA1C #### [facility] ([id number]) [address], [address] [place] [address] ALT [Catalytic activity/Vol] 12 U/L Normal 0-31 [facility] Comment on above: Performed By: #### C BCA, CMP, 65907-3, THYR, HA1C #### [facility] ([id number]) [address], [address] [place] [address] Anion gap [Moles/Vol] 9 mmol/L Normal 5-15 [facility] Comment on above: Performed By: #### C BCA, CMP, 20790-5, THYR, HA1C #### [facility] ([id number]) [address], [address] [place] [address] AST [Catalytic activity/Vol] 21 U/L Normal 0-41 [facility] Comment on above: Performed By: #### C BCA, CMP, 35118-2, THYR, HA1C #### [facility] ([id number]) [address] [place] [address] Bilirubin [Mass/Vol] 0.6 mg/dL Normal 0.3-1.2 [facility] Comment on above: Performed By: #### C BCA, CMP, 88378-2, THYR, HA1C #### [facility] ([id number]) [address], [address] [place] [address] Calcium [Mass/Vol] 9.6 mg/dL Normal 8.5-10.5 [facility] Comment on above: Performed By: #### C BCA, CMP, 30504-4, THYR, HA1C #### [facility] ([id number]) [address], [address] [place] [address] Chloride [Moles/Vol] 103 mmol/L Normal 98-109 [facility] Comment on above: Performed By: #### C BCA, CMP, 63488-0, THYR, HA1C #### [facility] ([id number]) [address], [address] [place] [address] CO2 [Moles/Vol] 27 mmol/L Normal 22-32 [facility] Comment on above: Performed By: #### C BCA, CMP, 83168-3, THYR, HA1C #### [facility] ([id number]) [address] [address] [place] [address] Creatinine [Mass/Vol] 0.84 mg/dL Normal 0.40-1.00 [facility] Comment on above: Result Comment: METH OD TRACEABLE TO IDMS STANDARD Performed By: #### C BCA, CMP, 60949-1, THYR, HA1C #### [facility] ([id number]) [address] [address] [place] [address] eGFR (CKD-EPI) NON-RACE DEPENDENT >90 Normal >59 [facility] Comment on above: Result Comment: Reported eGFR is based on the CKD-EPI 2020 equation that does not use a race coefficient. Performed By: #### C BCA, CMP, 24334-8, THYR, HA1C #### [facility] ([id number]) [address] [address] [place] [address] Glucose [Mass/Vol] 81 mg/dL Normal 65-99 [facility] Comment on above: Performed By: #### C BCA, CMP, 90264-4, THYR, HA1C #### [facility] ([id number]) [address] [address] [place] [address] Potassium [Moles/Vol] 3.8 mmol/L Normal 3.5-5.0 [facility] Comment on above: Performed By: #### C BCA, CMP, 97883-7, THYR, HA1C #### [facility] ([id number]) [address] [address] [place] [address] Protein [Mass/Vol] 7.5 g/dL Normal 6.0-8.0 [facility] Comment on above: Performed By: #### C BCA, CMP, 16418-0, THYR, HA1C #### [facility] ([id number]) [address] [address] [place] [address] Sodium [Moles/Vol] 139 mmol/L Normal 134-146 [facility] Comment on above: Performed By: #### C SCOTTY CMP, 36713-6, THYR, HA1C #### [facility] ([id number]) [address] [address] [place] [address] Urea nitrogen [Mass/Vol] 12 mg/dL Normal 5-23 [facility] Comment on above: Performed By: #### C BCA, CMP, 09667-7, THYR, HA1C #### [facility] ([id number]) [address] [address] [place] [address] HGB A1C (GLYCO-HGB)on 2023 Glucose [Mass/Vol] 103 mg/dL Normal [facility] Comment on above: Performed By: #### C JOSSELYN FAJARDO, 91786-7, THYR, HA1C #### [facility] ([id number]) [address] [address] [place] [address] HbA1c (Bld) [Mass fraction] 5.2 % Normal 4.4-5.6 [facility] Comment on above: Result Comment: NOTE ADA Guidelines Result HgbA1c Normal : less than 5.7 % Prediabetes : 5.7 % to 6.4 % Diabetes : > 6.4 % Use with caution in patients with abnormal hemoglobin variants as the half-life of red blood cells and in vivo glycation rates are affected. Performed By: #### C BCA, CMP, 61926-3, THYR, HA1C #### [facility] ([id number]) [address], [address] [place] [address] Lipid 1996 panelon 4 Cholesterol [Mass/Vol] 208 mg/dL High 150-200 [facility] Comment on above: Performed By: #### C BCA, CMP, 03403-0, THYR, HA1C #### [facility] ([id number]) [address], [address] [place] [address] Cholesterol in HDL [Mass/Vol] 75 mg/dL Normal >39 [facility] Comment on above: Result Comment: HDL <40 mg/dL - High Risk HDL > or = 40mg/dL- Desirable HDL >60 mg/dL - Negative Risk Performed By: #### C BCA, CMP, 32987-5, THYR, HA1C #### [facility] ([id number]) [address] [place] [address] Cholesterol in LDL [Mass/Vol] 120 mg/dL Normal <130 [facility] Comment on above: Result Comment: LDL <100 mg/dL - Desirable LDL >160 mg/dL - High Risk Performed By: #### C BCA, CMP, 15847-2, THYR, HA1C #### [facility] ([id number]) [address] [place] [address] Cholesterol in VLDL [Mass/Vol] 13 mg/dL Normal 0-30 [facility] Comment on above: Performed By: #### C BCA, CMP, 66629-9, THYR, HA1C #### [facility] ([id number]) [address], [facility] [address] [place] [address] CHOLESTEROL:HDL 2.8 Normal 1.0-5.0 [facility] Comment on above: Performed By: #### C BCA, CMP, 83441-4, THYR, HA1C #### [facility] ([id number]) [address], [address] [place] [address] Triglyceride [Mass/Vol] 66 mg/dL Normal 27-150 [facility] Comment on above: Performed By: #### C BCA, CMP, 67191-3, THYR, HA1C #### [facility] ([id number]) [address], [address] [place] [address] THYROID PROFILEon 10-28-2023 Free T4 [Mass/Vol] 0.88 ng/dL Normal 0.61-1.60 [facility] Comment on above: Performed By: #### C BCA, CMP, 07312-3, THYR, HA1C #### [facility] ([id number]) [address], [address] [place] [address] TSH 2.30 uIU/mL Normal 0.49-4.67 [facility] Comment on above: Performed By: #### C BCA, CMP, 01065-0, THYR, HA1C #### [facility] ([id number]) [address], [address] [place] [address] PAP ACOG PANEL 2: 21 to 30on 09-02-2021 . . [facility] Comment on above: Performed By: #### [id number] #### [facility] [address] [place] [address] Dr. Kulwant Duffy Age Gdln ACOG Testing 22- [facility] Comment on above: Performed By: #### [id number] #### [facility] [address] [place] [address] Dr. Kulwant Duffy DIAGNOSIS: Comment [facility] Comment on above: Result Comment: NEGA TIVE FOR INTRAEPITHELIAL LESION OR MALIGNANCY. Performed By: #### 4 [id number] #### [facility] [address] [place] [address] Dr. Kulwant Duffy Methodology: Comment [facility] Comment on above: Result Comment: This liquid based ThinPrep(R) pap test was screened with the use of an image guided system. Performed By: #### [id number] #### [facility] [address] [address] [address] Kulwant Duffy Note: Comment Normal [facility] Comment on above: Result Comment: The Pap smear is a screening test designed to aid in the detection of premalignant and malignant conditions of the uterine cervix. It is not a diagnostic procedure and should not be used as the sole means of detecting cervical cancer. Both false-positive and false-negative reports do occur. . Performed By: #### [id number] #### [facility] [address] [address] [address] Kulwant Duffy Performed by: Comment Normal [facility] Comment on above: Result Comment: [employer] (ASCP) Performed By: #### [id number] #### [facility] [address] [place] [address] Dr. Kulwant Duffy Reflex Criteria: Comment Normal [facility] Comment on above: Result Comment: The HPV DNA reflex criteria were not met with this specimen result therefore, no HPV testing was performed. . Performed By: #### 4 [id number] #### [facility] [address] [place] [address] Dr. Kulwant Duffy Specimen adequacy: Comment Normal [facility] Comment on above: Result Comment: Sati sfactory for evaluation. Endocervical and/or squamous metaplastic cells (endocervical component) are present. Performed By: #### 4 [id number] #### [facility] [address] [place] [address] Dr. Kulwant Duffy US APPENDIXon 07-22-2017 US [...] Recipients:Josephine Canada MD - FaxFinal result Normal [facility] US GALLBLADDER RUQon 018 US GALLBLADDER [...] evidence for pericholecystic fluid,wall thickening, or calculi. Manuscript Reader documents a negative sonographicMurphy's sign. Gallbladder wall is normal in thickness, measuring 2.4 mm.The common bile duct is normal and measures 3 mm.IMPRESSION: Unremarkable ultrasound of the gallbladder. No evidence for cholelithiasisor acute cholecystitis.Interpreted by:ELIAN Brittonigned by:Nghia Denny MD07/22/17CC Recipients:Josephine Canada MD - FaxFinal result Normal [facility] Vital Signs Date Time Vital Sign Value Performing Clinician Tejas steward 11-07-2024 14:44-0400 Body mass index (BMI) [Ratio] 29.05 kg/m2 Deandra GRIJALVA Work Phone: [facility] 11-07-2024 14:44-0400 Body weight 81.65 kg Deandra GRIJALVA Work Phone: [facility] 11-07-2024 14:44-0400 Diastolic blood pressure 70 mm[Hg] Deandra GRIJALVA Work Phone: [facility] 11-07-2024 14:44-0400 Systolic blood pressure 120 mm[Hg] Deandra GRIJALVA Work Phone: [facility] 10-23-2024 11:32-0400 Body mass index (BMI) [Ratio] 30.83 kg/m2 Babs Dwayne DO Work Phone: [facility] 10-23-2024 11:32-0400 Body weight 86.64 kg Babs Dwayne DO Work Phone: [facility] 10-23-2024 11:32-0400 Diastolic blood pressure 82 mm[Hg] Babs Dwayne DO Work Phone: [facility] 10-23-2024 11:32-0400 Systolic blood pressure 110 mm[Hg] Babs Dwayne DO Work Phone: [facility] 10-15-2024 09:55-0400 Body mass index (BMI) [Ratio] 30.51 kg/m2 Babs Dwayne DO Work Phone: [facility] 10-15-2024 09:55-0400 Body weight 85.73 kg Babs Dwayne DO Work Phone: [facility] 10-15-2024 09:55-0400 Diastolic blood pressure 76 mm[Hg] Babs Dwayne DO Work Phone: [facility] 10-15-2024 09:55-0400 Systolic blood pressure 122 mm[Hg] Babs Dwayne DO Work Phone: [facility] 10-09-2024 10:53-0400 Body mass index (BMI) [Ratio] 30.15 kg/m2 Babs Dwayne DO Work Phone: [facility] 10-09-2024 10:53-0400 Body weight 84.73 kg Babs Dwayne DO Work Phone: [facility] 10-09-2024 10:53-0400 Diastolic blood pressure 76 mm[Hg] Babs Dwayne DO Work Phone: [facility] 10-09-2024 10:53-0400 Systolic blood pressure 110 mm[Hg] Babs Dwayne DO Work Phone: [facility] 09-24-2024 10:45-0400 Body mass index (BMI) [Ratio] 29.7 kg/m2 Babs Dwayne DO Work Phone: [facility] 09-24-2024 10:45-0400 Body weight 83.46 kg Babs Dwayne DO Work Phone: [facility] 09-24-2024 10:45-0400 Diastolic blood pressure 72 mm[Hg] Babs Dwayne DO Work Phone: [facility] 09-24-2024 10:45-0400 Systolic blood pressure 118 mm[Hg] Babs Dwayne DO Work Phone: [facility] 09-10-2024 10:04-0400 Body mass index (BMI) [Ratio] 29.21 kg/m2 Deandra GRIJALVA Work Phone: [facility] 09-10-2024 10:04-0400 Body weight 82.1 kg Deandra GRIJALVA Work Phone: [facility] 09-10-2024 10:04-0400 Diastolic blood pressure 74 mm[Hg] Deandra Vee PA Work Phone: [facility] 09-10-2024 10:04-0400 Systolic blood pressure 114 mm[Hg] Deandra GRIJALVA Work Phone: [facility] 08-27-2024 14:59-0400 Body mass index (BMI) [Ratio] 28.85 kg/m2 Babs Dwayne DO Work Phone: [facility] 08-27-2024 14:59-0400 Body weight 81.08 kg Babs Dwayne DO Work Phone: [facility] 08-27-2024 14:59-0400 Diastolic blood pressure 82 mm[Hg] Babs Dwayne DO Work Phone: [facility] 08-27-2024 14:59-0400 Systolic blood pressure 112 mm[Hg] Babs Dwayne DO Work Phone: [facility] 08-15-2024 16:26-0400 Body mass index (BMI) [Ratio] 28.37 kg/m2 Deandra Nanda PA Work Phone: [facility] 08-15-2024 16:26-0400 Body weight 79.74 kg Deandra GRIJALVA Work Phone: [facility] 08-15-2024 16:26-0400 Diastolic blood pressure 70 mm[Hg] Deandra GRIJALVA Work Phone: [facility] 08-15-2024 16:26-0400 Systolic blood pressure 120 mm[Hg] Deandra GRIJALVA Work Phone: [facility] 07-23-2024 09:54-0400 Body mass index (BMI) [Ratio] 27.88 kg/m2 Babs Dwayne DO Work Phone: [facility] 07-23-2024 09:54-0400 Body weight 78.36 kg Babs Dwayne DO Work Phone: [facility] 07-23-2024 09:54-0400 Diastolic blood pressure 76 mm[Hg] Babs Dwayne DO Work Phone: [facility] 07-23-2024 09:54-0400 Systolic blood pressure 124 mm[Hg] Babs Dwayne DO Work Phone: [facility] 06-25-2024 09:53-0400 Body mass index (BMI) [Ratio] 27.12 kg/m2 Babs Dwayne DO Work Phone: [facility] 06-25-2024 09:53-0400 Body weight 76.2 kg Babs Dwayne DO Work Phone: [facility] 06-25-2024 09:53-0400 Diastolic blood pressure 76 mm[Hg] Babs Dwayne DO Work Phone: [facility] 06-25-2024 09:53-0400 Systolic blood pressure 110 mm[Hg] Babs Dwayne DO Work Phone: [facility] 05-28-2024 09:54-0500 Body mass index (BMI) [Ratio] 26.12 kg/m2 Babs Dwayne DO Work Phone: [facility] 05-28-2024 09:54-0500 Body weight 73.39 kg Babs Dwayne DO Work Phone: [facility] 05-28-2024 09:54-0500 Diastolic blood pressure 84 mm[Hg] Babs Dwayne DO Work Phone: [facility] 05-28-2024 09:54-0500 Systolic blood pressure 100 mm[Hg] Babs Dwayne DO Work Phone: [facility] 04-30-2024 14:02-0500 Body mass index (BMI) [Ratio] 26.37 kg/m2 Babs Dwayne DO Work Phone: [facility] 04-30-2024 14:02-0500 Body weight 74.12 kg Babs Dwayne DO Work Phone: [facility] 04-30-2024 14:02-0500 Diastolic blood pressure 82 mm[Hg] Babs Dwayne DO Work Phone: [facility] 04-30-2024 14:02-0500 Systolic blood pressure 130 mm[Hg] Babs Dwayne DO Work Phone: [facility] 01-31-2024 08:53-0500 Body mass index (BMI) [Ratio] 25.99 kg/m2 Babs Dwayne DO Work Phone: [facility] 01-31-2024 08:53-0500 Body weight 73.03 kg Babs Dwayne DO Work Phone: [facility] 01-31-2024 08:53-0500 Diastolic blood pressure 72 mm[Hg] Babs Dwayne DO Work Phone: [facility] 01-31-2024 08:53-0500 Systolic blood pressure 118 mm[Hg] Babs Dwayne DO Work Phone: [facility] Encounters Encounter Date Encounter Type Care Provider Facility Start: 11-07-2024 End: 11-07-2024 ambulatory DEANDRA VEE Not Available Start: 11-07-2024 End: 11-07-2024 flow sheet Deandra GRIJALVA Work Phone: [facility] Comment on above: S/P section Start: 11-07-2024 End: 11-07-2024 Bamboo flowsheet Deandra GRIJALVA Work Phone: [facility] Start: 11-07-2024 End: 11-07-2024 Bamboo flowsheet Deandra GRIJALVA Work Phone: [facility] Start: 11-02-2024 End: 11-02-2024 Clinisync Result [...] [facility] Start: 10-23-2024 End: 10-23-2024 flow sheet Babs Dwayne DO Work Phone: [facility] Comment on above: Third trimester preg juan ([facility]); 38 weeks gestation of ([facility]) Start: 10-23-2024 End: 10-23-2024 ambulatory BABS DWAYNE Not Available Start: 10-15-2024 End: 10-15-2024 Bamboo flowsheet Babs Dwayne DO Work Phone: [facility] Start: 10-15-2024 End: 10-15-2024 Bamboo flowsheet Babs Dwayne DO Work Phone: [facility] Start: 10-15-2024 End: 10-15-2024 flow sheet Babs Dwayne DO Work Phone: [facility] Comment on above: Third trimester preg juan ([facility]); 37 weeks gestation of ([facility]) Start: 10-15-2024 End: 10-15-2024 ambulatory BABS DWAYNE [...] on above: 36 weeks gestation o f ([facility]); Third trimester ([facility]); Sinusitis, unspecified chronicity, unspecified location; Gastroesophageal reflux in ([facility]) Start: 09-24-2024 End: 09-24-2024 Bamboo flowsheet Babs Dwayne DO Work Phone: [facility] Start: 09-24-2024 End: 09-24-2024 Bamboo flowsheet Babs Dwayne DO Work Phone: [facility] Start: 09-24-2024 End: 09-24-2024 flow sheet Babs Dwayne DO Work Phone: [facility] Comment on above: Third trimester preg juan ([facility]); 34 weeks gestation of ([facility]) Start: 09-24-2024 End: 09-24-2024 ambulatory BABS DWAYNE Not Available Start: 09-10-2024 End: 09-10-2024 Bamboo flowsheet Deandra GRIJALVA Work Phone: [facility] Start: 09-10-2024 End: 09-10-2024 Bamboo flowsheet Deandra GRIJALVA Work Phone: [facility] Start: 09-10-2024 End: 09-10-2024 flow sheet Deandra GRIJALVA Work Phone: [facility] Comment on above: Third trimester preg juan ([facility]); 32 weeks gestation of ([facility]) Start: 09-10-2024 End: 09-10-2024 ambulatory DEANDRA VEE Not Available Start: 08-27-2024 End: 08-27-2024 flow sheet Babs Dwayne DO Work Phone: [facility] Comment on above: Third trimester preg juan; 30 weeks gestation of Start: 08-27-2024 End: 08-27-2024 ambulatory BABS DWAYNE Not Available Start: 08-15-2024 End: 08-15-2024 flow sheet Deandra GRIJALVA Work Phone: [facility] Comment on above: Size of fetus incons istent with dates in second trimester (Primary Dx); 28 weeks gestation of ; Third trimester ; Gastroesophageal reflux in Start: 08-15-2024 End: 08-15-2024 ambulatory DEANDRA VEE Not Available Start: 08-15-2024 End: 08-15-2024 Bamboo flowsheet Deandra GRIJALVA Work Phone: [facility] Start: 08-15-2024 End: 08-15-2024 Bamboo flowsheet Deandra GRIJALVA Work Phone: [facility] Start: 08-03-2024 End: 08-03-2024 Clinisync Result Encounter Babs Dwayne DO Work Phone: [facility] External Department Unsolicited Start: 08-03-2024 End: [...] Start: 03-30-2024 End: 03-30-2024 ambulatory [address]ne [facility] Work Phone: Start: 03-30-2024 End: 03-30-2024 Departed Referred Babs Dwayne DO Work Phone: [facility] Start: 03-30-2024 End: 03-30-2024 Office outpatient [...] 01-31-2024 ambulatory BABS DWAYNE Not Available Start: 10-28-2023 End: 10-28-2023 ambulatory JOSEPHINE Cramer [facility] Start: 10-28-2023 Encounter for genera l adult medical examination without abnormal findings [facility] Start: 08-28-2021 End: 08-28-[address] RUTH PINEDA Facility:H1 Start: 08-14-[address] JOSEPHINE CANADA Facility :H1 Start: 07-22-2017 End: 07-25-2017 [facility] Procedures Date Procedure Procedure Detail Performing [...] dip stick/tabl et rgnt non-auto w/o micrscp Bbas Dwayne DO Work Phone: Start: 05-28-2024 RECURRENT [...] Visit [facility] [address] [place] [address] Babs Rice, DO [address] [place], [place] [id number] [facility] Start: 10-23-2024 End: 10-23-2024 Patient encounter procedure [facility] Comment on above: Arrived Start: 10-15-2024 End: 10-15-2024 Patient encounter procedure [facility] Comment on above: Arrived Start: 10-09-2024 End: 10-09-2025 CULTURE, GROUP B STREP WITH SUSCEPTIBLITY CULTURE, GROUP B STREP WITH SUSCEPTIBLITY Lab Routine Third trimester ([facility]) Expected: 10/09/2024, Expires: 10/09/2025 [facility] Work Phone: Comment on above: Expected: 10/09/2024 , Expires: 10/09/2025 Start: 10-09-2024 End: 10-09-2024 Patient encounter procedure 10/09/2024 10:40 AM EDT Routine [facility] [address] [place] [address] Babs Rice, DO [address] [place], [place] [id number] [facility] Start: 09-24-2024 End: 09-24-2024 [...] mellitus screening Expected: 07/23/2024 (Approximate), Expires: 07/23/2025 [facility] Work Phone: Comment on above: Expected: 07/23/2024 (Approximate), Expires: 07/23/2025 Start: 07-23-2024 End: 07-23-2025 Measurement of glucose 1 hour after glucose challenge for glucose tolerance test Glucose tolerance, 1 hour Lab Routine Diabetes mellitus screening Expected: 07/23/2024 (Approximate), Expires: 07/23/2025 [facility] Comment on above: Expected: 07/23/2024 (Approximate), Expires: 07/23/2025 Start: 07-23-2024 End: 07-23-2024 Patient encounter procedure [facility] Comment on above: Arrived Start: 06-26-2024 End: 06-26-2024 Professional / ancillary services management 06/26/2024 9:00 AM EDT Ancillary Procedure [facility] [address] [place] [address] [facility] Start: 06-25-2024 End: [...] for anatomic survey Expected: 05/28/2024, Expires: 05/28/2025 [facility] Comment on above: Expected: 05/28/2024 , Expires: 05/28/2025 Start: 05-28-2024 End: 05-28-2024 Patient encounter procedure [facility] Comment on above: Arrived Start: 04-30-2024 End: 04-30-2024 Patient encounter procedure [facility] Comment on above: Arrived Start: 03-30-2024 End: 03-30-2025 ABO/Rh ABO/Rh Lab Routine Missed menses , unspecified gestational age Expected: 03/30/2024 (Approximate), Expires: 03/30/2025 [facility] Comment on above: Expected: 03/30/2024 (Approximate), Expires: 03/30/2025 Start: 03-30-2024 Bacteria identified in Urine by Culture [facility] Comment on above: Ordered: 03/30/2024 Start: 03-30-2024 End: 03-30-2025 Blood type and Indirect antibody screen panel - Blood Type and screen Lab Routine Missed menses , unspecified gestational age Expected: 03/30/2024 (Approximate), Expires: 03/30/2025 [facility] Work Phone: Comment on above: Expected: 03/30/2024 (Approximate), Expires: 03/30/2025 Start: 03-30-2024 End: 03-30-2025 Drugs of abuse panel - Urine by Screen method Rapid drug screen, urine Lab Routine , unspecified gestational age Encounter for supervision of normal first in first trimester Expected: 03/30/2024 (Approximate), Expires: 03/30/2025 [facility] Comment on above: Expected: 03/30/2024 (Approximate), Expires: 03/30/2025 Start: 03-30-2024 Urine culture [facility] Start: 01-31-2024 End: 01-30-2025 US for US PELVIS-TRANSVAG IF INDICATED Imaging Routine Dysfunctional uterine bleeding Expected: 01/31/2024 (Approximate), Expires: 01/30/2025 [facility] Work Phone: Comment on above: Expected: 01/31/2024 (Approximate), Expires: 01/30/2025 Start: 01-31-2024 End: 01-31-2024 Patient encounter procedure 01/31/2024 8:40 AM EST Office Visit [facility] [address] [place] [address] Babs Rice DO [address] [place] [address] Arrived [facility] Comment on above: Arrived CBC W Auto Different ial panel - Blood CBC and differential Lab Routine Missed menses , unspecified gestational age Ordered: 03/30/2024 [facility] Comment on above: Ordered: 03/30/2024 CHLAMYDIA TRACHOMATI S (GENITO/STI) CHLAMYDIA TRACHOMATIS (GENITO/STI) Lab Routine STD exposure Vaginal discharge Ordered: 05/28/2024 [facility] Comment on above: Ordered: 05/28/2024 Hemoglobin A1c/Hemoglobin.total in Blood Hemoglobin A1c Lab Routine Missed menses , unspecified gestational age Ordered: 03/30/2024 [facility] Comment on above: Ordered: 03/30/2024 Hepatitis B virus surface Ag [Presence] in Serum or Plasma by Immunoassay Hepatitis B surface antigen Lab Routine Missed menses , unspecified gestational age Ordered: 03/30/2024 [facility] Comment on above: Ordered: 03/30/2024 Hepatitis C virus Ab [Presence] in Serum or Plasma by Immunoassay Hepatitis C antibody Lab Routine Missed menses , unspecified gestational age Ordered: 03/30/2024 [facility] Comment on above: Ordered: 03/30/2024 HIV-1/HIV-2 antigen/antibody combination immunoassay HIV-1 and HIV-2 antibodies Lab Routine Missed menses , unspecified gestational age Ordered: 03/30/2024 [facility] Comment on above: Ordered: 03/30/2024 Neisseria gonorrhoea e DNA [Presence] in Unspecified specimen by DELILAH with probe detection Neisseria gonorrhea DNA probe, direct Lab Routine STD exposure Vaginal discharge Ordered: 05/28/2024 [facility] Comment on above: Ordered: 05/28/2024 Reagin Ab [Presence] in Serum by RPR RPR Lab Routine Missed menses , unspecified gestational age Ordered: 03/30/2024 [facility] Comment on above: Ordered: 03/30/2024 Rubella antibody, IgG Rubella an tibody, IgG Lab Routine Missed menses , unspecified gestational age Ordered: 03/30/2024 [facility] Comment on above: Ordered: 03/30/2024 SURESWAB(R) ADVANCED VAGINITIS PLUS, TMA SURESWAB(R) ADVANCED VAGINITIS PLUS, TMA Pathology and Cytology Routine STD exposure Vaginal discharge Ordered: 05/28/2024 [facility] Work Phone: Comment on above: Ordered: 05/28/2024 Payers Date Payer Category Payer Private Health Insurance [id number] 2017 Unknown [id number] 1991 Unknown [id number] 2.16.84 0.1.691518.3.579.2.593 1991 Unknown [id number] 2.16.84 0.1.085264.3.579.2.593 1991 Unknown [id number] 2.16.8 40.1.484611.3.579.2.1286 1991 Unknown [id number] 2.16.8 40.1.755802.3.579.2.1286 1991 Unknown [id number] 2.16.8 40.1.178329.3.579.2.1259 1991 Unknown [id number] 2.16.8 40.1.284302.3.579.2.1259 1991 Unknown [id number] 2.16.8 40.1.477326.3.579.2.1259 1991 Unknown [id number] 2.16.8 40.1.428411.3.579.2.9 1991 Unknown [id number] 2.16.8 40.1.764917.3.579.2.9 1991 Unknown [id number] 2.16.8 40.1.692180.3.579.2.1258 1991 Unknown [id number] 2.16.84 0.1.735876.3.579.2.9 1991 Unknown [id number] 2.16.84 0.1.741641.3.579.2.1258 1991 Unknown [id number] 2.16.84 0.1.121670.3.579.2.9 1991 Unknown [id number] 2.16.84 0.1.846356.3.579.2.1258 1991 Unknown [id number] 2.16.84 0.1.414612.3.579.2.9 1991 Unknown [id number] 2.16.84 0.1.400052.3.579.2.9 1991 Unknown [id number] 2.16.84 0.1.336128.3.579.2.9 1991 Unknown [id number] 2.16.84 0.1.522110.3.579.2.1258 1991 Unknown [id number] 2.16.84 0.1.385612.3.579.2.9 1991 Unknown [id number] 2.16.84 0.1.253465.3.579.2.1259 1959 Self-pay 1959 Unknown [id number] Unknown [id number] 2.16.8 40.1.471975.3.579.2.531 Social History Date Type Detail Facility Start: 10-31-2023 Tobacco smoking stat [facility] Never smoked tobacco [facility] Start: 10-31-2023 Tobacco use and exposure Smokeless tobacco non-user [facility] Start: 10-31-2023 End: 11-07-2024 Alcoholic beverage intake Lifetime non-drinker (finding) [facility] Start: 10-31-2023 End: 01-31-2024 History of Social function [facility] Start: 10-31-2023 End: 01-31-2024 Tobacco use panel [facility] Start: 1990 Sex assigned at Female [facility] Start: 09-07-2022 Gender identity Identifies as female gender (finding) [facility] Start: 02-13-2024 [facility] Tobacco smoking stat us NHIS Unknown if ever smoked [facility] Work Phone: Start: 03-31-2024 Sex Female (finding) [place] Clinical Notes 01-31-2024 to 11-07-2024 Georgina Woodruff NP - 11/07/2024 2:20 PM RUDI Montgomery - 10/23/2024 11:10 AM Laverne Rossi, [employer] - 10/15/2024 9:50 AM EDTahir Perez, [facility] - 10/09/2024 10:40 AM EDT Note Date [...] nursing note reviewed. Exam conducted with a hoop flaring machine operator present. Vitals: Estimated body mass index is [...] Georgina Woodruff NP documented in this encounter [facility] 10-23-2024 History of Presen t illness Narrative [...] ASSESSMENT & PLAN ICD-10-CM 1. Third trimester ([facility]) Z34.93 POCT urinalysis dipstick manually resulted 2. 38 weeks gestation of ([facility]) Z3A.38 Return OB: Patient presents today for [...] Babs Rice DO documented in this encounter [facility] 10-15-2024 History of Presen t [...] nursing note reviewed. Exam conducted with a hoop flaring machine operator present. Vitals: Estimated body mass index is 30.51 kg/m as calculated from the following: Height as of 10/31/23: 5' 6 . Weight as of this encounter: 189 lb. BP: 122/76 Patient's last menstrual period was 01/30/2024 (exact date). ASSESSMENT & PLAN ICD-10-CM 1. Third trimester ([facility]) Z34.93 2. 37 weeks gestation of ([facility]) Z3A.37 Patient presents today for a routine [...] Babs Rice DO documented in this encounter [facility] 10-09-2024 History of Presen t [...] nursing note reviewed. Exam conducted with a hoop flaring machine operator present. Vitals: Estimated body mass index is 30.15 kg/m as calculated from the following: Height as of 10/31/23: 5' 6 . Weight as of this encounter: 186 lb 12.8 oz. BP: 110/76 Patient's last menstrual period was 01/30/2024 (exact date). ASSESSMENT & PLAN ICD-10-CM 1. 36 weeks gestation of ([facility]) Z3A.36 POCT urinalysis dipstick manually resulted 2. Third trimester ([facility]) Z34.93 POCT urinalysis dipstick manually resulted CULTURE, GROUP B STREP WITH SUSCEPTIBLITY CULTURE, GROUP B STREP WITH SUSCEPTIBLITY 3. Sinusitis, unspecified chronicity, unspecified location J32.9 4. Gastroesophageal reflux in ([facility]) O99.619 K21.9 Patient is doing well but [...] Babs Rice DO documented in this encounter [facility] 09-24-2024 History of Presen t [...] Past Medical History: Diagnosis Date Arthritis Asthma ([facility]) MARIANO II (cervical intraepithelial neoplasia [...] nursing note reviewed. Exam conducted with a hoop flaring machine operator present. Vitals: Estimated body mass index is 29.7 kg/m as calculated from the following: Height as of 10/31/23: 5' 6 . Weight as of this encounter: 184 lb. BP: 118/72 Patient's last menstrual period was 01/30/2024 (exact date). ASSESSMENT & PLAN ICD-10-CM 1. Third trimester ([facility]) Z34.93 POCT urinalysis dipstick manually resulted 2. 34 weeks gestation of ([facility]) Z3A.34 Return OB: Patient presents [...] Babs Rice DO documented in this encounter [facility] 09-10-2024 History of Presen t [...] ASSESSMENT & PLAN ICD-10-CM 1. Third trimester ([facility]) Z34.93 2. 32 weeks gestation of ([facility]) Z3A.32 Return OB: Patient presents today for [...] of: RUDI [place] documented in this encounter [facility] 08-27-2024 History of Presen t [...] nursing note reviewed. Exam conducted with a hoop flaring machine operator present. Vitals: Estimated body mass index is [...] Babs Rice DO documented in this encounter [facility] 08-15-2024 History of Presen t [...] of: RUDI [place] documented in this encounter [facility] 07-23-2024 History of Presen t [...] nursing note reviewed. Exam conducted with a hoop flaring machine operator present. Vitals: Estimated body mass index is [...] Babs Rice DO documented in this encounter [facility] 06-25-2024 History of Presen t [...] nursing note reviewed. Exam conducted with a hoop flaring machine operator present. Vitals: Estimated body mass index is [...] Babs Rice DO documented in this encounter [facility] 05-28-2024 History of Presen t [...] nursing note reviewed. Exam conducted with a hoop flaring machine operator present. Vitals: Estimated body mass index is [...] obtained without difficulty and [facility]. Orders Placed This Encounter Procedures US OB 14+ weeks anatomy scan CHLAMYDIA TRACHOMATIS (GENITO/STI) Neisseria gonorrhea DNA probe, direct Alpha fetoprotein, maternal POCT urinalysis dipstick manually resulted Follow Up: Patient is to return to our office in 4 weeks for routine OB appointment Documented by Sarah Rossi LPN on behalf of: Babs Rice DO documented in this encounter [facility] 04-30-2024 History of Presen t [...] nursing note reviewed. Exam conducted with a hoop flaring machine operator present. Vitals: Estimated body mass index is [...] or undercooked meat, and stay away from [facility]. Patient has been consulted regarding any further [...] of: daya espana documented in this encounter [facility] 03-30-2024 History of Presen t [...] Past Medical History: Diagnosis Date Arthritis Asthma ([facility]) MARIANO II (cervical intraepithelial neoplasia [...] or undercooked meat, and stay away from [facility]. Patient has also been advised to not [...] concerns or questions. Nurse Visit Completed by: BUCK Jensenally signed by Sheri Reyna LPN at 03/30/2024 10:36 AM EST documented in this encounter [facility] 01-31-2024 History of Presen t [...] nursing note reviewed. Exam conducted with a hoop flaring machine operator present. Vitals: Estimated body mass index is [...] this [facility]: Evaluation note* Diagnosis Second [...] section and content) DATE CREATED AUTHOR 09/15/2017 [facility] DATE CREATED AUTHOR AUTHOR'S ORGANIZ ATION 10/19/2021 [facility] DATE CREATED AUTHOR AUTHOR'S ORGANIZ ATION 11/01/2023 [facility] DATE CREATED AUTHOR AUTHOR'S ORGANIZ ATION 04/07/2024 [facility] DATE CREATED AUTHOR AUTHOR'S ORGANIZ ATION 11/09/2024 [facility] d[facility] Specialists EPIC Care Teams (unrecognized sec tion and content) Cigar Packing Examiner Relationship Specialty Start Date End Date Josephine Canada MD [address] [place] [facility] [place] [address] PCP - General 10/18/22 Cigar Packing Examiner Relationship Specialty Start Date End Date Josephine Canada MD [address] [place] [address] PCP - General 10/18/22 Cigar Packing Examiner Relationship Specialty Start Date End Date Josephine Canada MD [address] [place] [facility] [place] [address] PCP - General 10/18/22 Cigar Packing Examiner Relationship Specialty Start Date End Date Josephine Canada MD [address] [place] [facility] [place] [address] PCP - General 10/18/22 Team Status: Inactive Member Role Status Dates Babs Rice DO Attending Provider Active Start : March 30, 2024 End: March 30, 2024 Cigar Packing Examiner Relationship Specialty Start Date End Date Josephine Canada MD [address] [place] [facility] [place] [address] PCP - General 10/18/22 Cigar Packing Examiner Relationship Specialty Start Date End Date Josephine Canada MD [address] [facility] [place] [address] PCP - General 10/18/22 Cigar Packing Examiner Relationship Specialty Start Date End Date Josephine Canada MD [address] [facility] [place] [address] PCP - General 10/18/22 Cigar Packing Examiner Relationship Specialty Start Date End Date Josephine Canada MD [address] [place] [facility] [place] [address] PCP - General 10/18/22 Cigar Packing Examiner Relationship Specialty Start Date End Date Jospehine Canada MD PCP - General 10/18/22 Cigar Packing Examiner Relationship Specialty Start Date End Date Josephine Canada MD [address] [facility], [facility] PCP - General 10/18/22 Cigar Packing Examiner Relationship Specialty Start Date End Date Josephine Canada MD [address] [facility], [facility] PCP - General 10/18/22 Cigar Packing Examiner Relationship Specialty Start Date End Date Josephine Canada MD [address] [facility], [facility] PCP - General 10/18/22 Cigar Packing Examiner Relationship Specialty Start Date End Date Josephine Canada MD [address] [place] [facility] [place] [address] PCP - General 10/18/22 Cigar Packing Examiner Relationship Specialty Start Date End Date Josephine Canada MD [address] [facility] [place] [address] PCP - General 10/18/22 Cigar Packing Examiner Relationship Specialty Start Date End Date Josephine Canada MD [address] [facility] [place] [address] [phone] PCP - General 10/18/22 Cigar Packing Examiner Relationship Specialty Start Date End Date Josephine Canada MD [address] [facility] [place] [address] [phone] PCP - General 10/18/22 Reason for Visit [...] BE BASED ON THE PRIMARY CLINICAL RECORDS. [facility]. provides no warranty or guarantee of the accuracy or completeness of information in this document.
--- OUTSIDE RECORDS SUMMARY | 2024-11-13 08:39 | XMS_ITS | Encounter Summary ---
Author Organization [facility] Address [address] [place] [address] Care Team Providers Care Nurse Transitional Name Role Phone Agusto Canada MD Primary Care Provider [phone] Encounter Details Date Type Department Care Team (Late st Contact Info) Description 11/04/2024 Abstract [facility] [address] [place] [id number] Faby Forte, JOSSY [address] [place], [place] [id number] Social History Tobacco Use Types Packs/Day Years Used Date Smoking Tobacco: Never Smokeless Tobacco: Never Alcohol Use Standard Drinks/Week Comments Never 0 (1 standard drink = 0.6 oz pur e alcohol) Comments Yes Sex and Gender Information Value Date Recorded Sex Assigned at Female 09/07/2022 3:40 PM EDT Legal Sex Female 11:47 PM EDT Gender Identity Female 09/07/2022 3:40 PM EDT Sexual Orientation Not on file documented as of this encounter Plan of Treatment Upcoming Encounters Date Type Department Care Team (Late st Contact Info) Description 12/12/2024 2:00 PM EDT [facility] [address] [facility] [place] [address] Deandra Black PA [address] [place], [place] [id number] documented as of this encounter Visit Diagnoses Not on filedocumented in this encounter Care Teams Nurse Transitional Relationship Specialty Start Date End Date Agusto Canada MD [address] [place] [phone] PCP - General 10/18/22 documented as of this encounter
--- OUTSIDE RECORDS SUMMARY | 2024-11-13 08:39 | XMS_ITS | Encounter Summary ---
Author Organization [facility] Address [address] [place] [address] Care Team Providers Care Fire Information Officer Name Role Phone Agusto Canada MD Primary Care Provider [phone] Encounter Details Date Type Department Care Team (Late st Contact Info) Description 11/01/2024 Clinisync Result Encounter [facility] External Department Unsolicited Zelalem Rice DO [address] [place], [place] [address] Social History Tobacco Use Types Packs/Day Years [...] 12/12/2024 2:00 PM EDT Visit [facility]adyn OBGYAsmita [address] [place] [address] Deandra Black PA [address] [place], [facility] documented as of this encounter Procedures Procedure Name Priority Date/Time Associated Diagnosis Comments ALL CBC WITH AUTO DIFF Routine 11/01/2024 6:00 AM EDT [facility] DRUG SCREEN RAPID (URINE) Routine 11/01/2024 5:30 AM EDT documented in this encounter Results * (ABNORMAL) ALL CBC WITH AUTO DIFF (11/01/2024 6:00 AM EDT) [facility] WBC 11.1(H) 4.0 - 11.0 10 3/uL TBH TBH RBC 3.82(L) 4.20 - 5.40 10 6/uL TBH TBH HGB 10.4(L) 12.0 - 16.0 g/dL TBH TBH HCT 30.8(L) 36.0 - 48.0 % TBH TBH MCV 80.6(L) 81.0 - 99.0 fL TBH TBH MCH 27.2 26.7 - 34.0 pg TBH TBH MCHC 33.8 29.9 - 35.2 g/dL TBH TBH RDW 12.9 11.0 - 15.0 % TBH TBH PLT 197 150 - 450 10 3/uL TBH TBH MPV 11.4 9.5 - 13.5 fL TBH NEUTROPHILS PERCENT AUTO 63.5 43.0 - 75.0 % TBH LYMPHOCYTES PERCENT AUTO 26.0 20.5 - 60.0 % TBH MONOCYTES PERCENT AUTO 8.8 1.7 - 12.0 % TBH TBH EO % 1.0 0.9 - 7.0 % TBH BASOPHILS PERCENT AUTO 0.3 0.2 - 2.0 % TBH IMMATURE GRANULOCYTES PCT AUTO 0.4 0.0 - 0.5 % TBH NEUTROPHILS ABSOLUTE AUTO 7.1(H) 1.4 - 6.5 10 3/uL TBH LYMPHOCYTES ABSOLUTE AUTO 2.9 1.2 - 3.8 10 3/uL TBH MONOCYTES ABSOLUTE AUTO 1.0(H) 0.3 - 0.8 10 3/uL TBH TBH EO # 0.1 0.0 - 0.7 10 3/uL TBH BASOPHILS ABSOLUTE AUTO 0.0 0.0 - 0.1 10 3/uL [facility]H IMMATURE GRANULOCYTES ABS AUTO 0.04(H) 0.00 - 0.03 10 3/uL [facility] 11/01/2024 6:00 AM EDT 11/01/2024 6:10 AM EDT Narrative CLIN[facility]NC - 11/01/2024 6:54 AM EDT us Zelalem Dwayne DO CLINIS[facility]NC Final Result CLIN[facility] * [facility]H DRUG SCREEN RAPID (URINE) (11/01/2024 5:30 AM EDT) Pathologist [facility] CANNABINOID SCREEN URINE NEGATIVE NEGATIVE TBH PHENCYCLIDINE SCREEN URINE NEGATIVE NEGATIVE TBH COCAINE SCREEN URINE NEGATIVE NEGATIVE TBH METHAMPHETAMINES SCREEN URINE NEGATIVE NEGATIVE TBH OPIATE SCREEN URINE NEGATIVE NEGATIVE TBH AMPHETAMINE SCREEN URINE NEGATIVE NEGATIVE TBH BENZODIAZEPINES SCREEN URINE NEGATIVE NEGATIVE TBH TRICYCLIC ANTIDEPRESSANT URINE NEGATIVE NEGATIVE TBH METHADONE SCREEN URINE NEGATIVE NEGATIVE TBH BARBITURATES SCREEN URINE NEGATIVE NEGATIVE TBH OXYCODONE SCREEN URINE NEGATIVE NEGATIVE TBH BUPRENORPHINE SCREEN URINE NEGATIVE NEGATIVE TBH Comment: DRUG CLASS TEST SYSTEM CUT-OFF CONCENTRATIONS ARE FOLLOWS: AMP (Amphetamine): 500 ng/mL BAR (Barbiturates): 200 ng/mL BZO (Benzodiazepines): 150 ng/mL BUP (Buprenorphine): 10 ng/mL FAUSTINO (Cocaine): 150 ng/mL mAMP (Methamphetamine): 500 ng/mL MTD (Methadone): 200 ng/mL OPI (Opiates): 100 ng/mL OXY (Oxycodone): 100 ng/mL PCP (Phencyclidine): 25 ng/mL THC (Cannabinoids): 50 ng/mL TCA (Trycyclic Antidepressants): 300 ng/mL 11/01/2024 5:30 AM EDT 11/01/2024 6:10 AM EDT Narrative CLINISYNC - 11/01/2024 6:24 AM EDT us Zelalem Dwayne DO CLINISYNC Final Result [facility] TB documented in this encounter Visit Diagnoses Not on filedocumented in this encounter Care Teams Fire Information Officer Relationship Specialty Start Date End Date Agusto Canada MD [address] [place] [address] PCP - General 10/18/22 documented as of this encounter
--- OUTSIDE RECORDS SUMMARY | 2024-11-13 08:39 | XMS_ITS | Encounter Summary ---
Author Organization [facility] Address [address] [place] [address] Care Team Providers Care Nail Professional Name Role Phone Agusto Canada MD Primary Care Provider [phone] Encounter Details Date Type Department Care Team (Late st Contact Info) Description 11/02/2024 Clinisync Result Encounter [facility] External Department Unsolicited Zelalem Rice DO [address] [place], [place] [address] Social History Tobacco Use Types Packs/Day Years [...] PM EDT Visit [facility] Jadyn [facility]BG[facility]Asmita [address] [place] [address] Deandra Black PA [address] [place] [address] documented as of this encounter Procedures Procedure Name Priority Date/Time Associated Diagnosis Comments ALL CBC WITH AUTO DIFF Routine 11/02/2024 5:59 AM EDT documented in this encounter Results * (ABNORMAL) ALL CBC WITH AUTO DIFF (11/02/2024 5:59 AM EDT) TBH WBC 14.8(H) 4.0 - 11.0 10 3/uL TBH TBH RBC 3.12(L) 4.20 - 5.40 10 6/uL TBH TBH HGB 8.4(L) 12.0 - 16.0 g/dL TBH TBH HCT 25.6(L) 36.0 - 48.0 % TBH TBH MCV 82.1 81.0 - 99.0 fL TBH TBH MCH 26.9 26.7 - 34.0 pg TBH TBH MCHC 32.8 29.9 - 35.2 g/dL TBH TBH RDW 12.9 11.0 - 15.0 % TBH TBH PLT 154 150 - 450 10 3/uL TBH TBH MPV 12.4 9.5 - 13.5 fL TBH NEUTROPHILS PERCENT AUTO 68.7 43.0 - 75.0 % TBH LYMPHOCYTES PERCENT AUTO 21.9 20.5 - 60.0 % TBH MONOCYTES PERCENT AUTO 8.2 1.7 - 12.0 % TBH TBH EO % 0.4(L) 0.9 - 7.0 % TBH BASOPHILS PERCENT AUTO 0.3 0.2 - 2.0 % TBH IMMATURE GRANULOCYTES PCT AUTO 0.5 0.0 - 0.5 % TBH NEUTROPHILS ABSOLUTE AUTO 10.2(H) 1.4 - 6.5 10 3/uL TBH LYMPHOCYTES ABSOLUTE AUTO 3.2 1.2 - 3.8 10 3/uL TBH MONOCYTES ABSOLUTE AUTO 1.2(H) 0.3 - 0.8 10 3/uL TBH TBH EO # 0.1 0.0 - 0.7 10 3/uL TBH BASOPHILS ABSOLUTE AUTO 0.0 0.0 - 0.1 10 3/uL TBH IMMATURE GRANULOCYTES ABS AUTO 0.07(H) 0.00 - 0.03 10 3/uL TBH 11/02/2024 5:59 AM EDT 11/02/2024 6:10 AM EDT Narrative CLINISYNC - 11/02/2024 6:15 AM EDT us Zelalem Rice DO CLINISYNC Final Result [facility] documented in this encounter Visit Diagnoses Not on filedocumented in this encounter Care Teams Nail Professional Relationship Specialty Start Date End Date Agusto Canada MD [address] [place] [phone] PCP - General 10/18/22 documented as of this encounter
--- OUTSIDE RECORDS SUMMARY | 2024-11-13 08:39 | XMS_ITS | Encounter Summary ---
Author Organization [facility] Address [address] [place] [address] Care Team Providers Care Inseam Trimming Machine Operator Name Role Phone Agusto Canada MD Primary Care Provider [phone] Encounter Details Date Type Department Care Team (Late Contact Info) Description 11/07/2024 Bamboo flowsheet [facility] [address] [place] [address] Deandra Black, PA [address] [place], [place] [address] Social History Tobacco Use Types Packs/Day Years [...] PM EDT Visit [facility] Jadyn ESTRADA [address] [place] [phone] Deandra Black, PA [address] [place] [place] [address] documented as of this encounter Visit Diagnoses Not on filedocumented in this encounter Care Teams Inseam Trimming Machine Operator Relationship Specialty Start Date End Date Agusto Canada MD [address] [place] [phone] PCP - General 10/18/22 documented as of this encounter
--- OUTSIDE RECORDS SUMMARY | 2024-11-13 08:40 | XMS_ITS | Encounter Summary ---
Author Organization [facility] Address [address] [place] [address] Care Team Providers Care Human Performance Consultant Name Role Phone Agusto Canada MD Primary Care Provider [phone] Encounter Details Date Type Department Care Team (Late st Contact Info) Description 04/25/2024 Abstract [facility] Jadyn ESTRADA [address] [address] Zelalem Rice DO [address] [place], [place] [address] Social History Tobacco Use Types Packs/Day Years [...] 2:00 PM EDT Visit [facility] [address] [place] [address] Deandra Black PA [address] [place], [facility]11 documented as of this encounter Visit Diagnoses Not on filedocumented in this encounter Care Teams Human Performance Consultant Relationship Specialty Start Date End Date Agusto Canada MD [address] [place] [phone] PCP - General 10/18/22 documented as of this encounter
--- OUTSIDE RECORDS SUMMARY | 2024-11-13 08:40 | XMS_ITS | Patient Health Record ---
Author Organization The [facility] in [place] Address [address] [place] [address] Care Team Providers Care Carbonation Tester Name Role Phone Torrey Canada Primary Care Provider [phone] Allergies Allergen (clinical drug ingredient) Drug/Non Drug Allergy documented on EMR Reaction Allergy Type Onset Date Status Substance with sulfonamide structure and antibacterial mechanism of action (substance) Sulfa Antibiotics hives Drug Allergy Active Results Component Value Reference Range Notes Type and Screen Reviewed date:04/01/2024 05:00:27 PM Interpretation: Performing Lab: Notes/Report: [facility] , Blood Type O Positive Antibody Screen NEGATIVE HCV Antibody RFX to Quant PC R Reviewed date:04/01/2024 05:00:27 PM Interpretation: Performing Lab: Notes/Report: [facility] , HCV Ab Non Reactive Non Reactive Interpretation: Comment . Not infected with HCV unless early or acute infection is infection. individual), or other evidence exists to indicate HCV suspected (which may be delayed in an immunocompromised Performing Lab: see note LC - [facility] LB Box Test Reviewed date:04/03/2024 12:33:13 PM Interpretation: Performing Lab: Notes/Report: URINE CULTURE [facility] , BOX Test Sent Out URINE CULTURE BOX Test Reference Lab [facility] BOX Test Date Sent 03/30/24 BOX Test Result SEE SCANNED REPORT Performing Lab: see note ML - [facility] LB Box Test Reviewed date:04/16/2024 01:40:45 PM Interpretation: Performing Lab: Notes/Report: UN[facility] BOX [facility] , BOX Test Sent Out [facility] BOX Test Reference Lab [facility] BOX Test Date Sent 04/13/24 Performing Lab: see note ML - [facility] LB CBC AUTO DIFF Reviewed date:08/05/2024 05:39:44 PM Interpretation: Performing Lab: Notes/Report: [facility] , White Blood Count 11.3 4.0-11.0 10 3/uL Red Blood Count 3.88 4.20-5.40 10 6/uL Hemoglobin 12.2 12.0-16.0 g/dL Hematocrit 35.4 36.0-48.0 % Mean Corpuscular Volume 91.2 81.0-99.0 fL Mean Corpuscular Hemoglobin 31.4 26.7-34.0 pg Mean Corpuscular HGB Conc 34.5 29.9-35.2 g/dL Red Cell Distribution Width 12.0 11.0-15.0 % Platelet Count 203 150-450 10 3/uL Mean Platelet Volume 10.3 9.5-13.5 fL Neutrophils Percent Auto 74.5 43.0-75.0 % Lymphocytes Percent Auto 17.6 20.5-60.0 % Monocytes Percent Auto 6.0 1.7-12.0 % Eosinophils Percent Auto 1.2 0.9-7.0 % Basophils Percent Auto 0.3 0.2-2.0 % Immature Granulocytes Pct Auto 0.4 0.0-0.5 % Neutrophils Absolute Auto 8.4 1.4-6.5 10 3/uL Lymphocytes Absolute Auto 2.0 1.2-3.8 10 3/uL Monocytes Absolute Auto 0.7 0.3-0.8 10 3/uL Eosinophils Absolute Auto 0.1 0.0-0.7 10 3/uL Basophils Absolute Auto 0.0 0.0-0.1 10 3/uL Immature Granulocytes Abs Auto 0.04 0.00-0.03 10 3/uL Performing Lab: see note ML - [facility] LB DRUG SCREEN RAPID (URINE) Reviewed date:11/01/2024 08:32:31 AM Interpretation: Performing Lab: Notes/Report: [facility] , Cannabinoid Screen Urine NEGATIVE NEGATIVE Phencyclidine Screen Urine NEGATIVE NEGATIVE Cocaine Screen Urine NEGATIVE NEGATIVE Methamphetamines Screen Urine NEGATIVE NEGATIVE Opiate Screen Urine NEGATIVE NEGATIVE Amphetamine Screen Urine NEGATIVE NEGATIVE Benzodiazepines Screen Urine NEGATIVE NEGATIVE Tricyclic Antidepressant Urine NEGATIVE NEGATIVE Methadone Screen Urine NEGATIVE NEGATIVE Barbiturates Screen Urine NEGATIVE NEGATIVE Oxycodone Screen Urine NEGATIVE NEGATIVE Buprenorphine Screen Urine NEGATIVE NEGATIVE PCP (Phencyclidine): 25 ng/mL TCA (Trycyclic Antidepressants): 300 ng/mL mAMP (Methamphetamine): 500 ng/mL AMP (Amphetamine): 500 ng/mL OXY (Oxycodone): 100 ng/mL FOLLOWS: BZO (Benzodiazepines): 150 ng/mL DRUG CLASS TEST SYSTEM CUT-OFF CONCENTRATIONS ARE FAUSTINO (Cocaine): 150 ng/mL THC (Cannabinoids): 50 ng/mL OPI (Opiates): 100 ng/mL MTD (Methadone): 200 ng/mL BAR (Barbiturates): 200 ng/mL BUP (Buprenorphine): 10 ng/mL Performing Lab: see note ML - [facility] LB Type and Screen Reviewed date:11/01/2024 10:20:55 PM Interpretation: Performing Lab: Notes/Report: [facility] , Blood Type O Positive Antibody Screen NEGATIVE Strep Gp B Culture+Rflx Reviewed date:10/13/2024 02:40:11 PM Interpretation: Performing Lab: Notes/Report: [facility] , Strep Gp B Culture+Rflx See Below For Report Strep Gp B Culture+Rflx Strep Gp B Culture+Rflx Negative Strep Gp B Culture+Rflx Strep Gp B Culture+Rflx Centers for Dise ase Control and Prevention (CDC) and Strep Gp B Culture+Rflx Strep Gp B Culture+Rflx [place] [employer] s of Obstetricians and Gynecologists Strep Gp B Culture+Rflx Strep Gp B Culture+Rflx (ACOG) guideline s for prevention of group B Strep Gp B Culture+Rflx Strep Gp B Culture+Rflx streptococcal (G BS) disease specify co-collection of Strep Gp B Culture+Rflx Strep Gp B Culture+Rflx a vaginal and re ctal swab specimen to maximize Strep Gp B Culture+Rflx Strep Gp B Culture+Rflx sensitivity of G BS detection. Per the CDC and ACOG, Strep Gp B Culture+Rflx Strep Gp B Culture+Rflx swabbing both th e lower vagina and rectum Strep Gp B Culture+Rflx Strep Gp B Culture+Rflx substantially in creases the yield of detection Strep Gp B Culture+Rflx Strep Gp B Culture+Rflx compared with sa mpling the vagina alone. Strep Gp B Culture+Rflx Strep Gp B Culture+Rflx Penicillin G, ampicillin, or cefazolin are indicated Strep Gp B Culture+Rflx Strep Gp B Culture+Rflx for intrapartum prophylaxis of GBS Strep Gp B Culture+Rflx Strep Gp B Culture+Rflx colonization. Re flex susceptibility testing should be Strep Gp B Culture+Rflx Strep Gp B Culture+Rflx performed prior to use of clindamycin only on GBS Strep Gp B Culture+Rflx Strep Gp B Culture+Rflx isolates from penicillin-allergic women who are Strep Gp B Culture+Rflx Strep Gp B Culture+Rflx considered a hig h risk for anaphylaxis. Treatment with Strep Gp B Culture+Rflx Strep Gp B Culture+Rflx vancomycin witho ut additional testing is warranted if Strep Gp B Culture+Rflx Strep Gp B Culture+Rflx resistance to clindamycin is noted. Strep Gp B Culture+Rflx Strep Gp B Culture+Rflx Performed at: - [facility] [place] Strep Gp B Culture+Rflx Strep Gp B Culture+Rflx [address] [place], [place] [id number] Strep Gp B Culture+Rflx Strep Gp B Culture+Rflx Director Operations Broadcast: Gayle Carrizales PhD, Phone: [phone] Strep Gp B Culture+Rflx Performing Lab: see note LC - [facility] LB SEE REPORT - Tire Sorter Id information not found for OBX-specific reproducer legend Glucose 1 Hour Reviewed date:08/05/2024 05:39:44 PM Interpretation: Performing Lab: Notes/Report: [facility] , Glucose 1 Hour 114 <130 mg/dL Performing Lab: see note ML - [facility] US OB anatomy Reviewed date:06/25/2024 09:34:41 PM Interpretation: Performing Lab: Notes/Report: Source Facility: [facility] [place] [address] [place] [address] Ultrasound Report Signed Patient: JOSELINE DICKERSON MR#: [id number] : 1990 Acct:[id number] Age/Sex: 33 / F ADM Date: 06/25/24 Loc: US Attending Dr: Babs Rice D.O. Ordering Physician: Babs Rice D.O. Date of Service: 06/25/24 Procedure(s): US OB anatomy Accession Number(s): [id number] cc: Babs Rice D.O.; Agusto Canada M.D. The [address] [address] Patient Name: JOSELINE DICKERSON MRN: [id number] date: 1990 Sex: F Assigned Patient Location: US Current Patient Location: US Accession/Order Number: [id number] Exam Date: 06/25/2024 21:20 Report Date: 06/25/2024 21:26 At the request of: BABS RCIE DO Procedure: US OB anatomy Obstetrical Ultrasound [...] Andrew Jordan M.D.06/25/2024 9:26 PM Dictation Location: [facility] Electronically authenticated by: [id number] Y Date: 06/25/2024 21:26 Dictated By: Andrew Jordan D.O. Signed By: 06/25/242127 DD/ 25 TD/TT: Metalizer Field Operation: The [address] [address] Ultrasound Report Signed Patient: ELVER DICKERSON MR#: [id number] : 1990 Acct:[id number] Age/Sex: 33 / F ADM Date: 06/25/24 Loc: US Attending Dr: Babs Rice D.O. Ordering Physician: Babs Rice D.O. Date of Service: 06/25/24 Procedure(s): US OB anatomy Accession Number(s): [id number] cc: Babs Rice D.O. ; Agusto Canada M.D. The [address] [address] Patient Name: JOSELINE DICKERSON MRN: [id number] date: 1990 Sex: F Assigned Patient Location: US Current Patient Location: US Accession/Order Numb er: [id number] Exam Date: 06/25/2024 21:20 Report Date: 06/25/2024 21:26 At the request of: BABS RICE DO Procedure: US OB anatomy Obstetrical Ultrasou nd for Fetus greater than 14 weeks HISTORY: anato my assessment heart rate is 157 bpm. The fetus is in cephalic presentation. The placenta is in a posterior position with normal appearance. The cervix has a length of 5.4cm. The estimated weight is 374 g. with percentile 31.1%. The ovaries are not visualized. No fluid identified in the cul-de-sac. Following navid suha identifiedalthough ventricles, cerebellum, posterior fossa, nose and lips , orbits, four-chamber heart, right ventricular outflow tract and left ventricular outflow tract, diaphragm, stomach, kidneys, cord insertion, bladder, umbilical arteries, three-vessel cord, spine, extremities. The biparietal diame ter measures 5.1cm consistent with 21 weeks 3 days. Head circumference measures 18.1cm consistent with 20 weeks 4 days. Abdominal circumfere nce measures 16.0cm consistent with 21 weeks 1 day. Femur length is 3.3c m consistent with 20 weeks 2 days. The average gestatio nal age is 20 weeks 6 days. Estimated due date i s 11/06/2024. somatic motion identified. U S/US OB anatomy IMPRESSION: Single l jenniffer intrauterine gestation 20 weeks 6 days. The anatomy as above. Impression dictated by: Andrew Jordan M.D.06/25/2024 9:26 PM Dictation Location: [facility] Electronically authenticated by: [id number] Y Date: 06/25/2024 21:26 Dictated By: Andrew Jordan D.O. Signed By: 06/25/242127 DD/ 25 TD/TT: Metalizer [employer] Operation: US OB cervical length Reviewed date:06/25/2024 09:34:41 PM Interpretation: Performing Lab: Notes/Report: Source Facility: [place] [address] Ultrasound Report Signed Patient: JOSELINE DICKERSON MR#: [id number] : 1990 Acct:[id number] Age/Sex: 33 / F ADM Date: 06/25/24 Loc: US Attending Dr: Babs Rice D.O. Ordering Physician: Babs Rice D.O. Date of Service: 06/25/24 Procedure(s): US OB cervical length Accession Number(s): [id number] cc: Babs Rice D.O.; Agusto Canada M.D. [place] [address] Patient Name: JOSELINE DICKERSON MRN: [facility]:[id number] date: 1990 Sex: F Assigned Patient Location: US Current Patient Location: US Accession/Order Number: [id number] Exam Date: 06/25/2024 21:26 Report Date: 06/25/2024 21:27 At the request of: BABS RICE DO Procedure: US OB cervical length Ultrasound assessment of cervical length Length of cervix 5.4 cm. The opening is closed. US/US OB cervical length IMPRESSION: 5.4 cm cervical length Impression dictated by: Andrew Jordan M.D.06/25/2024 9:27 PM Dictation Location: [facility] [facility] Electronically authenticated by: [id number] Y Date: 06/25/2024 21:27 Dictated By: Andrew Jordan D.O. Signed By: 06/25/242128 DD/ 26 TD/TT: Metalizer Field Operation: [place] [address] Ultrasound Report Signed Patient: ELVER DICKERSON MR#: [id number] : 1990 Acct:[id number] Age/Sex: 33 / F ADM Date: 06/25/24 Loc: US Attending Dr: Babs Rice D.O. Ordering Physician: Babs Rice D.O. Date of Service: 06/25/24 Procedure(s): US OB cervical length Accession Number(s): [id number] cc: Babs Rice D.O. ; Agusto Canada M.D. [place] [address] Patient Name: JOSELINE DICKERSON MRN: [id number] date: 1990 Sex: F Assigned Patient Location: US Current Patient Location: US Accession/Order Numb er: [id number] Exam Date: 06/25/2024 21:26 Report Date: 06/25/2024 21:27 At the request of: BABS RICE DO Procedure: US OB cervical length Ultrasound assessmen t of cervical length Length of cervix 5.4 cm. The opening is closed. U S/US OB cervical length IMPRESSION: 5.4 cm cervical length Impression dictated by: Andrew Jodran M.D.06/25/2024 9:27 PM Dictation Location: [employer] Electronically authenticated by: [id number] Y Date: 06/25/2024 21:27 Dictated By: Andrew Jordan D.O. Signed By: 06/25/242128 DD/ 26 TD/TT: Metalizer Field Operation: AFP, Serum, Open Spina Bifid a Reviewed date:06/27/2024 07:30:00 PM Interpretation: Performing Lab: Notes/Report: N N LMP [id number] 0 17 N 1 161 N N N N N White/ [facility] , Results Report . Test Results: *Screen Negative* . Gest. Age on Collection Date 21.0 . weeks Gestat. Age Based On LMP . Recalculations are not recommended when gestational dating by LMP and ultrasound are within 10 days. [age] RUBY 33[age]1 [age] Race . Weight 161 . lbs Insulin Dep Diabetes No . Multiple Gestation No . AFP Value 84.1 . ng/mL AFP MoM 1.36 . OSBR Risk 1 IN 4034 . Interpretation Comment . detected by this test. This test does not screen for Services to discuss available options. The [place] calculated is based on the gestational age provided. MS-AFP Down Syndrome or Trisomy 18. If screening for Down Syndrome can identify up to 80% of open neural tube defects. Interpretation: Screen Negative This result is screen negative for OSB. The AFP [employer] [employer] Obstetricians and Gynec[employer] recommends amniocentesis be offered to women age 35 and older. Closed neural tube defects and some open defects may not be or Trisomy 18 is desired, contact Genetic Customer Comment: Comment . Anabell Rubin, Ph.D., [facility] Performed at: - [facility] IDD - Insulin Dep Diabetes Ann 2.5 Black 2.8 Director Director Operations Broadcast: Tejas Farley [facility], Phone: [phone] by the Food and Drug Administration. Abbreviation Definitions For AFP Elevations determined by [facility]. It has not been cleared or approved For further inquiries contact [facility] This test was developed and its performance characteristics OSBR - Open Spina Bifida Risk IDD 2.0 Twins 4.5 Genetics Services at [phone]. References: Available Upon Request. [address] [facility], [place], [place] [id number] Multiples Of Median Cutoffs Performing Lab: see note - [facility] LB HBsAg Screen Reviewed date:04/01/2024 05:00:27 PM Interpretation: Performing Lab: Notes/Report: [facility] , HBsAg Screen Negative Negative Performed at: [facility] Director Operations Broadcast: Michael Carrizales PhD, Phone: [phone] [address] [place], [place] [phone] Performing Lab: see note - [facility] LB Rapid Plasma Reagin, Quant Reviewed date:04/01/2024 05:00:27 PM Interpretation: Performing Lab: Notes/Report: [facility] , Rapid Plasma Reagin, Quant Non Reactive NonRea<1:1 titer intended for following treatment response in patients being Rapid Plasma Reagin (RPR) Test With Reflex to Quantitative Please Note: This test does not meet current guidelines for Director Operations Broadcast: Michael Carrizales PhD, Phone: [phone] [address] [place], [place] [phone] ([id number]). infection, a reflex cascade that includes both RPR and a treated for syphilis infection. To screen for syphilis screening and diagnosis of syphilis. This test is Treponema pallidum (Syphilis) Screening [place] ([id number]) or treponema-specific assay should be utilized, such as Performed at: [facility] RPR and Confirmatory Treponema pallidum Antibodies Performing Lab: see note [facility] HIV Ab/p24 Ag with Reflex Reviewed date:04/01/2024 05:00:27 PM Interpretation: Performing Lab: Notes/Report: [facility] , HIV Ab/p24 Ag Screen Non Reactive Non Reactive detected. There is no laboratory evidence of HIV infection. HIV-1/HIV-2 antibodies and HIV-1 p24 antigen were NOT Performed at: [facility] Director Operations Broadcast: Michael Carrizales PhD, Phone: [phone] HIV Negative [address] [place], [place] [phone] Performing Lab: see note [facility] RUBELLA AB IGG Reviewed date:04/01/2024 05:00:27 PM Interpretation: Performing Lab: Notes/Report: [facility] , Rubella Antibodies, IgG 2.34 Immune > 0.99 index Equivocal 0.90 - 0.99 Non-immune <0.90 Immune >0.99 Performing Lab: see note [facility] GLYCOHEMOGLOBIN A1C Reviewed date:04/01/2024 05:00:27 PM Interpretation: Performing Lab: Notes/Report: [facility] , Glycohemoglobin A1C 5.0 4.5-6.2 % ADA RECOMMENDED LIMIT 4.0 - 6.0 ACTION SUGGESTED ADA THERAPEUTIC TARGET < 7.0 > 7.0 Estimated Average Glucose 97 Performing Lab: see note - [facility] LB DRUG SCREEN RAPID (URINE) Reviewed date:04/01/2024 05:00:27 PM Interpretation: Performing Lab: Notes/Report: [facility] , Cannabinoid Screen Urine NEGATIVE NEGATIVE Phencyclidine Screen Urine NEGATIVE NEGATIVE Cocaine Screen Urine NEGATIVE NEGATIVE Methamphetamines Screen Urine NEGATIVE NEGATIVE Opiate Screen Urine NEGATIVE NEGATIVE Amphetamine Screen Urine NEGATIVE NEGATIVE Benzodiazepines Screen Urine NEGATIVE NEGATIVE Tricyclic Antidepressant Urine NEGATIVE NEGATIVE Methadone Screen Urine NEGATIVE NEGATIVE Barbiturates Screen Urine NEGATIVE NEGATIVE Oxycodone Screen Urine NEGATIVE NEGATIVE Buprenorphine Screen Urine NEGATIVE NEGATIVE FAUSTINO (Cocaine): 150 ng/mL BUP (Buprenorphine): 10 ng/mL OXY (Oxycodone): 100 ng/mL TCA (Trycyclic Antidepressants): 300 ng/mL BAR (Barbiturates): 200 ng/mL FOLLOWS: PCP (Phencyclidine): 25 ng/mL THC (Cannabinoids): 50 ng/mL DRUG CLASS TEST SYSTEM CUT-OFF CONCENTRATIONS ARE OPI (Opiates): 100 ng/mL BZO (Benzodiazepines): 150 ng/mL MTD (Methadone): 200 ng/mL mAMP (Methamphetamine): 500 ng/mL AMP (Amphetamine): 500 ng/mL Performing Lab: see note ML - [facility] LB CBC AUTO DIFF Reviewed date:04/01/2024 05:00:27 PM Interpretation: Performing Lab: Notes/Report: [facility] , White Blood Count 7.8 4.0-11.0 10 3/uL Red Blood Count 4.27 4.20-5.40 10 6/uL Hemoglobin 12.9 12.0-16.0 g/dL Hematocrit 37.7 36.0-48.0 % Mean Corpuscular Volume 88.3 81.0-99.0 fL Mean Corpuscular Hemoglobin 30.2 26.7-34.0 pg Mean Corpuscular HGB Conc 34.2 29.9-35.2 g/dL Red Cell Distribution Width 11.6 11.0-15.0 % Platelet Count 194 150-450 10 3/uL Mean Platelet Volume 10.5 9.5-13.5 fL Neutrophils Percent Auto 67.9 43.0-75.0 % Lymphocytes Percent Auto 22.4 20.5-60.0 % Monocytes Percent Auto 7.7 1.7-12.0 % Eosinophils Percent Auto 0.9 0.9-7.0 % Basophils Percent Auto 0.8 0.2-2.0 % Immature Granulocytes Pct Auto 0.3 0.0-0.5 % Neutrophils Absolute Auto 5.3 1.4-6.5 10 3/uL Lymphocytes Absolute Auto 1.7 1.2-3.8 10 3/uL Monocytes Absolute Auto 0.6 0.3-0.8 10 3/uL Eosinophils Absolute Auto 0.1 0.0-0.7 10 3/uL Basophils Absolute Auto 0.1 0.0-0.1 10 3/uL Immature Granulocytes Abs Auto 0.02 0.00-0.03 10 3/uL Performing Lab: see note ML - [facility] LB CBC AUTO DIFF Reviewed date:11/02/2024 06:56:36 AM Interpretation: Performing Lab: Notes/Report: [facility] , White Blood Count 14.8 4.0-11.0 10 3/uL Red Blood Count 3.12 4.20-5.40 10 6/uL Hemoglobin 8.4 12.0-16.0 g/dL Hematocrit 25.6 36.0-48.0 % Mean Corpuscular Volume 82.1 81.0-99.0 fL Mean Corpuscular Hemoglobin 26.9 26.7-34.0 pg Mean Corpuscular HGB Conc 32.8 29.9-35.2 g/dL Red Cell Distribution Width 12.9 11.0-15.0 % Platelet Count 154 150-450 10 3/uL Mean Platelet Volume 12.4 9.5-13.5 fL Neutrophils Percent Auto 68.7 43.0-75.0 % Lymphocytes Percent Auto 21.9 20.5-60.0 % Monocytes Percent Auto 8.2 1.7-12.0 % Eosinophils Percent Auto 0.4 0.9-7.0 % Basophils Percent Auto 0.3 0.2-2.0 % Immature Granulocytes Pct Auto 0.5 0.0-0.5 % Neutrophils Absolute Auto 10.2 1.4-6.5 10 3/uL Lymphocytes Absolute Auto 3.2 1.2-3.8 10 3/uL Monocytes Absolute Auto 1.2 0.3-0.8 10 3/uL Eosinophils Absolute Auto 0.1 0.0-0.7 10 3/uL Basophils Absolute Auto 0.0 0.0-0.1 10 3/uL Immature Granulocytes Abs Auto 0.07 0.00-0.03 10 3/uL Performing Lab: see note ML - [facility] LB Reason For Referral No Information Medications Medication SIG (Take, Route, Frequency, Duration) Notes Start Date End Date Status Amoxicillin-Pot Clavulanate 875-125 MG 1 tablet Orally every 12 hrs for 10 days 11/01/2023 Active Social History Tobacco Use: Social History Observation Description Date Details (start date - stop date) Never Smoker NA - NA Tobacco Use/Smoking Question Answer Notes Patient is a nonsmoker Alcohol Screen (Audit-C) Question Answer Notes Did you have a drink contain ing alcohol in the past year? Yes How often did you have 6 or more drinks on one occasion in the past year? Never (0 point) How many drinks did you have on a typical day when you were drinking in the past year? 1 or 2 drinks (0 point) How often did you have a dri nk containing alcohol in the past year? Less than monthly (1 point) Points 1 Interpretation Negative AUDIT-C (Standard) Question Answer Notes Did you have a drink containing alcohol in the p ast year? No Points 0 Interpretation Negative Problems Problem Type SNOMED Code ICD Code Onset Dates Problem Status W/U Status Risk Notes Problem Well adult (467943384) Well adult (Z00.00) Active confirmed Plan Of Treatment Pending Test Test Name Order Date CMP (COMPLETE METABOLIC PANEL) 3 HEMOGLOBIN A1C (GLYCO) 10/27/2022 LIPID PANEL (CHOL/TRIG/HDL/LDL) 10/28/19 23 CBC WITH DIFF 10/27/2022 GLYCOHEMOGLOBIN A1C 10/19/2023 LIPID PROFILE 10/19/2023 PROF 14(COMP METB) 10/19/2023 THYROID PROFILE WITH TSH 10/19/2023 THYROID PANEL (T4/TSH/FREE T3) 3 US soft tissue head and neck 10/19/2023 Insurance Providers Payer Name Payer Address Payer Phone Subscriber Number Group Number Insured Name Patient Relationship to Insured Coverage Start Date Coverage End Date [employer] [address] [place] [phone] [id number] Joseline Light i Self - patient is the insured Medical (General) History Medical History History ICD Code Acne L70.9 Heart palpitations R00.2 Headache, migraine G43.909 Hyperhidrosis R61 Irritable bowel syndrome K58.9 Surgical History Surgery Date(Month/Year) chrondoplasty/ left knee arthroscopy 200 8 [facility] 2016
--- OUTSIDE RECORDS SUMMARY | 2024-11-13 08:40 | XMS_ITS | Encounter Summary ---
Author Organization [facility] Address [address] [place] [place] [address] Care Team Providers Care Job Developer For Deaf Adults Name Role Phone Agusto Canada MD Primary Care Provider [phone] Encounter Details Date Type Department Care Team (Late st Contact Info) Description 10/22/2022 Abstract [facility] [address] [facility] [address] Deandra Black PA [address] [place] [address] Dr [place], [place] [address] Social History Tobacco Use Types Packs/Day Years Used Date Smoking Tobacco: Never Comments Unknown Sex and Gender Information Value Date Recorded Sex Assigned at Female 09/07/2022 3:40 PM EDT Legal Sex Female 11:47 PM EDT Gender Identity Female 09/07/2022 3:40 PM EDT Sexual Orientation Not on file COVID-19 Exposure Response Date Recorded In the last 10 days, have yo u been in contact with someone who was confirmed or suspected to have Coronavirus/COVID-19? No / Unsure 10/18/2022 8:44 AM EDT documented as of this encounter Plan of Treatment Upcoming Encounters Date Type Department Care Team (Late st Contact Info) Description 12/12/2024 2:00 PM EDT Visit [facility] [address] [place] [address] Deandra Black PA [address] [place] [address] Dr [place], [facility] documented as of this encounter Visit Diagnoses Not on filedocumented in this encounter Care Teams Job Developer For Deaf Adults Relationship Specialty Start Date End Date Agusto Canada MD [address] [place] [address] PCP - General 10/18/22 documented as of this encounter
--- OUTSIDE RECORDS SUMMARY | 2024-11-13 08:40 | XMS_ITS | Clinical Summary ---
Author Organization [facility] Address [address] [place] [address] Care Team Providers Care Histologic Aide Name Role Phone Agusto Canada MD Primary Care Provider [phone] Allergies Active Allergy Reactions Criticality Noted Date Comments Sulfa Antibiotics Hives,Itching,Swelling 2022 Other Reaction(s): Unknown Medications MV-Min-Fe Fum-FA-DHA ( 1 PO) Take by mouth Active Ascorbic Acid (vitamin C) 250 MG tablet Take 250 mg by mouth Daily Active clotrimazole-b etamethasone (Lotrisone) creamIndicatio ns:Rash Apply 1 application topically Daily Apply to affected area daily for 7 days 45 g 05/15/19 25 025 Discontinued omeprazole (PriLOSEC) [address] capsuleIndicat ions:Gastroeso phageal Reflux Disease,Heartb urn Take 1 capsule (20 mg) by mouth in the morning. Take before meals. Do not crush or chew. 30 capsule 3 08/16/19 25 025 Discontinued Encounters Date Type Department Care Team Description 11/07/2024 2:20 PM EDT [place] [address] Deandra Black PA S/P section 11/07/2024 [place] [address] Deandra Black PA 11/04/2024 Abstract [facility] [address] [place] [phone] Faby Forte CNM 11/02/2024 Clinisync Result Encounter NOMS External Department Unsolicited Zelalem Rice, DO 11/01/2024 Clinisync Result Encounter NOMS External Department Unsolicited Zelalem Rice, DO 10/23/2024 11:10 AM [place] [address] Zelalem Rice, Third trimester ([facility]); 38 weeks gestation of ([facility]) 10/23/2024 Bamboo [facility]sheet [facility] [place] [address] Zelalem Rice, 10/22/2024 Travel 10/15/2024 9:50 AM EDT Routine [facility] [place] [address] Zelalem Rice, Third trimester ([facility]); 37 weeks gestation of ([facility]) 10/15/2024 Bamboo flowsheet [facility] [place] [address] Zelalem Rice, 10/09/2024 10:40 AM [place] [address] Zelalem Rice, 36 weeks gestation of ([facility]); Third trimester ([facility]); Sinusitis, unspecified chronicity, unspecified location; Gastroesophageal reflux in ([facility]) 10/09/2024 Bamboo flowsheet [facility] [place] [address] Zelalem Rice, 10/03/2024 Travel 09/24/2024 10:30 AM EDT Routine [facility] [address] [place] [address] Zelalem Rice DO Third trimester ([facility]); 34 weeks gestation of ([facility]) 09/24/2024 Bamboo flowsheet [facility] [address] [place] [address] Zelalem Rice DO 09/24/2024 Travel 09/18/2024 Telephone [facility] [address] [place] [address] Colette Ogden MA 09/10/2024 9:50 AM EDT Routine [facility] [place] [facility] [address] [place] [address] Deandra Black PA Third trimester ([facility]); 32 weeks gestation of ([facility]) 09/10/2024 Bamboo flowsheet [facility] [address] [place] [address] Deandra Black PA 09/09/2024 Travel 08/27/2024 2:30 PM EDT Routine [facility] [address] [place] [address] Zelalem Rice DO Third trimester ([facility]); 30 weeks gestation of ([facility]) 08/27/2024 2:00 PM EDT Ancillary Procedure [facility] [address] [place] [address] Size of fetus inconsistent with dates in second trimester ([facility]) 08/24/2024 Travel 08/15/2024 4:00 PM EDT Routine [facility] [address] [place] [address] Deandra Black PA Size of fetus inconsistent with dates in second trimester ([facility]) (Primary Dx); 28 weeks gestation of ([facility]); Third trimester ([facility]); Gastroesophageal reflux in ([facility]) 08/15/2024 Bamboo flowsheet [facility] [place] [facility] [address] [place] [address] Deandra Black PA from Last 3 Months Family History Medical History Relation Name Comments Asthma Mother Twila bernal Thyroid disease Mother Twila bernal Relation Name Status Comments Father Alive Mother Twila bernal Alive Social History Tobacco Use Types Packs/Day Years Used Date Smoking Tobacco: Never Smokeless Tobacco: Never Tobacco Cessation:Counseling Given: Not Answered Alcohol Use Standard Drinks/Week Comments Never 0 (1 standard drink = 0.6 oz pur e alcohol) Comments No Sex and Gender Information Value Date Recorded Sex Assigned at Female 09/07/2022 3:40 PM EDT Legal Sex Female 11:47 PM EDT Gender Identity Female 09/07/2022 3:40 PM EDT Sexual Orientation Not on file Last Filed Vital Signs Vital Sign Reading Time Taken Comments Blood Pressure 120/70 11/07/2024 2:44 PM EDT Pulse - - Temperature - - Respiratory Rate - - Oxygen Saturation - - Inhaled Oxygen Concentration - - Weight 81.6 kg (180 lb) 11/07/2024 2:44 PM EDT Height 167.6 cm (5' 6 ) 10/31/2023 9:28 AM EDT Body Mass Index 29.05 10/31/2023 9:28 AM EDT Plan of Treatment Upcoming Encounters Date Type Department Care Team (Late st Contact Info) Description 12/12/2024 2:00 PM EDT Visit [facility] [place] [facility] [address] [place] [address] Deandra Black PA [address] [place] [address] Procedures Procedure Name Priority Date/Time Associated Diagnosis Comments ALL CBC WITH AUTO DIFF Routine 5 5:59 AM EDT ALL CBC WITH AUTO DIFF Routine 08/07/202 5 6:00 AM EDT [facility] DRUG SCREEN RAPID (URINE) Routine 11/01/2024 5:30 AM EDT POCT URINALYSIS DIPSTICK Routine 10/23/2024 11:39 AM EDT Third trimester ([facility]) CULTURE, GROUP B STREP WITH SUSCEPTIBLITY Routine 10/09/2024 11:09 AM EDT Third trimester ([facility]) POCT URINALYSIS DIPSTICK Routine 09/24/2024 10:46 AM EDT Third trimester ([facility]) POCT URINALYSIS DIPSTICK Routine 08/27/2024 3:04 PM EDT Third trimester ([facility]) US OB FOLLOW UP TRANSABDOMINAL APPROACH Routine 08/27/2024 2:27 PM EDT Size of fetus inconsistent with dates in second trimester ([facility]) POCT URINALYSIS DIPSTICK Routine 08/15/2024 4:32 PM EDT 28 weeks gestation of ([facility]) Third trimester ([facility]) from Last 3 Months Results * (ABNORMAL) ALL CBC WITH AUTO DIFF (11/02/2024 5:59 AM EDT) Only the most recent of2 resultswithin the time period is included. [facility] WBC 14.8(H) 4.0 - 11.0 10 [...] - 11/02/2024 6:15 AM EDT us Zelalem Wilcoxo DO [facility] * TB DRUG SCREEN RAPID (URINE) (11/01/2024 5:30 AM EDT) Pathologist [facility] CANNABINOID SCREEN URINE NEGATIVE NEGATIVE [facility] PHENCYCLIDINE [...] Narrative [facility] - 11/01/2024 6:24 AM EDT Zelalem Dwayne DO [facility] Final Result [facility] * POCT urinalysis dipstick manually resulted (10/23/2024 11:39 AM EDT) Only the most recent of4 resultswithin the time period is included. Color, UA Yellow Clarity, UA Clear Glucose, UA Negative Negative - 2000(110) ++++ mg/dL Bilirubin, UA Negative Negative - 4(70) +++ mg/dL Ketones, UA Negative Negative - 160(16) ++++ mg/dL Spec Grav, UA 1.005 1 - 1.03 Blood, UA Negative Negative - 50 Abiel/mcL pH, UA 6.5 5 - 9 Protein, UA Negative Negative - 2000(20) ++++ mg/dL Urobilinogen, UA 0.2 0.2 - 12 mg/dL Leukocytes, UA Negative Negative - 500+++ Pradip/mcL Nitrite, UA Negative Negative - Positive Urine 10/23/2024 11:3 9 AM EDT Zelalem Dwayne DO POINT OF CARE TEST ENTER/EDIT OR DERABLES Final Result * CULTURE, GROUP B STREP WITH SUSCEPTIBLITY (10/09/2024 11:09 AM EDT) Swab 10/09/2024 11:0 9 AM EDT us Zelalem Rice DO LAB BLOOD ORDERABLES Final Resul t EXTERNAL LAB * US OB follow up transabdominal approach (08/27/2024 2:27 PM EDT) Anatomical Region Laterality Modality Body Ultrasound 08/31/2024 8:27 AM EDT Narrative 08/31/2024 8:27 AM EDT EXAM: US OB FOLLOW UP TRANSABDOMINAL APPROACH [...] II, MD, PHD at 31-Aug-2024 08:25:52 AM [facility] Procedure Note Leon James MD - 08/31/2024 EXAM: US OB FOLLOW UP TRANSABDOMINAL APPROACH HISTORY: Inconsistent size. COMPARISON: Ob ultrasound 03/30/2024. TECHNIQUE: Two-dimensional transabdominal grayscale ultrasound imaging ofthe pelvis was performed. FINDINGS: Gestation: Single Presentation: [...] is 30 weeks 2 days (+/- 15 daysgestation). Estimated Weight: 1568 grams, +/- 235 grams ( 3 lb 7 oz). Weight Percentile for gestational age: 52 % IMPRESSION: 1. Single, live intrauterine gestation 30 weeks, 0 days by LMP. Today'sultrasound measurements correlate with a gestational age of 30 weeks 2days. Estimated weight is 1568 grams, +/- 235 grams ( 3 lb 7 oz)which correlates to 52 %. RUBY is 11/03/2024. Interpreted by: Electronically signed by LEON JAMES II, MD, PHD [id number] 08:25:52 AM [facility] us Deandra GRIJALVA IMG OB US PROCEDURES Final Resul t from Last 3 Months Insurance Care Teams Histologic Aide Relationship Specialty Start Date End Date Agusto Canada MD [address] [place] [address] PCP - General 10/18/22
--- OUTSIDE RECORDS SUMMARY | 2024-11-13 08:40 | XMS_ITS | Encounter Summary ---
Author Organization [facility] Address [address] [place] [address] Care Team Providers Care Hydroelectric Plant Electrician Name Role Phone Agusto Canada MD Primary Care Provider [phone] Encounter Details Date Type Department Care Team (Late st Contact Info) Description 04/26/2024 Abstract [facility] [place] [facility] [address] [place] [address] Zelalem Rice DO [address] [place], [place] [address] Social History Tobacco Use Types Packs/Day Years [...] 2:00 PM EDT Visit [facility] [address] [place] [address] Deandra Black PA [address] [place], [facility] documented as of this encounter Visit Diagnoses Not on filedocumented in this encounter Care Teams Hydroelectric Plant Electrician Relationship Specialty Start Date End Date Agusto Canada MD [address] [place] [phone] PCP - General 10/18/22 documented as of this encounter
--- OUTSIDE RECORDS SUMMARY | 2024-11-13 08:40 | XMS_ITS | Encounter Summary ---
Author Organization [facility] Address [address] [place] [address] Care Team Providers Care Brake Repairer Air Name Role Phone Agusto Canada MD Primary Care Provider [phone] Encounter Details Date Type Department Care Team (Late st Contact Info) Description 11/09/2023 Orders Only [facility] [place] [facility] [address] [place] [address] Sarah Rossi LPN Social History Tobacco Use Types Packs/Day Years Used Date Smoking Tobacco: Never Smokeless Tobacco: Never Alcohol Use Standard Drinks/Week Comments Never 0 (1 standard drink = 0.6 oz pur e alcohol) Comments Unknown Sex and Gender Information Value [...] PM EDT Visit [facility] [place] [facility] [address] [facility] [place] [address] Deandra Black PA [address] [place], [place] [id number] documented as of this encounter Procedures Procedure Name Priority Date/Time Associated Diagnosis Comments PAP SMEAR Routine 10/31/2023 12:00 AM EDT documented in this encounter Results * Pap Smear (10/31/2023 12:00 AM EDT) Swab Cervical swab / Unknown us [place] [facility] LAB CYTOLOGY ORDERABLES Final Result EXTERNAL LAB documented in this encounter Visit Diagnoses Not on filedocumented in this encounter Care Teams Brake Repairer Air Relationship Specialty Start Date End Date Agusto Canada MD [address] [place] [address] PCP - General 10/18/22 documented as of this encounter
--- OUTSIDE RECORDS SUMMARY | 2024-11-13 08:40 | XMS_ITS | Encounter Summary ---
Author Organization [facility] Address [address] [place] [address] [place] [address] Care Team Providers Care Theatre Arts Professor Name Role Phone Agusto Canada MD Primary Care Provider [phone] Encounter Details Date Type Department Care Team (Late st Contact Info) Description 08/29/2022 Abstract [facility] [place] [facility] [address] [place] [address] [place] MD [address] [place] [address] Social History Tobacco Use Types Packs/Day Years Used Date Smoking Tobacco: Never Tobacco Cessation:Counseling Given: Not Answered Comments Unknown Sex and Gender Information Value [...] PM EDT Visit [facility] [place] [facility] [address] [place] [address] Deandra Black PA [address] [place] [address] documented as of this encounter Visit Diagnoses Not on filedocumented in this encounter Care Teams Theatre Arts Professor Relationship Specialty Start Date End Date Agusto Canada MD [address] [place] [address] PCP - General 10/18/22 documented as of this encounter
--- NOTE | 2024-11-13 17:25 | PC.NURSE ---
Olga and Gabriel arrive with FOB for support post lip and tie revision. Mom continues to pump and obtains 5-7 oz total for 24 hours. States is pumping 4-5 times and obtains same amount. Mom reassured that all breast milk has value for . She will decide how long she wants to continue pumping. Parents are giving formula for most of diet. Adds pumped milk when available. States is very doable at this time. is 12 days old, returned to weight of 8-0 today, multiple wet and 2 stools daily. Mom bottle feeds with hesitation. Encouraged to have confidence in her ability to care for infant as both parents are unsure of ability. Both are doing well and very good with baby. Baby struggles with fast flow of bottle, shown slow paced bottle feeding and benefits of same. Pt replies [employer] said to fill the entire nipple with milk, and then to lay baby in arms. LC demo's slow paced feeding and both parents noted how well baby responds to slower feeding. Baby able to control flow better and does not become fussy or frantic with feed. Shown suck training exercises to complete in addition to post procedure stretches. Verbalizes understanding and is confident in ability to work with infant. Family home with no further concerns. Will call as needed for questions or concerns.
== END 2024-11-13 17:42 | disposition home or self-care (01) ==
LOC: FBCO 08:17
PROVIDERS: PCP Family Medicine; Visit Provider Obstetrics & Gynecology
DX: Z39.1 Encounter for care and examination of lactating mother (principal)

== ENCOUNTER 2025-01-30 20:13 | Outpatient (REF) | payer OTHER, SELFPAY ==
--- OUTSIDE RECORDS SUMMARY | 2025-01-30 15:00 | XMS_ITS | Encounter Summary ---
Author Organization [facility] Address [address] [place] [address] Care Team Providers Care Oil Refiner Name Role Phone Agusto Canada MD Primary Care Provider [phone] Reason for Visit * ReasonCommentsGynecologic Exam Encounter Details DateTypeDepartmentCare Team (Latest Contact Info)Oprtssxmaji77/05/2025 3:00 PM ESTProcedure Visit [facility] [address] [place] [address] Deandra Black PA [address] [place], [facility]11 Well woman exam with routine gynecological exam Social History Tobacco UseTypesPacks/DayYears UsedDateSmoking Tobacco: NeverSmokeless Tobacco: Never Tobacco Cessation:Counseling Given: Not Answered Alcohol UseStandard Drinks/WeekCommentsNever0 (1 standard drink = 0.6 oz pure alcohol)CommentsNoSex and Gender InformationValueDate RecordedSex Assigned at LuhrsXxlhpn64/13/2023 3:40 PM EDTLegal ArxLozfeq62/15/2023 11:47 PM EDTGender OuwaguwkYwizam67/13/2023 3:40 PM EDTSexual OrientationNot on file documented as of this encounter Last Filed Vital Signs Vital SignReadingTime TakenCommentsBlood Bszdlgpr211/7001/30/2025 3:19 PM EST Pulse--Temperature--Respiratory Rate--Oxygen Saturation--Inhaled Oxygen Concentration--Vyjqlt15.8 kg (167 lb 1.9 oz)01/30/2025 3:19 PM ESTHeight--Body Mass Index26.9710/31/2023 9:28 AM EDTdocumented in this encounter Plan of Treatment DateTypeDepartmentCare Team (Latest Contact Info)Sbhtwjojjef36/11/2026 3:00 PM ESTProcedure Visit [facility] [place] [facility] [address] [place] [phone] Zelalem Rice DO [address] [place] [address] NameTypePriorityAssociated DiagnosesOrder ScheduleHPV DNA probe, amplified MicrobiologyRoutine Well woman exam with routine gynecological exam Ordered: 01/30/2025Pap SmearPathology and CytologyRoutine Well woman exam with routine gynecological exam Ordered: 01/30/2025documented as of this encounter Visit Diagnoses Diagnosis Well woman exam with routine gynecological exam Routine gynecological examination documented in this encounter Care Teams Team MemberRelationshipSpecialtyStart DateEnd Date Agusto Canada MD [address] [facility] [place] [address] PCP - General10/18/22documented as of this encounter
--- OUTSIDE RECORDS SUMMARY | 2025-01-30 20:17 | XMS_ITS | CCD ---
Author Organization [facility] Care Team Providers Care Plsql Developer Name Role Phone SETH, LITZY Unavailable Unavailable JOSEPHINE CANADA Unavailable Unavailable SINGER LITZY Unavailable Unavailable JOSEPHINE CANADA Unavailable Unavailable CALEB, DR BURTON Admitting Unavailable CALEB, DR BURTON Attending Unavailable KARASIK, DR MIRANDA Admitting Unavailable KARASIK, DR MIRANDA Attending Unavailable KARASIK, DR MIRANDA Consulting Unavailable JOSEPHINE CANADA Referring Unavailable JOSEPHINE CANADA Primary Care Unavailable JOSEPHINE CANADA Referring Unavailable JOSEPHINE CANADA Primary Care Unavailable oJsephine Canada MD Primary Care Provider [phone] Babs Rice DO Attending Provider Babs Rice Attending Unavailable Babs Rice Admitting Unavailable Josephine Canada MD Primary Care Provider [phone] Josephine Canada MD Primary Care Provider [phone] BABS RICE Attending Unavailable DWAYNE, BABS Attending Unavailable DWAYNE, BABS Attending Unavailable DWAYNE, BABS Attending Unavailable DEANDRA VEE Attending Unavailable DEANDRA VEE Referring Unavailable DWAYNE, BABS Attending Unavailable NANDA, DEANDRA Attending Unavailable DWAYNE, BABS Attending Unavailable DWAYNE, BABS Attending Unavailable DWAYNE, BABS Attending Unavailable DWAYNE, BABS Attending Unavailable NANDA, DEANDRA Attending Unavailable NANDA, DEANDRA Attending Unavailable DWAYNE, BABS Attending Unavailable Josephine Canada MD Primary Care Provider [phone] Allergies Allergy ClassificationReported Allergen(s)Allergy TypeDate of OnsetReaction(s) Facility (2 sources)Sulfonamides (Antibiotic)Drug allergy (disorder)78-46-2636[facility] (20 sources)Sulfonamides (Antibiotic)Propensity to adverse wgkwipahv09-69-5812 Hives, Itching, SwellingNOMS Healthcare Medications Current Medications MedicationDrug Class(es)DatesSig (Normalized)Sig (Original)ascorbic acid 250 mg oral tablet (20 sources)Vitamin Ctake 1 tablet by mouth once dailyAscorbic Acid (vitamin C) 250 MG tablet Take 250 mg by mouth Daily Activecephalexin 500 mg oral capsule (2 sources)Cephalosporin AntibacterialStart: 04-30-2024 End: 09-34-5879aldr 1 capsule by mouth in the morningcephalexin (Keflex) 500 MG capsule Indications: Rash Take 1 capsule (500 mg) by mouth in the morning and 1 capsule (500 mg) before bedtime. Do all this for 7 days. 14 capsule 04/30/2024 05/07/2024 Activeondansetron 4 mg disintegrating oral tablet (4 sources)Serotonin-3 Receptor AntagonistStart: 05-15-2024 End: 63-26-5211uzhi 1 tablet by mouth every six hours for nauseaondansetron ODT (Zofran-ODT) 4 MG disintegrating tablet Indications: Nausea and vomiting in Take 1 tablet (4 mg) by mouth every 6 (six) hours if needed for nausea or vomiting 30 tablet 2 05/15/2024 06/14/2024 ActivePrenatal MV-Min-Fe Fum-FA-DHA ( 1 PO) (20 sources) MV-Min-Fe Fum-FA-DHA ( 1 PO) Take by mouth Active Completed/Discontinued Medications MedicationDrug Class(es)DatesSig (Normalized)Sig (Original)azithromycin 250 mg oral tablet (6 sources)Macrolide AntimicrobialStart: 09-18-2024 End: 44-29-1663mwbaigmbwzxf (Zithromax Z-Fadi) 250 MG tablet Indications: Sinusitis, unspecified chronicity, unspecified location As directed 6 tablet 09/18/2024 10/09/2024 Discontinuedbetamethasone 0.5 mg/ml / clotrimazole 10 mg/ml topical cream (20 sources)Azole Antifungal, CorticosteroidStart: 05-15-2024 End: 90-26-1453dxcljfkigqzk-betamethasone (Lotrisone) cream Indications: Rash Apply 1 application topically Daily Apply to affected area daily for 7 days 45 g 05/15/2024 11/07/2024 Discontinuedomeprazole 20 mg delayed release oral capsule (20 sources)Proton Pump InhibitorStart: 08-15-2024 End: 37-25-5690kzbn 1 capsule by mouth before mealtimeomeprazole (PriLOSEC) [address] capsule Indications: Gastroesophageal Reflux Disease , Heartburn Take 1 capsule (20 mg) by mouth in the morning. Take before meals. Do not crush or chew. 30 capsule 3 08/15/2024 11/07/2024 Discontinued Problems Problem ClassificationProblemDateDocumented DateEpisodic/ChronicAbdominal pain (3 sources)Generalized abdominal pain; Translations: [Generalized abdominal pain]Onset: 02-01-7827NsiqskshHyszwtrtckhqm and procreative management (1 source)Patient encounter status; Translations: [Encounter for procreative management, unspecified]11-63-6239IigmpszgTxhqomro mellitus without complication (1 source)Other abnormal glucose; Translations: [Other abnormal glucose]Onset: 70-13-4951AmsnvabiLawitqmdc of lipid metabolism (1 source)Hyperlipidemia, unspecified; Translations: [Hyperlipidemia, unspecified]Onset: 11-52-6464YvmgzhkZqvdyrnqt hypertension (1 source)Essential (primary) hypertension; Translations: [Essential (primary) hypertension]Onset: 03-37-9706VreaiksMhtuctegvjtqa and screening for infectious disease (2 sources)Exposure to sexually transmissible disorder; Translations: [Contact with and (suspected) exposure to infections with a predominantly sexual mode of transmission]13-96-5785JqnrrjthXhtejfesidloy (1 source)Nonspecific lymphadenitis, unspecified; Translations: [Nonspecific lymphadenitis, unspecified]Onset: 31-52-7710YaquuizjEmzfgzf and fatigue (1 source)Other fatigue; Translations: [Other fatigue]Onset: 45-24-5781Gbnbdoqg Menstrual disorders (1 source)Missed period; Translations: [Irregular menstruation, unspecified] 54-77-3159AcapiafPpixi complications of (4 sources)Gastroesophageal reflux disease in ; Translations: [Diseases of the digestive system complicating , unspecified trimester] 05-43-5310XddkuojbDemye complications of (2 sources) size does not accord with dates; Translations: [Uterine size- date discrepancy, second trimester]24-39-4482ZedorytnHbsjs female genital disorders (1 source)Abnormal uterine bleeding; Translations: [Other specified abnormal uterine and vaginal bleeding]78-02-5376QkhgmsoYzsnp female genital disorders (2 sources)Vaginal discharge; Translations: [Other specified noninflammatory disorders of vagina]38-27-8902EzntaezwPvqvw gastrointestinal disorders (1 source)Diarrhea, unspecified; Translations: [Diarrhea, unspecified]Onset: 87-36-6966GijgiayrSvvlm and delivery including normal (20 sources); Translations: [Encounter for supervision of normal , unspecified, unspecified trimester]72-34-2860JreruynuCydmb screening for suspected conditions (not mental disorders or infectious disease) (8 sources)Encounter for screening for malignant neoplasm of cervix; Translations: [Patient encounter status]Onset: 59-92-0699QsivtinlFusxf skin disorders (2 sources)Eruption; Translations: [Rash and other nonspecific skin eruption] 13-15-5044MmcrlrkaXaile upper respiratory infections (2 sources)Sinusitis; Translations: [Chronic sinusitis, unspecified]10-09-2024 ChronicResidual codes; unclassified (2 sources)Gestation period, 14 weeks; Translations: [14 weeks gestation of ]07-69-7808QzmfkxuaEajrdwcz codes; unclassified (2 sources)Gestation period, 17 weeks; Translations: [17 weeks gestation of ]74-87-8424JwbuvcxaTpertoek codes; unclassified (2 sources)Gestation period, 21 weeks; Translations: [21 weeks gestation of ]47-77-8697YvsxynltLinzghvt codes; unclassified (2 sources)Gestation period, 25 weeks; Translations: [25 weeks gestation of ]42-02-2956IgnfwfjbVstkxqzx codes; unclassified (2 sources)Gestation period, 28 weeks; Translations: [28 weeks gestation of ]13-33-6167PfytsraaDshranco codes; unclassified (2 sources)Gestation period, 30 weeks; Translations: [30 weeks gestation of ]37-68-1389WxthtengSqytwylm codes; unclassified (2 sources)Gestation period, 32 weeks; Translations: [32 weeks gestation of ]08-58-5974FtpdclylMfiofzhd codes; unclassified (2 sources)Gestation period, 34 weeks; Translations: [34 weeks gestation of ]65-42-0044YhnzzkzkGwujemnj codes; unclassified (2 sources)Gestation period, 36 weeks; Translations: [36 weeks gestation of ]91-78-2034YdzpblkaJycbrfeo codes; unclassified (2 sources)Gestation period, 37 weeks; Translations: [37 weeks gestation of ]60-44-3359LxnrltdqBekjfgcr codes; unclassified (2 sources)Gestation period, 38 weeks; Translations: [38 weeks gestation of ]35-14-2348IncieugeSvupwgf disorders (1 source)Hypothyroidism, unspecified; Translations: [Hypothyroidism, unspecified]Onset: 07-93-8716Fkrkxyn Results Test NameValueInterpretationReference RangeFacilityALL CBC WITH AUTO DIFFon 17-24-2247MLILTJAOF ABSOLUTE QDQI8NHTG HealthcareBasophils/100 WBC (Bld)0.3 %0.2 - 2.0 %NOMS HealthcareEosinophils/100 WBC (Bld)0.4 %Low0.9 - 7.0 %NOM HealthcareErythrocyte distribution width (RBC) [Ratio]12.9 %11.0 - 15.0 %NOMS HealthcareHematocrit (Bld) [Volume fraction]25.6 %Low36.0 - 48.0 %NOMHedrick Medical CenterHemoglobin (Bld) [Mass/Vol]8.4 g/dLLow12.0 - 16.0 g/dLNOLafayette Regional Health Center IMMATURE GRANULOCYTES ABS AUTO0.07HighNOSD HealthcareImmature granulocytes/100 WBC (Bld)0.5 %0.0 - 0.5 %NOM HealthcareInterpretation and review of laboratory resultsAbnormalNOLafayette Regional Health CenterLYMPHOCYTES ABSOLUTE AUTO3.2NOMS Healthcare Lymphocytes/100 WBC (Bld)21.9 %20.5 - 60.0 %NOMMercy Hospital WashingtonH (RBC) [Entitic mass]26.9 pg26.7 - 34.0 pgNOLafayette Regional Health CenterMCHC (RBC) [Mass/Vol]32.8 g/dL29.9 - 35.2 g/dLNOSD HealthcareMCV (RBC) [Entitic vol]82.1 fL81.0 - 99.0 fLNOSD HealthcareMONOCYTES ABSOLUTE AUTO1.2HighNOMS HealthcareMonocytes/100 WBC (Bld) 8.2 %1.7 - 12.0 %NOMS HealthcareNEUTROPHILS ABSOLUTE AUTO10.2HighNOMS Healthcare Neutrophils/100 WBC (Bld)68.7 %43.0 - 75.0 %NOMS HealthcarePlatelet mean volume (Bld) [Entitic vol]12.4 fL9.5 - 13.5 fLNOSD HealthcareTBH EO #0.1NOMS Healthcare TBH NJX100QHHL HealthcareTB RBC3.12LowNOMS HealthcareTBH WBC14.8HighNOSD HealthcareCLINISYNCNSaint Luke's North Hospital–Barry RoadTBH DRUG SCREEN RAPID (URINE)on 11-01-2024 AMPHETAMINE SCREEN URINENegativeNEGATIVENOMS HealthcareBARBITURATES SCREEN URINE NegativeNEGATIVENOMS HealthcareBENZODIAZEPINES SCREEN URINENegativeNEGATIVENOMS HealthcareBUPRENORPHINE SCREEN URINENegativeNEGATIVENOMS HealthcareComment on above:DRUG CLASS TEST SYSTEM CUT-OFF CONCENTRATIONS ARE FOLLOWS: AMP (Amphetamine): 500 ng/mL BAR (Barbiturates): 200 ng/mL BZO (Benzodiazepines): 150 ng/mL BUP (Buprenorphine): 10 ng/mL FAUSTINO (Cocaine): 150 ng/mL mAMP (Methamphetamine): 500 ng/mL MTD (Methadone): 200 ng/mL OPI (Opiates): 100 ng/mL OXY (Oxycodone): 100 ng/mL PCP (Phencyclidine): 25 ng/mL THC (Cannabinoids): 50 ng/mL TCA (Trycyclic Antidepressants): 300 ng/mL CANNABINOID SCREEN URINENegativeNEGATIVENOMS HealthcareCOCAINE SCREEN URINE NegativeNEGATIVENOMS HealthcareMETHADONE SCREEN URINENegativeNEGATIVENOMS HealthcareMETHAMPHETAMINES SCREEN URINENegativeNEGATIVENOMS HealthcareOPIATE SCREEN URINENegativeNEGATIVENOMS HealthcareOXYCODONE SCREEN URINENegative NEGATIVENOMS HealthcarePHENCYCLIDINE SCREEN URINENegativeNEGATIVENOMS Healthcare TRICYCLIC ANTIDEPRESSANT URINENegativeNEGATIVENOMS HealthcareCLINISYNPrisma Health Richland HospitalUrinalysis macro (dipstick) panel (U)on 31-42-7385Tnhftllvt, UA NegativeNegative - 4(70) +++ mg/dLNOMS HealthcareBlood, UANegativeNegative - 50 Abiel/mcLNOMS HealthcareClarity, UAClearNOMS HealthcareColor, UAYellowNOMS HealthcareGlucose, UANegativeNegative - 2000(110) ++++ mg/dLNOMS Healthcare Interpretation and review of laboratory resultsNormalNOMS HealthcareKetones, UA NegativeNegative - 160(16) ++++ mg/dLNOMS HealthcareLeukocytes, UANegative Negative - 500+++ Pradip/mcLNOMS HealthcareNitrite, UANegativeNegative - Positive NOMS HealthcarepH, UA6.55 - 9NOMS HealthcareProtein, UANegativeNegative - 1999(20) ++++ mg/dLNOMS HealthcareSpec Grav, UA1.0051 - 1.03N[facility] Healthcare Urobilinogen, UA0.20.2 - 12 mg/dLNOMS HealthcareNOMS HealthcareUrinalysis macro (dipstick) panel (U)on 10-38-1859Qotiunlzz, UANegativeNegative - 4(70) +++ mg/dL NOMS HealthcareBlood, UANegativeNegative - 50 Abiel/mcLNOMS HealthcareClarity, UA ClearNOMS HealthcareColor, UAYellowNOMS HealthcareGlucose, UANegativeNegative - 2000(110) ++++ mg/dLNOMS HealthcareInterpretation and review of laboratory resultsNormalNOMS HealthcareKetones, UANegativeNegative - 160(16) ++++ mg/dLNOMS HealthcareLeukocytes, UANegativeNegative - 500+++ Pradip/mcLNOMS HealthcareNitrite, UANegativeNegative - PositiveNOMS HealthcarepH, UA75 - 9NOMS HealthcareProtein, UANegativeNegative - 1999(20) ++++ mg/dLNOMS HealthcareSpec Grav, UA1.0151 - 1.03NOMS HealthcareUrobilinogen, UA0.20.2 - 12 mg/dLNOMS HealthcareNOMS HealthcareUS OB FOLLOW UP TRANSABDOMINAL APPROACHon 24-23-1974LY OB FOLLOW UP TRANSABDOMINAL APPROACHEXAM: US OB FOLLOW UP TRANSABDOMINAL APPROACH HISTORY: [...] II, MD, PHD at 31-Aug-2024 08:25:52 AM [facility] TeleradiologyNormalNot AvailableComment on above:Order Comment: US OB SCAN FOR GROWTH Estimated Date of Delivery: 11/05/24 Gestational Age as of 08/15/2024: 73a2dWlfpwxaahc macro (dipstick) panel (U)on 30-62-9685Rlhbjaevd, UANegativeNegative - 4(70) +++ mg/dLNOMS HealthcareBlood, UANegativeNegative - 50 Abiel/mcLNOMS HealthcareClarity, UAClearNOMS Healthcare Color, UAYellowNOMS HealthcareGlucose, UANegativeNegative - 2000(110) ++++ mg/dL NOMS HealthcareInterpretation and review of laboratory resultsNormalNOMS HealthcareKetones, UANegativeNegative - 160(16) ++++ mg/dLNOMS Healthcare Leukocytes, UANegativeNegative - 500+++ Pradip/mcLNOMS HealthcareNitrite, UA NegativeNegative - PositiveNOMS HealthcarepH, UA75 - 9NOMS HealthcareProtein, UA NegativeNegative - 2000(20) ++++ mg/dLNOSD HealthcareSpec Grav, UA1.011 - 1.03 NOM HealthcareUrobilinogen, UA0.20.2 - 12 mg/dLNOMissouri Rehabilitation Center Healthcare Urinalysis macro (dipstick) panel (U)on 57-80-7113Dvbuzjqso, UANegativeNegative - 4(70) +++ mg/dLNOMS HealthcareBlood, UAPositiveNegative - 50 Abiel/mcLNOSD HealthcareComment on above:trace-intactClarity, UAClearNOMS HealthcareColor, UA YellowNOMS HealthcareGlucose, UANegativeNegative - 2000(110) ++++ mg/dLUINTAH BASIN MEDICAL CENTER HealthcareInterpretation and review of laboratory resultsAbnoExcela Health Ketones, UANegativeNegative - 160(16) ++++ mg/dLUINTAH BASIN MEDICAL CENTER HealthcareLeukocytes, UA NegativeNegative - 500+++ Pradip/mcLUINTAH BASIN MEDICAL CENTER HealthcareNitrite, UANegativeNegative - PositiveNOSD HealthcarepH, UA75 - 9NOSD HealthcareProtein, UANegativeNegative - 2000(20) ++++ mg/dLNOSD HealthcareSpec Grav, UA1.0151 - 1.03[facility] Urobilinogen, UA0.20.2 - 12 mg/dLSac-[facility] [facility] HealthcareALL CBC WITH AUTO DIFFon 74-79-8424ZKJKAVPCR ABSOLUTE YLFF3YRWX HealthcareBasophils/100 WBC (Bld) 0.3 %0.2 - 2.0 %[facility] CenterEosinophils/100 WBC (Bld)1.2 %0.9 - 7.0 %[facility] CenterErythrocyte distribution width (RBC) [Ratio]12 %11.0 - 15.0 %[facility] Cancer CenterHematocrit (Bld) [Volume fraction]35.4 %Low36.0 - 48.0 %[facility] CenterHemoglobin (Bld) [Mass/Vol]12.2 g/dL12.0 - 16.0 g/dLAlvin J. Siteman Cancer Center IMMATURE GRANULOCYTES ABS AUTO0.04HighNOLafayette Regional Health CenterImmature granulocytes/100 WBC (Bld)0.4 %0.0 - 0.5 %[facility] CenterInterpretation and review of laboratory resultsAbSelect Specialty Hospital-Ann ArborLYMPHOCYTES ABSOLUTE ZYNG2SODHLafayette Regional Health Center Lymphocytes/100 WBC (Bld)17.6 %Low20.5 - 60.0 %[facility] & Sports MedicineH (RBC) [Entitic mass]31.4 pg26.7 - 34.0 pgNOMissouri Southern HealthcareHC (RBC) [Mass/Vol]34.5 g/dL29.9 - 35.2 g/dLFreeman Orthopaedics & Sports MedicineV (RBC) [Entitic vol]91.2 fL81.0 - 99.0 fLAlvin J. Siteman Cancer CenterMONOCYTES ABSOLUTE AUTO0.7NOSD HealthcareMonocytes/100 WBC (Bld)6 %1.7 - 12.0 %[facility] CenterNEUTROPHILS ABSOLUTE AUTO8.4HighAlvin J. Siteman Cancer Center Neutrophils/100 WBC (Bld)74.5 %43.0 - 75.0 %[facility] Cancer CenterPlatelet mean volume (Bld) [Entitic vol]10.3 fL9.5 - 13.5 fLAlvin J. Siteman Cancer CenterTB EO #0.1NOM[facility] Healthcare TBH PWH892LZHJLafayette Regional Health CenterTB RBC3.88LowNOLafayette Regional Health CenterTBH WBC11.3HighUINTAH BASIN MEDICAL [facility]ENTER HealthcareCLINISYNCNBONE AND JOINT HOSP[facility] HealthcareUrinalysis macro (dipstick) panel (U)Ordered By: Demetria Perez on 56-57-7309Mkfkshrqj, UANegativeNegative - 4(70) +++ mg/dLNOMS HealthcareBlood, UANegativeNegative - 50 Abiel/mcLNOMS HealthcareClarity, UAClear NOMS HealthcareColor, UAYellowNOMS HealthcareGlucose, UANegativeNegative - 2000(110) ++++ mg/dLNOMS HealthcareInterpretation and review of laboratory resultsNormalNOSD HealthcareKetones, UANegativeNegative - 160(16) ++++ mg/dLNOMS HealthcareLeukocytes, UANegativeNegative - 500+++ Pradip/mcLNOMS HealthcareNitrite, UANegativeNegative - PositiveNOMS HealthcarepH, UA65 - 9NOMS HealthcareProtein, UANegativeNegative - 2000(20) ++++ mg/dLNOMS HealthcareSpec Grav, UA1.021 - 1.03 NOMS HealthcareUrobilinogen, UA1.00.2 - 12 mg/dLNOMS HealthcareNOMS HealthcareUS OB ANATOMYon 47-78-7189[address] [address] Ultrasound Report Signed Patient: JOSELINE DICKERSON MR#: [id number] : 1990 Acct:[id number] Age/Sex: 33 / F ADM Date: 06/25/24 Loc: US Attending Dr: Babs Rice D.O. Ordering Physician: Babs Rice D.O. Date of Service: 06/25/24 Procedure(s): US OB anatomy Accession Number(s): [id number] cc: Babs Rice D.O.; Josephine Canada M.D. The [address] [address] Patient Name: JOSELINE DICKERSON MRN: [id number] date: 1990 Sex: F Assigned Patient Location: US Current Patient Location: US Accession/Order Number: [id number] Exam Date: 06/25/2024 21:20 Report Date: 06/25/2024 [...] Andrew Jordan M.D.06/25/2024 9:26 PM Dictation Location: [place] [address] Electronically authenticated by: [id number] Y Date: 06/25/2024 21:26 Dictated By: Andrew Jordan D.O. Signed By: 06/25/242127 DD/ 25 TD/TT: Aquaculture Worker:TBHRadiology, Radiologist, MD - 06/25/2024 [place] [address] Ultrasound Report Signed Patient: JOSELINE DICKERSON MR#: [id number] : 1990 Acct:[id number] Age/Sex: 33 / F ADM Date: 06/25/24 Loc: US Attending Dr: Babs Rice D.O. Ordering Physician: Babs Rice D.O. Date of Service: 06/25/24 Procedure(s): US OB anatomy Accession Number(s): [id number] cc: Babs Rice D.O.; Josephine Canada M.D. The [place] [id number] Patient Name: JOSELINE DICKERSON MRN: [id number] date: 1990 Sex: F Assigned Patient Location: US Current Patient Location: US Accession/Order Number: [id number] Exam Date: 06/25/2024 21:20 Report Date: 06/25/2024 [...] Andrew Jordan M.D.06/25/2024 9:26 PM Dictation Location: [place] [address] Electronically authenticated by: [id number] Y Date: 06/25/2024 21:26 Dictated By: Andrew Jordan D.O. Signed By: 06/25/242127 DD/ 25 TD/TT: Aquaculture Worker: YANG HealthcareRadiology Study observation (narrative)[facility] CenterUS OB ANATOMYOrdered By: Radiologist Radiology on 37-28-4575TFMN Healthcare Work Phone: US OB CERVICAL LENGTHon 55-79-8205[place] [address] Ultrasound Report Signed Patient: JOSELINE DICKERSON MR#: [id number] : 1990 Acct:[id number] Age/Sex: 33 / F ADM Date: 06/25/24 Loc: US Attending Dr: Babs Rice D.O. Ordering Physician: Babs Rice D.O. Date of Service: 06/25/24 Procedure(s): US OB cervical length Accession Number(s): [id number] cc: Babs Rice D.O.; Josephine Canada M.D. The [address] [address] Patient Name: JOSELINE DICKERSON MRN: [id number] date: 1990 Sex: F Assigned Patient Location: US Current Patient Location: US Accession/Order Number: [id number] Exam Date: 06/25/2024 21:26 Report Date: 06/25/2024 21:27 At the request of: BABS RICE DO Procedure: US OB cervical length Ultrasound assessment of cervical length Length of cervix 5.4 cm. The opening is closed. US/US OB cervical length IMPRESSION: 5.4 cm cervical length Impression dictated by: Andrew Jordan M.D.06/25/2024 9:27 PM Dictation Location: [place] [address] Electronically authenticated by: [id number] Y Date: 06/25/2024 21:27 Dictated By: Andrew Jordan D.O. Signed By: 06/25/242128 DD/ 26 TD/TT: Aquaculture Worker:DORITAadioldeysi Radiologist, - 06/25/2024 [place] [address] Ultrasound Report Signed Patient: JOSELINE DICKERSON MR#: [id number] : 1990 Acct:[id number] Age/Sex: 33 / F ADM Date: 06/25/24 Loc: US Attending Dr: Babs Rice D.O. Ordering Physician: Babs Rice D.O. Date of Service: 06/25/24 Procedure(s): US OB cervical length Accession Number(s): [id number] cc: Babs Rice D.O.; Josephine Canada M.D. The [place] [id number] Patient Name: JOSELINE DICKERSON MRN: [id number] date: 1990 Sex: F Assigned Patient Location: US Current Patient Location: US Accession/Order Number: [id number] Exam Date: 06/25/2024 21:26 Report Date: 06/25/2024 21:27 At the request of: BABS RICE DO Procedure: US OB cervical length Ultrasound assessment of cervical length Length of cervix 5.4 cm. The opening is closed. US/US OB cervical length IMPRESSION: 5.4 cm cervical length Impression dictated by: Andrew Jordan M.D.06/25/2024 9:27 PM Dictation Location: [place] [address] Electronically authenticated by: [id number] Y Date: 06/25/2024 21:27 Dictated By: Andrew Jordan D.O. Signed By: 06/25/242128 DD/ 26 TD/TT: Aquaculture Worker: YANG HealthcareRadiology Study observation (narrative)NOMS HealthcareUS OB CERVICAL LENGTHOrdered By: Radiologist Radiology on 35-55-2115RQUA Healthcare Work Phone: Urinalysis macro (dipstick) panel (U)on 06-25-2024 Bilirubin, UANegativeNegative - 4(70) +++ mg/dLNOMS HealthcareBlood, UANegative Negative - 50 Abiel/mcLNOMS HealthcareClarity, UAClearNOMS HealthcareColor, UA YellowNOMS HealthcareGlucose, UANegativeNegative - 2000(110) ++++ mg/dLNOMS HealthcareInterpretation and review of laboratory resultsNormalNOMS Healthcare Ketones, UANegativeNegative - 160(16) ++++ mg/dLNOMS HealthcareLeukocytes, UA NegativeNegative - 500+++ Pradip/mcLNOMS HealthcareNitrite, UANegativeNegative - PositiveNOMS HealthcarepH, UA75 - 9NOMS HealthcareProtein, UANegativeNegative - 2000(20) ++++ mg/dLNOMS HealthcareSpec Grav, UA1.0151 - 1.03N[facility] Urobilinogen, UA0.20.2 - 12 mg/dLNOMS HealthcareNOMS HealthcareRECURRENT VAGINITIS (HTRX)on 97-79-3192YXBFTYQKV BAVLMNM6GAQJ HealthcareATOPOBIUM VAGINAE Not detectedNOSD HealthcareBVAB 2,3 (BACTERIAL VAGINOSIS ASSOCIATED BACTERIA 2, 3); MOBILUNCUS [id number] HealthcareBVAB 2,3 (BACTERIAL VAGINOSIS ASSOCIATED BACTERIA 2, 3); MOBILUNCUS SPPNot detectedNOMS HealthcareCANDIDA ALBICANS, PARAPSILOSIS, UZHXLVDMPB3MSPI HealthcareCANDIDA ALBICANS, PARAPSILOSIS, TROPICALISNot detectedNOMS HealthcareCANDIDA [id number] HealthcareCANDIDA GLABRATANot detectedNOMS HealthcareCANDIDA SHDSGH2HVAE HealthcareCANDIDA KRUSEI Not detectedNOMS HealthcareCHLAMYDIA [id number] HealthcareCHLAMYDIA TRACHOMATISNot detectedNOMS HealthcareGARDNERELLA CTPBRXOIU8SBIY Healthcare GARDNERELLA VAGINALISNot detectedNOMS HealthcareMEGASPHAERA (TYPES 1, 2)0NOMS HealthcareMEGASPHAERA (TYPES 1, 2)Not detectedNOMS HealthcareMYCOPLASMA XMACSEFOOF3RAGC HealthcareMYCOPLASMA GENITALIUMNot detectedNOMS Healthcare NEISSERIA [id number] HealthcareNEISSERIA GONORRHOEAENot detectedNOMS HealthcareTRICHOMONAS QKCUBMWJX0UOCH HealthcareTRICHOMONAS VAGINALISNot detected NOMS HealthcareNOMS HealthcareUrinalysis macro (dipstick) panel (U)on 05-28-2024 Bilirubin, UANegativeNegative - 4(70) +++ mg/dLNOMS HealthcareBlood, UANegative Negative - 50 Abiel/mcLNOMS HealthcareClarity, UAClearNOMS HealthcareColor, UA YellowNOMS HealthcareGlucose, UANegativeNegative - 1999(110) ++++ mg/dLNOSD HealthcareInterpretation and review of laboratory resultsNormalNOSD Healthcare Ketones, UANegativeNegative - 160(16) ++++ mg/dLNOSD HealthcareLeukocytes, UA NegativeNegative - 500+++ Pradip/mcLNOSD HealthcareNitrite, UANegativeNegative - PositiveNOSD HealthcarepH, UA75 - 9NOMS HealthcareProtein, UANegativeNegative - 2000(20) ++++ mg/dLNOSD HealthcareSpec Grav, UA1.0151 - 1.03NOSD Healthcare Urobilinogen, UA0.20.2 - 12 mg/dLNOSD HealthcareNOSD HealthcareUrinalysis macro (dipstick) panel (U)on 55-56-1011Jfhbgayob, UANegativeNegative - 4(70) +++ mg/dL NOMS HealthcareBlood, UANegativeNegative - 50 Abiel/mcLNOMS HealthcareClarity, UA ClearNOMS HealthcareColor, UAYellowNOMS HealthcareGlucose, UANegativeNegative - 2000(110) ++++ mg/dLNOSD HealthcareInterpretation and review of laboratory resultsAbnormalNOSD HealthcareKetones, UANegativeNegative - 160(16) ++++ mg/dL NOM HealthcareLeukocytes, UANegativeNegative - 500+++ Pradip/mcLNOSD Healthcare Nitrite, UANegativeNegative - PositiveNOSD HealthcarepH, UA6.55 - 9NOSD HealthcareProtein, UANegativeNegative - 2000(20) ++++ mg/dLNOSD HealthcareSpec Grav, UA1.011 - 1.03NOSD HealthcareUrobilinogen, UA0.20.2 - 12 mg/dLNOSD HealthcareNOMS HealthcareBOX TESTon 25-57-5974OPW TEST SENT OUTUNITY BOXNOSD WlqrpbylqjSXJ8GFKJL BOXNOMS SeiopiwtkdABE603/17/25NOSD HealthcareUNITY BOX CLINISYNCNOSD HealthcareALL CBC WITH AUTO DIFFon 38-80-2128OIEYFPZHC ABSOLUTE AUTO0.1NOMS HealthcareBasophils/100 WBC (Bld)0.8 %0.2 - 2.0 %NOMS Healthcare Eosinophils/100 WBC (Bld)0.9 %0.9 - 7.0 %NOM HealthcareErythrocyte distribution width (RBC) [Ratio]11.6 %11.0 - 15.0 %NOMS HealthcareHematocrit (Bld) [Volume fraction]37.7 %36.0 - 48.0 %NOM HealthcareHemoglobin (Bld) [Mass/Vol]12.9 g/dL 12.0 - 16.0 g/dLAlvin J. Siteman Cancer CenterIMMATURE GRANULOCYTES ABS AUTO0.02NOMS Healthcare Immature granulocytes/100 WBC (Bld)0.3 %0.0 - 0.5 %NOM HealthcareLYMPHOCYTES ABSOLUTE AUTO1.7NOLafayette Regional Health CenterLymphocytes/100 WBC (Bld)22.4 %20.5 - 60.0 %[facility]item[facility] Cancer CenterMCH (RBC) [Entitic mass]30.2 pg26.7 - 34.0 pgNOLafayette Regional Health CenterMCHC (RBC) [Mass/Vol]34.2 g/dL29.9 - 35.2 g/dLAlvin J. Siteman Cancer CenterMCV (RBC) [Entitic vol]88.3 fL 81.0 - 99.0 fLNOSD HealthcareMONOCYTES ABSOLUTE AUTO0.6NOSD Healthcare Monocytes/100 WBC (Bld)7.7 %1.7 - 12.0 %NOMS HealthcareNEUTROPHILS ABSOLUTE AUTO 5.3NOMS HealthcareNeutrophils/100 WBC (Bld)67.9 %43.0 - 75.0 %NOMS [facility] Platelet mean volume (Bld) [Entitic vol]10.5 fL9.5 - 13.5 fLNOLafayette Regional Health CenterTBH EO #0.1NOMS HealthcareTBH QXH010NPKE [facility] NorthTBH RBC4.27NOMS [facility] NorthTBH WBC 7.8NOLafayette Regional Health CenterCLINISYNCNBONE AND JOINT H[facility]ITAL [facility] HealthcareHCG ( test) Ql (U)on 67-53-2314Eiinrxknwrolbm and review of laboratory resultsAbnormalAlvin J. Siteman Cancer Center Preg Test, UrPositiveNegativeNOMissouri Rehabilitation Center HealthcareUS OB TRANSVAGINALon 48-71-9222CC OB TRANSVAGINALTITLE OF EXAM: US OB TRANSVAGINAL REASON FOR [...] 1.4 x 3.3 x 2.4 cm (7 weeks,0 days). Windmill rump length is 1.6 cm (8 weeks, [...] electronically signed and approved by the interpreting radiologist.NormalNot AvailableComment on above:Order Comment: US OB TRANSVAGINAL No LMP recorded.Urinalysis macro (dipstick) panel (U)on 31-53-3171Edmnbekmf, UA NegativeNegative - 4(70) +++ mg/dLNOMS HealthcareBlood, UANegativeNegative - 50 Abiel/mcLNOMS HealthcareClarity, UAClearNOMS HealthcareColor, UAYellowNOMS HealthcareGlucose, UANegativeNegative - 2000(110) ++++ mg/dLNOSD Healthcare Interpretation and review of laboratory resultsAbnormalNOMS HealthcareKetones, UAPositiveNegative - 160(16) ++++ mg/dLNOMS HealthcareComment on above:trace Leukocytes, UANegativeNegative - 500+++ Pradip/mcLNOSD HealthcareNitrite, UA NegativeNegative - PositiveNOMS HealthcarepH, UA75 - 9NOMS HealthcareProtein, UA NegativeNegative - 2000(20) ++++ mg/dLNOSD HealthcareSpec Grav, UA1.021 - 1.03 NOMS HealthcareUrobilinogen, UA1.00.2 - 12 mg/dLNOSD HealthcareNOSD Healthcare Urine Cultureon 98-47-0751Mgmijyvg identified Cx Nom (U)No Growth 2 Days PERFORMED BY: [place] [address] PATHOLOGIST PATTERN SHOP SUPERVISOR KASIA EBCK M.D.NormalThe Vidant Pungo Hospital Physician GroupComment on above: Performed By: #### CUU #### [place] [address] USAUS SOFT TISS HEAD NECKon 63-36-6094RO SOFT TISS HEAD NECK US SOFT TISS [...] Finalized by Chris Encarnacion on 10/31/2023 7:59 AMNormalProAshtabula County Medical Center AND AUTO DIFFon 93-00-4817WDNXOVJY BASOPHIL0.0 X10E9/LNormal0.0-0.2 ProMLima City HospitalComment on above:Performed By: #### CBCA, CMP, 00022- 1, THYR, HA1C #### [facility] ([id number]) [address], [address] [place], [place] [address]NDOQGWKG NEUTROPHIL2.9 X10E9/LNormal1.5-6.6[facility] Boardman HospitalComment on above:Performed By: #### CBCA, CMP, 47105-5, THYR, HA1C #### [facility] ([id number]) [address], [address] [place], [place] [address]Fywbhfpcn/100 WBC (Bld)0.8 %[facility] Comment on above:Performed By: #### CBCA, CMP, 95165-0, THYR, HA1C #### [facility] ([id number]) [address], [address] [place], [place] [address]Takrkvuoadu (Bld) [#/Vol]0.1 10*3/uLNormal0.0-0.4[facility] Boardman HospitalComment on above:Performed By: #### CBCA, CMP, 92938-5, THYR, HA1C #### [facility] ([id number]) [address], [address] [place], [place] [address]Blqnavtysqj/100 WBC (Bld)2.2 %[facility] Comment on above:Performed By: #### CBCA, CMP, 05366-4, THYR, HA1C #### [facility] ([id number]) [address], [address] [place], [place] [address]Qoazysultme distribution width (RBC) [Ratio]12.5 %Normal 11.5-15.0[facility] Elizabeth Boardman HospitalComment on above:Performed By: #### CBCA, CMP, 77011-9, THYR, HA1C #### [facility] ([id number]) [address], [address] [place], [place] [address]Wjawlhllce (Bld) [Volume fraction]39.6 %Oelthv60-21BgtOvnheiRegency Hospital ToledoComment on above:Performed By: #### CBCColleen CMP, 21825-4, THYR, HA1C #### [facility] ([id number]) [address] [address] [place], [place] [address]Mqcxtqupqg (Bld) [Mass/Vol]13.5 g/xZSwuxak45.7-15.5PMount Carmel Health SystemComment on above:Performed By: #### CBCA, CMP, 22197-8, THYR, HA1C #### [facility] ([id number]) [address] [address] [place], [place] [address]Ahwvufmewsl (Bld) [#/Vol]2.1 10*3/uLNormal1.0-3.5PMount Carmel Health SystemComment on above:Performed By: #### CBCA, CMP, 29155-1, THYR, HA1C #### [facility] ([id number]) [address] [address] [place], [place] [address]Lzrehgatthl/100 WBC (Bld)37.5 %NormalMercy Health St. [facility] Comment on above:Performed By: #### CBCA, CMP, 55708-0, THYR, HA1C #### [facility] ([id number]) [address], [address] [place], [place] [address]MHY (RBC) [Entitic mass]31.0 yxWkvyjt32-24BloRaeemw [facility]park HospitalComment on above:Performed By: #### CBCA, CMP, 99246-8, THYR, HA1C #### [facility] ([id number]) [address], [address] [place], [place] [address]NBWF (RBC) [Mass/Vol]34.1 g/pMDlrfxs98-23KhtWlljjd [facility] HospitalComment on above:Performed By: #### CBCA, CMP, 13869-2, THYR, HA1C #### [facility] ([id number]) [address] [facility] [address] [place], [place] [address]PUH (RBC) [Entitic vol]91 vTTyirww46-487UfzMcsamf [facility] HospitalComment on above:Performed By: #### CBCA, CMP, 22442-2, THYR, HA1C #### [facility] ([id number]) [address], [address] [place], [place] [address]Pabycwcwm (Bld) [#/Vol]0.5 10*3/uLNormal0-0.9[facility] Board[facility] HospitalComment on above:Performed By: #### CBCA, CMP, 88970-5, THYR, HA1C #### [facility] ([id number]) [address] [address]Qczxxwbfh/100 WBC (Bld)8.3 %[facility] Comment on above:Performed By: #### CBCA, CMP, 65496-4, THYR, HA1C #### [facility] ([id number]) [address] [address] [place], [place] [address]Toocshnilvf/100 WBC (Bld)51.2 %[facility] Comment on above:Performed By: #### CBCA, CMP, 58516-0, THYR, HA1C #### [facility] ([id number]) [address], [address] [place], [place] [address]Kxddpxxq mean volume (Bld) [Entitic vol]8.3 fLNormal7-12 ProMLima City HospitalComment on above:Performed By: #### CBCColleen, CMP, 92363- 1, THYR, HA1C #### [facility] ([id number]) [address], [address] [place], [place] [address]Pqsbylsds (Bld) [#/Vol]195 10*3/sOLtruha829-023KqeImnwtv [facility] HospitalComment on above:Performed By: #### CBCColleen, CMP, 00706-2, THYR, HA1C #### [facility] ([id number]) [address], [address] [place], [place] [address]WLR COUNT4.36 X10E12/LNormal3.80-5.20[facility] on above:Performed By: #### CBCColleen, CMP, 56000-1, THYR, HA1C #### [facility] ([id number]) [address], [address] [place], [place] [address]SFA (Bld) [#/Vol]5.7 10*3/uLNormal4.0-11.0[facility] HospitalComment on above:Performed By: #### CBCColleen, CMP, 27455-2, THYR, HA1C #### [facility] ([id number]) [address], [address] [place], [place] [address]KBRYBZZQRKHNM METABOLIC PANELon 99-87-2796Vfotiir [Mass/Vol]4.3 g/dLNormal3.2-5.3PMount Carmel Health SystemComment on above:Performed By: #### CBCA, CMP, 17607-8, THYR, HA1C #### [facility] ([id number]) [address], [address] [place], [place] [address]NOU [Catalytic activity/Vol]53 U/AMhnejj68-170YiyGqkpca [facility] HospitalComment on above:Performed By: #### CBCColleen, CMP, 55477-9, THYR, HA1C #### [facility] ([id number]) [address], [address] [place], [place] [address]WXK [Catalytic activity/Vol]12 U/LNormal0-31PMercy Health Willard Hospital HospitalComment on above:Performed By: #### CBCColleen, CMP, 28374-2, THYR, HA1C #### [facility] ([id number]) [address], [address] [place], [place] [address]Mezqq gap [Moles/Vol]9 mmol/LNormal5-15ProUniversity Hospitals Health System HospitalComment on above:Performed By: #### CBCColleen, CMP, 26593-3, THYR, HA1C #### [facility] ([id number]) [address], [address] [place], [place] [address]FLU [Catalytic activity/Vol]21 U/LNormal0-41ProUniversity Hospitals Health System HospitalComment on above:Performed By: #### KANDIS CMP, 58606-2, THYR, HA1C #### [facility] ([id number]) [address], [address] [place], [place] [address]Irgudskgj [Mass/Vol]0.6 mg/dLNormal0.3-1.2PMercy Health Willard Hospital HospitalComment on above:Performed By: #### CBCColleen, CMP, 83904-5, THYR, HA1C #### [facility] ([id number]) [address], [address] [place], [place] [address]Rqgxnzp [Mass/Vol]9.6 mg/dLNormal8.5-10.5PMercy Health Willard Hospital HospitalComment on above:Performed By: #### CBCA, CMP, 22603-5, THYR, HA1C #### [facility] ([id number]) [address] [place], [place] [address]Qeiyghkt [Moles/Vol]103 mmol/VZxzirf23-820XitWtrutq [facility] HospitalComment on above:Performed By: #### JOSSELYN MARQUIS, 93734-3, THYR, HA1C #### [facility] ([id number]) [address], [address] [place], [place] [address]RX5 [Moles/Vol]27 mmol/KSqekdj92-18JpcAskmipMount Carmel Health System Comment on above:Performed By: #### JOSSELYN MARQUIS, 08497-7, THYR, HA1C #### [facility] ([id number]) [address] [place], [place] [address]Fppovgkwqf [Mass/Vol]0.84 mg/dLNormal0.40-1.00[facility] HospitalComment on above:Result Comment: METHOD TRACEABLE TO IDMS STANDARD Performed By: #### JOSSELYN MARQUIS, 16199-9, THYALVA Cordero1C #### [facility] ([id number]) [address] [place], [place] [address]rBXE (CKD-EPI) NON-RACE DEPENDENT>90Normal>59ProRegency Hospital ToledoComment on above:Result Comment: Reported eGFR is based on the CKD-EPI 2020 equation that does not use a race coefficient.Performed By: #### JOSSELYN MARQUIS, 85602-9, THYR, HABassam #### [facility] ([id number]) [address], [address] [place], [place] [address]Puqfcmx [Mass/Vol]81 mg/qFSdhnux31-75XnwSwommvMercy Health St. [facility] Comment on above:Performed By: #### JOSSELYN MARQUIS, 13242-2, THYR, HA1C #### [facility] ([id number]) [address], [address] [place], [place] [address]Fdbzijfue [Moles/Vol]3.8 mmol/LNormal3.5-5.0[facility] HospitalComment on above:Performed By: #### JOSSELYN MARQUIS, 95196-2, THYR, HA1C #### [facility] ([id number]) [address] [address] [place], [place] [address]Bpyzfrq [Mass/Vol]7.5 g/dLNormal6.0-8.0[facility] HospitalComment on above:Performed By: #### JOSSELYN MARQUIS, 65311-1, THYR, HA1C #### [facility] ([id number]) [address], [facility] [address] [place], [place] [address]Efanfp [Moles/Vol]139 mmol/ZHzglem469-142VnxLiwwao [facility] HospitalComment on above:Performed By: #### JOSSELYN MARQUIS, 84205-6, THYR, HA1C #### [facility] ([id number]) [address], [facility] [address] [place], [place] [address]Ylzz nitrogen [Mass/Vol]12 mg/dLNormal5-23ProRegency Hospital ToledoComment on above:Performed By: #### JOSSELYN MARQUIS, 30268-0, THYR, HA1C #### [facility] ([id number]) [address] [address] [place], [place] [address]ZLS A1C (GLYCO-HGB)on 40-40-1736Iqescpg [Mass/Vol]103 mg/dL NormalMercy Health St. Elizabeth Boardman HospitalComment on above:Performed By: #### JOSSELYN MARQUIS, 38408-2, THYR, HA1C #### [facility] ([id number]) [address] [address] [place], [place] [address]EpY9i (Bld) [Mass fraction]5.2 %Normal4.4-5.6Mer[facility] St[facility] Boardman HospitalComment on above:Result Comment: NOTE ADA Guidelines Result HgbA1c Normal : less than 5.7 % Prediabetes : 5.7 % to 6.4 % Diabetes : > 6.4 % Use with caution in patients with abnormal hemoglobin variants as the half-life of red blood cells and in vivo glycation rates are affected.Performed By: #### JOSSELYN MARQUIS, 43065-8, BRIAN LONG #### [facility] ([id number]) [address], [address] [place], [place] [address]Ebflm 1996 panelon 20-13-6583Fcfkvqfjeps [Mass/Vol]208 mg/dLHigh 150-200ProRegency Hospital ToledoComment on above:Performed By: #### JOSSELYN MARQUIS, 81771-7, BRIAN LONG #### [facility] ([id number]) [address], [address] [place], [place] [address]Ytrgdialfdo in HDL [Mass/Vol]75 mg/dLNormal>39ProRegency Hospital ToledoComment on above:Result Comment: HDL <40 mg/dL - High Risk HDL > or = 40mg/dL- Desirable HDL >60 mg/dL - Negative Risk Performed By: #### JOSSELYN MARQUIS, 41637-6, BRIAN LONG #### [facility] ([id number]) [address] [place], [place] [address]Xplzboofyuo in LDL [Mass/Vol]120 mg/dLNormal<130ProRegency Hospital ToledoComment on above:Result Comment: LDL <100 mg/dL - Desirable LDL >160 mg/dL - High Risk Performed By: #### KANDIS, JOSSELYN, 97375-6, BRIAN LONG #### [facility] ([id number]) [address] [place], [place] [address]Mgjtcqhmavk in VLDL [Mass/Vol]13 mg/dLNormal0-30ProUniversity Hospitals Health System HospitalComment on above:Performed By: #### CBCColleen, CMP, 35621-2, THYR, HA1C #### [facility] ([id number]) [address], [address] [place], [place] [address]DQIHKPEHKNM:HDL2.5Pcyoxm1.0-5.0ProUniversity Hospitals Health System HospitalComment on above:Performed By: #### CBCA, CMP, 22018-9, THYR, HA1C #### [facility] ([id number]) [address], [address] [place], [place] [address]Jbfgrhukaclb [Mass/Vol]66 mg/kHKiffze88-447PiuZpcjxm [facility]park HospitalComment on above:Performed By: #### CBCA, CMP, 95017-8, THYR, HA1C #### [facility] ([id number]) [address] [place], [place] [address]MMCVTOV PROFILEon 86-17-3966Cqbz T4 [Mass/Vol]0.88 ng/dLNormal 0.61-1.60ProUniversity Hospitals Health System HospitalComment on above:Performed By: #### CBCA, CMP, 52268-9, THYR, HA1C #### [facility] ([id number]) [address] [place], [place] [address]MZU9.30 uIU/mLNormal0.49-4.67ProUniversity Hospitals Health System HospitalComment on above:Performed By: #### CBCA, CMP, 26492-3, THYR, HA1C #### [facility] ([id number]) [address], [address] [place], [place] [address]GIW ACOG PANEL 2: 21 to 29on 09-02-2021..NormalSelect Medical Specialty Hospital - Youngstown HospitalComment on above:Performed By: #### [id number] #### [facility] [address] [place] [address] Dr. Kulwant Benitez Gdln ACOG Zxisits23-84KiprapUjqGlenbeigh HospitalComment on above:Performed By: #### [id number] #### [facility] [address] [place] [address] Dr. Kulwant DuffyDIAGNOSIS:CommentDoctors Hospital on above: Result Comment: NEGATIVE FOR INTRAEPITHELIAL LESION OR MALIGNANCY.Performed By: #### [id number] #### [place] [address] Dr. Kulwant DuffyMethodology:CommentDoctors Hospital on above: Result Comment: This liquid based ThinPrep(R) pap test was screened with the use of an image guided system.Performed By: #### [id number] #### [place] [address] Dr. Kulwant DuffyNote:CommentDoctors Hospital on above:Result Comment: The Pap smear is a screening test designed to aid in the detection of premalignant and malignant conditions of the uterine cervix. It is not a diagnostic procedure and should not be used as the sole means of detecting cervical cancer. Both false-positive and false-negative reports do occur. .Performed By: #### [id number] #### [place] [address] Dr. Kulwant DuffyPerformed by:CommentDoctors Hospital on above: Result Comment: Val Newton, Farm Consultant (ASCP)Performed By: #### [id number] #### [place] [address] Dr. Kulwant DuffyReflex Criteria:CommentDoctors Hospital on above:Result Comment: The HPV DNA reflex criteria were not met with this specimen result therefore, no HPV testing was performed. .Performed By: #### [id number] #### [place] [address] Dr. Kulwant DuffySpecimen adequacy:CommentDoctors Hospital on above:Result Comment: Satisfactory for evaluation. Endocervical and/or squamous metaplastic cells (endocervical component) are present.Performed By: #### [id number] #### [facility] [address] [place] [address] [address] Kulwant Booth APPENDIXon 39-18-2384UQ APPENDIXEXAMINATION:RIGHT LOWER QUADRANT ULTRASOUND07/22/2017 7:43 amCOMPARISON:None.HISTORY:ORDERING SYSTEM PROVIDED HISTORY: Abdominal pain, generalizedTECHNOLOGIST PROVIDED HISTORY:Ordering Physician Provided Reason for Exam: Right quad pain and diarrhea fora weekAcuity: AcuteType of Exam: InitialAdditional signs and symptoms: NoneRelevant Medical/Surgical History: NoneFINDINGS:Targeted ultrasonographyover the right lower quadrant demonstrates anappendix which is normal in size without evidence of wall edema or luminalthickening. There is no ultrasonographic evidence of appendicitis.IMPRESSION: Noultrasonographic evidence appendicitis.RECOMMENDATION:Correlation with clinical and laboratory findings is suggested.Interpreted by:ELIAN Narayanigned by:Patricia Garcia MD07/22/17CC Recipients:Josephine Canada MD - FaxFinal [facility]aconess HospitalUS GALLBLADDER RUQon 84-28-1421VD GALLBLADDER RUQ EXAMINATION:GALLBLADDER ULTRASOUND07/22/2017 7:43 amCOMPARISON:None.HISTORY:ORDERING SYSTEM PROVIDEDHISTORY: Abdominal pain, generalizedTECHNOLOGIST PROVIDED HISTORY:Ordering Physician Provided Reason for Exam: Right quad pain and diarrhea fora weekAcuity: AcuteType of Exam: InitialAdditional signsand symptoms: NoneRelevant Medical/Surgical History: NoneFINDINGS:Visualized portions of the liver without acute abnormality. No focal hepaticmass lesion identified. Parenchymal echogenicity is grossly within normallimits.The gallbladder is unremarkable without evidence for pericholecystic fluid,wall thickening, or calculi. Ad Writer documents a negative sonographicMurphy's sign. Gallbladder wall is normal in thickness, measuring 2.4 mm.The common bile duct is normal and measures 3 mm.IMPRESSION: Unremarkable ultrasound of the gallbladder. No evidence for cholelithiasisor acute cholecystitis.Interpreted by:ELIAN Brittonigned by:Nghia Denny MD07/22/17 Recipients:Josephine Canada MD - FaxFinal [facility] Vital Signs Date TimeVital SignValuePerforming ZzcyxpkasWjxumhpq73-46-6210 14:01-0400Body mass index (BMI) [Ratio]27.66 kg/m2Deandra Vee PA Work Phone: [phone] [place], [place] [address]Ceqeyvkcso00-71-2533 14:01-0400Body .75 kgDeandra Vee PA Work Phone: [phone] [place], [place] [address]Wiqqzqtomc85-19-0558 14:01-0400Diastolic blood mm[Hg]Deandra Vee PA Work Phone: [phone] [place], [place] [address]Njkxyhknxd93-68-7440 14:01-0400Systolic blood yfrqxsng706 mm[Hg]Deandra Vee PA Work Phone: [phone] [place], [place] [address]Opukltlcmx85-95-3487 14:44-0400Body mass index (BMI) [Ratio]29.05 kg/m2Amy Nanda PA Work Phone: [phone] [place], [place] [address]Ojihwxjves66-44-3420 14:44-0400Body ttaudk85.65 kgDeandra Vee PA Work Phone: [phone] [place], [place] [address]Onbplsdamf53-54-1104 14:44-0400Diastolic blood mpbvybff91 mm[Hg]Deandra Vee PA Work Phone: [phone] [place], [place] [address]Zbzwwpgwct40-42-5226 14:44-0400Systolic blood jsuotdqq392 mm[Hg]Deandra Vee PA Work Phone: [phone] [place], [place] [address]Qaimkpwcbg68-87-7857 11:32-0400Body mass index (BMI) [Ratio]30.83 kg/m1Vnjum Dwayne DO Work Phone: [phone] [place], [place] [address]Gtotposcwj76-41-7998 11:32-0400Body qvptpy04.64 kgCorey Dwayne DO Work Phone: [phone] [place], [place] [address]Jbavipeoee23-45-0527 11:32-0400Diastolic blood jcypzdze75 mm[Hg]Babs Dwayne DO Work Phone: [phone] [place], [place] [address]Cwzlkjgqbj08-68-1849 11:32-0400Systolic blood lfezditu974 mm[Hg]Babs Dwayne DO Work Phone: [phone] [place], [place] [address]Scjzfpqvjt05-89-0879 09:55-0400Body mass index (BMI) [Ratio]30.51 kg/a5Wwxfn Dwayne DO Work Phone: [phone] [place], [place] [address]Yplpdwnxov33-12-0892 09:55-0400Body vtzodm24.73 kgCorey Dwayne DO Work Phone: [facility] CenterOllxazxgjp10-39-2196 09:55-0400Diastolic blood gtjtlkfy25 mm[Hg]Babs Dwayne DO Work Phone: 1(852)171-[address] [place], [place] [address]Xsvwpmuboq66-26-1877 09:55-0400Systolic blood bdodpsxx771 mm[Hg]Babs Dwayne DO Work Phone: 1(987)[facility] [place], [place] [address]Umofvubtgr77-11-8153 10:53-0400Body mass index (BMI) [Ratio]30.15 kg/q0Kawxi Dwayne DO Work Phone: [phone] [place] [address]-15-2025 10:53-0400Body xfcacd48.73 kgCorey Dwayne DO Work Phone: 1(577)[facility] [place] [address]-15-2025 10:53-0400Diastolic blood tcilxphf77 mm[Hg]Babs Dwayne DO Work Phone: 1(820)[facility] [place] [address]-15-2025 10:53-0400Systolic blood pvbwzpwi022 mm[Hg]Babs Dwayne DO Work Phone: [phone] [place], [place] [address]Kgizweopks16-54-7795 10:45-0400Body mass index (BMI) [Ratio]29.7 kg/b5Gkxop Dwayne DO Work Phone: [phone] [place], [place] [address]Rnwzmojpbk12-30-4141 10:45-0400Body fppxqa04.46 kgCorey Dwayne DO Work Phone: 1(149)[facility] [place], [place] [address]Hjmotbkzae39-98-0238 10:45-0400Diastolic blood umqwicce94 mm[Hg]Babs Dwayne DO Work Phone: [phone])352-[facility] CenterMgnpverovf34-82-0833 10:45-0400Systolic blood qxjogeim710 mm[Hg]Babs Dwayne DO Work Phone: 1(432)342-[address] [place], [place] [address]Gzvxtosokb35-75-1465 10:04-0400Body mass index (BMI) [Ratio]29.21 kg/m2Amy Nanda PA Work Phone: [phone] [place], [place] [address]Xrsrtbriij90-82-0397 10:04-0400Body .1 kg Deandra Nanda PA Work Phone: [facility] CenterNodlffjeib03-87-1140 10:04-0400Diastolic blood jmwkshos28 mm[Hg]Deandra Nanda PA Work Phone: 1([phone])106-[address] [place], [place] [address]Snmiynuwuv96-78-5076 10:04-0400Systolic blood harejpuu718 mm[Hg]Deandra Vee PA Work Phone: 1([phone])046-[address] [place], [place] [address]Rjgmitrfmx72-30-7530 14:59-0400Body mass index (BMI) [Ratio]28.85 kg/u6Laddj Dwayne DO Work Phone: [phone] [place], [place] [address]Xzuuwqhldp43-30-2376 14:59-0400Body xpfubg51.08 kgCorey Dwayne DO Work Phone: [phone] [place], [place] [address]Uvnhctsbao37-27-1622 14:59-0400Diastolic blood rnnnyolj24 mm[Hg]Babs Dwayne DO Work Phone: [phone] [place], [place] [address]Yiljovgfom54-06-8337 14:59-0400Systolic blood yfqttzyz916 mm[Hg]Babs Dwayne DO Work Phone: [phone] [place], [place] [address]Qqljzoicua14-43-8842 16:26-0400Body mass index (BMI) [Ratio]28.37 kg/m2Amy Nanda PA Work Phone: [phone] [place], [place] [address]Gkpiyijxxg90-43-5400 16:26-0400Body ttmvjy84.74 kgAmy Nanda PA Work Phone: [phone] [place], [place] [address]Irryqnlwcn29-81-4094 16:26-0400Diastolic blood kbenkanm05 mm[Hg]Deandra Vee PA Work Phone: [facility] CenterNaatbsjxbu67-37-9096 16:26-0400Systolic blood uwxnyujc747 mm[Hg]Deandra Vee PA Work Phone: [phone] [place], [place] [address]Poygnofepb83-88-8024 09:54-0400Body mass index (BMI) [Ratio]27.88 kg/p0Wkvgv Dwayne DO Work Phone: [phone] [place], [place] [address]Iswiblsteg01-52-3078 09:54-0400Body wfywks83.36 kgCorey Dwayne DO Work Phone: 1419)[facility] [place], [place] [address]Tlojghvrac63-17-9788 09:54-0400Diastolic blood ldmiaoab50 mm[Hg]Babs Dwayne DO Work Phone: [phone] [place], [place] [address]Tyqnbuflxs39-31-8356 09:54-0400Systolic blood hqntowes562 mm[Hg]Babs Dwayne DO Work Phone: [phone] [place], [place] 4755303-31-2025 09:53-0400Body mass index (BMI) [Ratio]27.12 kg/f7Fhoeu Dwayne DO Work Phone: [phone])[facility] [place], [place] [address]Kvhykxmltx34-05-7209 09:53-0400Body kepams34.2 kg Babs Dwayne DO Work Phone: 1([phone])[facility] [place], [place] [address]Xsukewwqkp68-88-2833 09:53-0400Diastolic blood clcpyhah90 mm[Hg]Babs Dwayne DO Work Phone: 1([phone])[facility] [place], [place] [address]Spvzlgigyg87-44-8510 09:53-0400Systolic blood rtyhgtsk126 mm[Hg]Babs Dwayne DO Work Phone: [phone])[facility] [place], [place] [address]Yylzwicvqn10-76-1122 09:54-0500Body mass index (BMI) [Ratio]26.12 kg/e0Nnugx Dwayne DO Work Phone: [phone] [place], [place] 4755303-03-2025 09:54-0500Body nvajer66.39 kgCorey Dwayne DO Work Phone: [phone] [place], [place] 4755303-03-2025 09:54-0500Diastolic blood kuoxnney84 mm[Hg]Babs Dwayne DO Work Phone: [phone])[facility] [place], [place] [address]Zessofwyja21-05-6314 09:54-0500Systolic blood ibklqout794 mm[Hg]Babs Dwayne DO Work Phone: [phone] [place], [place] 4755302-03-2025 14:02-0500Body mass index (BMI) [Ratio]26.37 kg/u5Epcsd Dwayne DO Work Phone: [facility] CenterVnnaxxjbux45-22-2562 14:02-0500Body yrkvdd10.12 kgCorey Dwayne DO Work Phone: [facility] CenterZjmptzmnsv76-25-0044 14:02-0500Diastolic blood vafhdsrn92 mm[Hg]Babs Dwayne DO Work Phone: [facility] CenterXhbtdpcoff70-50-1611 14:02-0500Systolic blood mm[Hg]Babs Dwayne DO Work Phone: [phone]-Belen0[facility] CenterEmhowmkola90-97-6468 08:53-0500Body mass index (BMI) [Ratio]25.99 kg/a9Lbjww Dwayne DO Work Phone: [facility] CenterZevbgdcvpz45-99-4024 08:53-0500Body kltnme84.03 kgCorey Dwayne DO Work Phone: [facility] CenterRqwmhdjpyz75-79-7053 08:53-0500Diastolic blood tdplirzs61 mm[Hg]Babs Dwayne DO Work Phone: [facility] CenterZnxehivzme99-82-7267 08:53-0500Systolic blood rlrgrsuz194 mm[Hg]Babs Dwayne DO Work Phone: [facility] Encounters Encounter DateEncounter TypeCare ProviderFacilityStart: 01-30-2025 End: 23-31-5160Nochxe flowsMaureen GRIJALVA Work Phone: [facility]YNStart: 01-30-2025 End: 58-58-7627Jlvkam flowsMaureen GRIJALVA Work Phone: [facility]YNStart: 12-12-2024 End: 95-06-5549Dubkvpavxq care visitDeandra GRIJALVA Work Phone: [facility]yn OBGYNComment on above:S/P Start: 12-12-2024 End: 75-49-5935xijdlhfdqkZJQ RAMEYMarilin AvailableStart: 11-07-2024 End: 31-36-5293wynqgpqyjeJSN NANDAMarilin AvailableStart: 11-07-2024 End: 49-01-0211Vakvrlxy flow Amadeo GRIJALVA Work Phone: [facility]BGYNComment on above:S/P sectionStart: 11-07-2024 End: 58-76-2388Xiknds Aziza GRIJALVA Work Phone: [facility]BGYNStart: 11-07-2024 End: 31-99-6745Kantcy Aziza GRIJALVA Work Phone: [facility]BGYNStart: 11-02-2024 End: 48-84-4252Prbksxqvl Result EncounterCorey Dwayne DO Work Phone: [facility] External Department UnsolicitedStart: 11-02-2024 End: 10-55-0932Smcjvdmln Result EncounterCorey Dwayne DO Work Phone: [facility] External Department UnsolicitedStart: 11-01-2024 End: 61-28-3338Gagcvuqgi Result EncounterCorey Dwayne DO Work Phone: [facility] External Department UnsolicitedStart: 11-01-2024 End: 96-54-9146Jhvkrgtta Result EncounterCorey Dwayne DO Work Phone: [facility] External Department UnsolicitedStart: 10-23-2024 End: 26-16-6807Vibhrm flowsheetCorey Dwayne DO Work Phone: [facility]YNStart: 10-23-2024 End: 54-22-2531Bjkips flowsheetCorey Dwayne DO Work Phone: [facility] OBGYNStart: 10-23-2024 End: 32-55-5764Fqrkufdk flow sheetCorey Dwayne DO Work Phone: [facility]BGYNComment on above:Third trimester ([facility]); 38 weeks gestation of ([facility])Start: 10-23-2024 End: 34-85-4736ddjwxkdicjDGREF FAZIONot AvailableStart: 10-15-2024 End: 56-92-4822Jalfxt flowsheetCorey Dwayne DO Work Phone: [facility] BCP OBStart: 10-15-2024 End: 78-66-6743Jalhcw flowsheetCorey Dwayne DO Work Phone: [facility] BCP OBStart: 10-15-2024 End: 72-10-1213Dthimppw flow sheetCorey Dwayne DO Work Phone: [facility] BCP OBComment on above:Third trimester ([facility]); 37 weeks gestation of ([facility])Start: 10-15-2024 End: 56-31-7609iukafrrpzxJPFJR FAZIONot AvailableStart: 10-09-2024 End: 39-35-2263Accgtx flowsheetCorey Dwayne DO Work Phone: [facility] BCP OBStart: 10-09-2024 End: 15-28-4034Wvvunc flowsheetCorey Dwayne DO Work Phone: [facility] BCP OBStart: 10-09-2024 End: 18-98-5542umzqydjwitNTOJZ FAZIONot AvailableStart: 10-09-2024 End: 92-88-2990Lykalwub flow sheetCorey Dwayne DO Work Phone: [facility] BCP OBComment on above:36 weeks gestation of ([facility]); Third trimester ([facility]); Sinusitis, unspecified chronicity, unspecified location; Gastroesophageal reflux in ([facility])Start: 09-24-2024 End: 23-19-2243Uyuqiv flowsheetCorey Dwayne DO Work Phone: [facility] BCP OBStart: 09-24-2024 End: 24-98-5094Ysurus flowsheetCorey Dwayne DO Work Phone: [facility] BCP OBStart: 09-24-2024 End: 75-24-1938Gvqegwub flow sheetCorey Dwayne DO Work Phone: [facility] BCP OBComment on above:Third trimester ([facility]); 34 weeks gestation of ([facility])Start: 09-24-2024 End: 27-01-4912eplwoojtyySFSAW FAZIONot AvailableStart: 09-10-2024 End: 02-97-3732Jynydq flowsheetDeandra GRIJALVA Work Phone: [facility] BCP OBStart: 09-10-2024 End: 58-92-8130Bvnkwg shayneheetDeandra GRIJALVA Work Phone: [facility] BCP OBStart: 09-10-2024 End: 60-18-7140Ofgpkbrs flow sheetDeandra GRIJALVA Work Phone: [facility] BCP OBComment on above:Third trimester ([facility]); 32 weeks gestation of ([facility])Start: 09-10-2024 End: 97-06-5481gqpuvuamlbFAQ RAMEYNot AvailableStart: 08-27-2024 End: 61-45-5478Deuqhbec flow sheetCorey Dwayne DO Work Phone: [facility] BCP OBComment on above:Third trimester ; 30 weeks gestation of pregnancyStart: 08-27-2024 End: 08-45-8002sslmsbbolgJSXBT FAZIONot AvailableStart: 08-15-2024 End: 62-25-3580Yylqctzx flow sheetDeandra GRIJALVA Work Phone: [facility] BCP OBComment on above:Size of fetus inconsistent with dates in second trimester (Primary Dx); 28 weeks gestation of ; Third trimester ; Gastroesophageal reflux in pregnancyStart: 08-15-2024 End: 17-07-3926gdeepmaczwURR RAMEYNot AvailableStart: 08-15-2024 End: 46-05-5287Iyybgm shayneheetDeandra GRIJALVA Work Phone: [facility] BCP OBStart: 08-15-2024 End: 48-16-2100Ataifa flowsheetAmy Nanda PA Work Phone: NOWQ BCP OBStart: 08-03-2024 End: 99-55-7368Wrlumckxx Result EncounterCorey Dwayne DO Work Phone: [facility] External Department UnsolicitedStart: 08-03-2024 End: 18-38-4678Okmhjijhe Result EncounterCorey Dwayne DO Work Phone: [facility] External Department UnsolicitedStart: 07-23-2024 End: 71-35-6751Bplxce flowsheetCorey Dwayne DO Work Phone: [facility] BCP OBStart: 07-23-2024 End: 25-20-8676Pfsgkb flowsheetCorey Dwayne DO Work Phone: [facility] BCP OBStart: 07-23-2024 End: 92-29-7538Vgdlbpdi flow sheetCorey Dwayne DO Work Phone: [facility] BCP OBComment on above:Second trimester ; 25 weeks gestation of ; Diabetes mellitus screeningStart: 07-23-2024 End: 59-24-5395tqfqdffarnYIEPQ FAZIONot AvailableStart: 06-25-2024 End: 40-73-3382Otnast flowsheetCorey Dwayne DO Work Phone: [facility] BCP OBStart: 06-25-2024 End: 69-91-5275Gfeldm flowsheetCorey Dwayne DO Work Phone: [facility] BCP OBStart: 06-25-2024 End: 34-94-7688Pbacwfmcb Result EncounterCorey Dwayne DO Work Phone: [facility] External Department UnsolicitedStart: 06-25-2024 End: 61-03-2783Aixprmhq flow sheetCorey Dwayne DO Work Phone: [facility] BCP OBComment on above:Second trimester ; 21 weeks gestation of pregnancyStart: 06-25-2024 End: 95-10-4276srjlwucjaaUHOMZ FAZIONot AvailableStart: 05-28-2024 End: 09-87-2805Kbkpep flowsheetCorey Dwayne DO Work Phone: NOAA BCP OBStart: 05-28-2024 End: 66-77-5757Fabnpb flowsheetCorey Dwayne DO Work Phone: [facility] BCP OBStart: 05-28-2024 End: 53-22-0738Lbokumgq Result EncounterCorey Dwayne DO Work Phone: [facility] External Department UnsolicitedStart: 05-28-2024 End: 76-27-5379Arezinxl flow sheetCorey Dwayne DO Work Phone: [facility] BCP OBComment on above:Second trimester ; 17 weeks gestation of ; Screening, , for anatomic survey; STD exposure; Vaginal dischargeStart: 05-28-2024 End: 12-50-3314oxjeozqbpeKLSII FAZIONot AvailableStart: 04-30-2024 End: 10-24-8828Rqkbxm flowsheetCorey Dwayne DO Work Phone: [facility] BCP OBStart: 04-30-2024 End: 04-03-4771Iapuyr flowsheetCorey Dwayne DO Work Phone: NOVK BCP OBStart: 04-30-2024 End: 69-93-7553Iihojxtj flow sheetCorey Dwayne DO Work Phone: [facility] BCP OBComment on above:Second trimester ; 14 weeks gestation of ; RashStart: 04-30-2024 End: 04-62-4356sxvxipxoinHTGBA FAZIONot AvailableStart: 04-13-2024 End: 02-42-7017Qhjqtfxot Result EncounterCorey Dwayne DO Work Phone: [facility] External Department UnsolicitedStart: 04-13-2024 End: 59-78-7802Qhtefyrwu Result EncounterCorey Dwayne DO Work Phone: [facility] External Department UnsolicitedStart: 03-30-2024 End: 93-48-2442Tmmmmmhqx Result EncounterCorey Dwayne DO Work Phone: noms External Department UnsolicitedStart: 03-30-2024 End: 00-27-7150Cqsaewbvq Result EncounterCorey Dwayne DO Work Phone: noms External Department UnsolicitedStart: 03-30-2024 End: 22-37-9941yozhwtcudyZrekk [facility] Work Phone: Start: 03-30-2024 End: 92-50-1241Zbzesrym ReferredCorey Dwayne DO Work Phone: [facility] Path Spec [facility] HospStart: 03-30-2024 End: 52-48-1357Hzyrzf outpatient visit 5 minutesNoms Bcp Ob Dwayne NurseNOMS BCP OBComment on above:GA: 3x9bVwmem: 03-30-2024 End: 29-78-5903oehfqhazfbVXGWI FAZIONot AvailableStart: 01-31-2024 End: 29-36-6985Khjxbt flowsheetCorey Dwayne DO Work Phone: noms BCP OBStart: 01-31-2024 End: 65-07-5709Aqlvlj flowsheetCorey Dwayne DO Work Phone: noms BCP OBStart: 01-31-2024 End: 91-41-9106Cynojq outpatient visit 15 minutesCorey Dwayne DO Work Phone: noMS BCP OBComment on above:Encounter for infertility; Dysfunctional uterine bleedingStart: 01-31-2024 End: 28-39-1095hmtffgsbzjDWRTC FAZIONot AvailableStart: 10-28-2023 End: 42-55-0151jvxktqbemdZLPDUMY M [facility]: 27-86-7368Agpzxkusm for general adult medical examination without abnormal findingsJOSEPHINE [facility] Hospitaltart: 08-28-2021 End: 42-90-9688wyxbsxsrcmBZ RUTH PINEDAFacility:U6Tzfdn: 08-14-2021 ambulatoryDR JOSEPHINE HOYFacility:L5Nskom: 07-22-2017 End: 76-97-7072PifldnwaphWDGQKS [facility] Procedures DateProcedureProcedure DetailPerforming ClinicianStart: 12-12-2024H/O: sectionS/P C-sectionDeandra GRIAJLVA Work Phone: Start: 89-07-7027GPE CBC WITH AUTO DIFFCorey Dwayne DO Work Phone: Start: 72-61-1870UZY DRUG SCREEN RAPID (URINE)Babs Dwayne DO Work Phone: Start: 89-76-6990Xqcbb dip stick/tablet rgnt non-auto w/o micrscpCorey Dwayne DO Work Phone: Start: 86-75-9711Zabrx dip stick/tablet rgnt non-auto w/o micrscpCorey Dwayne DO Work Phone: Start: 54-27-2172Hyiqm dip stick/tablet rgnt non-auto w/o micrscpCorey Dwayne DO Work Phone: Start: 82-62-2847Gsttu dip stick/tablet rgnt non-auto w/o micrscpAmy Nanda GRIJALVA Work Phone: Start: 70-05-5379XGT CBC WITH AUTO DIFFCorey Dwayne DO Work Phone: Start: 44-16-8127Pbven dip stick/tablet rgnt non-auto w/o micrscpCorey Dwayne DO Work Phone: Start: 88-00-6659UR OB CERVICAL LENGTHCorey Dwayne DO Work Phone: Start: 65-26-7821LA OB ANATOMYCorey Dwayne DO Work Phone: Start: 65-41-7683Sctsp dip stick/tablet rgnt non-auto w/o micrscpCorey Dwayne DO Work Phone: Start: 42-50-6919LHZAYZINK VAGINITIS (HTRX)Babs Dwayne DO Work Phone: Start: 41-89-1185Mgagc dip stick/tablet rgnt non-auto w/o micrscpCorey Dwayne DO Work Phone: Start: 56-99-2400Nmxzy dip stick/tablet rgnt non-auto w/o micrscpCorey Dwayne DO Work Phone: Start: 90-11-2630YDQ TESTCorey Dwayne DO Work Phone: Start: 22-68-7227DDS CBC WITH AUTO DIFFCorey Dwayne DO Work Phone: Start: 02-19-5058Qpxas dip stick/tablet rgnt non-auto w/o micrscpCorey Dwayne DO Work Phone: Start: 83-07-1792Op abdominal real time w/image limitedEMALEE SINGERH/O: sectionS/P sectionAmy Nanda GRIJALVA Work Phone: Plan of Treatment DateCare ActivityDetailAuthorStart: 01-30-2025 End: 70-32-1047Xdmurzg encounter procedureNOMS Jadyn OBGYNComment on above: ArrivedStart: 11-01-2024 End: 16-34-8184Zsldbqe encounter /07/2025 8:30 AM EDT Office Visit [facility] [address] [place] [address] Babs Rice, DO [address] [place] [address] N[facility] BCP OBStart: 10-23-2024 End: 16-46-9702Bxqmmvm encounter procedureNOMS BCP OBComment on above:Arrived Start: 10-15-2024 End: 71-72-4995Qpookik encounter procedureNOMS BCP OBComment on above:Arrived Start: 10-09-2024 End: 03-63-4667HJHYVOY, GROUP B STREP WITH SUSCEPTIBLITYCULTURE, GROUP B STREP WITH SUSCEPTIBLITY Lab Routine Third trimester ([facility]) Expected: 10/09/2024, Expires: 10/09/2025[facility] Work Phone: comment on above:Expected: 10/09/2024, Expires: 10/09/2025Start: 10-09-2024 End: 82-26-1090Tbmmboe encounter prcwjgifx55/15/2025 10:40 AM EDT Routine [facility] [address] [place] [address] Babs Rice, DO [address] [place] [address] N[facility] BCP OBStart: 09-24-2024 End: 87-17-8293Klgdyxy encounter procedureNOMS BCP OBComment on above:Arrived Start: 09-10-2024 End: 59-47-5005Lmbhfpc encounter procedureNOMS BCP OBComment on above:Arrived Start: 08-15-2024 End: 44-56-6431HT for pregnancyUS OB follow up transabdominal approach Imaging Routine Size of fetus inconsistent with dates in second trimester Expected: 08/15/2024, Expires: 12/16/2024[facility] Work Phone: comment on above:Expected: 08/15/2024, Expires: 12/16/2024Start: 08-15-2024 End: 73-07-8484Czefmrb encounter procedureNOMS BCP OBComment on above:Arrived Start: 07-23-2024 End: 07-00-8384GUG panel - Blood by Automated countCBC Lab Routine Diabetes mellitus screening Expected: 07/23/2024 (Approximate), Expires: 07/23/2025[facility] Work Phone: comment on above:Expected: 07/23/2024 (Approximate), Expires: 07/23/2025Start: 07-23-2024 End: 62-85-8510Qtdjrgktgvv of glucose 1 hour after glucose challenge for glucose tolerance testGlucose tolerance, 1 hour Lab Routine Diabetes mellitus screening Expected: 07/23/2024 (Approximate), Expires: 07/23/2025[facility] HealthcareComment on above:Expected: 07/23/2024 (Approximate), Expires: 07/23/2025Start: 07-23-2024 End: 22-96-3320Ldouazc encounter procedureNOMS BCP OBComment on above:Arrived Start: 06-26-2024 End: 00-68-9078Deojkmoxsyvi / ancillary services dhjxhnbcbi79/01/2025 9:00 AM EDT Ancillary Procedure [facility] [address] [facility] [address] [place] [address] DZAB BCP OBStart: 06-25-2024 End: 73-34-0085Vlxnksj encounter procedureNOMS BCP OBComment on above:Arrived Start: 05-28-2024 End: 00-70-1884Rvesl fetoprotein, maternalAlpha fetoprotein, maternal Lab Routine Screening, , for anatomic survey Expected: 05/28/2024 (Approximate), Expires: 07/28/2024[facility] HealthcareComment on above:Expected: 05/28/2024 (Approximate), Expires: 07/28/2024Start: 05-28-2024 End: 72-97-5715DS for pregnancyUS OB 14+ weeks anatomy scan Imaging Routine Screening, , for anatomic survey Expected: 05/28/2024, Expires: 05/28/2025[facility] HealthcareComment on above:Expected: 05/28/2024, Expires: 05/28/2025Start: 05-28-2024 End: 62-99-7135Rrxqilc encounter procedureNOMS BCP OBComment on above:Arrived Start: 04-30-2024 End: 73-98-2423Cmbicuy encounter procedureNOMS BCP OBComment on above:Arrived Start: 03-30-2024 End: 86-66-3175YBD/RhABO/Rh Lab Routine Missed menses , unspecified gestational age Expected: 03/30/2024 (Approximate), Expires: 03/30/2025[facility] HealthcareComment on above:Expected: 03/30/2024 (Approximate), Expires: 03/30/2025Start: 39-97-3536Ncfahubc identified in Urine by CultureNOMS HealthcareComment on above:Ordered: 03/30/2024Start: 03-30-2024 End: 54-92-0631Wzfxr type and Indirect antibody screen panel - BloodType and screen Lab Routine Missed menses , unspecified gestational age Expected: 03/30/2024 (Approximate), Expires: 03/30/2025[facility] Work Phone: comment on above:Expected: 03/30/2024 (Approximate), Expires: 03/30/2025Start: 03-30-2024 End: 48-25-0606Lilmw of abuse panel - Urine by Screen methodRapid drug screen, urine Lab Routine , unspecified gestational age Encounter for supervision of normal first in first trimester Expected: 03/30/2024 (Approximate), Expires: 03/30/2025[facility] HealthcareComment on above:Expected: 03/30/2024 (Approximate), Expires: 03/30/2025Start: 99-68-0148WxeaoOur [facility] of Mercy Hospital - Andersontart: 01-31-2024 End: 83-47-3923YV for pregnancyUS PELVIS-TRANSVAG IF INDICATED Imaging Routine Dysfunctional uterine bleeding Expected: 01/31/2024(Approximate), Expires: 01/30/2025[facility] Work Phone: comment on above:Expected: 01/31/2024 (Approximate), Expires: 01/30/2025Start: 01-31-2024 End: 50-09-2336Vtwxaob encounter rimzjykrk98/05/2024 8:40 AM EST Office Visit [facility] [address] [place] [address] Babs Rice, DO [address] [place], [place] [id number] ArrivedNOSD BCP OBComment on above:ArrivedCBC W Auto Differential panel - BloodCBC and differential Lab Routine Missed menses , unspecified gestational age Ordered: 03/30/2024[facility] HealthcareComment on above:Ordered: 03/30/2024HLAMYDIA TRACHOMATIS (GENITO/STI)CHLAMYDIA TRACHOMATIS (GENITO/STI) Lab Routine STD exposure Vaginal discharge Ordered: 05/28/2024[facility] HealthcareComment on above:Ordered: 05/28/2024Hemoglobin A1c/Hemoglobin.total in BloodHemoglobin A1c Lab Routine Missed menses , unspecified gestational age Ordered: 03/30/2024[facility] HealthcareComment on above: Ordered: 03/30/2024Hepatitis B virus surface Ag [Presence] in Serum or Plasma by ImmunoassayHepatitis B surface antigen Lab Routine Missed menses , unspecified gestational age Ordered: 03/30/2024[facility] HealthcareComment on above: Ordered: 03/30/2024Hepatitis C virus Ab [Presence] in Serum or Plasma by ImmunoassayHepatitis C antibody Lab Routine Missed menses , unspecified gestational age Ordered: 03/30/2024[facility] HealthcareComment on above:Ordered: 03/30/2024HIV-1/HIV-2 antigen/antibody combination immunoassayHIV-1 and HIV-2 antibodies Lab Routine Missed menses , unspecified gestational age Ordered: 03/30/2024[facility] HealthcareComment on above:Ordered: 03/30/2024Neisseria gonorrhoeae DNA [Presence] in Unspecified specimen by DELILAH with probe detection Neisseria gonorrhea DNA probe, direct Lab Routine STD exposure Vaginal discharge Ordered: 05/28/2024[facility] HealthcareComment on above:Ordered: 05/28/2024Reagin Ab [Presence] in Serum by RPRRPR Lab Routine Missed menses , unspecified gestational age Ordered: 03/30/2024[facility] HealthcareComment on above:Ordered: 03/30/2024Rubella antibody, IgGRubella antibody, IgG Lab Routine Missed menses , unspecified gestational age Ordered: 03/30/2024[facility] HealthcareComment on above:Ordered: 03/30/2024SURESWAB(R) ADVANCED VAGINITIS PLUS, TMASURESWAB(R) ADVANCED VAGINITIS PLUS, TMA Pathology and Cytology Routine STD exposure Vaginal discharge Ordered: 05/28/2024[facility] Healthcare Work Phone: comment on above:Ordered: 05/28/2024 Payers DatePayer CategoryPayerPolicy [id number] Health Insurance [id number] 2.16.840.1.647991.3.57[id number] 2.0.1.176508.3.57[id number] 2.840.1.640341.3.57[id number] 2.0.1.858042.3.57[id number] 2..1.972001.3.57[id number] 2..1.627581.3.57[id number] 2..1.653988.3.57[id number] 2..1.843040.3.57[id number] 2..1.227613.3.57[id number] 2..1.634181.3.57[id number] 2.0.1.835799.3.57[id number] 2.840.1.424928.3.579.2.685923-53-2953Wljbohx1881411 2.0.1.147715.3.579.2.909410-60-7868Fvuxbco3586201 2.16.840.1.052891.3.579.[id number] 2.16.840.1.941129.3.579.2.[id number] 2..840.1.902957.3.579.2.310045-23-4280Nbkjfyf6359901 2..840.1.249338.3.579.[id number] 2..840.1.571331.3.579.[id number] 2..840.1.728409.3.579.[id number] 2.840.1.326920.3.579.2.382610-87-6715Vbaotgr8715594 2.840.1.078144.3.579.2.079382-43-3716Lpsb-[id number] [id number] 2..840.1.193012.3.579.2.531 Social History DateTypeDetailFacilityStart: 21-36-0305Kowpijh smoking status NHISNever smoked tobaccoNOMS HealthcareStart: 28-37-7415Grbybkd use and exposureSmokeless tobacco non-userNOMS HealthcareStart: 10-31-2023 End: 60-07-1819Fbqkgdlfo beverage intakeLifetime non-drinker (finding)[facility] HealthcareStart: 10-31-2023 End: 69-97-8186Mrlcdip of Social functionNOMS HealthcareStart: 10-31-2023 End: 98-56-2249Mlvreid use panelNOMS HealthcareStart: 96-03-3760Epi assigned at birthFeBeth Israel Hospital HealthcareStart: 66-89-6630Gszkdb identityIdentifies as female gender (finding)[facility] HealthcareStart: 50-39-6420NgouyghcxJWYN HealthcareTobacco smoking status NHISUnknown if ever smokedRiverview Health Institute [facility] Work Phone: Start: 24-52-3507EprRopsws (finding)[facility] Hospitaltart: 38-28-0702RfaKcoavgQCBPSummerville Medical Center Clinical Notes 01-31-2024 to 12-12-2024 Note Date & BmwiOrgpFarqjteh63-64-1420 History of Present illness Narrative* RUDI Espana - 12/12/2024 2:00 PM EDT Reason for Appointment: Patient ID: Joseline Chavez is a 34 y.o. female who presents for No chief complaint on file. Patient presents today for Post Follow Up appointment. MEDICATIONS Current Outpatient Medications Medication Instructions MV-Min-Fe Fum-FA-DHA ( 1 PO) Take by mouth vitamin C 250 mg, Daily ALLERGIES Allergies Allergen Reactions Sulfa Antibiotics Hives, Itching and Swelling Other Reaction(s): Unknown PROBLEMS Active Ambulatory Problems Diagnosis Date Noted S/P 12/12/2024 Resolved Ambulatory Problems Diagnosis Date Noted No [...] Exam Constitutional: Appearance: Normal appearance. She is well-developed and normal weight. HENT: Head: Normocephalic. Cardiovascular: Rate and Rhythm: Normal rate and regular rhythm. Pulses: Normal pulses. Pulmonary: Effort: Pulmonary effort is normal. Breath sounds: Normal breath sounds. Abdominal: General: A surgical scar is present. Bowel sounds are normal. There is no distension. Palpations: Abdomen is soft. Tenderness: There is no abdominal tenderness. There is no guarding or rebound. Musculoskeletal: General: No swelling. Normal range of motion. Right lower leg: No edema. Left lower leg: No edema. Neurological: General: No focal deficit present. Mental Status: She is alert and oriented to person, place, and time. Skin: General: Skin is warm and dry. Psychiatric: Mood and Affect: Mood normal. Behavior: Behavior normal. Thought Content: Thought content normal. Judgment: Judgment normal. Vitals and nursing note reviewed. Exam conducted with a shaft sinker present. Vitals: Estimated body mass index is 29.05 kg/m as calculated from the following: Height as of 10/31/23: 5' 6 . Weight as of 11/07/24: 180 lb. BP: No LMP recorded. ASSESSMENT & PLAN ICD-10-CM 1. S/P Z98.891 Post Follow Up: Patient is doing well and has no complaints at this time. Patient presents today for 6 week visit. Patient is s/p delivery. Patient voiced no depression and only increase in fatigue. All options were discussed with the patient regarding control and patient desires no control at this time. Follow Up: Patient is to return for annual unless needed otherwise. Documented by Sarah Rossi LPN on behalf of: RUDI Espana documented in this encounterAlvin J. Siteman Cancer [id number] History of Present illness Narrative* Georgina Woodruff NP - 11/07/2024 2:20 PM EDT Reason for [...] LOOP ELECTRODE EXCISION SECTION, CLASSIC 11/01/2024 COLPOSCOPY 2015 KNEE SURGERY Knee arthroscopy WISDOM [...] nursing note reviewed. Exam conducted with a shaft sinker present. Vitals: Estimated body mass index is [...] for 6 week evaluation. Documented by Georgina Wodoruff NP on behalf of: Geogrina Woodruff NP documented in this encounterAlvin J. Siteman Cancer [id number] History of Present illness Narrative* RUDI Espana - 10/23/2024 11:10 AM EDT Reason for Appointment: Patient ID: Joseline Chavez is a 34 y.o. female who presents for Routine Visit Patient presents today for Return OB appointment. MEDICATIONS Current Outpatient Medications Medication Instructions clotrimazole-betamethasone (Lotrisone) cream 1 application , Topical, Daily, Apply to affected areadaily for 7 days omeprazole (PRILOSEC) 20 mg, [...] & PLAN ICD-10-CM 1. Third trimester ([facility]) Z34.93 POCT urinalysis dipstick manually resulted 2. 38 weeks gestation of ([facility]) Z3A.38 Return OB: Patient presents [...] of: Babs Rice DO documented in this encounterAlvin J. Siteman Cancer [id number] History of Present illness Narrative* Sarah Rossi, POLITICAL SCIENCE CHAIR - 10/15/2024 9:50 AM EDT Reason for Appointment: Patient ID: Joseline Chavez is a 34 y.o. female who presents for Routine Visit Patient presents today for Return OB appointment. MEDICATIONS Current Outpatient Medications Medication Instructions clotrimazole-betamethasone (Lotrisone) cream 1 application , Topical, Daily, Apply to affected areadaily for 7 days omeprazole (PRILOSEC) 20 mg, [...] nursing note reviewed. Exam conducted with a shaft sinker present. Vitals: Estimated body mass index is 30.51 kg/m as calculated from the following: Height as of 10/31/23: 5' 6 . Weight as of this encounter: 189 lb. BP: 122/76 Patient's last menstrual period was 01/30/2024 (exact date). ASSESSMENT & PLAN ICD-10-CM 1. Third trimester ([facility]) Z34.93 2. 37 weeks gestation of ([facility]) Z3A.37 Patient presents today for a routine obstetrics appointment. Patient is currently 37w0d with a Estimated Date of Delivery: 11/05/24. Patient is doing well and does not have any complaints at this time. Patient will return to clinic in 1 week for routine OB appointment with possible cervicalcheck if patient desires since patient is setup for . Documented by Sarah Rossi LPN on behalf of: Babs Rice DO documented in this encounterAlvin J. Siteman Cancer [id number] History of Present illness Narrative* Demetria Perez, POLITICAL SCIENCE CHAIR - 10/09/2024 10:40 AM EDT Reason for Appointment: Patient ID: Joseline Chavez is a 34 y.o. female who presents for Routine Visit Patient presents today for Return OB appointment. MEDICATIONS Current Outpatient Medications Medication Instructions clotrimazole-betamethasone (Lotrisone) cream 1 application , Topical, Daily, Apply to affected areadaily for 7 days omeprazole (PRILOSEC) 20 mg, [...] nursing note reviewed. Exam conducted with a shaft sinker present. Vitals: Estimated body mass index is 30.15 kg/m as calculated from the following: Height as of 10/31/23: 5' 6 . Weight as of this encounter: 186 lb 12.8 oz. BP: 110/76 Patient's last menstrual period was 01/30/2024 (exact date). ASSESSMENT & PLAN ICD-10-CM 1. 36 weeks gestation of ([facility]) Z3A.36 POCT urinalysis dipstick manually resulted 2. Third trimester ([facility]) Z34.93 POCT urinalysis dipstick manually resulted CULTURE, GROUP B STREP WITH SUSCEPTIBLITY CULTURE, GROUP B STREP WITH SUSCEPTIBLITY 3. Sinusitis, unspecified chronicity, unspecified location J32.9 4. Gastroesophageal reflux in ([facility]) O99.619 K21.9 Patient is doing well [...] of: Babs Rice DO documented in this encounterAlvin J. Siteman Cancer [id number] History of Present illness Narrative* Demetria Perez, POLITICAL SCIENCE CHAIR - 09/24/2024 10:30 AM EDT Reason for Appointment: Patient ID: Joseline Dickerson is a 34 y.o. female who presents for Routine Visit Patient presents today for Return OB appointment. MEDICATIONS Current Outpatient Medications Medication Instructions azithromycin (Zithromax Z-Fadi) 250 MG tablet As directed clotrimazole-betamethasone (Lotrisone) cream 1 application , Topical, Daily, Apply to affected areadaily for 7 days omeprazole (PRILOSEC) 20 mg, [...] nursing note reviewed. Exam conducted with a shaft sinker present. Vitals: Estimated body mass index is 29.7 kg/m as calculated from the following: Height as of 10/31/23: 5' 6 . Weight as of this encounter: 184 lb. BP: 118/72 Patient's last menstrual period was 01/30/2024 (exact date). ASSESSMENT & PLAN ICD-10-CM 1. Third trimester ([facility]) Z34.93 POCT urinalysis dipstick manually resulted 2. 34 weeks gestation of ([facility]) Z3A.34 Return OB: Patient presents today for [...] of: Babs Rice DO documented in this encounterAlvin J. Siteman Cancer [id number] History of Present illness Narrative* RUDI Espana - 09/10/2024 9:50 AM EDT Reason for Appointment: Patient ID: Joseline Dickerson is a 33 y.o. female who presents for Routine Visit Patient presents today for Return OB appointment. MEDICATIONS Current Outpatient Medications Medication Instructions clotrimazole-betamethasone (Lotrisone) cream 1 application , Topical, Daily, Apply to affected areadaily for 7 days omeprazole (PRILOSEC) 20 mg, [...] & PLAN ICD-10-CM 1. Third trimester ([facility]) Z34.93 2. 32 weeks gestation of ([facility]) Z3A.32 Return OB: Patient presents today [...] behalf of: RUDI Espana documented in this encounterAlvin J. Siteman Cancer [id number] History of Present illness Narrative* Georgina Woodruff NP - 08/27/2024 2:30 PM EDT Reason for Appointment: Patient ID: Joseline Dickerson is a 33 y.o. female who presents for Routine Visit Patient presents today for Return OB appointment. MEDICATIONS Current Outpatient Medications Medication Instructions clotrimazole-betamethasone (Lotrisone) cream 1 application , Topical, Daily, Apply to affected areadaily for 7 days omeprazole (PRILOSEC) 20 mg, [...] nursing note reviewed. Exam conducted with a shaft sinker present. Vitals: Estimated body mass index is [...] of: Babs Rice DO documented in this encounterAlvin J. Siteman Cancer [id number] History of Present illness Narrative* RUDI Espana - 08/15/2024 4:00 PM EDT Reason for Appointment: Patient ID: Joseline Dickerson is a 33 y.o. female who presents for Routine Visit Patient presents today for Return OB appointment. MEDICATIONS Current Outpatient Medications Medication Instructions clotrimazole-betamethasone (Lotrisone) cream 1 application , Topical, Daily, Apply to affected areadaily for 7 days omeprazole (PRILOSEC) 20 mg, [...] behalf of: RUDI Espana documented in this encounterAlvin J. Siteman Cancer [id number] History of Present illness Narrative* Sarah Rossi, POLITICAL SCIENCE CHAIR - 07/23/2024 9:50 AM EDT Reason for Appointment: Patient ID: Joseline Dickerson is a 33 y.o. female who presents for Routine Visit Patient presents today for Return OB appointment. MEDICATIONS Current Outpatient Medications Medication Instructions clotrimazole-betamethasone (Lotrisone) cream 1 application , Topical, Daily, Apply to affected areadaily for 7 days MV-Min-Fe Fum-FA-DHA ( 1 [...] nursing note reviewed. Exam conducted with a shaft sinker present. Vitals: Estimated body mass index is [...] of: Babs Rice DO documented in this encounterAlvin J. Siteman Cancer [id number] History of Present illness Narrative* Georgina Woodruff NP - 06/25/2024 9:40 AM EDT Reason for Appointment: Patient ID: Joseline Dickerson is a 33 y.o. female who presents for Routine Visit Patient presents today for Return OB appointment. MEDICATIONS Current Outpatient Medications Medication Instructions clotrimazole-betamethasone (Lotrisone) cream 1 application , Topical, Daily, Apply to affected areadaily for 7 days MV-Min-Fe Fum-FA-DHA ( 1 [...] nursing note reviewed. Exam conducted with a shaft sinker present. Vitals: Estimated body mass index is [...] of: Babs Rice DO documented in this encounterAlvin J. Siteman Cancer [id number] History of Present illness Narrative* Sarah Rossi LPN - 05/28/2024 9:40 AM EST Reason for Appointment: Patient ID: Joseline Dickerson is a 33 y.o. female who presents for Routine Visit Patient presents today for Return OB appointment. MEDICATIONS Current Outpatient Medications Medication Instructions clotrimazole-betamethasone (Lotrisone) cream 1 application , Topical, Daily, Apply to affected areadaily for 7 days ondansetron ODT (ZOFRAN-ODT) 4 [...] nursing note reviewed. Exam conducted with a shaft sinker present. Vitals: Estimated body mass index is [...] obtained without difficulty and [facility]. Orders Placed This Encounter Procedures US OB 14+ weeks anatomy scan CHLAMYDIA TRACHOMATIS (GENITO/STI) Neisseria gonorrhea DNA probe, direct Alpha fetoprotein, maternal POCT urinalysis dipstick manually resulted Follow Up: Patient is to return to our office in 4 weeks for routine OB appointment Documented by Sarah Rossi LPN on behalf of: Babs Rice DO documented in this encounterAlvin J. Siteman Cancer [id number] History of Present illness Narrative* Deborah Richardson MA - 04/30/2024 1:40 PM EST Images from the original note were not [...] Past Medical History: Diagnosis Date Arthritis Asthma ([facility]) MARIANO II (cervical intraepithelial neoplasia II) HPV (human papilloma virus) infection 04/2015 HSIL (high grade squamous intraepithelial lesion) on Pap smear of cervix Hx of being hospitalized Urinary tract infection HISTORY PAST MEDICAL HISTORY SOCIAL HISTORY Past Medical History: Diagnosis Date Arthritis Asthma ([facility]) MARIANO II (cervical intraepithelial neoplasia II) HPV [...] nursing note reviewed. Exam conducted with a shaft sinker present. Vitals: Estimated body mass index is [...] or undercooked meat, and stay away from [facility]. Patient has been consulted regarding any further do's and don'tsof . Patient voiced understanding and all questions [...] by Deborah Richardson MA on behalf of: denadra vee, daya documented in this encounterAlvin J. Siteman Cancer [id number] History of Present illness Narrative* Sheri Colliercollins, POLITICAL SCIENCE CHAIR - 03/30/2024 10:00 AM EST Reason for Appointment: Patient ID: Joseline Dickerson [...] drink 6-8 glasses of water a day, eatno raw or undercooked meat, and stay away from [facility]. Patient has also been advised to not change litter boxes and eat 6 small meals a day. Patient has been consulted regarding the do's and don'ts ofpregnancy. Patient was given labs and all questions [...] by: Sheri Reyna LPN documented in this encounterAlvin J. Siteman Cancer [id number] History of Present illness Narrative* Demetria Perez LPN - 01/31/2024 8:40 AM EST Reason for Appointment: Patient ID: Joseline Dickerson [...] nursing note reviewed. Exam conducted with a shaft sinker present. Vitals: Estimated body mass index is [...] is to have progesterone labs drawn. Patient wasadvised to have intercourse on days 12, 14, [...] of: Babs Rice DO documented in this encounterNOSD HealthcareEvaluation note* Diagnosis Encounter for infertility Dysfunctional uterine bleeding Other disorder of menstruation and other abnormal bleeding from female genital tract documented in this encounter [facility]* Diagnosis Missed menses , unspecified gestational age Encounter for supervision of normal first in first trimester documented in this encounter [facility] HealthcareEvaluation noteNo assessment information availableRiverview Health Institute Ctr Work Phone: Evaluation note* Diagnosis Second [...] postprocedural status documented in this encounter [facility]* Diagnosis S/P documented in this encounter [facility] Summary [...] section and content) DATE CREATED AUTHOR 09/15/2017 [facility] DATE CREATED AUTHOR AUTHOR'S ORGANIZ ATION 10/19/2021 [facility] DATE CREATED AUTHOR AUTHOR'S ORGANIZ ATION 11/01/[address] [facility] DATE CREATED AUTHOR AUTHOR'S ORGANIZ ATION 04/07/2024 [facility] DATE CREATED AUTHOR AUTHOR'S ORGANIZ ATION 12/14/2024 [facility] Care Teams (unrecognized sec tion and content) Team MemberRelationshipSpecialtyStart DateEnd Date Josephine Canada MD [address] [phone] PCP - General10/18/22Team MemberRelationshipSpecialtyStart DateEnd Date Josephine Canada MD [address] [phone] PCP - General10/18/22Team MemberRelationshipSpecialtyStart DateEnd Date Josephine Canada MD [address] [place] [address] PCP - General10/18/22Team MemberRelationshipSpecialtyStart DateEnd Date Josephine Canada MD [address] [place] [address] PCP - General10/18/22 Team Status: Inactive Member Role Status Dates Babs Rice DO Attending Provider Active Start : March 30, 2024 End: March 30, 2024Team MemberRelationshipSpecialtyStart DateEnd Date Josephine Canada MD [address] [phone] PCP - General10/18/22Team MemberRelationshipSpecialtyStart DateEnd Date Josephine Canada MD [address] [place] [address] PCP - General7/24/23Team MemberRelationshipSpecialtyStart DateEnd Date Josephine Canada MD [address] [facility] [place] [address] PCP - General7/2423Team MemberRelationshipSpecialtyStart DateEnd Date Josephine Canada MD [address] [facility] [place] [address] PCP - General7/24/23Team MemberRelationshipSpecialtyStart DateEnd Date Josephine Canada MD PCP - General7/24/23Team MemberRelationshipSpecialtyStart DateEnd Date Josephine Canada MD [address] [facility] [place] [address] PCP - General7/2423Team MemberRelationshipSpecialtyStart DateEnd Date Josephine Canada MD [address] [facility] [place] [address] PCP - General7/2423Team MemberRelationshipSpecialtyStart DateEnd Date Josephine Canada MD [address] [facility] [place] [address] PCP - General7/24/23Team MemberRelationshipSpecialtyStart DateEnd Date Josephine Canada MD [address] [facility] [place] [address] PCP - General10/18/22Te MemberRelationshipSpecialtyStart DateEnd Date Josephine Canada MD [address] [facility] [place] [phone] PCP - General10/18/22Te MemberRelationshipSpecialtyStart DateEnd Date Josephine Canada MD [address] [facility] [place] [phone] PCP - General10/18/22Te MemberRelationshipSpecialtyStart DateEnd Date Josephine Canada MD [address] [facility] [place] [address] PCP - [facility]10/18/22Te MemberRelationshipSpecialtyStart DateEnd Date Josephine Canada MD [address] [facility] [place] [address] PCP - [facility]10/18/22 Reason for Visit (unrecogniz ed section and content) ReasonCommentsInfertilityPt present today to discuss fertilityReasonComments AmenorrheaReasonCommentsRoutine VisitReasonCommentss/p c section Goals (unrecognized section and content) [...] BE BASED ON THE PRIMARY CLINICAL RECORDS. [facility]. provides no warranty or guarantee of the accuracy or completeness of information in this document.
--- OUTSIDE RECORDS SUMMARY | 2025-01-30 20:18 | XMS_ITS | Patient Health Record ---
Author Organization [facility] in [place] Address [address] [place] [address] Care Team Providers Care Cycle Analyst Name Role Phone Torrey Canada Primary Care Provider [phone] Allergies Allergen (clinical drug ingredient) Drug/Non Drug Allergy documented on EMR Reaction Allergy Type Onset Date Status Substance with sulfonamide s tructure and antibacterial mechanism of action (substance) Sulfa Antibiotics hives Drug Allergy Active Results Component Value Reference Range Notes CBC AUTO DIFF Reviewed date:04/01/2024 05:00:27 PM Interpretation: Performing Lab: Notes/Report: [facility] , White Blood Count 7.8 4.0-11.0 10 3/uL Red Blood Count4.274.20-5.40 10 6/vJXeswcexapi90.912.0-16.0 g/kKLglkwbdcsw75.7 36.0-48.0 %Mean Corpuscular Hrdwdt29.381.0-99.0 fLMean Corpuscular Hemoglobin 30.226.7-34.0 pgMean Corpuscular HGB Conc34.229.9-35.2 g/dLRed Cell Distribution Width11.611.0-15.0 %Platelet Cxkdi329322-719 10 3/uLMean Platelet Elnhwi45.59.5- 13.5 fLNeutrophils Percent Auto67.943.0-75.0 %Lymphocytes Percent Auto22.420.5- 60.0 %Monocytes Percent Auto7.71.7-12.0 %Eosinophils Percent Auto0.90.9-7.0 % Basophils Percent Auto0.80.2-2.0 %Immature Granulocytes Pct Auto0.30.0-0.5 % Neutrophils Absolute Auto5.31.4-6.5 10 3/uLLymphocytes Absolute Auto1.71.2-3.8 10 3/uLMonocytes Absolute Auto0.60.3-0.8 10 3/uLEosinophils Absolute Auto0.10.0- 0.7 10 3/uLBasophils Absolute Auto0.10.0-0.1 10 3/uLImmature Granulocytes Abs Auto0.020.00-0.03 10 3/uLPerforming Lab:see noteML - [facility] LB DRUG SCREEN RAPID (URINE) Reviewed date:04/01/2024 05:00:27 PM Interpretation: Performing Lab: Notes/Report: [facility] ,Cannabinoid Screen UrineNEGATIVENEGATIVEPhencyclidine Screen UrineNEGATIVE NEGATIVECocaine Screen UrineNEGATIVENEGATIVEMethamphetamines Screen Urine NEGATIVENEGATIVEOpiate Screen UrineNEGATIVENEGATIVEAmphetamine Screen Urine NEGATIVENEGATIVEBenzodiazepines Screen UrineNEGATIVENEGATIVETricyclic Antidepressant UrineNEGATIVENEGATIVEMethadone Screen UrineNEGATIVENEGATIVE Barbiturates Screen UrineNEGATIVENEGATIVEOxycodone Screen UrineNEGATIVENEGATIVE Buprenorphine Screen UrineNEGATIVENEGATIVE FAUSTINO (Cocaine): 150 ng/mL BUP (Buprenorphine): 10 ng/mL OXY (Oxycodone): 100 ng/mL TCA (Trycyclic Antidepressants): 300 ng/mL BAR (Barbiturates): 200 ng/mL FOLLOWS: PCP (Phencyclidine): 25 ng/mL THC (Cannabinoids): 50 ng/mL DRUG CLASS TEST SYSTEM CUT-OFF CONCENTRATIONS ARE OPI (Opiates): 100 ng/mL BZO (Benzodiazepines): 150 ng/mL MTD (Methadone): 200 ng/mL mAMP (Methamphetamine): 500 ng/mL AMP (Amphetamine): 500 ng/mL Performing Lab:see noteML - [facility] LBGLYCOHEMOGLOBIN A1C Reviewed date:04/01/2024 05:00:27 PM Interpretation: Performing Lab: Notes/Report: [facility] ,Glycohemoglobin A1C5.04.5-6.2 % ADA RECOMMENDED LIMIT 4.0 - 6.0 ACTION SUGGESTED ADA THERAPEUTIC TARGET < 7.0 > 7.0 Estimated Average Wkrgzpy95Bicynjeyfh Lab:[facility] LB Type and Screen Reviewed date:04/01/2024 05:00:27 PM Interpretation: Performing Lab: Notes/Report: [facility] ,Blood TypeO PositiveAntibody ScreenNEGATIVERapid Plasma Reagin, Quant Reviewed date:04/01/2024 05:00:27 PM Interpretation: Performing Lab: Notes/Report: [facility] ,Rapid Plasma Reagin, QuantNon ReactiveNonRea<1:1 titer intended for following treatment response in patients being Rapid Plasma Reagin (RPR) Test With Reflex to Quantitative Please Note: This test does not meet current guidelines for [employer] Supervisor: Michael Carrizales PhD, Phone: [phone] [address], [place] [phone] ([phone]). infection, a reflex cascade that includes both RPR and a treated for syphilis infection. To screen for syphilis screening and diagnosis of syphilis. This test is Treponema pallidum (Syphilis) Screening [place] (490394) or treponema-specific assay should be utilized, such as Performed at: [facility] RPR and Confirmatory Treponema pallidum Antibodies Performing Lab:[facility] LBHBsAg Screen Reviewed date:04/01/2024 05:00:27 PM Interpretation: Performing Lab: Notes/Report: [facility] ,HBsAg ScreenNegativeNegative Performed at: [facility] [employer] Supervisor: Michael Carrizales PhD, Phone: [phone] [address], [place] [phone] Performing Lab:see [facility] LBBox Test Reviewed date:04/03/2024 12:33:13 PM Interpretation: Performing Lab: Notes/Report: URINE CULTURE [facility] ,BOX Test Sent OutURINE CULTUREBOX Test Reference LabFIRELANDSBOX Test Date Sent 03/30/24BOX Test ResultSEE SCANNED REPORTPerforming Lab:see [facility]airL[facility] LBUS OB cervical length Reviewed date:06/25/2024 09:34:41 PM Interpretation: Performing Lab: Notes/Report: Source Facility: [facility], [place] [address] Ultrasound Report Signed Patient: JOSELINE DICKERSON MR#: [id number] : 1990 Acct:[id number] Age/Sex: 33 / F ADM Date: 06/25/24 Loc: US Attending Dr: Babs Rice D.O. Ordering Physician: Babs Rice D.O. Date of Service: 06/25/24 Procedure(s): US OB cervical length Accession Number(s): [id number] cc: Babs Rice D.O.; Agusto [place] M.D. [facility] [place] [address] Patient Name: JOSELINE DICKERSON MRN: [id number] date: 1990 Sex: F Assigned Patient Location: US Current Patient Location: US Accession/Order Number: [id number] Exam Date: 06/25/2024 21:26 Report Date: 06/25/2024 21:27 At the request of: BABS RICE DO Procedure: US OB cervical length Ultrasound assessment of cervical length Length of cervix 5.4 cm. The opening is closed. US/US OB cervical length IMPRESSION: 5.4 cm cervical length Impression dictated by: Andrew Jordan M.D.06/25/2024 9:27 PM Dictation Location: [place] [address] Electronically authenticated by: [id number] Y Date: 06/25/2024 21:27 Dictated By: Andrew Jordan D.O. Signed By: 06/25/242128 DD/ 26 TD/TT: Senior Web Applications Developer:US OB anatomy Reviewed date:06/25/2024 09:34:41 PM Interpretation: Performing Lab: Notes/Report: Source Facility: [place] [address] Ultrasound Report Signed Patient: JOSELINE DICKERSON MR#: [id number] : 1990 Acct:[id number] Age/Sex: 33 / F ADM Date: 06/25/24 Loc: US Attending Dr: Babs Rice D.O. Ordering Physician: Babs Rice D.O. Date of Service: 06/25/24 Procedure(s): US OB anatomy Accession Number(s): [id number] cc: Babs Rice D.O.; Agusto Canada M.D. [place] [id number] Patient Name: JOSELINE DICKERSON MRN: [id number] date: 1990 Sex: F Assigned Patient Location: US Current Patient Location: US Accession/Order Number: [id number] Exam Date: 06/25/2024 21:20 Report Date: 06/25/2024 [...] due date is 11/06/2024. somatic motion identified. US/ OB anatomy IMPRESSION: Single live intrauterine gestation 20 weeks 6 days. The anatomy as above. Impression dictated by: Andrew Jordan M.D.06/25/2024 9:26 PM Dictation Location: [place] [address] Electronically authenticated by: [id number] Y Date: 06/25/2024 21:26 Dictated By: Andrew Jordan D.O. Signed By: 06/25/242127 DD/ 25 TD/TT: Senior Web Applications Developer:CBC AUTO DIFF Reviewed date:08/05/2024 05:39:44 PM Interpretation: Performing Lab: Notes/Report: [facility] ,White Blood Count11.34.0-11.0 10 3/uLRed Blood Count3.884.20-5.40 10 6/uL Hrbabptlci12.212.0-16.0 g/mNJkrzklymiy98.436.0-48.0 %Mean Corpuscular Lrqllx74.2 81.0-99.0 fLMean Corpuscular Btzidzqlhe59.426.7-34.0 pgMean Corpuscular HGB Conc 34.529.9-35.2 g/dLRed Cell Distribution Width12.011.0-15.0 %Platelet Gbzcx674 150-450 10 3/uLMean Platelet Accone47.39.5-13.5 fLNeutrophils Percent Auto74.5 43.0-75.0 %Lymphocytes Percent Auto17.620.5-60.0 %Monocytes Percent Auto6.01.7- 12.0 %Eosinophils Percent Auto1.20.9-7.0 %Basophils Percent Auto0.30.2-2.0 % Immature Granulocytes Pct Auto0.40.0-0.5 %Neutrophils Absolute Auto8.41.4-6.5 10 3/uLLymphocytes Absolute Auto2.01.2-3.8 10 3/uLMonocytes Absolute Auto0.70.3-0.8 10 3/uLEosinophils Absolute Auto0.10.0-0.7 10 3/uLBasophils Absolute Auto0.00.0- 0.1 10 3/uLImmature Granulocytes Abs Auto0.040.00-0.03 10 3/uLPerforming Lab:see note - [facility] LBGlucose 1 Hour Reviewed date:08/05/2024 05:39:44 PM Interpretation: Performing Lab: Notes/Report: [facility] ,Glucose 1 Tmcc221<130 mg/dLPerforming Lab:see noteML - [facility] LB Type and Screen Reviewed date:11/01/2024 10:20:55 PM Interpretation: Performing Lab: Notes/Report: [facility] ,Blood TypeO PositiveAntibody ScreenNEGATIVECBC AUTO DIFF Reviewed date:11/02/2024 06:56:36 AM Interpretation: Performing Lab: Notes/Report: [facility] ,White Blood Count14.84.0-11.0 10 3/uLRed Blood Count3.124.20-5.40 10 6/uL Hemoglobin8.412.0-16.0 g/eKHqjocmmdgh19.636.0-48.0 %Mean Corpuscular Nkrlnb91.1 81.0-99.0 fLMean Corpuscular Lhatxcirdk69.926.7-34.0 pgMean Corpuscular HGB Conc 32.829.9-35.2 g/dLRed Cell Distribution Width12.911.0-15.0 %Platelet Qgeud265 150-450 10 3/uLMean Platelet Dabnev26.49.5-13.5 fLNeutrophils Percent Auto68.7 43.0-75.0 %Lymphocytes Percent Auto21.920.5-60.0 %Monocytes Percent Auto8.21.7- 12.0 %Eosinophils Percent Auto0.40.9-7.0 %Basophils Percent Auto0.30.2-2.0 % Immature Granulocytes Pct Auto0.50.0-0.5 %Neutrophils Absolute Auto10.21.4-6.5 10 3/uLLymphocytes Absolute Auto3.21.2-3.8 10 3/uLMonocytes Absolute Auto1.20.3- 0.8 10 3/uLEosinophils Absolute Auto0.10.0-0.7 10 3/uLBasophils Absolute Auto0.0 0.0-0.1 10 3/uLImmature Granulocytes Abs Auto0.070.00-0.03 10 3/uLPerforming Lab:see noteML - [facility] LBAFP, Serum, Open Spina Bifida Reviewed date:06/27/2024 07:30:00 PM Interpretation: Performing Lab: Notes/Report: N N LMP [id number] 0 17 N 1 161 N N N N N White/ [facility] ,ResultsReport.Test Results:*Screen Negative*.Gest. Age on Collection Date21.0. weeksGestat. Age Based OnLMP. Recalculations are not recommended when gestational dating by LMP and ultrasound are within 10 days. Maternal Age At EDD33.1. yrRaceCaucasian.Wtkpil988. lbsInsulin Dep DiabetesNo. Multiple GestationNo.AFP Value84.1. ng/mLAFP MoM1.36.OSBR Risk 1 WV4645. InterpretationComment. detected by this test. This test does not screen for Services to discuss available options. The [place] calculated is based on the gestational age provided. MS-AFP Down Syndrome or Trisomy 18. If screening for Down Syndrome can identify up to 80% of open neural tube defects. Interpretation: Screen Negative This result is screen negative for OSB. The AFP [facility] [employer] [employer] recommends amniocentesis be offered to women age 35 and older. Closed neural tube defects and some open defects may not be or Trisomy 18 is desired, contact Genetic Customer Comment:Comment. Anabell Rubin, Ph.D., [facility] Performed at: - [facility] IDD - Insulin Dep Diabetes Ann 2.5 Black 2.8 Director Boxing [employer]ing Supervisor: Tejas Farley [facility], Phone: [phone] by the Food and Drug Administration. Abbreviation Definitions For AFP Elevations determined by [facility]. It has not been cleared or approved For further inquiries contact [facility] This test was developed and its performance characteristics OSBR - Open Spina Bifida Risk IDD 2.0 Twins 4.5 Genetics Services at [phone]. References: Available Upon Request. [address] [facility], [facility], [place] [phone] Multiples Of Median Cutoffs Performing Lab:see noteLC - [facility] LBBox Test Reviewed date:04/16/2024 01:40:45 PM Interpretation: Performing Lab: Notes/Report: [place] [facility] ,BOX Test Sent OutUNITY BOXBOX Test Reference LabUNITY BOXBOX Test Date Sent 04/13/24Performing Lab:see [facility]airL[facility] LBHCV Antibody RFX to Quant PCR Reviewed date:04/01/2024 05:00:27 PM Interpretation: Performing Lab: Notes/Report: [facility] ,HCV AbNon ReactiveNon ReactiveInterpretation:Comment. Not infected with HCV unless early or acute infection is infection. individual), or other evidence exists to indicate HCV suspected (which may be delayed in an immunocompromised Performing Lab:see note - [facility] LBHIV Ab/p24 Ag with Reflex Reviewed date:04/01/2024 05:00:27 PM Interpretation: Performing Lab: Notes/Report: [facility] ,HIV Ab/p24 Ag ScreenNon ReactiveNon Reactive detected. There is no laboratory evidence of HIV infection. HIV-1/HIV-2 antibodies and HIV-1 p24 antigen were NOT Performed at: [facility] [employer] Supervisor: Michael Carrizales PhD, Phone: [phone] HIV Negative [address], [place] [phone] Performing Lab:see [facility] LBRUBELLA AB IGG Reviewed date:04/01/2024 05:00:27 PM Interpretation: Performing Lab: Notes/Report: [facility] ,Rubella Antibodies, IgG2.34Immune >0.99 index Equivocal 0.90 - 0.99 Non-immune <0.90 Immune >0.99 Performing Lab:see notePhys[facility]geons [facility] LBDRUG SCREEN RAPID (URINE) Reviewed date:11/01/2024 08:32:31 AM Interpretation: Performing Lab: Notes/Report: [facility] ,Cannabinoid Screen UrineNEGATIVENEGATIVEPhencyclidine Screen UrineNEGATIVE NEGATIVECocaine Screen UrineNEGATIVENEGATIVEMethamphetamines Screen Urine NEGATIVENEGATIVEOpiate Screen UrineNEGATIVENEGATIVEAmphetamine Screen Urine NEGATIVENEGATIVEBenzodiazepines Screen UrineNEGATIVENEGATIVETricyclic Antidepressant UrineNEGATIVENEGATIVEMethadone Screen UrineNEGATIVENEGATIVE Barbiturates Screen UrineNEGATIVENEGATIVEOxycodone Screen UrineNEGATIVENEGATIVE Buprenorphine Screen UrineNEGATIVENEGATIVE PCP (Phencyclidine): 25 ng/mL TCA (Trycyclic Antidepressants): 300 ng/mL mAMP (Methamphetamine): 500 ng/mL AMP (Amphetamine): 500 ng/mL OXY (Oxycodone): 100 ng/mL FOLLOWS: BZO (Benzodiazepines): 150 ng/mL DRUG CLASS TEST SYSTEM CUT-OFF CONCENTRATIONS ARE FAUSTINO (Cocaine): 150 ng/mL THC (Cannabinoids): 50 ng/mL OPI (Opiates): 100 ng/mL MTD (Methadone): 200 ng/mL BAR (Barbiturates): 200 ng/mL BUP (Buprenorphine): 10 ng/mL Performing Lab:see noteML - [facility] LBStrep Gp B Culture+Rflx Reviewed date:10/13/2024 02:40:11 PM Interpretation: Performing Lab: Notes/Report: [facility] ,Strep Gp B Culture+RflxSee Below For Report Strep Gp B Culture+Rflx Strep Gp B Culture+RflxNegative Strep Gp B Culture+Rflx Strep Gp B Culture+RflxCenters for Disease Control and Prevention (CDC) and Strep Gp B Culture+Rflx Strep Gp B Culture+RflxAmerlittle [facility] Congress of Obstetricians and Gynecologists Strep Gp B Culture+Rflx Strep Gp B Culture+Rflx(ACOG) guidelines for prevention of group B Strep Gp B Culture+Rflx Strep Gp B Culture+Rflxstreptococcal (GBS) disease specify co-collection of Strep Gp B Culture+Rflx Strep Gp B Culture+Rflxa vaginal and rectal swab specimen to maximize Strep Gp B Culture+Rflx Strep Gp B Culture+Rflxsensitivity of GBS detection. Per the CDC and ACOG, Strep Gp B Culture+Rflx Strep Gp B Culture+Rflxswabbing both the lower vagina and rectum Strep Gp B Culture+Rflx Strep Gp B Culture+Rflxsubstantially increases the yield of detection Strep Gp B Culture+Rflx Strep Gp B Culture+Rflxcompared with sampling the vagina alone. Strep Gp B Culture+Rflx Strep Gp B Culture+RflxPenicillin G, ampicillin, or cefazolin are indicated Strep Gp B Culture+Rflx Strep Gp B Culture+Rflxfor intrapartum prophylaxis of GBS Strep Gp B Culture+Rflx Strep Gp B Culture+Rflxcolonization. Reflex susceptibility testing should be Strep Gp B Culture+Rflx Strep Gp B Culture+Rflxperformed prior to use of clindamycin only on GBS Strep Gp B Culture+Rflx Strep Gp B Culture+Rflxisolates from penicillin-allergic women who are Strep Gp B Culture+Rflx Strep Gp B Culture+Rflxconsidered a high risk for anaphylaxis. Treatment with Strep Gp B Culture+Rflx Strep Gp B Culture+Rflxvancomycin without additional testing is warranted if Strep Gp B Culture+Rflx Strep Gp B Culture+Rflxresistance to clindamycin is noted. Strep Gp B Culture+Rflx Strep Gp B Culture+RflxPerformed at: CB - [facility] [place] Strep Gp B Culture+Rflx Strep Gp B Culture+[address], [place] [phone] Strep Gp B Culture+Rflx Strep Gp B Culture+RflxLab Director: Michael Carrizales PhD, Phone: [phone] Strep Gp B Culture+Rflx Performing Lab:see note LC - [facility] LB SEE REPORT - Clearing Distribution Clerk Id information not found for OBX-specific allergist/immunologist physician legend Reason For Referral No Information Medications Medication SIG (Take, Route, Frequency, Duration) Notes Start Date End Date Status Amoxicillin-Pot Clavulanate 875-125 MG 1 tablet Orally every 12 hrs; Duration: 10 days 4Active Social History Tobacco Use: Social History Observation Description Date Details (start date - stop date) Never Smoker NA - NA Tobacco Use/Smoking Question Answer Notes Patient is a nonsmoker Alcohol Screen (Audit-C) Question Answer Notes Did you have a drink containing alcohol in the p ast year? Yes How often did you have 6 or more drinks on one occasion in the past year?Never (0 point)How many drinks did you have on a typical day when you were drinking in the past year?1 or 2 drinks (0 point)How often did you have a drink containing alcohol in the past year?Less than monthly (1 point)Swldtc1Zkfsrclpbxadod NegativeAUDIT-C (Standard) Question Answer Notes Did you have a drink containing alcohol in the p ast year? No Pkaioo3UsdfhdpnvkjfqlIupvxyik Problems Problem Type SNOMED Code ICD Code Onset Dates Problem Status W/U Status Risk Notes Problem Well adult (596723373) Well adult (Z00.00 ) Activeconfirmed Plan Of Treatment Pending Test Test Name [...] Insured Coverage Start Date Coverage End Date [facility] [id number] [place] [id number] [id number] Arturo Chavez - patient is the insured Medical (General) History Medical History History ICD Code Acne L70.9 Heart palpitations R00.2 Headache, migraine G43.909 Hyperhidrosis R61 Irritable bowel syndrome K58.9 Surgical History Surgery Date(Month/Year) chrondoplasty/ left knee arthroscopy 200 [facility] 2016
--- OUTSIDE RECORDS SUMMARY | 2025-01-30 20:18 | XMS_ITS | Clinical Summary ---
Author Organization [facility] Address [address] [place] [address] Care Team Providers Care Carry Out Clerk Name Role Phone Agusto Canada MD Primary Care Provider [phone] Allergies Active AllergyReactionsCriticalityNoted DateCommentsSulfa AntibioticsHives, Itching,Wimewqxg26/31/2023 Other Reaction(s): Unknown Medications MedicationSigDispense QuantityRefillsLast FilledStart DateEnd DateStatus MV-Min-Fe Fum-FA-DHA ( 1 PO) Take by mouthActive Ascorbic Acid (vitamin C) 250 MG tablet Take 250 mg by mouth DailyActive Active Problems ProblemNoted DateDiagnosed DateS/P C-bdfyugf3112/12/2024 Encounters DateTypeDepartmentCare CrlcMhzkdxiudqm39/05/2025 3:00 PM ESTProcedure Visit [facility] [address] [place] [address] Deandra Black PA Well woman exam with routine gynecological exam01/30/2025amboo flowsheet [facility] [address] [place] [address] Deandra Black PA 01/23/20259063Jwvuoa33/17/2025 2:00 PM EDTPostpartum Visit [facility] [address] [place] [address] Deandra Black PA S/P C-jbmezav8612/05/20249156Wpzlat47/22/2025bstract [facility] [address] [address] Zelalem Rice, 5Abstract [facility] [address] [address] Zelalem Rice, DO 11/07/2024 2:20 PM EDTOffice Visit [facility] [address] [address] Deandra Black PA S/P vvjhkzb8411/07/2024amboo flowsheet [facility] [address] [address] Deandra Black PA 11/04/2024bstract [facility] [address] [place] [address] Faby Forte CNM 5Clinisync Result Encounter [facility] External Department Unsolicited Zelalem Rice, DO 11/01/2024bstract [facility] [address] [address] Zelalem Rice, DO 11/01/2024bstract [facility] [address] [address] Zelalem Rice, DO 5Clinisync Result Encounter [facility] External Department Unsolicited Zelalem Rice, from Last 3 Months Family History Medical HistoryRelationNameCommentsAsthmaMotherAngela kotsopoulosThyroid disease MotherAngela kotsopoulosRelationNameStatusCommentsFatherAliveMotherAngela kotsopoulosAlive Social History Tobacco UseTypesPacks/DayYears UsedDateSmoking Tobacco: NeverSmokeless Tobacco: Never Tobacco Cessation:Counseling Given: Not Answered Alcohol UseStandard Drinks/WeekCommentsNever0 (1 standard drink = 0.6 oz pure alcohol)CommentsNoSex and Gender InformationValueDate RecordedSex Assigned at GxquwYlfnun99/13/2023 3:40 PM EDTLegal IgjXugdhi63/15/2023 11:47 PM EDTGender PgiyhgglDoqvut77/13/2023 3:40 PM EDTSexual OrientationNot on file Last Filed Vital Signs Vital SignReadingTime TakenCommentsBlood Lyixabso876/7001/30/2025 3:19 PM EST Pulse--Temperature--Respiratory Rate--Oxygen Saturation--Inhaled Oxygen Concentration--Zefudn23.8 kg (167 lb 1.9 oz)01/30/2025 3:19 PM GHGMppbuc970.6 cm (5' 6 )10/31/2023 9:28 AM EDTBody Mass Index26.9710/31/2023 9:28 AM EDT Plan of Treatment DateTypeDepartmentCare Team (Latest Contact Info)Doohdwumbqy65/11/2026 3:00 PM ESTProcedure Visit [facility] [address] [address] Zelalem Rice DO [address] [facility] [address] [place] [address] Procedures Procedure NamePriorityDate/TimeAssociated DiagnosisCommentsALL CBC WITH AUTO ZVIXZoabulo84/08/2025 5:59 AM EDT ALL CBC WITH AUTO KGWOPtribpj39/07/2025 6:00 AM EDT [facility] DRUG SCREEN RAPID (URINE)Vbmswwl4711/01/2024 5:30 AM EDT from Last 3 Months Results * (ABNORMAL) ALL CBC WITH AUTO DIFF (11/02/2024 5:59 AM EDT) Only the most recent of2 resultswithin the time period is included. ComponentValueRef RangeTest MethodAnalysis TimePerformed AtPathologist Signature TB WBC14.8(H)4.0 - 11.0 10 3/uLTBHTBH RBC3.12(L)4.20 - 5.40 10 6/uLTBHTBH HGB 8.4(L)12.0 - 16.0 g/dLTBHTBH HCT25.6(L)36.0 - 48.0 %TBHTBH MCV82.181.0 - 99.0 fL TBHTBH MCH26.926.7 - 34.0 pgTBHTBH MCHC32.829.9 - 35.2 g/dLTBHTBH RDW12.911.0 - 15.0 %TBHTBH CBI264574 - 450 10 3/uLTBHTBH MPV12.49.5 - 13.5 fLTBHNEUTROPHILS PERCENT AUTO68.743.0 - 75.0 %TBHLYMPHOCYTES PERCENT AUTO21.920.5 - 60.0 %TBH MONOCYTES PERCENT AUTO8.21.7 - 12.0 %TBHTBH EO %0.4(L)0.9 - 7.0 %TBHBASOPHILS PERCENT AUTO0.30.2 - 2.0 %TBHIMMATURE GRANULOCYTES PCT AUTO0.50.0 - 0.5 %[facility]H NEUTROPHILS ABSOLUTE AUTO10.2(H)1.4 - 6.5 10 3/uLTBHLYMPHOCYTES ABSOLUTE AUTO3.2 1.2 - 3.8 10 3/uLTBHMONOCYTES ABSOLUTE AUTO1.2(H)0.3 - 0.8 10 3/uLTBHTBH EO #0.1 0.0 - 0.7 10 3/uLTBHBASOPHILS ABSOLUTE AUTO0.00.0 - 0.1 10 3/uLTBHIMMATURE GRANULOCYTES ABS AUTO0.07(H)0.00 - 0.03 10 3/uLTBHSpecimen (Source)Anatomical Location / LateralityCollection Method / VolumeCollection TimeReceived Time 11/02/2024 5:59 AM EDT11/02/2024 6:10 AM EDT Narrative [facility] - 11/02/2024 6:15 AM EDT Authorizing ProviderResult TypeResult StatusCorey Dwayne DOCLINISYNCFinal Result Performing OrganizationAddressCity/State/ZIP CodePhone Number [facility] * [facility] DRUG SCREEN RAPID (URINE) (11/01/2024 5:30 AM EDT)ComponentValueRef Range Test MethodAnalysis TimePerformed AtPathologist SignatureCANNABINOID SCREEN URINENEGATIVENEGATIVETBHPHENCYCLIDINE SCREEN URINENEGATIVENEGATIVETBHCOCAINE SCREEN URINENEGATIVENEGATIVETBHMETHAMPHETAMINES SCREEN URINENEGATIVENEGATIVE TBHOPIATE SCREEN URINENEGATIVENEGATIVETBHAMPHETAMINE SCREEN URINENEGATIVE NEGATIVETBHBENZODIAZEPINES SCREEN URINENEGATIVENEGATIVETBHTRICYCLIC ANTIDEPRESSANT URINENEGATIVENEGATIVETBHMETHADONE SCREEN URINENEGATIVENEGATIVE TBHBARBITURATES SCREEN URINENEGATIVENEGATIVETBHOXYCODONE SCREEN URINENEGATIVE NEGATIVETBHBUPRENORPHINE SCREEN URINENEGATIVENEGATIVETBHComment: DRUG CLASS TEST SYSTEM CUT-OFF CONCENTRATIONS ARE FOLLOWS: AMP (Amphetamine): 500 ng/mL BAR (Barbiturates): 200 ng/mL BZO (Benzodiazepines): 150 ng/mL BUP (Buprenorphine): 10 ng/mL FAUSTINO (Cocaine): 150 ng/mL mAMP (Methamphetamine): 500 ng/mL MTD (Methadone): 200 ng/mL OPI (Opiates): 100 ng/mL OXY (Oxycodone): 100 ng/mL PCP (Phencyclidine): 25 ng/mL THC (Cannabinoids): 50 ng/mL TCA (Trycyclic Antidepressants): 300 ng/mL Specimen (Source)Anatomical Location / LateralityCollection Method / Volume Collection TimeReceived Time11/01/2024 5:30 AM EDT11/01/2024 6:10 AM EDT Narrative [facility] - 11/01/2024 6:24 AM EDT Authorizing ProviderResult TypeResult StatusCorey Dwayne DOCLINISYNCFinal Result Performing OrganizationAddressCity/State/ZIP CodePhone Number [facility] from Last 3 Months Insurance Care Teams Team MemberRelationshipSpecialtyStart DateEnd Agusto Canada MD [address] [place] [phone] PCP - [facility]10/18/22
--- OUTSIDE RECORDS SUMMARY | 2025-01-30 20:18 | XMS_ITS | Encounter Summary ---
Author Organization [facility] Address [address] [place] [address] Care Team Providers Care Wall Worker Name Role Phone Agusto Canada MD Primary Care Provider [phone] Encounter Details DateTypeDepartmentCare Team (Latest Contact Info)Fyjgkqhtfba95/05/2025amboo flowsheet [facility] [address] [place] [address] Deandra Black PA [address] [place], [place] [address] Social History Tobacco UseTypesPacks/DayYears UsedDateSmoking Tobacco: NeverSmokeless Tobacco: NeverAlcohol UseStandard Drinks/WeekCommentsNever0 (1 standard drink = 0.6 oz pure alcohol)CommentsNoSex and Gender InformationValueDate RecordedSex Assigned at OhekeEoujeq76/13/2023 3:40 PM EDTLegal PchXyqzqn25/15/2023 11:47 PM EDTGender UaezrtvgPdbreg66/13/2023 3:40 PM EDTSexual OrientationNot on file documented as of this encounter Plan of Treatment DateTypeDepartmentCare Team (Latest Contact Info)Ephbblnhllw91/11/2026 3:00 PM ESTProcedure Visit [facility] [address] [address] Zelalem Rice DO [address] [place], [facility] documented as of this encounter Visit Diagnoses Not on filedocumented in this encounter Care Teams Team MemberRelationshipSpecialtyStart DateEnd Date Agusto Canada MD [address] [place] [address] PCP - General10/18/22documented as of this encounter
--- OUTSIDE RECORDS SUMMARY | 2025-01-30 20:18 | XMS_ITS | Encounter Summary ---
Author Organization [facility] Address [address] [place] [address] Care Team Providers Care Telephone Sales Agent Name Role Phone Agusto Canada MD Primary Care Provider [phone] Encounter Details DateTypeDepartmentCare Team (Latest Contact Info)Uhqugjwxifj03/29/2025Travel Social History Tobacco UseTypesPacks/DayYears UsedDateSmoking Tobacco: NeverSmokeless Tobacco: NeverAlcohol UseStandard Drinks/WeekCommentsNever0 (1 standard drink = 0.6 oz pure alcohol)CommentsNoSex and Gender InformationValueDate RecordedSex Assigned at HtdihZoyxcp04/13/2023 3:40 PM EDTLegal HsxLoksle50/15/2023 11:47 PM EDTGender DlqttaehChznit47/13/2023 3:40 PM EDTSexual OrientationNot on file documented as of this encounter Plan of Treatment DateTypeDepartmentCare Team (Latest Contact Info)Qhqubehzfyj23/11/2026 3:00 PM ESTProcedure Visit [facility] [place] [facility] [address] [address] Zelalem Rice DO [address] [place] [address] documented as of this encounter Visit Diagnoses Not on filedocumented in this encounter Care Teams Team MemberRelationshipSpecialtyStart DateEnd Agusto Canada MD [address] [facility] [place] [address] [facility]10/18/22documented as of this encounter
== END 2025-01-30 20:14 | disposition home or self-care (01) ==
LOC: LAB 20:13
PROVIDERS: PCP Family Medicine; Visit Provider Physician Assistant
DX: Z01.419 Encounter for gynecological examination (general) (routine) without abnormal findings (principal)
CPT/HCPCS: 87624; 88175